=== PATIENT | female | born 1950 | race Hispanic/Latino ===

== ENCOUNTER 2016-07-21 03:15 | Inpatient (IN) | payer MEDICARE, MEDICAID ==
[2016-07-21] VITALS (9 sets, daily range): BP systolic 109–145; BP diastolic 38–62; PULSE 53–72; RESP 14–20; O2SAT 94–99
[~2016-07-21] VITALS: Ht 137.2 cm; Wt 65.1 kg
[~2016-07-21 03:15] MED LIST: ACET-171 PO; ASPI325T32 PO; CARV6.252 PO; CLON0.1T14 PO; HYDR-3940 PO; INSLIS SUBQ; INSU100V7 SUBQ; LISI40TA PO; LON25 PO; PANT40TA2 PO; SYN75 PO
[2016-07-21 05:17] LABS: BASOPHILS % (AUTO) 0.2 % (0-3); EOSINOPHILS % (AUTO) 0.2 % (0-5); MONOCYTES % (AUTO) 8.6 % (4-12); Mean Corpuscular Volume 96.6 fL (81-100); NEUTROPHILS % (AUTO) 82.8 % (40-74); Platelet Count 173 bil/L (150-400)
--- NOTE | 2016-07-21 05:29 | ED.REPORT ---
HPI-Altered Mental Status Date of Service Jul 21, 2016 ED Provider: Rickey Puckett MD This is a 65 year old female presenting after an episode of decreased LOC that occurred just prior to arrival. Nursing Notes Stated Complaint: SWEATING/NOT RESPONDING Chief Complaint: General Complaint Nursing Notes Reviewed: Yes Allergies: Coded Allergies: piroxicam (Verified Allergy, Severe, swelling, 03/28/16) glipizide (Verified Allergy, Intermediate, 03/28/16) amlodipine (Verified Allergy, Unknown, 03/28/16) labetalol (Verified Allergy, Unknown, 03/28/16) Scheduled Aspirin (Aspirin) 325 Mg Tablet 325 MG PO DAILY Carvedilol (Carvedilol) 6.25 Mg Tablet 12.5 MG PO BID Clonidine (Catapres) 0.1 Mg Tablet 0.2 MG PO Q8H Hydralazine (Hydralazine) 50 Mg Tablet 75 MG PO Q8 Insulin Glargine (Lantus U100 Insulin Vial) 100 Unit/Ml Vial 5 UNIT SUBQ HS Insulin Human Lispro (HumaLOG U100 Insulin Vial) 100 Unit/Ml Unit 0 UNIT SUBQ WMHS Check blood sugars before meals and at bedtime. Use correction factor only before meals. Blood Sugar Lispro Correction: <151, 0 units; 151-175, 1 unit; 176-200, 2 units; 201-225, 3 units; 226-250, 4 units; 251-275, 5 units; 276-300 , 6 units; 301-325, 7 units; 326-350, 8 units; 351-375, 9 units; 376-400, 10 units; >400, 12 units. Levothyroxine (Synthroid) 75 Mcg Tablet 75 MCG PO DAILY Lisinopril (Lisinopril) 40 Mg Tablet 40 MG PO DAILY Minoxidil (Minoxidil) 2.5 Mg Tablet 5 MG PO BID Pantoprazole DR (Protonix) 40 Mg Tablet.dr 40 MG PO QAM Scheduled PRN Acetaminophen (Acetaminophen) 500 Mg Tablet 500 MG PO Q6H PRN PRN For Pain General Time Seen by MD: 04:40 Chief Complaint Unresponsive Hx Obtained From: Patient Arrived By: Walk-in Sudden in Onset?: Yes Onset Occurred: Just prior to arrival Symptom Duration: Since onset Severity: Current: No pain currently Pertinent Negative: Pt denies other symptoms Recent Healthcare: No recent doctor visit, No recent hospitalization Similar Sx Previous: No Past Medical History Past Medical History 1. Stage 5 chronic kidney disease, hemodialysis dependent. 2. 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 3. Severe hypertension. 4. History of diastolic congestive heart failure. 5. Dyslipidemia. 6. Hypothyroidism. 7. Obesity. 8. Renal dialysis with right arm shunt. Past Surgical History 1. Tunnel catheter placed on AV fistula right upper extremity. 2. Appendectomy. 3. Cataract surgery. 4. bypass surgery 08/27/14 Smoking History Never Smoker Social History Alcohol Use: Denies alcohol use Drug Use: Denies drug use Other Social History: Good social support Ambulatory Status Independent Review of Systems Constitutional: Denies: Chills, Fever Respiratory: Denies: Non-productive cough, Shortness of breath GI: Denies: Abdominal pain, Nausea, Vomiting Neurologic: Reports: Change LOC, Denies: Headache Complete sys rev & neg: except as marked. Physical Exam Initial Vital Signs Vital Signs (First) Date Time Temp Pulse Resp B/P Pulse Ox O2 Delivery O2 Flow Rate FiO2 07/21/16 03:19 38.4 72 18 111/46 Room Air 07/21/16 04:52 94 Initial VS: Reviewed Interpretation & Diagnostics Lab Results Interpretation Result Diagram: 07/21/16 0427 07/21/16 0427 Test 07/21/16 04:27 07/21/16 06:45 07/21/16 06:47 White Blood Count 12.5th/mm3 (3.8-10.1) Red Blood Count 3.28mil/mm3 (3.90-5.20) Hemoglobin 10.5g/dL (12.0-15.6) Hematocrit 31.7% (35.0-46.0) Mean Corpuscular Volume 96.6fL (81-100) Mean Corpuscular Hemoglobin 32.0pg (27.0-35.0) Mean Corpuscular Hemoglobin Concent 33.1% (32.0-37.0) Red Cell Distribution Width 12.6% (12.3-15.4) Platelet Count 173bil/L (150-400) Neutrophils (%) (Auto) 82.8% (40-74) Lymphocytes (%) (Auto) 7.9% (14-46) Monocytes (%) (Auto) 8.6% (4-12) Eosinophils (%) (Auto) 0.2% (0-5) Basophils (%) (Auto) 0.2% (0-3) Sodium Level 133mEq/L (134-144) Potassium Level 3.4mEq/L (3.5-5.2) Chloride Level 95mEq/L (97-108) Carbon Dioxide Level 23mmol/L (18-29) Blood Urea Nitrogen 32mg/dL (8-27) Creatinine 4.15mg/dL (0.57-1.00) Estimat Glomerular Filtration Rate 15mL/min (>59) Glucose Level 227mg/dL (60-99) Calcium Level 9.2mg/dL (8.5-10.1) Total Bilirubin 0.5mg/dL (0.0-1.2) Aspartate Amino Transf (AST/SGOT) 14U/L (0-50) Alanine Aminotransferase (ALT/SGPT) 7U/L (0-32) Alkaline Phosphatase 149U/L (25-165) Troponin T 0.065ug/L (0.0-0.011) Pro-B-Type Natriuretic Peptide 25306vw/mL (0-301) Total Protein 7.5g/dL (6.4-8.4) Albumin 3.4g/dL (3.4-5.0) Lactic Acid Level 0.7mmol/L (0.4-2.0) Urine Color Yellow (YELLOW) Urine Appearance Turbid (CLEAR,HAZY) Urine pH 6.0 (5.0-8.0) Urine Specific [place] 1.020 (1.003-1.035) Urine Protein 300mg/dL (NEG,TRACE) Urine Glucose (UA) 100mg/dL (NEGATIVE) Urine Ketones Tracemg/dL (NEGATIVE) Urine Occult Blood Moderate (NEGATIVE) Urine Nitrite Negative (NEGATIVE) Urine Bilirubin Negative (NEGATIVE) Urine Urobilinogen Normalmg/dL (NORMAL) Urine Leukocyte Esterase Moderate (NEGATIVE) Urine RBC 3-10/hpf (0-2) Urine WBC 11-50/hpf (0-5) Urine Epithelial Cells Few/hpf (NONE-MOD) Urine Crystals None seen (NONE SEEN) Urine Bacteria Moderate/hpf (NONE-FEW) Urine Hyaline Casts None/lpf (NONE) Urine Granular Casts None seen (NONE SEEN) Urine Waxy Casts None seen (NONE SEEN) Urine Red Blood Cell Casts None seen (NONE SEEN) Urine White Blood Cell Casts None seen (NONE SEEN) Urine Mucus None seen (None Seen) Urine Trichomonas None seen (NONE SEEN) Urine Yeast None (NONE SEEN) Urinalysis Comment Urine Culture Reflexed Indicated ECG Interpretation ECG Interpretation: NSR at a rate of 64 Probable LVH with secondary repolarization abnormality Time: 05:39 Interpreted by: ED physician X-Ray Chest Interpretation Interpretation / Wet Read by: Wet read ED physician NL X-Ray Chest Findings: No infiltrate, No acute disease Re-Eval/Medical Decision Counseled Regarding: Diagnosis, Lab results, Need for follow-up Patient Discharge & Departure Referrals: Mira Ovalle MD (PCP) Scribe Attestation Portions of this note were transcribed by Ty Ruffin. I, Dr. Puckett personally performed the history, physical exam and medical decision-making; I reviewed and confirmed the accuracy of the information in the transcribed note. Signed by: Ty Ruffin. 07/20/2016, 0530. Rickey Puckett MD Jul 21, 2016 05:29 TY RUFFIN Jul 21, 2016 05:34 Dmitri Marquez MD Jul 21, 2016 12:37
--- NOTE | 2016-07-21 06:02 | ED.REPORT ---
HPI-Altered Mental Status Date of Service Jul 21, 2016 ED Provider: Dmitri Marquez MD 65 year old female with a hx of End stage renal disease on hemodialysis (M,W,F, still urinates), Diastolic heart failure, Diabetes mellitus type 2, Chronic Hypothyroid, Hypertension, coronary artery disease status post coronary artery bypass graft who presents to the ED accompanied by her family after she was found difficult to arouse and diaphoretic this morning. The patient was feeling well yesterday and had a complete dialysis. She had no symptoms until her family noted her difficult to rouse this morning. Pt currently denies any symptoms including vomiting, diarrhea, CP and SOB. Her family reports a chronic cough. In March the patient was seen for pyelonephritis with similar presentation with admission. She was diagnosed with acute Sepsis secondary to E. Coli UTI and probable pyelonephritis, and acute altered mental status change possible acute delirium or acute metabolic encephalopathy due to underlying UTI. Nursing Notes Stated Complaint: SWEATING/NOT RESPONDING Chief Complaint: General Complaint Nursing Notes Reviewed: Yes Allergies: Coded Allergies: piroxicam (Verified Allergy, Severe, swelling, 03/28/16) glipizide (Verified Allergy, Intermediate, 03/28/16) amlodipine (Verified Allergy, Unknown, 03/28/16) labetalol (Verified Allergy, Unknown, 03/28/16) Scheduled Aspirin (Aspirin) 325 Mg Tablet 325 MG PO DAILY Carvedilol (Carvedilol) 6.25 Mg Tablet 12.5 MG PO BID Clonidine (Catapres) 0.1 Mg Tablet 0.2 MG PO Q8H Hydralazine (Hydralazine) 50 Mg Tablet 75 MG PO Q8 Insulin Glargine (Lantus U100 Insulin Vial) 100 Unit/Ml Vial 5 UNIT SUBQ HS Insulin Human Lispro (HumaLOG U100 Insulin Vial) 100 Unit/Ml Unit 0 UNIT SUBQ WMHS Check blood sugars before meals and at bedtime. Use correction factor only before meals. Blood Sugar Lispro Correction: <151, 0 units; 151-175, 1 unit; 176-200, 2 units; 201-225, 3 units; 226-250, 4 units; 251-275, 5 units; 276-300 , 6 units; 301-325, 7 units; 326-350, 8 units; 351-375, 9 units; 376-400, 10 units; >400, 12 units. Levothyroxine (Synthroid) 75 Mcg Tablet 75 MCG PO DAILY Lisinopril (Lisinopril) 40 Mg Tablet 40 MG PO DAILY Minoxidil (Minoxidil) 2.5 Mg Tablet 5 MG PO BID Pantoprazole DR (Protonix) 40 Mg Tablet.dr 40 MG PO QAM Scheduled PRN Acetaminophen (Acetaminophen) 500 Mg Tablet 500 MG PO Q6H PRN PRN For Pain General Time Seen by MD: 04:40 Chief Complaint Decreased responsiveness Hx Obtained From: Patient, Other family... Arrived By: Wheelchair Sudden in Onset?: No Onset Occurred: 1 - 4 hours ago Symptom Duration: Since onset Severity: Current: No pain currently Associated with: Denies: Diarrhea, Vomiting Pertinent Negative: Relieved by nothing Past Medical History Past Medical History 1. Stage 5 chronic kidney disease, hemodialysis dependent (M,W,F) 2. 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 3. Severe hypertension. 4. History of diastolic congestive heart failure. 5. Dyslipidemia. 6. Hypothyroidism. 7. Obesity. 8. Renal dialysis with right arm shunt. Past Surgical History 1. Tunnel catheter placed on AV fistula right upper extremity. 2. Appendectomy. 3. Cataract surgery. 4. bypass surgery 08/27/14 Smoking History Never Smoker Social History Alcohol Use: Denies alcohol use Drug Use: Denies drug use Other Social History: Good social support Ambulatory Status Independent Review of Systems Basic Review of Systems ENT: Hearing NL, No pain, No nasal congestion, No pharyngeal pain Constitutional: Denies: Fever Respiratory: Reports: Non-productive cough, Denies: Shortness of breath Cardiovascular: Denies: Chest pain GI: Denies: Abdominal pain, Diarrhea, Vomiting Skin: Reports Diaphoresis Neurologic: Reports: Change LOC Complete sys rev & neg: except as marked. Physical Exam Initial Vital Signs Vital Signs (First) Date Time Temp Pulse Resp B/P Pulse Ox O2 Delivery O2 Flow Rate FiO2 07/21/16 03:19 38.4 72 18 111/46 Room Air 07/21/16 04:52 94 Initial VS: Reviewed ENT: Conjunctiva normal, No scleral icterus General/Constitutional: Awake, Alert Sleepy Head / Eyes: Atraumatic, Normocephalic, PERRL Neck: Supple, Full range of motion Respiratory / Chest: Atraumatic, No respiratory distress, No rhonchi, No wheezing, No chest tenderness Fine bibasilar rales Cardiovascular: Heart rate NL, Regular rhythm, Peripheral circulation NL Heart Sounds / Murmur: Positive: Systolic murmur present.. (II/) Trace edema Neurologic: Oriented X3, Speech NL, No motor deficits Sleepy, but arousable to voice and touch Abdomen: Soft, Non-tender, BS normoactive, No distention Skin: Warm Color / Condition: Positive: Diaphoresis present Interpretation & Diagnostics Lab Results Interpretation Result Diagram: 07/21/16 0427 07/21/16 042 Test 07/21/16 04:27 07/21/16 06:45 07/21/16 06:47 White Blood Count 12.5th/mm3 (3.8-10.1) Red Blood Count 3.28mil/mm3 (3.90-5.20) Hemoglobin 10.5g/dL (12.0-15.6) Hematocrit 31.7% (35.0-46.0) Mean Corpuscular Volume 96.6fL (81-100) Mean Corpuscular Hemoglobin 32.0pg (27.0-35.0) Mean Corpuscular Hemoglobin Concent 33.1% (32.0-37.0) Red Cell Distribution Width 12.6% (12.3-15.4) Platelet Count 173bil/L (150-400) Neutrophils (%) (Auto) 82.8% (40-74) Lymphocytes (%) (Auto) 7.9% (14-46) Monocytes (%) (Auto) 8.6% (4-12) Eosinophils (%) (Auto) 0.2% (0-5) Basophils (%) (Auto) 0.2% (0-3) Sodium Level 133mEq/L (134-144) Potassium Level 3.4mEq/L (3.5-5.2) Chloride Level 95mEq/L (97-108) Carbon Dioxide Level 23mmol/L (18-29) Blood Urea Nitrogen 32mg/dL (8-27) Creatinine 4.15mg/dL (0.57-1.00) Estimat Glomerular Filtration Rate 15mL/min (>59) Glucose Level 227mg/dL (60-99) Calcium Level 9.2mg/dL (8.5-10.1) Total Bilirubin 0.5mg/dL (0.0-1.2) Aspartate Amino Transf (AST/SGOT) 14U/L (0-50) Alanine Aminotransferase (ALT/SGPT) 7U/L (0-32) Alkaline Phosphatase 149U/L (25-165) Troponin T 0.065ug/L (0.0-0.011) Pro-B-Type Natriuretic Peptide 38073ya/mL (0-301) Total Protein 7.5g/dL (6.4-8.4) Albumin 3.4g/dL (3.4-5.0) Lactic Acid Level 0.7mmol/L (0.4-2.0) Urine Color Yellow (YELLOW) Urine Appearance Turbid (CLEAR,HAZY) Urine pH 6.0 (5.0-8.0) Urine Specific [place] 1.020 (1.003-1.035) Urine Protein 300mg/dL (NEG,TRACE) Urine Glucose (UA) 100mg/dL (NEGATIVE) Urine Ketones Tracemg/dL (NEGATIVE) Urine Occult Blood Moderate (NEGATIVE) Urine Nitrite Negative (NEGATIVE) Urine Bilirubin Negative (NEGATIVE) Urine Urobilinogen Normalmg/dL (NORMAL) Urine Leukocyte Esterase Moderate (NEGATIVE) Urine RBC 3-10/hpf (0-2) Urine WBC 11-50/hpf (0-5) Urine Epithelial Cells Few/hpf (NONE-MOD) Urine Crystals None seen (NONE SEEN) Urine Bacteria Moderate/hpf (NONE-FEW) Urine Hyaline Casts None/lpf (NONE) Urine Granular Casts None seen (NONE SEEN) Urine Waxy Casts None seen (NONE SEEN) Urine Red Blood Cell Casts None seen (NONE SEEN) Urine White Blood Cell Casts None seen (NONE SEEN) Urine Mucus None seen (None Seen) Urine Trichomonas None seen (NONE SEEN) Urine Yeast None (NONE SEEN) Urinalysis Comment Urine Culture Reflexed Indicated General Lab Results Interp 1: Labs reviewed ECG Interpretation ECG Interpretation: LVH, presents on prior ECG 03/27/16 Time: 05:00 Interpreted by: ED physician Normal ECG Interpretation: Normal rate (64), Normal sinus rhythm X-Ray Chest Interpretation Chest Xray Interpretation: IMPRESSION: Persistent low lung volumes with interstitial prominence and bibasilar radiodensities likely atelectasis. Correlate clinically. Dictated by: Tariq Mendoza RRA Interpreted: Fadia Aguilar MD on 07/21/2016 at 9:56 View: Portable, 1 view Interpretation / Wet Read by: Interpret - Radiologist Re-Eval/Medical Decision Re-Evaluation/Progress : Time of Eval: 10:22 Re-Evaluation/Progress Note: Updated pt and family of labs, ECG and imaging results. Recommended admission. They understand and agree with plan. All questions addressed. Consultation #1: Referral / Consult Name: Aristides Stephens MD Consulted With: Nephrology Call Returned at: 06:48 [employer] Ste[employer]/Stewardess: Will see patient Consultation #2: Referral / Consult Name: Cj Lott MD Consulted With: Hospitalist Call Returned at: 10:29 [employer] Steward/Stewardess: Will see patient, Agrees with eval, Agrees with plan, Accepts admit Counseled Regarding: Diagnosis, Lab results, Need for admission Patient Discharge & Departure Impression: Primary Impression: UTI (urinary tract infection) Urinary tract infection type: site unspecified Hematuria presence: without hematuria Qualified Code: N39.0 - Urinary tract infection, site not specified Additional Impressions: Pyelonephritis Sepsis Sepsis type: sepsis due to unspecified organism Qualified Code: A41.9 - Sepsis, unspecified organism ESRD (end stage renal disease) on dialysis Disposition: ADMITTED TO HOSPITAL Discharge Condition All VS Reviewed: Yes Referrals: Mira Ovalle MD (PCP) Scribe Attestation Portions of this note were transcribed by Rowena Agarwal. I, (Dr. Dmitri Marquez) personally performed the history, physical exam and medical decision-making; I reviewed and confirmed the accuracy of the information in the transcribed note. Signed by: Rafael Mclean 07/21/2016, 1029 copies to: Mira Ovalle MD, Kirk H MD Jul 21, 2016 06:02 Rowena Agarwal Jul 21, 2016 06:25
[2016-07-21 06:08] LABS: TROPONIN T 0.065 ug/L (0.0-0.011)
[2016-07-21] MEDS ORDERED: 0.9% Sodium Chloride 1,000 ML IV ONE (06:22)
[2016-07-21] MEDS ORDERED: Piperacillin-Tazo 3.375 Gm Inj 3.375 GM in Dextrose 5% Minibag Plus 50 ML IV ONE (06:25)
[2016-07-21 07:55] LABS: APPEARANCE,URINE TURBID (CLEAR,HAZY); COLOR,URINE YELLOW (YELLOW)
[2016-07-21 07:58] LABS: OCCULT BLOOD,URINE MODERATE (NEGATIVE); UROBILINOGEN,URINE NORMAL (NORMAL)
--- NOTE | 2016-07-21 09:57 | DRSVH ---
PROCEDURE: X-RAY CHEST ONE VIEW, PORTABLE ([id number]) INDICATIONS: fever TECHNIQUE: One view of the chest was acquired. COMPARISON: [facility], CR, XR CHEST 2VW, 04/29/2016, 14:42. FINDINGS: Surgical changes and devices: Post median sternotomy. Lungs and pleura: No pleural effusions or pneumothorax. Lung volumes are low and interstitium is pr ominent. Medial bibasilar airspace opacities. Mediastinum: Mediastinal contours appear normal. Heart size is normal. Bones and chest wall: No suspicious bony lesions. Overlying soft tissues appear unremarkable. IMPRESSION: Persistent low lung volumes with interstitial prominence and bibasilar radiodensities lik wilfredo atelectasis. Correlate clinically. Dictated by: Tariq Mendoza [facility] Interpreted: Fadia Aguilar MD on 07/21/2016 at 9:56 Transcribed by: TYRONE on 07/21/2016 at 9:56 Approved by: Fadia Aguilar MD, PhD on 07/21/2016 at 17:05
[2016-07-21] MEDS ORDERED: Ipratropium 0.02% 0.5 mg/2.5 mL Inhalation Solution NEB ONE (10:20)
[2016-07-21] MEDS ORDERED: Albuterol 2.5 mg/3 mL Inhalation Solution NEB ONE (10:20)
[2016-07-21] MEDS ORDERED: Ondansetron 2 mg/mL 2 mL Inj IVPUSH PRN ×2 (10:45→11:15)
[2016-07-21] MEDS ORDERED: Alum-Mag Hydrox-Simeth 30 mL Suspension PO PRN ×2 (10:45→11:15)
[2016-07-21] MEDS ORDERED: Polyethylene Glycol (PEG) 17 Gm Powder PO PRN (11:15)
--- NOTE | 2016-07-21 11:15 | NUR ---
Admission Patient arrived to unit via gurney. Patient alert and oriented x3 on admission. Family reporting patient had dialysis yesterday and was fine. This morning she was very difficult to wake up and was confused initially after waking. Patient now seems aware and is answering questions appropriately. ER nurse reported patient continued to be somnolent while in ER. Patient positive for UTI, antibiotics started.
[2016-07-21] MEDS ORDERED: Glucose 40% Oral Gel 15 Gm Tube PO PRN (12:00)
[2016-07-21] MEDS: Insulin LISPRO 300 Unit/3 mL Inj SUBQ SCH ×3 (12:00→21:52)
[2016-07-21] MEDS: 0.9% Sodium Chloride 1,000 ML IV SCH ×2 (14:03→22:07)
[2016-07-21] MEDS: cefTRIAXone Inj 1,000 MG in IV Premix 1 EACH IV SCH (14:03)
--- NOTE | 2016-07-21 14:23 | PCM.CHPMED ---
Subjective Date of Service: Jul 21, 2016 Primary Physician: Admitting Physician: Cj Lott MD Primary Care Physician: Mira Ovalle MD Attending Physician: Cj Lott MD Chief Complaint: Chief Complaint: Decreased level of consciousness History of Present Illness: This is a 65-year-old lady with history of type 2 diabetes, hypertension, end-stage renal disease on hemodialysis who presented to the hospital due to altered mental status. Per her son, the patient had some confusion and decreased level of consciousness. She was brought to the hospital for further investigation. According to the family, she did not have fever, chills, chest pain, shortness of breath, nausea, vomiting and diarrhea. She does not have dysuria. No hematuria. She had temp in ED, 38.4. Septic w/u was performed. Thus far, she was found to have pyuria. She was started on IV abx treating for complicated UTI. Renal was consulted to continue HD while she is hospitalized. She is a patient of Dr. Landeros. She is dialyzed at [facility] in [place] every Wednesday, Wednesday and Wednesday. Her last HD was yesterday. She was admitted with a similar symptom in Mar 2016. CT abdomen and pelvis with contrast performed at that time showed gallstones, concerning for acute cholecystitis, bilateral small pleural effusion, concentric thickening of nondistended fluid-filled bladder, possible nondistention versus cystitis. HIDA scan was normal. Her UA showed WBC more than 50, positive for bacteria. She was treated for E.coli UTI and sent home. PAST MEDICAL HISTORY: 1. End-stage renal disease on hemodialysis every Wednesday, Wednesday and Wednesday. 2. Type 2 diabetes with renal manifestation. 3. Hypertension. 4. Dyslipidemia. 5. Renal osteodystrophy. 6. Hypothyroidism. 7. Obesity. 8. Coronary artery disease status post CABG in 2014. 9. Cholelithiasis. SURGICAL HISTORY: 1. Status post AV fistula creation on the right upper extremity. 2. Status post CABG in 2014. 3. Status post appendectomy. 4. Status post cataract surgery. FAMILY HISTORY: Denied history of kidney disease in the family. SOCIAL HISTORY: Denied current use of alcohol, tobacco or illicit drugs. MEDICATIONS: Reviewed. REVIEW OF SYSTEMS: Constitutional: (+) fever noted in ED. HEENT: No headaches, no blurry vision. Cardiovascular: No chest pain or shortness of breath. Pulmonary: No cough. No hemoptysis. GI: No nausea or vomiting. No abdominal pain. Endocrine: No polyuria or polydipsia. Skin: No rashes. No excoriation. Hematology: No bruises. No active bleeding. Neuro: confused. PMH Bedside Blood Glucose: 185 Allergies: Coded Allergies: piroxicam (Verified Allergy, Severe, swelling, 03/28/16) glipizide (Verified Allergy, Intermediate, 03/28/16) amlodipine (Verified Allergy, Unknown, 03/28/16) labetalol (Verified Allergy, Unknown, 03/28/16) Social History Hx Alcohol Use: No (quit drinking 15 years ago)Hx Substance Use: NoHx Tobacco Use: No Smoking Status: Never Smoker Exam Vital Signs Vital Sign - Last Date Time Temp Pulse Resp B/P Pulse Ox O2 Delivery O2 Flow Rate FiO2 07/21/16 12:08 53 07/21/16 11:13 37.1 20 130/49 97 Room Air General: No Acute Distress Head: Normal Eyes: PERRLA, EOMI Nose: Dry membranes Mouth: Mouth Normal, Mucous Membranes Dry Neck: Supple, No Thyromegaly Chest & Lungs: Chest Wall Normal, Clear to auscultation & percussion, Auscultation, No adventitious breath sounds Cardiovascular: Regular Rate/Rhythm, Normal S1, Normal S2, No Murmurs/Rubs/ Gallops Abdomen: Non-tender, Non-distended, No masses, No hepatosplenomegaly Extremities: No cyanosis/clubbing/edma bilat Lab and Diagnostics Result Diagram: 07/21/1642607/21/16426 Assessment & Plan Assessment 1. End-stage renal disease on hemodialysis every Wednesday, Wednesday and Wednesday. 2. Sepsis likely due to complicated urinary tract infection. 3. Altered mental status, possibly related to sepsis. 4. Type 2 diabetes with renal manifestation. 5. Hypertension. 6. Coronary artery disease status post coronary artery bypass graft. PLAN: No urgent HD indicated at this moment. We will arrange for HD in am. Continue IV abx, pending finalized cultures. Thank you for allowing me to participate in the care of your patient. We will monitor along. Problems: Aristides Stephens MD Jul 21, 2016 14:12
--- NOTE | 2016-07-21 14:59 | PCM.HPMED ---
Subjective Date of Service Jul 21, 2016 Primary Provider: Admitting Physician: Cj Lott MD Primary Care Physician: Mira Ovalle MD Attending Physician: Cj Lott MD Admit Status: From the Emergency Department, Admit to [facility] Team Chief Complaint: altered mental status History of Present Illness: 65-year-old female with a history of end-stage renal disease requiring hemodialysis, type II diabetes, hypertension, hyperlipidemia presented to the ER secondary to altered mental status per her family. Family states that overnight the patient became increasingly confused. They also noted that she has been experiencing fevers, chills and drenching sweats. The family states that she was brought into the hospital in March with similar symptoms. Family is unsure if the patient produces urine at baseline. Family reports that her methods and procedures analyst is Dr. Landeros, and that she does dialysis 3 times a week. Family notes that she went to dialysis yesterday, and last night her symptoms began. Patient denies any abdominal pain , nausea or lack of appetite. In the ER, patient was afebrile with a temperature of 38.6, heart rate was 65, respiratory rate 20, blood pressure 145/46, 94 on room air. She received a dose of Zosyn while in the ER. Labs demonstrated elevated white count at 12.5, neutrophils 82.8. UA performed demonstrated positive leukocyte esterase, moderate bacteria with culture pending. No hematuria. Of note patient was hospitalized in March 2016 for Escherichia coli positive pyelonephritis. Review of Systems: A comprehensive review of systems was conducted with the patient and found to be negative except as above in the History of Present Illness. Allergies Coded Allergies: piroxicam (Verified Allergy, Severe, swelling, 03/28/16) glipizide (Verified Allergy, Intermediate, 03/28/16) amlodipine (Verified Allergy, Unknown, 03/28/16) labetalol (Verified Allergy, Unknown, 03/28/16) Home Medications Per ER notes Aspirin (Aspirin) 325 Mg Tablet 325 MG PO DAILY Carvedilol (Carvedilol) 6.25 Mg Tablet 12.5 MG PO BID Clonidine (Catapres) 0.1 Mg Tablet 0.2 MG PO Q8H Hydralazine (Hydralazine) 50 Mg Tablet 75 MG PO Q8 Insulin Glargine (Lantus U100 Insulin Vial) 100 Unit/Ml Vial 5 UNIT SUBQ HS Insulin Human Lispro (HumaLOG U100 Insulin Vial) 100 Unit/Ml Unit 0 UNIT SUBQ WMHS Check blood sugars before meals and at bedtime. Use correction factor only before meals. Blood Sugar Lispro Correction: <151, 0 units; 151-175, 1 unit; 176-200, 2 units; 201-225, 3 units; 226-250, 4 units; 251-275, 5 units; 276-300 , 6 units; 301-325, 7 units; 326-350, 8 units; 351-375, 9 units; 376-400, 10 units; >400, 12 units. Levothyroxine (Synthroid) 75 Mcg Tablet 75 MCG PO DAILY Lisinopril (Lisinopril) 40 Mg Tablet 40 MG PO DAILY Minoxidil (Minoxidil) 2.5 Mg Tablet 5 MG PO BID Pantoprazole DR (Protonix) 40 Mg Tablet.dr 40 MG PO QAM PMH 1. Stage 5 chronic kidney disease, hemodialysis dependent. 2. 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 3. Severe hypertension. 4. History of diastolic congestive heart failure. 5. Dyslipidemia. 6. Hypothyroidism. 7. Obesity. 8. Renal dialysis with right arm fistula. Surgical History 1. AV fistula right upper extremity. 2. Appendectomy. 3. Cataract surgery. 4. CABG bypass surgery 08/27/14 Family History Family denies any history of blood clots, stroke, heart attacks or cancer. Social History Hx Alcohol Use: No (quit drinking 15 years ago) Hx Substance Use: No Hx Tobacco Use: No Smoking Status: Never Smoker Living Arrangement: with Family Exam Vital Signs Vital Sign - Last Date Time Temp Pulse Resp B/P Pulse Ox O2 Delivery O2 Flow Rate FiO2 07/21/16 11:13 37.1 53 20 130/49 97 Room Air Exam General: No acute distress, well-developed, well-nourished, appropriately interactive HEENT: Normocephalic, atraumatic. Pupils equal, round, and reactive to light and accommodation. Anicteric sclerae, moist conjunctivae. Oropharynx with moist mucosa.Poor dentition. Neck: Supple with full range of motion. No lymphadenopathy Cardiovascular: Regular rate and rhythm. Systolic murmur auscultated. Pulmonary: Clear to auscultation bilaterally with no crackles, wheezes, or rhonchi. Normal respiratory effort with no use of accessory muscles. Abdomen: Bowel tones present. Soft, nontender, nondistended. Extremities: No clubbing, cyanosis, edema, or lymphadenopathy appreciated. Skin: Normal temperature, turgor, and texture; no rash, ulcers, or subcutaneous nodules appreciated. Psychiatric: Normal mood and affect. Alert and oriented to person, place. Lab and Diagnostics Result Diagram: 07/21/1642607/21/16426 X-Rays, CTs and MRIs PROCEDURE: X-RAY CHEST ONE VIEW, PORTABLE ([id number]) FINDINGS: Surgical changes and devices: Post median sternotomy. Lungs and pleura: No pleural effusions or pneumothorax. Lung volumes are low and interstitium is prominent. Medial bibasilar airspace opacities. Mediastinum: Mediastinal contours appear normal. Heart size is normal. Bones and chest wall: No suspicious bony lesions. Overlying soft tissues appear unremarkable. IMPRESSION: Persistent low lung volumes with interstitial prominence and bibasilar radiodensities likely atelectasis. Correlate clinically. Dictated by: Tariq Mendoza RRA Interpreted: Fadia Aguilar MD on 07/21/2016 at 9:56 Transcribed by: TYRONE on 07/21/2016 at 9:56 Assessment & Plan The patient is a 65yoF with past medical history of ESRD on hemodialysis, DM type 2, CHF, HTN, HLD who presented to the [facility] ED with altered mental status per her family. Hospital Day 1 Sepsis likely secondary to pyelonephritis, present on admission, ongoing - SIRS with T 38.6, and WBC 12.5 -Treat underlying cause--complicate UTI Acute pyelonephritis, present on admission, ongoing -Zosyn and NS given in ER -Urine and blood cultures pending -Initiate Rocephin treatment today, adjust medications when cultures and sensitivities available -Start NS 100mls/hr Altered mental status (septic encephalopathy) likely secondary to pyelonephritis , present on admission, ongoing -Treat underlying cause and monitor for improvement -If pt does not improve with improvement of underlying cause, will investigate for other potential causes. End stage renal disease (stage 5) on hemodialysis, present on admission, chronic - Patient received dialysis yesterday -Dialysis MWF -Renal diet ordered - Nephrology consulted Diabetes mellitus type 2, present on admission, presumed stable - Patient placed on correction scale lispro -A1C checked 03/29/16, was 6.5 Chronic and stable conditions: Chronic diastolic heart failure,presumed stable -ECHO done in 2014 Hypothyroidism, chronic, presumed stable -Continue home medications Hyperlipidemia,chronic, presumed stable -Continue home medications HTN,chronic, presumed stable -Continue home medications Code status: Full code Patient is admitted to inpatient status given current diagnosis and likely medical complication likely length of stay greater than 2 midnights. VTE Prophylaxis: SCDs Resuscitation Status: CPR: Attempt Resuscitation Time spent 45 minutes Attending Statement Patient seen and examined with residents. Agree with all attached documentation. Lisa Angel DO Jul 21, 2016 11:57 Cj Lott MD Jul 23, 2016 14:35
[2016-07-21] MEDS ORDERED: CALC667T5 PO (15:56)
[2016-07-22] VITALS (9 sets, daily range): BP systolic 144–214; BP diastolic 56–121; PULSE 61–85; RESP 17–19; O2SAT 96–98
--- NOTE | 2016-07-22 05:42 | NUR ---
Holding IVF/HTN Pt has been pleasant and cooperative with care. Tried getting up to use BSC but not able to walk a couple of steps. Pt denies chest pain, sob, n/v and abd discomfort. Micro called for gram (-) rods 4/4 bottles, MD was notified and ordered a repeat blood cult. Pt's BP has been high the whole shift, last was 178/68. Stopped IV fluids and notified MD. No new orders at the moment. Will continue to monitor.
[2016-07-22 06:22] LABS: BASOPHILS % (AUTO) 0.2 % (0-3); EOSINOPHILS % (AUTO) 0.4 % (0-5); MONOCYTES % (AUTO) 7.2 % (4-12); Mean Corpuscular Hemoglobin 32.5 pg (27.0-35.0); Mean Corpuscular Volume 96.8 fL (81-100); NEUTROPHILS % (AUTO) 83.7 % (40-74); Platelet Count 170 bil/L (150-400)
[2016-07-22] MEDS: Insulin LISPRO 300 Unit/3 mL Inj SUBQ SCH ×4 (08:00→23:00)
[2016-07-22] MEDS: 0.9% Sodium Chloride 1,000 ML IV SCH (08:00)
[2016-07-22] MEDS: cefTRIAXone Inj 1,000 MG in IV Premix 1 EACH IV SCH (08:46)
--- NOTE | 2016-07-22 09:50 | NUR ---
Dialysis Patient to [facility] for dialysis. Addendum: 07/22/16 at 1156 by PALLAVI ZAVALA RN Cheli LENZ from [facility] reporting patient systolic BP >200. Hospitalist contacted. Pharmacy contacted, home medications ordered. Pharmacy contacted. Cheli called again reporting systolic BP >240. Pharmacy contacted. Antihypertensives taken to [facility]. Addendum: 07/22/16 at 1405 by PALLAVI ZAVALA RN Dialysis nursing report from Cheli, reports patient BP quite high. Patient given BP medications but was chewing and not swallowing pills. Patient then had emesis-unknown how much medications patient retained. [employer] contacted. IV BP medication order obtained.. Addendum: 07/22/16 at 1644 by PALLAVI ZAVALA RN [id number] patient given IV drip Enalapril. BP 208/107. BP checked @ 1616, increased to 214/121. Hospitalist notified. Hydralazine IV push ordered. Addendum: 07/22/16 at 1924 by PALLAVI ZAVALA RN Hydralazine 10 mg IV given, minimally effective. BP212/71. Hospitalist paged-no response. Patient continues to have nausea/vomiting-unable to give HS meds early. Paged hospitalist-request for stronger anti emetic. No response.
--- NOTE | 2016-07-22 11:25 | NUR ---
Transfer to [facility] Patient transport to room 244-2. [place] Rican speaking. Denies pain. Hypertensive. RN notified. Home meds ordered per MD. Report received from Brenda Lee RN. Will give antihypertensives.
[2016-07-22] MEDS: cloNIDine 0.1 mg Tablet PO SCH (11:38)
--- NOTE | 2016-07-22 12:19 | PCM.PNMED ---
Subjective Date of Service Jul 22, 2016 Subjective Patient was seen at HD unit. She is more awake and alert today. BP noted to be elevated. Blood cultures (+) GNR x2, Urine culture GNR > 100,000 Exam Vital Signs Vital Sign - Last Date Time Temp Pulse Resp B/P Pulse Ox O2 Delivery O2 Flow Rate FiO2 07/22/16 11:42 85 07/22/16 05:14 37.5 17 178/68 98 Room Air Intake and Output 07/21/16 07/21/16 07/22/16 Cumulative From/Thru 14:59 22:59 06:59 07/21/16 03:19 - 07/22/16 06:54 Intake Total 1000 ml 120 ml 1700 ml 2820 ml Output Total 0 ml 0 ml 0 ml Balance 1000 ml 120 ml 1700 ml 2820 ml Intake Oral 120 ml 0 ml 120 ml IV Total 1000 ml 1700 ml 2700 ml Output Urine Total 0 ml 0 ml Urine/Stool Mix 0 ml 0 ml # Bowel Movements 0 0 Exam General: No Acute Distress, AAOx3, NAD, Kyrgyz-speaking. Head: Normal Eyes: PERRLA, EOMI Nose: Dry membranes Mouth: Mouth Normal, Mucous Membranes Dry Neck: Supple, No Thyromegaly Chest & Lungs: Chest Wall Normal, Clear to auscultation & percussion, Auscultation, No adventitious breath sounds Cardiovascular: Regular Rate/Rhythm, Normal S1, Normal S2, No Murmurs/Rubs/ Gallops Abdomen: Non-tender, Non-distended, No masses, No hepatosplenomegaly Extremities: No cyanosis/clubbing/edma bilat Lab and Diagnostics Result Diagram: 07/22/1652407/22/16524 X-Rays, CTs and MRIs PROCEDURE: X-RAY CHEST ONE VIEW, PORTABLE ([id number]) FINDINGS: Surgical changes and devices: Post median sternotomy. Lungs and pleura: No pleural effusions or pneumothorax. Lung volumes are low and interstitium is prominent. Medial bibasilar airspace opacities. Mediastinum: Mediastinal contours appear normal. Heart size is normal. Bones and chest wall: No suspicious bony lesions. Overlying soft tissues appear unremarkable. IMPRESSION: Persistent low lung volumes with interstitial prominence and bibasilar radiodensities likely atelectasis. Correlate clinically. Dictated by: Tariq Mendoza RRA Interpreted: Fadia Aguilar MD on 07/21/2016 at 9:56 Transcribed by: TYRONE on 07/21/2016 at 9:56 Assessment & Plan 1. ESRD on HD MWF. 2. Metabolic encephalopathy, improving. 3. Sepsis. 4. Complicated UTI with GNR bacteremia, pending finalized cultures. 5. Uncontrolled HTN. Plan: d/c IVF. resume home BP meds. HD today. continue current IV abx. bladder scan, in and out cath if urine volume > 150 ml. VTE Prophylaxis: SCDs Resuscitation Status: CPR: Attempt Resuscitation Aristides Stephens MD Jul 22, 2016 12:19
[2016-07-22] MEDS: Lisinopril 40 Tablet PO SCH (13:21)
--- NOTE | 2016-07-22 13:30 | NUR ---
Dialysis note: 3 1/2 hrs tx. 2000 ml net UF. Right upper arm fistula. Pls see DTR for VS details. Qb 400. Heparin prime given. O2 @ 2L via NC on. Pt hypertensive during tx, scheduled BP meds given; Dr Anderson notified. PRN Zofran 4mg IV given for nausea. Post tx, fistula needle sites clotted w/in 10 min.
[2016-07-22] MEDS ORDERED: Labetalol 5 mg/mL 4 mL Inj IVPUSH STA (13:48)
--- NOTE | 2016-07-22 13:57 | NUR ---
Hypertension/Nausea Patient non verbal. Nodding head occasionally. Given Clonindine and Monoxidol orally as ordered. Little effect. Given Lisinopril, Carvediol and Hydralazine. Small emesis following crushed meds given in applesauce. Little effect from antihypertensives, questionable if they were absorbed. Zofran given. Dr. Agarwal notified of BP. Ending pressure 250s/110s. Deferred to Dr. Anderson. Dr. Anderson called, updated. Ordered IV antihypertensive. Report given to Brenda Lee RN. Patient transported by bed to previous inpatient room.
[2016-07-22] MEDS ORDERED: Enalaprilat Inj 1.25 MG in Dextrose 5% 50 ML IV ONE (14:10)
--- NOTE | 2016-07-22 15:53 | PCM.PNMED ---
Subjective Date of Service Jul 22, 2016 Subjective Pt reports that she is feeling well. Pt denies any nausea, vomiting, diarrhea, dysuria or hematuria. Pt denies any fevers or chills. She denies any shortness of breath or cough. Pt denies any abdominal or flank pain. Family is present and feel that she appears improved. They note that at baseline she is not oriented to time or place, but is oriented to person and family. Exam Vital Signs Vital Sign - Last Date Time Temp Pulse Resp B/P Pulse Ox O2 Delivery O2 Flow Rate FiO2 07/22/16 15:10 36.8 75 18 208/107 Room Air 07/22/16 05:14 98 Intake and Output 07/21/16 07/21/16 07/22/16 Cumulative From/Thru 15:00 23:00 07:00 07/21/16 03:19 - 07/22/16 06:54 Intake Total 1000 ml 120 ml 1700 ml 2820 ml Output Total 0 ml 0 ml 0 ml Balance 1000 ml 120 ml 1700 ml 2820 ml Intake Oral 120 ml 0 ml 120 ml IV Total 1000 ml 1700 ml 2700 ml Output Urine Total 0 ml 0 ml Urine/Stool Mix 0 ml 0 ml # Bowel Movements 0 0 Exam General: No acute distress, well-developed, well-nourished, appropriately interactive HEENT: Normocephalic, atraumatic. Pupils equal, round, and reactive to light and accommodation. Anicteric sclerae, moist conjunctivae. Oropharynx with moist mucosa.Poor dentition. Neck: Supple with full range of motion. No lymphadenopathy Cardiovascular: Regular rate and rhythm. Systolic murmur auscultated. Pulmonary: Clear to auscultation bilaterally with no crackles, wheezes, or rhonchi. Normal respiratory effort with no use of accessory muscles. Abdomen: Bowel tones present. Soft, nontender, nondistended. No CVA tenderness Extremities: No clubbing, cyanosis, edema, or lymphadenopathy appreciated. Skin: Normal temperature, turgor, and texture; no rash, ulcers, or subcutaneous nodules appreciated. Psychiatric: Normal mood and affect. Alert and oriented to person ( this is baseline per family). IVs and Medications Medications Reviewed: Medications were reviewed in detail Lab and Diagnostics Result Diagram: 07/22/16 0525 07/22/16 0525 Microbiology Microbiology DONNELL CULTURE BLOOD Preliminary 07/22/16-0646 Organism 1 POSITIVE BLOOD CULTURE GRAM STAIN RESULT GRAM NEGATIVE RODS BC BOTTLE Isolated from Anaerobic Bottle of Set Drawn DATE CALLED: 07/21/16 TIME CALLED: 2200 CALLED BY: HUMPHREY FLOOR/DOCTOR: MARCO Clement BC READ BACK Y TYPE OF DRAW PERIPHERAL DRAW TIME OF POSITIVITY 2100 GRAM STAIN RESULT GRAM NEGATIVE RODS BC BOTTLE2 Isolated from Aerobic Bottle of Set Drawn DATE CALLED: 07/21/16 TIME CALLED: 2300 CALLED BY: HUMPHREY FLOOR/DOCTOR: MARCO Clement BC READ BACK Y TYPE OF DRAW PERIPHERAL DRAW TIME OF POSITIVITY 2210 GRAM NEGATIVE SCOTTIE ID AND SENSITIVITIES TO FOLLOW ISOLATED FROM FOUR OF FOUR BOTTLES COLLECTED 07/21 Microbiology DONNELL CULTURE BLOOD Preliminary 07/22/16-47 Organism 1 POSITIVE BLOOD CULTURE GRAM STAIN RESULT GRAM NEGATIVE RODS BC BOTTLE Isolated from Aerobic Bottle of Set Drawn DATE CALLED: 07/21/16 TIME CALLED: 2200 CALLED BY: HUMPHREY TAYLOR/DOCTOR: MARCO Clement BC READ BACK Y TYPE OF DRAW NURSE COLLLECT TYPE NOT SPECIFIED TIME OF POSITIVITY 2140 GRAM STAIN RESULT GRAM NEGATIVE RODS BC BOTTLE2 Isolated from Anaerobic Bottle of Set Drawn DATE CALLED: 07/22/16 TIME CALLED: 0413 CALLED BY: MICK TAYLOR/DOCTOR: MARCO Quintero RN BC READ BACK Y TYPE OF DRAW NURSE COLLECT TYPE NOT INDICATED TIME OF POSITIVITY 0350 GRAM NEGATIVE SCOTTIE ID TO FOLLOW ISOLATED FROM FOUR OF FOUR BOTTLES COLLECTED 07/21 X-Rays, CTs and MRIs PROCEDURE: X-RAY CHEST ONE VIEW, PORTABLE ([id number]) FINDINGS: Surgical changes and devices: Post median sternotomy. Lungs and pleura: No pleural effusions or pneumothorax. Lung volumes are low and interstitium is prominent. Medial bibasilar airspace opacities. Mediastinum: Mediastinal contours appear normal. Heart size is normal. Bones and chest wall: No suspicious bony lesions. Overlying soft tissues appear unremarkable. IMPRESSION: Persistent low lung volumes with interstitial prominence and bibasilar radiodensities likely atelectasis. Correlate clinically. Dictated by: Tariq CERDA Interpreted: Fadia Aguilar MD on 07/21/2016 at 9:56 Transcribed by: TYRONE on 07/21/2016 at 9:56 Assessment & Plan The patient is a 65yoF with past medical history of ESRD on hemodialysis, DM type 2, CHF, HTN, HLD who presented to the [facility] ED with altered mental status per her family. Hospital Day 1 Sepsis likely secondary to pyelonephritis, present on admission, ongoing - SIRS with T 38.6, and WBC 12.5 -Treat underlying cause--pyelonephritis Acute pyelonephritis, present on admission, ongoing -Zosyn and NS given in ER -Urine cultures pending -Blood cultures( aerobic and anerobic) 4/4 bottle growing gram negative rods, awaiting identification and susceptibilities. -Continue Rocephin treatment , will adjust medications when sensitivities available -Infectious disease has been consulted Altered mental status likely secondary to pyelonephritis, present on admission, ongoing -Pt is improved, more alert and conversant. -Treat underlying cause and monitor for improvement End stage renal disease on hemodialysis, present on admission, chronic - Patient received dialysis today -Dialysis MWF -Renal diet ordered - Nephrology consulted Diabetes mellitus type 2, present on admission, presumed stable - Patient placed on correction scale lispro -A1C checked 03/29/16, was 6.5 HTN,chronic, ongoing, uncontrolled -Continue home medications -Appreciate Nephrology input on management -And one-time dose IV hydralazine Chronic and stable conditions: Chronic diastolic heart failure,presumed stable -ECHO done in 2014 Hypothyroidism, chronic, presumed stable -Continue home medications Hyperlipidemia,chronic, presumed stable -Continue home medications Code status: Full code Disposition: 1-2 days, depending on response to antibiotics and stability DVT: SCDs VTE Prophylaxis: SCDs Resuscitation Status: CPR: Attempt Resuscitation Attending Statement I reviewed this patients chart, discussed the plan of care with the resident and examined the patient. I agree with the above physical exam and assessment and plan. Lisa Angel DO Jul 22, 2016 15:53 Brett Agarwal DO Jul 22, 2016 18:02
[2016-07-22] MEDS ORDERED: hydrALAZINE 20 mg/mL Inj IV ONE (16:40)
[2016-07-22] MEDS: MetoCLOpramide 5 mg/mL 2 mL Inj IVPUSH PRN (20:48)
[2016-07-23] VITALS (11 sets, daily range): BP systolic 111–205; BP diastolic 48–82; PULSE 60–83; RESP 18; O2SAT 96–98
[2016-07-23] MEDS: cloNIDine 0.1 mg Tablet PO SCH ×4 (01:12→21:37)
[2016-07-23] MEDS ORDERED: hydrALAZINE 20 mg/mL Inj IV ONE (03:00)
[2016-07-23 06:25] LABS: BASOPHILS % (AUTO) 0.1 % (0-3); EOSINOPHILS % (AUTO) 0 % (0-5); MONOCYTES % (AUTO) 3.3 % (4-12); Mean Corpuscular Hemoglobin 32.3 pg (27.0-35.0); Mean Corpuscular Volume 95.7 fL (81-100); NEUTROPHILS % (AUTO) 91.2 % (40-74); Platelet Count 221 bil/L (150-400)
--- NOTE | 2016-07-23 07:38 | NUR ---
Swallow difficultly Pt was nauseated most of the shift. She had few emeses. Mediated With Reglan. When N/V resolved. PO BP meds given. Pt swallowed most of the pills and she was not able to swallow any more. She was able to follow commands to swallow. She will keep the water in her mouth and will not swallow it. No S/Sx of aspiration noted. Resident DO at the bedside to assess the pt. Head CT obtained (R/O CVA). No acute findings noted. Per family at the bedside these were not new symptoms. BP improved slightly after meds were given. No overt complications noted.
[2016-07-23] MEDS: Insulin LISPRO 300 Unit/3 mL Inj SUBQ SCH ×4 (08:00→21:47)
[2016-07-23] MEDS: Pantoprazole 40 mg ER24 Tablet PO SCH (08:14)
[2016-07-23] MEDS: cefTRIAXone Inj 1,000 MG in IV Premix 1 EACH IV SCH (08:14)
[2016-07-23] MEDS: Lisinopril 40 Tablet PO SCH (08:14)
--- NOTE | 2016-07-23 09:44 | DRSVH ---
PROCEDURE: CT BRAIN WITHOUT CONTRAST ([id number]) INDICATIONS: inc confusion, difficulty swallowing TECHNIQUE: Noncontrast 4.5 mm thick angled axial sections acquired from the foramen magnum to the vertex, with c oronal reformats. COMPARISON: [facility], CT, CT BRAIN WO CON, 03/27/2016, 23:36. [facility], CT, CT BRAIN WO CON, 03/27/2016, 13:00. [facility], CT, BRAIN W/O CONTRAST, 06/18/2011, 1 6:43. FINDINGS: Image quality: Excellent. CSF spaces: Basal cisterns are patent. No extra-axial fluid collections. The ventricles are symmet nell in size and shape. Brain: No intracranial bleeds or masses. There is cerebral volume loss for age, with resultant vent ricular and sulcal prominence. There are periventricular and deep white matter chronic small vessel ischemic changes. There is intracranial internal carotid artery atherosclerosis. Skull and face: Calvarium and visualized facial bones appear intact, without suspicious lesions. Sinuses: Visualized sinuses and mastoids are clear. IMPRESSION: No acute intracranial abnormality. Concordant with preliminary interpretation. Dictated by: Dyan Gonzales M.D. on 07/23/2016 at 9:42 Approved by: Dyan Gonzales M.D. on 07/23/2016 at 9:42
[2016-07-23] MEDS ORDERED: Enalaprilat 1.25 mg/mL 2 mL Inj IVPUSH PRN (11:25)
--- NOTE | 2016-07-23 11:30 | PCM.PNMED ---
Subjective Date of Service Jul 23, 2016 Subjective becomes more confused today. unable to swallow pills. BP remains elevated. Exam Vital Signs Vital Sign - Last Date Time Temp Pulse Resp B/P Pulse Ox O2 Delivery O2 Flow Rate FiO2 07/23/16 09:57 36.8 74 18 177/69 97 Room Air Intake and Output 07/22/16 07/22/16 07/23/16 Cumulative From/Thru 15:00 23:00 07:00 07/21/16 03:19 - 07/23/16 06:01 Intake Total 458 ml 3278 ml Output Total 2000 ml 2000 ml Balance -2000 ml 458 ml 1278 ml Intake Oral 400 ml 520 ml IV Total 58 ml 2758 ml Output Urine Total 0 ml Urine/Stool Mix 0 ml Ultrafiltrate 2000 ml 2000 ml # Voids 1 1 # Bowel Movements 1 1 Exam General: No Acute Distress, AAOx1 to person only, NAD, Ethiopian-speaking. Head: Normal Eyes: PERRLA, EOMI Mouth: Mouth Normal, Mucous Membranes Dry Neck: Supple, No Thyromegaly Chest & Lungs: Chest Wall Normal, Clear to auscultation & percussion, Auscultation, No adventitious breath sounds Cardiovascular: Regular Rate/Rhythm, Normal S1, Normal S2, No Murmurs/Rubs/ Gallops Abdomen: Non-tender, Non-distended, No masses, No hepatosplenomegaly Extremities: No cyanosis/clubbing/edma bilat Lab and Diagnostics Result Diagram: 07/23/16 0540 07/23/16 0540 Microbiology Microbiology DONNELL CULTURE BLOOD Preliminary 07/22/16-0646 Organism 1 POSITIVE BLOOD CULTURE GRAM STAIN RESULT GRAM NEGATIVE RODS BC BOTTLE Isolated from Anaerobic Bottle of Set Drawn DATE CALLED: 07/21/16 TIME CALLED: 2199 CALLED BY: HUMPHREY FLOOR/DOCTOR: SHAHEEN/ALVARADO Clement BC READ BACK Y TYPE OF DRAW PERIPHERAL DRAW TIME OF POSITIVITY 2100 GRAM STAIN RESULT GRAM NEGATIVE RODS BC BOTTLE2 Isolated from Aerobic Bottle of Set Drawn DATE CALLED: 07/21/16 TIME CALLED: 2300 CALLED BY: HUMPHREY FLOOR/DOCTOR: SHAHEEN/ALVAARDO Clement BC READ BACK Y TYPE OF DRAW PERIPHERAL DRAW TIME OF POSITIVITY 2210 GRAM NEGATIVE SCOTTIE ID AND SENSITIVITIES TO FOLLOW ISOLATED FROM FOUR OF FOUR BOTTLES COLLECTED 07/21 Microbiology DONNELL CULTURE BLOOD Preliminary 07/22/16-0647 Organism 1 POSITIVE BLOOD CULTURE GRAM STAIN RESULT GRAM NEGATIVE RODS BC BOTTLE Isolated from Aerobic Bottle of Set Drawn DATE CALLED: 07/21/16 TIME CALLED: 2200 CALLED BY: HUMPHREY FLOOR/DOCTOR: MARCO Quintero. BC READ BACK Y TYPE OF DRAW NURSE COLLLECT TYPE NOT SPECIFIED TIME OF POSITIVITY 2140 GRAM STAIN RESULT GRAM NEGATIVE RODS BC BOTTLE2 Isolated from Anaerobic Bottle of Set Drawn DATE CALLED: 07/22/16 TIME CALLED: 041 CALLED BY: MICK FLOOR/DOCTOR: MARCO Quintero, RN BC READ BACK Y TYPE OF DRAW NURSE COLLECT TYPE NOT INDICATED TIME OF POSITIVITY 0350 GRAM NEGATIVE SCOTTIE ID TO FOLLOW ISOLATED FROM FOUR OF FOUR BOTTLES COLLECTED 07/21 X-Rays, CTs and MRIs PROCEDURE: X-RAY CHEST ONE VIEW, PORTABLE ([id number]) FINDINGS: Surgical changes and devices: Post median sternotomy. Lungs and pleura: No pleural effusions or pneumothorax. Lung volumes are low and interstitium is prominent. Medial bibasilar airspace opacities. Mediastinum: Mediastinal contours appear normal. Heart size is normal. Bones and chest wall: No suspicious bony lesions. Overlying soft tissues appear unremarkable. IMPRESSION: Persistent low lung volumes with interstitial prominence and bibasilar radiodensities likely atelectasis. Correlate clinically. Dictated by: Tariq Mendoza RRA Interpreted: Fadia Aguilar MD on 07/21/2016 at 9:56 Transcribed by: TYRONE on 07/21/2016 at 9:56 Assessment & Plan 1. ESRD on HD MWF. 2. Metabolic encephalopathy, improving. 3. Sepsis. 4. Complicated UTI with GNR bacteremia, pending finalized cultures. 5. Uncontrolled HTN. ( allergic to labetalol and amlodipine). Plan: Pt is not able to swallow pills. will add clonidine patch. IV enalaprilat 1.25 mg q 6 hr PRN. VTE Prophylaxis: SCDs Resuscitation Status: CPR: Attempt Resuscitation Aristides Stephens MD Jul 23, 2016 11:30
--- NOTE | 2016-07-23 15:14 | CONS ---
[address] [address] CONSULTATION REPORT PATIENT: MARTÍNEZ CHAHAL : 1950 MR#: [id number] ADMIT: 07/21/2016 JOB ID: [id number] DATE OF SERVICE: 07/23/2016 INFECTIOUS DISEASE CONSULTATION: I thank Dr. Brett Agarwal for this consult and I have discussed this case personally with him. REASON FOR CONSULTATION: High-grade E. coli bacteremia, presumably of urinary source, in a dialysis patient. HISTORY OF PRESENT ILLNESS: The patient is an unfortunate 65-year-old woman with longstanding end-stage renal disease who also suffers of course from hypertension and is dialyzed through a right upper extremity fistula. She was in her usual state of compensated health until a week. She was in her usual state of compensated health until about July 20, three days ago, when she became quite confused. The family noted that she been having some fevers, chills, sweats, and generalized weakness and malaise. They brought her to the hospital and she was admitted on the with concerns regarding possible sepsis. Subsequent to her admission her blood and urine cultures have grown E. coli. She has been started on appropriate antibiotics which currently consist of ceftriaxone and has been improving somewhat. This afternoon when we came to see the patient she was difficult to arouse and then seemed grossly disoriented and immediately returned to sleep from which she could not be aroused. The nurse's notes they recently gave her clonidine for hypertension, which course could produce this reaction. PAST MEDICAL HISTORY: 1. End-stage renal disease. 2. Hypertension. 3. Diabetes. 4. History of diastolic congestive heart failure. 5. Hyperlipidemia. 6. Hypothyroidism. 7. Obesity. 8. Status post appendectomy. 9. Question of possible cholecystitis within the past year, but no surgery was done and the patient improved. 10. Coronary artery disease status post bypass August 2014. SOCIAL HISTORY: The patient quit drinking 15 years ago and has never smoked. She lives with her family. FAMILY HISTORY: Could not be verified, as we were interested in asking her about tuberculosis; but, before the multiple punch press operator could ask her, the patient lapsed into a deep sleep. REVIEW OF SYSTEMS: Not possible because the patient is not awake. PHYSICAL EXAMINATION: Reveals an afebrile woman who was febrile to 38.6 during her first hospital day, on the . She has subsequently been afebrile for about 48 hours, currently 36.8. Pulse 74, respiratory rate is approximately 20, blood pressure 111/48, but she is requiring frequent antihypertensives. The patient's head is without trauma. Eyes without conjunctivitis. Oral cavity has poor dentition. The neck is completely supple, without adenopathy. Lungs shallow inspirations but no gross focal findings are noted. Cardiac tones with a harsh 3/6 systolic ejection murmur. The patient's abdomen is soft and relatively nontender, without obvious ascites or organomegaly. She does not have a Cagle catheter, though it is notable she does produce urine in small amounts. No suprapubic fullness is noted to suggest retention at this point. Her extremities were examined. She has wasting of her lower extremities and in the pattern that would be and not inconsistent with someone who does not walk. There is no skin breakdown present over her feet or ankles and there is no gross ischemia of her lower extremities. No evidence of synovitis. Neurologic exam cannot be done as the patient is currently just out. LABORATORIES: Include white count of 12,000 when she came in, 12,000 yesterday, and today 19,000. The diff includes 90% segs. Her creatinine 3.59, of course she is a dialysis patient. LFTs are normal. Albumin 3.6. Urinalysis had 11-50 white cells and a few red cells. Blood and urine cultures have grown E. coli. Interestingly the blood E. coli is highly resistant to Bactrim and the urine E. coli is quite susceptible, raising the possibility is that these are two separate E. coli strains within the blood and within the urine. This is of concern because it is possible that the E. coli in the blood has arisen from some other source such as possibly an intra-abdominal process rather than strictly from the urine as these are definitely not the same organism. The patient's chest x-ray shows low lung volumes with atelectasis and a brain CT done because of her obtundation basically is nonfocal and without gross abnormalities. Sinuses are clear. This is a slightly more confusing case that it appears. The easy way to explain this case is that she is a 67-year-old debilitated woman on chronic dialysis who comes in with a complicated urinary tract infection with sepsis. What argues against this very strongly is that the urine and blood isolates are distinctly different. It is highly unlikely that the lab would make an error of this magnitude as one of the isolates is exquisitely sensitive to Bactrim, while the other is totally resistant, proving that the blood and urine E. coli isolates are not one and the same. It could be, of course, that the patient has multiple E. coli within her urinary tract system and that the one found in the blood just coincidentally is different than the predominant isolate from the urine. A more ominous explanation might be that she does not in fact have "urosepsis" and rather has sepsis due to an intra-abdominal source such as gallbladder, perforated viscus, or ischemic bowel. RECOMMENDATIONS: 1. An ultrasound of the abdomen would be reasonable, with attention to the gallbladder and the kidneys. 2. Will switch the patient's ceftriaxone dose from 1 g a day to 2. 3. I see no reason for other antibiotic changes at this time but will watch the patient closely with you. 4. QuantiFERON Gold will be checked in this dialysis patient who I suspect was not born in the [place], though we were not able to ask her that question. If, indeed, she is a foreign-born person from [place], she would be at increased risk for tuberculosis and a QuantiFERON might represent the best chance to make a diagnosis of latent TB.
--- NOTE | 2016-07-23 15:34 | NUR ---
Social Work: Initial Assessment attempted Data: Pt is a 65 y/o female admitted for sepsis, pyelonephritis, ESRD. Pt's PCP is Dr. Ovalle, pt's insurance is Medicare with [facility] supp. HOLLOW CORE DOOR FRAME ASSEMBLER attempted to meet with pt at bedside with drosser. Pt could not be woken. HOLLOW CORE DOOR FRAME ASSEMBLER will attempt assessment at a later time. PT attempted to see pt today as well, was unable to awaken pt. HOLLOW CORE DOOR FRAME ASSEMBLER spoke with Bruno Flores CM after school program teacher with [employer], who is following pt and updated her that pt is likely to remain in hospital for at least a couple more days. HOLLOW CORE DOOR FRAME ASSEMBLER will continue to follow. Assessment: Pt who is independent at baseline. Plan: Pt plan looks like either home with HH or SNF. HOLLOW CORE DOOR FRAME ASSEMBLER will follow up after PT sees pt. MICKEY Terrell
--- NOTE | 2016-07-23 15:43 | NUR ---
Orders received. Chart reviewed. Evaluation attempted. Patient unable to follow directions or keep eyes open for evaluation today. Will attempt again tomorrow am. Rec: NPO except essential medication crushed in pureed.
--- NOTE | 2016-07-23 18:38 | PCM.PNMED ---
Subjective Date of Service Jul 23, 2016 Subjective Overnight, patient reportedly became more confused, and also was having difficulty swallowing pills. Nursing also noted that pt experienced nausea and vomiting overnight, which was improved with reglan. Patient's family reports that pt was less interactive and talkative overnight, but seems to be doing slightly better this morning. Exam Vital Signs Vital Sign - Last Date Time Temp Pulse Resp B/P Pulse Ox O2 Delivery O2 Flow Rate FiO2 07/23/16 09:57 36.8 74 18 177/69 97 Room Air Intake and Output 07/22/16 07/22/16 07/23/16 Cumulative From/Thru 15:00 23:00 07:00 07/21/16 03:19 - 07/23/16 06:01 Intake Total 458 ml 3278 ml Output Total 2000 ml 2000 ml Balance -2000 ml 458 ml 1278 ml Intake Oral 400 ml 520 ml IV Total 58 ml 2758 ml Output Urine Total 0 ml Urine/Stool Mix 0 ml Ultrafiltrate 2000 ml 2000 ml # Voids 1 1 # Bowel Movements 1 1 Exam General: No acute distress, well-developed, well-nourished, patient is fatigued HEENT: Normocephalic, atraumatic. Pupils equal, round, and reactive to light and accommodation. Anicteric sclerae, moist conjunctivae. Oropharynx with moist mucosa.Poor dentition. Neck: Supple with full range of motion. No lymphadenopathy Cardiovascular: Regular rate and rhythm. Systolic murmur auscultated. Pulmonary: Clear to auscultation bilaterally with no crackles, wheezes, or rhonchi. Normal respiratory effort with no use of accessory muscles. Abdomen: Bowel tones present. Soft, nontender, nondistended. No CVA tenderness Extremities: No clubbing, cyanosis, edema, or lymphadenopathy appreciated. Skin: Normal temperature, turgor, and texture; no rash, ulcers, or subcutaneous nodules appreciated. Psychiatric: Slow to respond to questions. Alert and oriented to person ( this is baseline per family). IVs and Medications Medications Reviewed: Medications were reviewed in detail Lab and Diagnostics Result Diagram: 07/23/1640 07/23/16539 Microbiology Microbiology DONNELL CULTURE BLOOD Preliminary 07/22/16-0646 Organism 1 POSITIVE BLOOD CULTURE GRAM STAIN RESULT GRAM NEGATIVE RODS BC BOTTLE Isolated from Anaerobic Bottle of Set Drawn DATE CALLED: 07/21/16 TIME CALLED: 2200 CALLED BY: HUMPHREY FLOOR/DOCTOR: MARCO Clement BC READ BACK Y TYPE OF DRAW PERIPHERAL DRAW TIME OF POSITIVITY 2100 GRAM STAIN RESULT GRAM NEGATIVE RODS BC BOTTLE2 Isolated from Aerobic Bottle of Set Drawn DATE CALLED: 07/21/16 TIME CALLED: 2300 CALLED BY: HUMPHREY FLOOR/DOCTOR: MARCO Clement BC READ BACK Y TYPE OF DRAW PERIPHERAL DRAW TIME OF POSITIVITY 2210 GRAM NEGATIVE SCOTTIE ID AND SENSITIVITIES TO FOLLOW ISOLATED FROM FOUR OF FOUR BOTTLES COLLECTED 07/21 Microbiology DONNELL CULTURE BLOOD Preliminary 07/22/16-0647 Organism 1 POSITIVE BLOOD CULTURE GRAM STAIN RESULT GRAM NEGATIVE RODS BC BOTTLE Isolated from Aerobic Bottle of Set Drawn DATE CALLED: 07/21/16 TIME CALLED: 2200 CALLED BY: HUMPHREY TAYLOR/DOCTOR: MARCO Clement BC READ BACK Y TYPE OF DRAW NURSE COLLLECT TYPE NOT SPECIFIED TIME OF POSITIVITY 2140 GRAM STAIN RESULT GRAM NEGATIVE RODS BC BOTTLE2 Isolated from Anaerobic Bottle of Set Drawn DATE CALLED: 07/22/16 TIME CALLED: 0413 CALLED BY: MICK FLOOR/DOCTOR: MARCO Quintero RN BC READ BACK Y TYPE OF DRAW NURSE COLLECT TYPE NOT INDICATED TIME OF POSITIVITY 0350 GRAM NEGATIVE SCOTTIE ID TO FOLLOW ISOLATED FROM FOUR OF FOUR BOTTLES COLLECTED 07/21 X-Rays, CTs and MRIs PROCEDURE: X-RAY CHEST ONE VIEW, PORTABLE ([id number]) FINDINGS: Surgical changes and devices: Post median sternotomy. Lungs and pleura: No pleural effusions or pneumothorax. Lung volumes are low and interstitium is prominent. Medial bibasilar airspace opacities. Mediastinum: Mediastinal contours appear normal. Heart size is normal. Bones and chest wall: No suspicious bony lesions. Overlying soft tissues appear unremarkable. IMPRESSION: Persistent low lung volumes with interstitial prominence and bibasilar radiodensities likely atelectasis. Correlate clinically. Dictated by: Tariq CERDA Interpreted: Fadia Aguilar MD on 07/21/2016 at 9:56 Transcribed by: TYRONE on 07/21/2016 at 9:56 Assessment & Plan The patient is a 65yoF with past medical history of ESRD on hemodialysis, DM type 2, CHF, HTN, HLD who presented to the [facility] with altered mental status per her family. Hospital Day #3 Sepsis likely secondary to pyelonephritis, present on admission, ongoing - SIRS with T 38.6, and WBC 12.5 -Treat underlying cause--pyelonephritis Acute pyelonephritis, present on admission, ongoing -Zosyn and NS given in ER -Urine cultures growing Escherichia coli -Blood cultures( aerobic and anaerobic) 10/27 bottle growing Escherichia coli as well -Infectious disease has been consulted, we appreciate Dr Gutierrez's input -ID recommended increase Ceftriaxone to 2gm daily Altered mental status likely secondary to pyelonephritis, present on admission, ongoing -Pt is fatigued and less interactive this morning. -CT of brain ordered overnight due to concern for status change---No acute abnormality Dysphagia, not present on admission, ongoing -Speech evaluation performed, recommending NPO except medication in pureed food. End stage renal disease on hemodialysis, present on admission, chronic - Patient received dialysis today -Dialysis MWF -Renal diet ordered - Nephrology consulted Diabetes mellitus type 2, present on admission, presumed stable - Patient placed on correction scale lispro -A1C checked 03/29/16, was 6.5 HTN,chronic, ongoing, uncontrolled -Continue home medications -Appreciate Nephrology input on management -Clonidine patch and IV enalaprilat 1.25 mg q 6 hr PRN. Chronic and stable conditions: Chronic diastolic heart failure,presumed stable -ECHO done in 2014 Hypothyroidism, chronic, presumed stable -Continue home medications Hyperlipidemia,chronic, presumed stable -Continue home medications Code status: Full code Disposition: 1-2 days, depending on response to antibiotics and stability DVT: SCDs VTE Prophylaxis: SCDs Resuscitation Status: CPR: Attempt Resuscitation Attending Statement I reviewed this patients chart, discussed the plan of care with the resident and examined the patient. I agree with the above physical exam and assessment and plan. Lisa Angel DO Jul 23, 2016 13:11 Brett Agarwal DO Jul 24, 2016 14:24
--- NOTE | 2016-07-23 21:51 | DRSVH ---
PROCEDURE: US ABDOMEN ([id number]) INDICATIONS: E coli sepsis-source unknown-check RUQ, kidneys,blad TECHNIQUE: Real-time scanning was performed of the abdominal and retroperitoneal organs, with image documentatio n. COMPARISON: [facility], CT, CT ABD PELVIS W CON, 03/28/2016, 6:25. [facility], [facility], US [facility]BDOMEN, 03/28/2016, 11:39. [facility], NM, NM HIDA SCAN W CCK STD, 03/29/2016, 18:43. FINDINGS: Liver: Liver is normal in size. There is a 2.6 x 2.0 x 3.7 cm hypoechoic area adjacent to the gallb ladder demonstrating small echogenic foci, suspicious for an intraheptic abscess. This finding is new . Gallbladder: Gallbladder is grossly abnormal. There is marked gallbladder wall thickening (up to 9.1 mm) and irregularity. There are gallstones and gallbladder sludge. The ultrasound findings are consis tent with acute cholecystitis. The hypoechoic area in liver may have direct connection to the gallbl adder, suspicious for gallbladder perforation. A small pericholecystic fluid is present. Biliary ducts: Intrahepatic bile ducts are non-dilated. Extrahepatic bile duct caliber measures 4.7 mm. Normal is 6-7 mm or less in diameter, or 10 mm or less post-cholecystectomy. Pancreas: Visualized portions of the pancreas are sonographically normal. Spleen: Spleen is normal in size and homogeneous in echotexture. Kidneys: The inferior pole of the right kidney is not visualized. Left kidney measures 7 cm in length , which is decreased in size. There is bilateral renal cortical thinning. No hydronephrosis or nephro lithiasis. A 1.3 cm cyst is noted in the superior pole of the right kidney. Aorta: Visualized aorta is normal in caliber at less than 3 cm. Iliacs: Proximal common iliac arteries are normal in caliber at less than 2.5 cm. IVC: Intrahepatic inferior vena cava is patent. Miscellaneous: No free abdominal fluid. Bladder is contracted, therefore, not well-seen. IMPRESSION: 1. Markedly abnormal gallbladder with gallstones/sludge and irregular gallbladder wall thickening, co nsistent with acute cholecystitis. 2. There is a hypocortical area in the liver adjacent to the gallbladder, which appears to be connect ed gallbladder, suspicious for gallbladder perforation and an intrahepatic abscess. 3. Atrophic kidneys bilaterally. The result was called to Dr. Long by restaurant hostess Darcy. Dictated by: Dorinda Gerber M.D. on 07/23/2016 at 21:50 Transcribed by: SIMA on 07/23/2016 at 21:50 Approved by: Dorinda Gerber M.D. on 07/23/2016 at 22:13
[2016-07-23] MEDS ORDERED: metroNIDAZOLE Inj 1,000 MG in IV Premix 1 EACH IV ONE (22:25)
[2016-07-24] VITALS (10 sets, daily range): BP systolic 127–172; BP diastolic 55–76; PULSE 64–79; RESP 16–18; O2SAT 96–100
[2016-07-24] MEDS: cloNIDine 0.1 mg Tablet PO SCH ×3 (03:46→20:42)
--- NOTE | 2016-07-24 05:37 | NUR ---
BP Medications Around 2130, BP 160/80, HR 60. Administered scheduled dose of Hydralazine and Clonidine. Withheld dose of scheduled Carvedilol. At 0343, BP 165/65, HR 64. Administered dose of Clonidine. At 0533, BP 127/55, HR 69. Attempted to give PO scheduled Hydralazine. Pt was sleeping, difficult to arouse. Withheld as BP WNL and Pt has potential dysphagia. Continuing to monitor.
[2016-07-24 06:17] LABS: BASOPHILS % (AUTO) 0 % (0-3); EOSINOPHILS % (AUTO) 0 % (0-5); MONOCYTES % (AUTO) 4.6 % (4-12); Mean Corpuscular Hemoglobin 32.5 pg (27.0-35.0); Mean Corpuscular Volume 98.5 fL (81-100); NEUTROPHILS % (AUTO) 87.2 % (40-74); Platelet Count 178 bil/L (150-400)
[2016-07-24] MEDS: Insulin LISPRO 300 Unit/3 mL Inj SUBQ SCH ×5 (08:00→22:00)
[2016-07-24] MEDS ORDERED: cefTRIAXone Inj 2,000 MG in IV Premix 1 EACH IV SCH (08:30)
--- NOTE | 2016-07-24 09:12 | NUR ---
Social Work: Initial Assessment Data: Pt is a 65 y/o female admitted for sepsis, pyelonephritis, ESRD. Pt's PCP is Dr Ledbetter, pt's insurance is Medicare with [facility] supp. EMR reviewed. PT attempted to meet pt yesterday, will meet her today for evaluation. AQUARIUM TANK ATTENDANT met with pt at bedside with fundraising specialist, role explained. Pt states that she lives in a single story home with her , daughter, and son. She states that she has a walker and a cane and requires assistance with ADL's from her daughter. Pt reports both HH and SNF history, but does not remember the names of facilities. Pt states that she does not have LTC or VA benefits. Pt is not a caregiver for another. Pt states her spouse can give her a ride home at d/c. AQUARIUM TANK ATTENDANT will continue to follow post PT evaluation. Assessment: Pt will caregiving at baseline. Plan: AQUARIUM TANK ATTENDANT will follow post PT evaluation. Pt will likely need either HH or SNF at d/c. AQUARIUM TANK ATTENDANT will continue to follow. MICKEY Terrell Addendum: 07/24/16 at 0916 by SYMONE HARMON Amended: Links added.
--- NOTE | 2016-07-24 09:26 | PCM.PNMED ---
Subjective Date of Service Jul 24, 2016 Subjective I have reviewed the ultrasound and discuss the case with Dr. Angel the [employer] team. The patient. It appears that she has somewhat of an asymptomatic acute cholecystitis based on her white count and her gallbladder ultrasound. She denies any nausea, vomiting, right upper quadrant pain or diarrhea. She is also scheduled dialysis today and those orders have been written. Exam Vital Signs Vital Sign - Last Date Time Temp Pulse Resp B/P Pulse Ox O2 Delivery O2 Flow Rate FiO2 07/24/16 05:33 36.9 69 18 127/55 98 Room Air Intake and Output 07/23/16 07/23/16 07/24/16 Cumulative From/Thru 15:00 23:00 07:00 07/21/16 03:19 - 07/24/16 00:30 Intake Total 300 ml 0 ml 3578 ml Output Total 0 ml 0 ml 2000 ml Balance 300 ml 0 ml 1578 ml Intake Oral 300 ml 0 ml 820 ml IV Total 2758 ml Output Urine Total 0 ml 0 ml 0 ml Urine/Stool Mix 0 ml Ultrafiltrate 2000 ml # Voids 1 # Bowel Movements 1 1 3 Exam Patient is resting comfortably during my examination. Neck is supple without adenopathy thyromegaly or jugular venous distention. Lungs were clear to auscultation. Heart regular rhythm with soft systolic murmur. Abdomen was soft and diminished bowel sounds noted. She had some mild right upper quadrant tenderness however sign was positive. She did not have any evidence of any rebound guarding or masses. Skin turgor was good and there is no evidence of any rashes. Lab and Diagnostics Result Diagram: 07/24/16 0545 07/24/1645 Microbiology Microbiology DONNELL CULTURE BLOOD Preliminary 07/22/16-0646 Organism 1 POSITIVE BLOOD CULTURE GRAM STAIN RESULT GRAM NEGATIVE RODS BC BOTTLE Isolated from Anaerobic Bottle of Set Drawn DATE CALLED: 07/21/16 TIME CALLED: 0 CALLED BY: HUMPHREY FLOOR/DOCTOR: SHAHEEN/ALVARADO SESAY READ BACK Y TYPE OF DRAW PERIPHERAL DRAW TIME OF POSITIVITY 2100 GRAM STAIN RESULT GRAM NEGATIVE RODS BC BOTTLE2 Isolated from Aerobic Bottle of Set Drawn DATE CALLED: 07/21/16 TIME CALLED: 2300 CALLED BY: HUMPHREY TAYLOR/DOCTOR: SHAHEEN/ALVARADO SESAY READ BACK Y TYPE OF DRAW PERIPHERAL DRAW TIME OF POSITIVITY 2210 GRAM NEGATIVE SCOTTIE ID AND SENSITIVITIES TO FOLLOW ISOLATED FROM FOUR OF FOUR BOTTLES COLLECTED 07/21 Microbiology DONNELL CULTURE BLOOD Preliminary 07/22/16-0647 Organism 1 POSITIVE BLOOD CULTURE GRAM STAIN RESULT GRAM NEGATIVE RODS BC BOTTLE Isolated from Aerobic Bottle of Set Drawn DATE CALLED: 07/21/16 TIME CALLED: 2200 CALLED BY: HUMPHREY FLOOR/DOCTOR: MARCO Clement BC READ BACK Y TYPE OF DRAW NURSE COLLLECT TYPE NOT SPECIFIED TIME OF POSITIVITY 2140 GRAM STAIN RESULT GRAM NEGATIVE RODS BC BOTTLE2 Isolated from Anaerobic Bottle of Set Drawn DATE CALLED: 07/22/16 TIME CALLED: 041 CALLED BY: MICK FLOOR/DOCTOR: SHAHEEN/ALVARADO Quintero, RN BC READ BACK Y TYPE OF DRAW NURSE COLLECT TYPE NOT INDICATED TIME OF POSITIVITY 0350 GRAM NEGATIVE SCOTTIE ID TO FOLLOW ISOLATED FROM FOUR OF FOUR BOTTLES COLLECTED 07/21 X-Rays, CTs and MRIs PROCEDURE: X-RAY CHEST ONE VIEW, PORTABLE ([id number]) FINDINGS: Surgical changes and devices: Post median sternotomy. Lungs and pleura: No pleural effusions or pneumothorax. Lung volumes are low and interstitium is prominent. Medial bibasilar airspace opacities. Mediastinum: Mediastinal contours appear normal. Heart size is normal. Bones and chest wall: No suspicious bony lesions. Overlying soft tissues appear unremarkable. IMPRESSION: Persistent low lung volumes with interstitial prominence and bibasilar radiodensities likely atelectasis. Correlate clinically. Dictated by: Tariq Mendoza RRA Interpreted: Fadia Aguilar MD on 07/21/2016 at 9:56 Transcribed by: TYRONE on 07/21/2016 at 9:56 Assessment & Plan Impression #1 end-stage renal disease dialysis dependent #2. Nephropathy #3 hypertension with hypertensive heart disease and hypertensive nephrosclerosis number for acute cholecystitis recommendation 1 alkaline equations for dialysis for today on her routine orders heparin pending surgical evaluation. The patient is a very poor surgical risk. VTE Prophylaxis: SCDs VTE Mechanical Devices: Intermittant Pneumatic CD Resuscitation Status: CPR: Attempt Resuscitation Brian Gresham DO Jul 24, 2016 09:26
--- NOTE | 2016-07-24 09:50 | PCM.PNMED ---
Subjective Date of Service Jul 24, 2016 Subjective Family denies any overnight events. They state that she seems improved overall from yesterday. Pt's states that she rested comfortably through the night. Pt denies any fevers, chills, shortness of breath, nausea, vomiting, or abdominal pain. Pt reports that she is tired, but otherwise ok. Exam Vital Signs Vital Sign - Last Date Time Temp Pulse Resp B/P Pulse Ox O2 Delivery O2 Flow Rate FiO2 07/24/16 05:33 36.9 69 18 127/55 98 Room Air Intake and Output 07/23/16 07/23/16 07/24/16 Cumulative From/Thru 15:00 23:00 07:00 07/21/16 03:19 - 07/24/16 00:30 Intake Total 300 ml 0 ml 3578 ml Output Total 0 ml 0 ml 2000 ml Balance 300 ml 0 ml 1578 ml Intake Oral 300 ml 0 ml 820 ml IV Total 2758 ml Output Urine Total 0 ml 0 ml 0 ml Urine/Stool Mix 0 ml Ultrafiltrate 2000 ml # Voids 1 # Bowel Movements 1 1 3 Exam General: No acute distress- pt is supine in bed, sleeping when I enter the room. HEENT: Normocephalic, atraumatic. Pupils equal, round, and reactive to light and accommodation. Anicteric sclerae, moist conjunctivae. Oropharynx with moist mucosa.Poor dentition. Neck: Supple with full range of motion. No lymphadenopathy Cardiovascular: Regular rate and rhythm. Systolic murmur auscultated. Pulmonary: Clear to auscultation bilaterally with no crackles, wheezes, or rhonchi. Normal respiratory effort with no use of accessory muscles. Abdomen: Soft, nontender, nondistended.mildly decreased bowel tones present. No CVA tenderness Extremities: No clubbing, cyanosis, edema, or lymphadenopathy appreciated. Skin: Normal temperature, turgor, and texture; no rash, ulcers, or subcutaneous nodules appreciated. Psychiatric: Slow to respond to questions. Alert and oriented to person ( this is baseline per family). IVs and Medications Medications Reviewed: Medications were reviewed in detail Lab and Diagnostics Result Diagram: 07/24/16 0545 07/24/16544 Microbiology Microbiology DONNELL CULTURE BLOOD Preliminary 07/22/16-0646 Organism 1 POSITIVE BLOOD CULTURE GRAM STAIN RESULT GRAM NEGATIVE RODS BC BOTTLE Isolated from Anaerobic Bottle of Set Drawn DATE CALLED: 07/21/16 TIME CALLED: 2200 CALLED BY: HUMPHREY FLOOR/DOCTOR: MARCO Clement BC READ BACK Y TYPE OF DRAW PERIPHERAL DRAW TIME OF POSITIVITY 2100 GRAM STAIN RESULT GRAM NEGATIVE RODS BC BOTTLE2 Isolated from Aerobic Bottle of Set Drawn DATE CALLED: 07/21/16 TIME CALLED: 2300 CALLED BY: HUMPHREY FLOOR/DOCTOR: MARCO Clement BC READ BACK Y TYPE OF DRAW PERIPHERAL DRAW TIME OF POSITIVITY 2210 GRAM NEGATIVE SCOTTIE ID AND SENSITIVITIES TO FOLLOW ISOLATED FROM FOUR OF FOUR BOTTLES COLLECTED 07/21 Microbiology DONNELL CULTURE BLOOD Preliminary 07/22/16-0647 Organism 1 POSITIVE BLOOD CULTURE GRAM STAIN RESULT GRAM NEGATIVE RODS BC BOTTLE Isolated from Aerobic Bottle of Set Drawn DATE CALLED: 07/21/16 TIME CALLED: 2200 CALLED BY: HUMPHREY TAYLOR/DOCTOR: MARCO Clement BC READ BACK Y TYPE OF DRAW NURSE COLLLECT TYPE NOT SPECIFIED TIME OF POSITIVITY 2140 GRAM STAIN RESULT GRAM NEGATIVE RODS BC BOTTLE2 Isolated from Anaerobic Bottle of Set Drawn DATE CALLED: 07/22/16 TIME CALLED: 0413 CALLED BY: MICK FLOOR/DOCTOR: MARCO Quintero RN BC READ BACK Y TYPE OF DRAW NURSE COLLECT TYPE NOT INDICATED TIME OF POSITIVITY 0350 GRAM NEGATIVE SCOTTIE ID TO FOLLOW ISOLATED FROM FOUR OF FOUR BOTTLES COLLECTED 07/21 X-Rays, CTs and MRIs PROCEDURE: X-RAY CHEST ONE VIEW, PORTABLE ([id number]) FINDINGS: Surgical changes and devices: Post median sternotomy. Lungs and pleura: No pleural effusions or pneumothorax. Lung volumes are low and interstitium is prominent. Medial bibasilar airspace opacities. Mediastinum: Mediastinal contours appear normal. Heart size is normal. Bones and chest wall: No suspicious bony lesions. Overlying soft tissues appear unremarkable. IMPRESSION: Persistent low lung volumes with interstitial prominence and bibasilar radiodensities likely atelectasis. Correlate clinically. Dictated by: Tariq CERDA Interpreted: Fadia Aguilar MD on 07/21/2016 at 9:56 Transcribed by: TYRONE on 07/21/2016 at 9:56 PROCEDURE: CT BRAIN WITHOUT CONTRAST FINDINGS: Image quality: Excellent. CSF spaces: Basal cisterns are patent. No extra-axial fluid collections. The ventricles are symmetric in size and shape. Brain: No intracranial bleeds or masses. There is cerebral volume loss for age , with resultant ventricular and sulcal prominence. There are periventricular and deep white matter chronic small vessel ischemic changes. There is intracranial internal carotid artery atherosclerosis. Skull and face: Calvarium and visualized facial bones appear intact, without suspicious lesions. Sinuses: Visualized sinuses and mastoids are clear. IMPRESSION: No acute intracranial abnormality. Concordant with preliminary interpretation. Dictated by: Dyan Gonzales M.D. on 07/23/2016 at 9:42 Approved by: Dyan Gonzales M.D. on 07/23/2016 at 9:42 PROCEDURE: US ABDOMEN COMPARISON: [facility], CT, CT ABD PELVIS W CON, 03/28/2016, 6:25. [facility], US, US ABDOMEN, 03/28/2016, 11:39. [facility], NM, NM HIDA SCAN W CCK STD, 03/29/2016, 18:43. FINDINGS: Liver: Liver is normal in size. There is a 2.6 x 2.0 x 3.7 cm hypoechoic area adjacent to the gallbladder demonstrating small echogenic foci, suspicious for an intraheptic abscess. This finding is new. Gallbladder: Gallbladder is grossly abnormal. There is marked gallbladder wall thickening (up to 9.1 mm) and irregularity. There are gallstones and gallbladder sludge. The ultrasound findings are consistent with acute cholecystitis. The hypoechoic area in liver may have direct connection to the gallbladder, suspicious for gallbladder perforation. A small pericholecystic fluid is present. Biliary ducts: Intrahepatic bile ducts are non-dilated. Extrahepatic bile duct caliber measures 4.7 mm. Normal is 6-7 mm or less in diameter, or 10 mm or less post-cholecystectomy. Pancreas: Visualized portions of the pancreas are sonographically normal. Spleen: Spleen is normal in size and homogeneous in echotexture. Kidneys: The inferior pole of the right kidney is not visualized. Left kidney measures 7 cm in length, which is decreased in size. There is bilateral renal cortical thinning. No hydronephrosis or nephrolithiasis. A 1.3 cm cyst is noted in the superior pole of the right kidney. Aorta: Visualized aorta is normal in caliber at less than 3 cm. Iliacs: Proximal common iliac arteries are normal in caliber at less than 2.5 cm. IVC: Intrahepatic inferior vena cava is patent. Miscellaneous: No free abdominal fluid. Bladder is contracted, therefore, not well-seen. IMPRESSION: 1. Markedly abnormal gallbladder with gallstones/sludge and irregular gallbladder wall thickening, consistent with acute cholecystitis. 2. There is a hypocortical area in the liver adjacent to the gallbladder, which appears to be connected gallbladder, suspicious for gallbladder perforation and an intrahepatic abscess. 3. Atrophic kidneys bilaterally. Dictated by: Dorinda Gerber M.D. on 07/23/2016 at 21:50 Transcribed by: SIMA on 07/23/2016 at 21:50 Approved by: Dorinda Gerber M.D. on 07/23/2016 at 22:13 Assessment & Plan The patient is a 65yoF with past medical history of ESRD on hemodialysis, DM type 2, CHF, HTN, HLD who presented to the [facility] ED with altered mental status per her family. Hospital Day #4 Sepsis likely secondary to pyelonephritis, present on admission, ongoing - SIRS with T 38.6, and WBC 12.5 -Treat underlying cause--pyelonephritis Acute pyelonephritis, present on admission, ongoing -Zosyn and NS given in ER -Urine and Blood cultures( aerobic and anaerobic) 4/ bottle growing E.coli -Infectious disease has been consulted, we appreciate Dr Gutierrez's input -ID recommends Ceftriaxone to 2gm daily Acute cholecystitis with possible perforation or abscess on US, ongoing -US on 07/23 demonstrating "gallstones/sludge and irregular gallbladder wall thickening & hypocortical area in the liver suspicious for gallbladder perforation/intrahepatic abscess. -Family is interested in surgery -Surgery has been consulted, we appreciate their input Altered mental status likely secondary to pyelonephritis, present on admission, ongoing -CT of brain---No acute abnormality -Palliative care consult placed, given pt's mentation, ESRD with dialysis and now cholecystitis to discuss goals of care. Dysphagia, not present on admission, ongoing -Speech evaluation performed -Pt is NPO End stage renal disease on hemodialysis, present on admission, chronic -Dialysis MWF -Renal diet ordered - Nephrology consulted we appreciate their input Diabetes mellitus type 2, present on admission, presumed stable - Patient placed on correction scale lispro -A1C checked 03/29/16, was 6.5 HTN,chronic, ongoing, uncontrolled -Continue home medications -Appreciate Nephrology input on management -Clonidine patch and IV enalaprilat 1.25 mg q 6 hr PRN. Chronic and stable conditions: Chronic diastolic heart failure,presumed stable -ECHO done in 2014 Hypothyroidism, chronic, presumed stable -Continue home medications Hyperlipidemia,chronic, presumed stable -Continue home medications Code status: Full code Disposition: unclear at this time, depending on response to antibiotics and stability, possible need for surgery DVT: SCDs VTE Prophylaxis: SCDs VTE Mechanical Devices: Intermittant Pneumatic CD Resuscitation Status: CPR: Attempt Resuscitation Attending Statement I reviewed this patients chart, discussed the plan of care with the resident and examined the patient. I agree with the above physical exam and assessment and plan. Lisa Angel DO Jul 24, 2016 09:50 Brett Agarwal DO Jul 24, 2016 14:26
[2016-07-24] MEDS: Pantoprazole 40 mg ER24 Tablet PO SCH (10:27)
[2016-07-24] MEDS: metroNIDAZOLE Inj 500 MG in IV Premix 1 EACH IV SCH ×2 (11:10→20:42)
[2016-07-24] MEDS: Lisinopril 40 Tablet PO SCH (11:13)
[2016-07-24] MEDS: cefTRIAXone Inj 2,000 MG in IV Premix 1 EACH IV SCH (12:25)
--- NOTE | 2016-07-24 12:32 | CONS ---
[address] [address] CONSULTATION REPORT PATIENT: MARTÍNEZ CHAHAL : 1950 MR#: [id number] ADMIT: 07/21/2016 JOB ID: [id number] DATE OF SERVICE: 07/24/2016 SURGICAL CONSULTATION: REASON FOR CONSULTATION: The patient is seen in consultation at the request of Dr. Angel for further evaluation and management of possible acute cholecystitis. HISTORY OF PRESENT ILLNESS: The patient is a 65-year-old female with end-stage renal disease, on dialysis, who was admitted to the hospital on July 21 after her family members found her confused. She was brought in by EMS. She was found to have a leukocytosis of 12.7, and was started on treatment for a possible urinary infection. Her blood grew out E. coli. Dr. Gutierrez of infectious disease was consulted yesterday and noted that her blood and urine cultures, although both growing E. coli, seem to be growing different strains. He considered there may be a possible intra-abdominal source for her bacteremia and ordered an abdominal ultrasound. The patient denied any recent history of abdominal pain. The ultrasound was performed yesterday afternoon and showed a grossly abnormal gallbladder with markedly gallbladder wall thickening up to 9.1 mm and irregularity. Gallstones and sludge were also noted. There was also a hypoechoic area in the liver adjacent to the gallbladder which was read as suspicious for gallbladder perforation versus an abscess in the liver. The patient continues to deny any significant abdominal pain or abdominal complaints. Of note, she was admitted with a similar problem in March of this year. At that time, on March 28, an ultrasound of the gallbladder was obtained which showed gallbladder wall measuring up to 11 mm in size. Stones and sludge were present at that time, and a sonographic Child sign was also reported. General Surgery was consulted and because the patient denied any significant abdominal pain or tenderness, decision was made to obtain a HIDA scan. The HIDA was obtained on the 29 of March and was negative for acute cholecystitis. Therefore, it was felt that her gallbladder was not the source of her bacteremia at that time and no further evaluation or therapy of the gallbladder was undertaken. Today, the patient is lucid. 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 She tells me that she is having no abdominal pain. PAST MEDICAL HISTORY: 1. End-stage renal disease. 2. Diabetes. 3. Hypertension. 4. Congestive heart failure. 5. Hyperlipidemia. 6. Hypothyroidism. 7. Coronary artery disease. PAST SURGICAL HISTORY: 1. Right upper extremity AV fistula. 2. Appendectomy. 3. Cataract surgery. 4. Coronary artery bypass graft in 2015. MEDICATIONS: Current medications reviewed in the computer. ALLERGIES: Allergies were reviewed in the computer. FAMILY HISTORY: Family history is reviewed and noncontributory. SOCIAL HISTORY: She lives with her family. She has never smoked. She does not drink alcohol. PHYSICAL EXAMINATION: Vital signs: Over the last 24 hours she has remained afebrile and hemodynamically normal. This morning temperature is 36.8 degrees, heart rate 76 beats per minute, blood pressure is 172/76. She is saturating 96% on room air with a respiratory rate of 16 breaths per minute. In general, she appears very comfortable, in no acute distress. Cardiovascular: She has a regular rate and rhythm. No appreciated murmurs, rubs, gallops. Pulmonary: Lungs clear to auscultation bilaterally. Vascular: She has no carotid bruit. Neck: She has no thyromegaly. Lymph: She has no cervical lymphadenopathy. GI: Her abdomen is soft, nondistended. She does not have any significant tenderness to palpation. If I palpate very deeply in the right upper quadrant, she does endorse pain. Initially, she endorsed pain with deep palpation in other areas of her abdomen but then later said it was only in the right upper quadrant. Extremities: Warm, without significant edema. Skin is warm without rash. Neuro is grossly intact. LABORATORIES: White blood cell count this morning is 13.2, down from 18.8 yesterday. Hematocrit stable at 33.7. Her platelet count was 178. Her creatinine is 5.03, her potassium is 4.6. IMAGING: Ultrasound from yesterday is personally reviewed and as per the HPI. I am unable to find the ultrasound or the CT scan from her prior visits. ASSESSMENT AND PLAN: This is a 65-year-old female with multiple medical comorbidities including end-stage renal disease, on hemodialysis, who was admitted with bacteremia with cultures growing Escherichia coli both from the blood, as well as the urine. Ultrasound yesterday demonstrates a thickened gallbladder wall. However, she did have similar findings in March, and a negative HIDA scan at that time. Ultrasound also demonstrates some hypoechoic areas in the liver concerning for the possibility of intrapelvic abscess. At this point, the patient remains with a relatively benign abdomen. However, it is certainly possible that she has acute cholecystitis. Given that there are enough confusing elements to her history, I think further investigation is warranted before embarking on surgery. If this is a case of acute on chronic cholecystitis, I would anticipate a very difficult procedure, which would likely have to be converted to open. This certainly carries more than usual morbidity and mortality, given her medical comorbidities. Also, the possibility of an intrahepatic abscess adds some complexity to the picture. At this point, I think the most appropriate course of action would be to get a CT scan of the abdomen to better evaluate the liver for possibility of an abscess. If there is an abscess, I would advocate for percutaneous drainage of both the gallbladder and the liver, and ongoing treatment with antibiotics. If there is no abscess and that turns out to be an artifact, then I would recommend obtaining a HIDA scan yet again before embarking on surgery. It is quite possible that these findings are unrelated to her bacteremia, given that they were identified three months ago.
--- NOTE | 2016-07-24 12:53 | NUR ---
Evaluation completed. Please go to "Notes" then click on "Assessments and Notes" (bottom left corner of screen). Then select appropriate discipline tab on top of screen.
--- NOTE | 2016-07-24 15:33 | NUR ---
Dialysis patient went out to dialysis approx 1250.
--- NOTE | 2016-07-24 15:36 | DRSVH ---
PROCEDURE: CT ABDOMEN WITH CONTRAST ([id number]) INDICATIONS: us results show gallstones TECHNIQUE: After the administration of oral and intravenous contrast, 5 mm thick sections acquired from the diap hragms to the iliac crests. 5 mm thick coronal and sagittal reformats were acquired. For radiation dose reduction, the following was used: automated exposure control, adjustment of mA and/or kV accor ding to patient size. COMPARISON: [facility], US, US ABDOMEN, 07/23/2016, 20:18. [facility], CT, CT ABD PELVIS W CON, 03/28/2016, 6:25. FINDINGS: Image quality: Excellent. Lung bases: Lung bases are clear. Heart size is normal. Solid organs: Gallbladder is distended. There are small gallstones. There are internal septa of gall bladder and wall thickening with trace pericholecystic fluid, consistent with acute cholecystitis. Th ere is a hypodense area within the liver with peripheral enhancement near gallbladder fossa measuring 2.4 x 3.1 cm, new since 03/28/2016. This collection appears to be connected to gallbladder and correl ates with similar findings on ultrasound, consistent with an intrahepatic abscess. Spleen is normal in size and enhancement. A calcified granuloma is are in spleen. Biliary ducts are n ot dilated. Pancreas enhances normally. There is bilateral adrenal thickening. Kidneys are atrophic . No hydronephrosis. Peritoneum and bowel: Contrast enhanced bowel loops appear normal in caliber. No free fluid or air. Nodes and vessels: No retroperitoneal or mesenteric adenopathy by size criteria. Aorta and inferior vena cava are normal in size. There is moderate atherosclerosis. Bones: No suspicious bony lesions. Mild compression fracture of L1. Miscellaneous: No ventral hernias. IMPRESSION: 1. Acute cholecystitis. 2. A 2.4 x 3.1 cm fluid collection with rim enhancement within the liver adjacent to the gallbladder fossa consistent with intrahepatic abscess. The intrahepatic abscess appears to be connected to gallb ladder consistent with gallbladder perforation into the liver. 3. Atrophic kidneys bilaterally. Dictated by: Dorinda Gerber M.D. on 07/24/2016 at 15:34 Approved by: Dorinda Gerber M.D. on 07/24/2016 at 15:34
--- NOTE | 2016-07-24 17:35 | NUR ---
Dialysis note: 3 1/2 hrs tx. 2000 ml net UF. Right upper arm fistula. Pls see DTR for VS details. Qb 400. No heparin given. O2 @ 2L via NC on. Stable tx, slept at intervals. Fistula needle sites clotted w/in 10 min.
--- NOTE | 2016-07-24 17:58 | NUR ---
pt returned to [facility] post DIALYSIS AT ~1745 report returned to primary RN see editor index note, intervention, and/or graphic flow for treatment details tele cardiac monitor informed of return to unit
--- NOTE | 2016-07-24 19:54 | PROG NOTE ---
[address] [address] PROGRESS NOTE PATIENT: MARTÍNEZ CHAHAL : 1950 MR#: [id number] ADMIT: 07/21/2016 JOB ID: [id number] DATE: 07/24/2016 REASON FOR FOLLOWUP: Dialysis patient with bacteremic E. coli infection. INTERVAL HISTORY: Yesterday when we saw the patient, we were concerned that her E. coli in the blood might not be coming from her urinary tract, as her urine E. coli and the blood E. coli isolate were totally different organisms. This was based on the antibiograms which were quite different. Because of this, additional imaging was ordered including a repeat ultrasound of her gallbladder which is known to have been inflamed at least since March. The ultrasound suggested acute cholecystitis, and for that reason, General Surgery was consulted. Dr. Barry of Surgery recommended we proceed to get a CT scan of the abdomen and that was done earlier this afternoon. The CT scan of the abdomen suggested there has now been extension from the inflamed gallbladder fossa into the liver with the formation of intrahepatic abscess. PHYSICAL EXAMINATION: Reveals a fairly comfortable woman who is currently being dialyzed. Her temperature is 36.8, pulse 70, respiratory rate 18, blood pressure 172/76. She is saturating reasonably well on room air. The patient currently denies having fevers or chills, though she does note she has some sweats. She has no acute pulmonary symptoms. She denies abdominal pain. Examination of the patient's oral cavity reveals it to be normal. Lungs relatively clear. Cardiac exam with a harsh 3/6 systolic ejection murmur. Right upper quadrant is basically nontender today. No skin rashes noted. LABORATORY DATA: Include white count which is more or less stable at 13,000 when averaged over the last four days. Still left shift is present. Her creatinine is 5.03. Her LFTs are normal. Albumin 3.6. Urinalysis with 11-50 white cells. QuantiFERON Gold is pending. Blood cultures and urine grew E. coli, but as noted, these are different E. coli. In any event, all the isolated E. coli are very sensitive to ceftriaxone which she is currently receiving. IMAGING: Imaging of the abdomen was already mentioned and shows a liver abscess. IMPRESSION: It now appears we have a different explanation for this patient's Escherichia coli bacteremia then when we started. Though she has Escherichia coli in blood and urine, they are different organisms and we now suspect at least that the Escherichia coli in the blood is arising from her infected gallbladder with associated intrahepatic abscess. Whether this intrahepatic abscess and acute on chronically inflamed gallbladder is best managed by percutaneous drainage or open surgical intervention will be left of course to the discretion of the surgeons and interventional radiologist. RECOMMENDATIONS: 1. Will continue with ceftriaxone and Flagyl for the time being. 2. Possible changes in antibiotics will be contingent on how the liver abscess and cholecystitis would be addressed by Surgery and/or Interventional Radiology.
--- NOTE | 2016-07-24 19:56 | PROG NOTE ---
[address] [address] PROGRESS NOTE PATIENT: MARTÍNEZ CHAHAL : 1950 MR#: [id number] ADMIT: 07/21/2016 JOB ID: [id number] DATE: 07/24/2016 I have reviewed the patient's CT scan. This does indeed suggest cholecystitis with intrahepatic abscess extending from the gallbladder. At this point, I think the best course of action would be cholecystostomy tube. To that end, I had a discussion with Dr. Gonzales from Interventional Radiology. However, he thinks given septations within the gallbladder that a cholecystostomy tube is not going to work. He recommends antibiotics for a few days and then reassess for possible cholecystostomy tube. Personally, I would rather try cholecystostomy tube and have that fail, then embark on surgery that is fraught with potential complications and mortality. I am not super thrilled about just sitting on her with antibiotics, though she does clinically appear to be doing quite well. At this point, I recommend continued antibiotic coverage and observation. I think ongoing discussion with Interventional Radiology about cholecystostomy tube is worthwhile.
[2016-07-24] MEDS ORDERED: 0.9% Sodium Chloride 100 ML ONE (20:28)
[2016-07-25] VITALS (7 sets, daily range): BP systolic 127–172; BP diastolic 51–72; PULSE 58–77; RESP 16–19; O2SAT 95–97
[2016-07-25] MEDS: cloNIDine 0.1 mg Tablet PO SCH ×3 (04:52→20:20)
--- NOTE | 2016-07-25 09:07 | NUR ---
Evaluation completed. Please go to "Notes" then click on "Assessments and Notes" (bottom left corner of screen). Then select appropriate discipline tab on top of screen.
--- NOTE | 2016-07-25 09:31 | PCM.PNSURG ---
Subjective Visit Information: Reason for Visit Sepsis, Pyelonephritis, Esrd Surgery/Surgery Date Post-Op Day # Date of Admission: Jul 21, 2016 at 10:32 Hospital Day # Subjective: No pain, eating eggs, No fevers, no nausea, no vomiting Objective Vital Sign- Last 8 Hours Date Time Temp Pulse Resp B/P Pulse Ox O2 Delivery O2 Flow Rate FiO2 07/25/16 09:26 70 07/25/16 08:34 37.2 67 18 147/55 96 Room Air 07/25/16 05:25 70 07/25/16 04:54 37.2 77 16 172/72 97 Room Air Intake and Output- Last 8 Hour 07/25/16 Cumulative From/Thru 07:00 07/21/16 03:19 - 07/25/16 04:54 Intake Total 513 ml 4341 ml Output Total 0 ml 4000 ml Balance 513 ml 341 ml Intake Oral 513 ml 1583 ml IV Total 2758 ml Output Urine Total 0 ml 0 ml Urine/Stool Mix 0 ml Ultrafiltrate 4000 ml # Voids 1 # Bowel Movements 5 General: Alert, Cooperative, No Acute Distress Abdomen: Soft, Non-tender Result Diagram: 07/24/16 0545 07/24/16 0545 Assessment & Plan Impression Cholecystitis with associated intrahepatic abscess Problems: Plan Dr. Barry and Dr. Gonzales discussed this case yesterday. Together the plan is observation with antibiotics and repeat CT scan Wednesday, with re-consultation of IR for possible cholecystostomy. I would lean toward draining both the gallbladder and the abscess. She is doing well at this time, no complaints, I agree with nonoperative management. VTE Prophylaxis: SCDs Resuscitation Status: CPR: Attempt Resuscitation Geeta Glass MD Jul 25, 2016 09:31
[2016-07-25] MEDS: metroNIDAZOLE Inj 500 MG in IV Premix 1 EACH IV SCH ×2 (09:46→20:17)
[2016-07-25] MEDS: Pantoprazole 40 mg ER24 Tablet PO SCH (09:46)
[2016-07-25] MEDS: Lisinopril 40 Tablet PO SCH (09:47)
--- NOTE | 2016-07-25 10:26 | PROG NOTE ---
[address] [address] PROGRESS NOTE PATIENT: MARTÍNEZ CHAHAL : 1950 MR#: [id number] ADMIT: 07/21/2016 JOB ID: [id number] DATE: 07/25/2016 INFECTIOUS DISEASE FOLLOW UP NOTE: REASON FOR FOLLOW UP: Cholecystitis with hepatic abscess and related E coli bacteremia. INTERVAL HISTORY: Overnight, the patient reports she has felt fairly well. She denies fevers, chills or sweats. She has had some nausea but no vomiting. She denies abdominal pain or significant shortness of breath. PHYSICAL EXAMINATION: Reveals a consistently afebrile woman. Recall that she was febrile on the when she came in, but she has been afebrile ever since. Pulse 70, respiratory rate 18, blood pressure 147/55, saturating well on room air. Eyes without conjunctivitis though there is some conjunctival pallor. Oral cavity negative. Lungs fairly clear, but without deep inspirations really. Cardiac tones without change. Abdomen soft and nontender and specifically no right upper quadrant tenderness. LABORATORIES: Include a persistent leukocytosis, currently 13,000 with 87% segs. Creatinine is 5.03 in this dialysis patient. LFTs are normal. QuantiFERON Gold pending. Micro: The patient had positive urine for E. coli and positive blood but these were different isolates based on the antibiogram suggesting a source other than urine for her bacteremia. IMAGING: Includes the CT scan that was done yesterday which shows acute cholecystitis and a 2 x 3 cm fluid collection in the liver adjacent to the gallbladder consistent with an intrapelvic abscess. IMPRESSION: This patient has a cholecystitis which appears to be chronic as was recognized during her earlier admission which has now extended and caused an intrahepatic abscess. I suspect that the E coli in her blood is due to the intrahepatic abscess and gallbladder issues rather that her urine as the E coli in the urine and the bladder are different isolates. RECOMMENDATIONS: 1. Will continue with ceftriaxone and Flagyl. 2. I have reviewed the surgical notes and they are certainly weighing what to do in terms of interventional radiology versus open surgery in this case.
[2016-07-25] MEDS: Insulin LISPRO 300 Unit/3 mL Inj SUBQ SCH ×4 (10:30→22:00)
--- NOTE | 2016-07-25 11:07 | PCM.PNMED ---
Subjective Date of Service Jul 25, 2016 Subjective The patient denies any abdominal pain, nausea or vomiting. I have reviewed the progress notes from the surgery department and also Dr. Ross's note from infectious disease. I a minimally invasive approach is probably the best approach in light of the patient's multiple comorbidities and debilitated condition. Exam Vital Signs Vital Sign - Last Date Time Temp Pulse Resp B/P Pulse Ox O2 Delivery O2 Flow Rate FiO2 07/25/16 09:26 70 07/25/16 08:34 37.2 18 147/55 96 Room Air Intake and Output 07/24/16 07/24/16 07/25/16 Cumulative From/Thru 15:00 23:00 07:00 07/21/16 03:19 - 07/25/16 04:54 Intake Total 250 ml 0 ml 513 ml 4341 ml Output Total 2000 ml 0 ml 0 ml 4000 ml Balance -1750 ml 0 ml 513 ml 341 ml Intake Oral 250 ml 0 ml 513 ml 1583 ml IV Total 2758 ml Output Urine Total 0 ml 0 ml 0 ml 0 ml Urine/Stool Mix 0 ml Ultrafiltrate 2000 ml 4000 ml # Voids 1 # Bowel Movements 1 1 5 Exam Neck is supple without adenopathy thyromegaly or jugular venous distention. Lungs are clear to auscultation. Heart is regular; the soft systolic murmur. Abdomen is soft without any tenderness or rebound guarding masses or hepatosplenomegaly. Extremities do not show significant clubbing cyanosis or edema. Skin turgor was good and is no evidence of any rashes. Lab and Diagnostics Result Diagram: 07/24/16 0545 07/24/16 0545 Microbiology Microbiology DONNELL CULTURE BLOOD Preliminary 07/22/16-0646 Organism 1 POSITIVE BLOOD CULTURE GRAM STAIN RESULT GRAM NEGATIVE RODS BC BOTTLE Isolated from Anaerobic Bottle of Set Drawn DATE CALLED: 07/21/16 TIME CALLED: 0 CALLED BY: HUMPHREY FLOOR/DOCTOR: SHAHEEN/ALVARADO SESAY READ BACK Y TYPE OF DRAW PERIPHERAL DRAW TIME OF POSITIVITY 2100 GRAM STAIN RESULT GRAM NEGATIVE RODS BC BOTTLE2 Isolated from Aerobic Bottle of Set Drawn DATE CALLED: 07/21/16 TIME CALLED: 2300 CALLED BY: HUMPHREY FLOOR/DOCTOR: SHAHEEN/ALVARADO SESAY READ BACK Y TYPE OF DRAW PERIPHERAL DRAW TIME OF POSITIVITY 2210 GRAM NEGATIVE SCOTTIE ID AND SENSITIVITIES TO FOLLOW ISOLATED FROM FOUR OF FOUR BOTTLES COLLECTED 07/21 Microbiology DONNELL CULTURE BLOOD Preliminary 07/22/16-0647 Organism 1 POSITIVE BLOOD CULTURE GRAM STAIN RESULT GRAM NEGATIVE RODS BC BOTTLE Isolated from Aerobic Bottle of Set Drawn DATE CALLED: 07/21/16 TIME CALLED: 2200 CALLED BY: HUMPHREY FLOOR/DOCTOR: MARCO Clement BC READ BACK Y TYPE OF DRAW NURSE COLLLECT TYPE NOT SPECIFIED TIME OF POSITIVITY 2140 GRAM STAIN RESULT GRAM NEGATIVE RODS BC BOTTLE2 Isolated from Anaerobic Bottle of Set Drawn DATE CALLED: 07/22/16 TIME CALLED: 041 CALLED BY: MICK FLOOR/DOCTOR: MARCO Quintero, RN BC READ BACK Y TYPE OF DRAW NURSE COLLECT TYPE NOT INDICATED TIME OF POSITIVITY 0350 GRAM NEGATIVE SCOTTIE ID TO FOLLOW ISOLATED FROM FOUR OF FOUR BOTTLES COLLECTED 07/21 X-Rays, CTs and MRIs PROCEDURE: X-RAY CHEST ONE VIEW, PORTABLE ([id number]) FINDINGS: Surgical changes and devices: Post median sternotomy. Lungs and pleura: No pleural effusions or pneumothorax. Lung volumes are low and interstitium is prominent. Medial bibasilar airspace opacities. Mediastinum: Mediastinal contours appear normal. Heart size is normal. Bones and chest wall: No suspicious bony lesions. Overlying soft tissues appear unremarkable. IMPRESSION: Persistent low lung volumes with interstitial prominence and bibasilar radiodensities likely atelectasis. Correlate clinically. Dictated by: Tariq Mendoza [facility] Interpreted: Fadia Aguilar MD on 07/21/2016 at 9:56 Transcribed by: TYRONE on 07/21/2016 at 9:56 PROCEDURE: CT BRAIN WITHOUT CONTRAST FINDINGS: Image quality: Excellent. CSF spaces: Basal cisterns are patent. No extra-axial fluid collections. The ventricles are symmetric in size and shape. Brain: No intracranial bleeds or masses. There is cerebral volume loss for age , with resultant ventricular and sulcal prominence. There are periventricular and deep white matter chronic small vessel ischemic changes. There is intracranial internal carotid artery atherosclerosis. Skull and face: Calvarium and visualized facial bones appear intact, without suspicious lesions. Sinuses: Visualized sinuses and mastoids are clear. IMPRESSION: No acute intracranial abnormality. Concordant with preliminary interpretation. Dictated by: Dyan Gonzales M.D. on 07/23/2016 at 9:42 Approved by: Dyan Gonzales M.D. on 07/23/2016 at 9:42 PROCEDURE: US ABDOMEN COMPARISON: [facility], CT, CT ABD PELVIS W CON, 03/28/2016, 6:25. [facility], US, US ABDOMEN, 03/28/2016, 11:39. [facility], NM, NM HIDA SCAN W CCK STD, 03/29/2016, 18:43. FINDINGS: Liver: Liver is normal in size. There is a 2.6 x 2.0 x 3.7 cm hypoechoic area adjacent to the gallbladder demonstrating small echogenic foci, suspicious for an intraheptic abscess. This finding is new. Gallbladder: Gallbladder is grossly abnormal. There is marked gallbladder wall thickening (up to 9.1 mm) and irregularity. There are gallstones and gallbladder sludge. The ultrasound findings are consistent with acute cholecystitis. The hypoechoic area in liver may have direct connection to the gallbladder, suspicious for gallbladder perforation. A small pericholecystic fluid is present. Biliary ducts: Intrahepatic bile ducts are non-dilated. Extrahepatic bile duct caliber measures 4.7 mm. Normal is 6-7 mm or less in diameter, or 10 mm or less post-cholecystectomy. Pancreas: Visualized portions of the pancreas are sonographically normal. Spleen: Spleen is normal in size and homogeneous in echotexture. Kidneys: The inferior pole of the right kidney is not visualized. Left kidney measures 7 cm in length, which is decreased in size. There is bilateral renal cortical thinning. No hydronephrosis or nephrolithiasis. A 1.3 cm cyst is noted in the superior pole of the right kidney. Aorta: Visualized aorta is normal in caliber at less than 3 cm. Iliacs: Proximal common iliac arteries are normal in caliber at less than 2.5 cm. IVC: Intrahepatic inferior vena cava is patent. Miscellaneous: No free abdominal fluid. Bladder is contracted, therefore, not well-seen. IMPRESSION: 1. Markedly abnormal gallbladder with gallstones/sludge and irregular gallbladder wall thickening, consistent with acute cholecystitis. 2. There is a hypocortical area in the liver adjacent to the gallbladder, which appears to be connected gallbladder, suspicious for gallbladder perforation and an intrahepatic abscess. 3. Atrophic kidneys bilaterally. Dictated by: Dorinda Gerber M.D. on 07/23/2016 at 21:50 Transcribed by: SIMA on 07/23/2016 at 21:50 Approved by: Dorinda Greber M.D. on 07/23/2016 at 22:13 Assessment & Plan Impression #1 end-stage renal disease I will assist dependent #2 cholecystitis with hepatic abscesses #3 hypertension with hypertensive heart disease and hypertensive nephrosclerosis Recommendations #1 blood pressure remains elevated and I do not feel this is due to pain since the patient does not complain of any pain. I would like to add spironolactone 25 mg twice a day to her current blood pressure regime. From a renal point of view cleared for any type of minimally invasive procedure as deemed necessary by surgery. VTE Prophylaxis: SCDs VTE Mechanical Devices: Intermittant Pneumatic CD Resuscitation Status: CPR: Attempt Resuscitation Brian Gresham DO Jul 25, 2016 11:07
[2016-07-25 11:11] LABS: Mean Corpuscular Hemoglobin 32.5 pg (27.0-35.0); Mean Corpuscular Volume 98.5 fL (81-100); NEUTROPHILS % (AUTO) 75.6 % (40-74); Platelet Count 171 bil/L (150-400)
[2016-07-25 11:12] LABS: BASOPHILS % (AUTO) 0.1 % (0-3); EOSINOPHILS % (AUTO) 0.1 % (0-5); MONOCYTES % (AUTO) 10.6 % (4-12)
[2016-07-25] MEDS: cefTRIAXone Inj 2,000 MG in IV Premix 1 EACH IV SCH (11:53)
[2016-07-25] MEDS ORDERED: 0.9% Sodium Chloride 250 ML ONE (13:42)
--- NOTE | 2016-07-25 14:37 | NUR ---
NUTRITION ASSESSMENT: ASSESS:65 YO female admitted with cholecystitis with associated intrahepatic abscess. Per surgery, plan is observation with antibiotics and repeat CT scan Wednesday, with re-consultation of IR for possible cholecystostomy. Surgery considering draining both the gallbladder and the abscess early next week. PMHx:End-stage renal disease requiring hemodialysis, HTN, dyslipidemia, CAD, cholecystitis, type diabetes, renal osteodystrophy, hypothyroid. DIET:Renal consistent carb. PO intake currently 30% - 50% trays. LABS: Reviewed. Chloride 96, Cr 3.04, Glu 175, A1c 6.5 (04/01/16), Ca 8.3, Alb 3.1. MEDICATIONS: Reviewed. Insulin, synthroid. NUTRITION FOCUSED PHYSICAL ASSESSMENT: GI symptoms / stool: BM x 2 (07/24)Trino: 15. Skin Integrity: No issues reported. ANTHROPOMETRICS: Current Wt: 57.8 kgBMI: 30.0 kg/m2.Admit weight: 58.1 kg. IBW: 31.8 kg (181.7% IBW) ESTIMATED NEEDS (OBESITY): Calories: 1272 - 1445 kcal (22 - 25 kcal / kg IBW) Protein: 57 - 64 g protein (1.8 - 2.0 g / kg IBW) NUTRITION DIAGNOSIS: 1)Chewing / swallowing difficulties related to minimal dentition, laryngeal excursion, as evidenced by requirement for modified diet texture, per ST order. 2)Inadequate oral intake related to inability to consume sufficient energy, as evidenced by PO intake 30% - 50% trays. INTERVENTION: 1) Will add Nepro to lunch tray. MONITOR/EVALUATE: Diet advance / tolerance, PO intake, labs, GI/nutrition status. Follow up per moderate nutrition risk guidelines.
--- NOTE | 2016-07-25 16:27 | PCM.PNMED ---
Subjective Date of Service Jul 25, 2016 Subjective Pt reports that she is doing well. She denies any nausea, vomiting or abdominal pain. Pt reports that she if very tired, but otherwise feels well. Pt denies any fevers, chills, myalgias. Pt's is present and notes that she is more interactive than yesterday, and he feels she is getting better everyday. Exam Vital Signs Vital Sign - Last Date Time Temp Pulse Resp B/P Pulse Ox O2 Delivery O2 Flow Rate FiO2 07/25/16 12:53 37.3 61 19 127/51 97 Room Air Intake and Output 07/24/16 07/24/16 07/25/16 Cumulative From/Thru 15:00 23:00 07:00 07/21/16 03:19 - 07/25/16 04:54 Intake Total 250 ml 0 ml 513 ml 4341 ml Output Total 2000 ml 0 ml 0 ml 4000 ml Balance -1750 ml 0 ml 513 ml 341 ml Intake Oral 250 ml 0 ml 513 ml 1583 ml IV Total 2758 ml Output Urine Total 0 ml 0 ml 0 ml 0 ml Urine/Stool Mix 0 ml Ultrafiltrate 2000 ml 4000 ml # Voids 1 # Bowel Movements 1 1 5 Exam General: No acute distress- pt is supine in bed, sleeping when I enter the room. HEENT: Normocephalic, atraumatic. Pupils equal, round, and reactive to light and accommodation. Anicteric sclerae, moist conjunctivae. Oropharynx with moist mucosa.Poor dentition. Neck: Supple with full range of motion. No lymphadenopathy Cardiovascular: Regular rate and rhythm. Systolic murmur auscultated. Pulmonary: Clear to auscultation bilaterally with no crackles, wheezes, or rhonchi. Normal respiratory effort with no use of accessory muscles. Abdomen: Soft, nontender, nondistended.mildly decreased bowel tones present. No CVA tenderness Extremities: No clubbing, cyanosis, edema, or lymphadenopathy appreciated. Skin: Normal temperature, turgor, and texture; no rash, ulcers, or subcutaneous nodules appreciated. Psychiatric: Alert and oriented to person ( baseline per family).Able to answer questions. IVs and Medications Medications Reviewed: Medications were reviewed in detail Lab and Diagnostics Result Diagram: 07/25/16 0953 07/25/16 0953 Microbiology Microbiology DONNELL CULTURE BLOOD Preliminary 07/22/16-46 Organism 1 POSITIVE BLOOD CULTURE GRAM STAIN RESULT GRAM NEGATIVE RODS BC BOTTLE Isolated from Anaerobic Bottle of Set Drawn DATE CALLED: 07/21/16 TIME CALLED: 2200 CALLED BY: HUMPHREY FLOOR/DOCTOR: MARCO Clement BC READ BACK Y TYPE OF DRAW PERIPHERAL DRAW TIME OF POSITIVITY 2100 GRAM STAIN RESULT GRAM NEGATIVE RODS BC BOTTLE2 Isolated from Aerobic Bottle of Set Drawn DATE CALLED: 07/21/16 TIME CALLED: 2300 CALLED BY: HUMPHREY FLOOR/DOCTOR: MARCO Clement BC READ BACK Y TYPE OF DRAW PERIPHERAL DRAW TIME OF POSITIVITY 2210 GRAM NEGATIVE SCOTTIE ID AND SENSITIVITIES TO FOLLOW ISOLATED FROM FOUR OF FOUR BOTTLES COLLECTED 07/21 Microbiology DONNELL CULTURE BLOOD Preliminary 07/22/1647 Organism 1 POSITIVE BLOOD CULTURE GRAM STAIN RESULT GRAM NEGATIVE RODS BC BOTTLE Isolated from Aerobic Bottle of Set Drawn DATE CALLED: 07/21/16 TIME CALLED: 2200 CALLED BY: HUMPHREY TAYLOR/DOCTOR: MARCO Clement BC READ BACK Y TYPE OF DRAW NURSE COLLLECT TYPE NOT SPECIFIED TIME OF POSITIVITY 2140 GRAM STAIN RESULT GRAM NEGATIVE RODS BC BOTTLE2 Isolated from Anaerobic Bottle of Set Drawn DATE CALLED: 07/22/16 TIME CALLED: 0413 CALLED BY: MICK TAYLOR/DOCTOR: MARCO Quintero RN BC READ BACK Y TYPE OF DRAW NURSE COLLECT TYPE NOT INDICATED TIME OF POSITIVITY 0350 GRAM NEGATIVE SCOTTIE ID TO FOLLOW ISOLATED FROM FOUR OF FOUR BOTTLES COLLECTED 07/21 X-Rays, CTs and MRIs PROCEDURE: X-RAY CHEST ONE VIEW, PORTABLE ([id number]) FINDINGS: Surgical changes and devices: Post median sternotomy. Lungs and pleura: No pleural effusions or pneumothorax. Lung volumes are low and interstitium is prominent. Medial bibasilar airspace opacities. Mediastinum: Mediastinal contours appear normal. Heart size is normal. Bones and chest wall: No suspicious bony lesions. Overlying soft tissues appear unremarkable. IMPRESSION: Persistent low lung volumes with interstitial prominence and bibasilar radiodensities likely atelectasis. Correlate clinically. Dictated by: Tariq CERDA Interpreted: Fadia Aguilar MD on 07/21/2016 at 9:56 Transcribed by: TYRONE on 07/21/2016 at 9:56 PROCEDURE: CT BRAIN WITHOUT CONTRAST FINDINGS: Image quality: Excellent. CSF spaces: Basal cisterns are patent. No extra-axial fluid collections. The ventricles are symmetric in size and shape. Brain: No intracranial bleeds or masses. There is cerebral volume loss for age , with resultant ventricular and sulcal prominence. There are periventricular and deep white matter chronic small vessel ischemic changes. There is intracranial internal carotid artery atherosclerosis. Skull and face: Calvarium and visualized facial bones appear intact, without suspicious lesions. Sinuses: Visualized sinuses and mastoids are clear. IMPRESSION: No acute intracranial abnormality. Concordant with preliminary interpretation. Dictated by: Dyan Gonzales M.D. on 07/23/2016 at 9:42 Approved by: Dyan Gonzales M.D. on 07/23/2016 at 9:42 PROCEDURE: US ABDOMEN COMPARISON: [facility], CT, CT ABD PELVIS W CON, 03/28/2016, 6:25. [facility], US, US ABDOMEN, 03/28/2016, 11:39. [facility], NM, NM HIDA SCAN W CCK STD, 03/29/2016, 18:43. FINDINGS: Liver: Liver is normal in size. There is a 2.6 x 2.0 x 3.7 cm hypoechoic area adjacent to the gallbladder demonstrating small echogenic foci, suspicious for an intraheptic abscess. This finding is new. Gallbladder: Gallbladder is grossly abnormal. There is marked gallbladder wall thickening (up to 9.1 mm) and irregularity. There are gallstones and gallbladder sludge. The ultrasound findings are consistent with acute cholecystitis. The hypoechoic area in liver may have direct connection to the gallbladder, suspicious for gallbladder perforation. A small pericholecystic fluid is present. Biliary ducts: Intrahepatic bile ducts are non-dilated. Extrahepatic bile duct caliber measures 4.7 mm. Normal is 6-7 mm or less in diameter, or 10 mm or less post-cholecystectomy. Pancreas: Visualized portions of the pancreas are sonographically normal. Spleen: Spleen is normal in size and homogeneous in echotexture. Kidneys: The inferior pole of the right kidney is not visualized. Left kidney measures 7 cm in length, which is decreased in size. There is bilateral renal cortical thinning. No hydronephrosis or nephrolithiasis. A 1.3 cm cyst is noted in the superior pole of the right kidney. Aorta: Visualized aorta is normal in caliber at less than 3 cm. Iliacs: Proximal common iliac arteries are normal in caliber at less than 2.5 cm. IVC: Intrahepatic inferior vena cava is patent. Miscellaneous: No free abdominal fluid. Bladder is contracted, therefore, not well-seen. IMPRESSION: 1. Markedly abnormal gallbladder with gallstones/sludge and irregular gallbladder wall thickening, consistent with acute cholecystitis. 2. There is a hypocortical area in the liver adjacent to the gallbladder, which appears to be connected gallbladder, suspicious for gallbladder perforation and an intrahepatic abscess. 3. Atrophic kidneys bilaterally. Dictated by: Dorinda Gerber M.D. on 07/23/2016 at 21:50 Transcribed by: SIMA on 07/23/2016 at 21:50 Approved by: Dorinda Gerber M.D. on 07/23/2016 at 22:13 Assessment & Plan The patient is a 65yoF with past medical history of ESRD on hemodialysis, DM type 2, CHF, HTN, HLD who presented to the [facility] ED with altered mental status per her family. Hospital Day #4 Sepsis likely secondary to pyelonephritis and possible peritoneal abscess, present on admission, ongoing - SIRS with T 38.6, and WBC 12.5 -Treat underlying cause--pyelonephritis Acute pyelonephritis, present on admission, ongoing -Zosyn and NS given in ER -Urine and Blood cultures( aerobic and anaerobic) 4/4 bottle growing E.coli -Infectious disease has been consulted, we appreciate Dr Gutierrez's input -ID recommends Ceftriaxone to 2gm daily, day#2 ( of note pt received Ceftriaxone 1gm daily for 3 days) -Leukocytosis improved today Acute cholecystitis with possible perforation or abscess on US, ongoing -US on 07/23 demonstrating "gallstones/sludge and irregular gallbladder wall thickening & hypocortical area in the liver suspicious for gallbladder perforation/intrahepatic abscess. -Family is interested in surgery -Surgery has been consulted, we appreciate their input---Currently surgery is considering options cholecystostomy tube versus cholecystectomy -Pt receiving Flagyl, day #2 Altered mental status likely secondary to pyelonephritis, present on admission, ongoing -CT of brain---No acute abnormality -Palliative care consult placed, given pt's mentation, ESRD with dialysis and now cholecystitis to discuss goals of care. Dysphagia, not present on admission, ongoing -Speech evaluation performed, dysphagia improved with improved mentation -Diet per speech recommendations End stage renal disease on hemodialysis, present on admission, chronic -Dialysis MWF -Renal diet ordered - Nephrology consulted we appreciate their input Diabetes mellitus type 2, present on admission, presumed stable - Patient placed on correction scale lispro -A1C checked 03/29/16, was 6.5 HTN,chronic, ongoing, uncontrolled -Continue home medications -Appreciate Nephrology input on management -Clonidine patch and IV enalaprilat 1.25 mg q 6 hr PRN. Chronic and stable conditions: Chronic diastolic heart failure,presumed stable -ECHO done in 2014 Hypothyroidism, chronic, presumed stable -Continue home medications Hyperlipidemia,chronic, presumed stable -Continue home medications Code status: Full code Disposition: unclear at this time, depending on response to antibiotics and stability, possible need for surgery DVT: SCDs VTE Prophylaxis: SCDs VTE Mechanical Devices: Intermittant Pneumatic CD Resuscitation Status: CPR: Attempt Resuscitation Attending Statement I reviewed this patients chart, discussed the plan of care with the resident and examined the patient. I agree with the above physical exam and assessment and plan. Lisa Angel DO Jul 25, 2016 16:27 Brett Agarwal DO Jul 26, 2016 16:36
--- NOTE | 2016-07-25 18:10 | NUR ---
Infection P-Patient has complex infection appear two source Ecoli I- Antibiotics given , medical technologist chemistry given to explain. E- WBC now 7.c down from 13.4.
[2016-07-26] VITALS (10 sets, daily range): BP systolic 107–139; BP diastolic 38–61; PULSE 56–88; RESP 16–20; O2SAT 95–99
--- NOTE | 2016-07-26 | NUR ---
iv access patient's iv access infiltrated in left upper arm. area above iv was puffy. firm to touch. removed piv. left messages with iv therapy ED RN able to start piv in left hand. placed "mitten" glove over hand for additional security of line. explained to family ,verbalized understanding.
[2016-07-26] MEDS: cloNIDine 0.1 mg Tablet PO SCH ×3 (04:01→23:18)
[2016-07-26 06:55] LABS: BASOPHILS % (AUTO) 0.2 % (0-3); EOSINOPHILS % (AUTO) 1.3 % (0-5); MONOCYTES % (AUTO) 10.2 % (4-12); Mean Corpuscular Hemoglobin 31.9 pg (27.0-35.0); Mean Corpuscular Volume 97.9 fL (81-100); NEUTROPHILS % (AUTO) 67.6 % (40-74); Platelet Count 149 bil/L (150-400)
[2016-07-26] MEDS: metroNIDAZOLE Inj 500 MG in IV Premix 1 EACH IV SCH ×2 (07:54→21:11)
[2016-07-26] MEDS: Insulin LISPRO 300 Unit/3 mL Inj SUBQ SCH ×4 (07:54→21:10)
[2016-07-26] MEDS: Pantoprazole 40 mg ER24 Tablet PO SCH (07:55)
[2016-07-26] MEDS: Lisinopril 40 Tablet PO SCH (07:55)
--- NOTE | 2016-07-26 10:46 | PCM.PNMED ---
Subjective Date of Service Jul 26, 2016 Subjective Patient is continuing to show some slow improvement. Dr. Glass's note and agree with cautious and conservative approach. The patient denies any nausea, vomiting, abdominal pain, fever, chills, or anorexia. Exam Vital Signs Vital Sign - Last Date Time Temp Pulse Resp B/P Pulse Ox O2 Delivery O2 Flow Rate FiO2 07/26/16 08:00 62 07/26/16 07:48 37.2 16 139/54 99 Room Air Intake and Output 07/25/16 07/25/16 07/26/16 Cumulative From/Thru 15:00 23:00 07:00 07/21/16 03:19 - 07/26/16 05:48 Intake Total 550 ml 200 ml 5091 ml Output Total 0 ml 0 ml 4000 ml Balance 550 ml 200 ml 1091 ml Intake Oral 550 ml 200 ml 2333 ml IV Total 2758 ml Output Urine Total 0 ml 0 ml 0 ml Urine/Stool Mix 0 ml Ultrafiltrate 4000 ml # Voids 1 # Bowel Movements 3 8 Exam Neck is supple without adenopathy thyromegaly or jugular venous distention. Throat clear to auscultation. Heart is removed with a soft systolic murmur. Abdomen is soft with somewhat diminished bowel sounds. There were some mild right upper quadrant tenderness. Otherwise no rebound guarding or hepatosplenomegaly noted. Skin turgor was good and there was no evidence of any rashes. Lab and Diagnostics Result Diagram: 07/26/1662107/26/16621 Microbiology Microbiology DONNLEL CULTURE BLOOD Preliminary 07/22/16-0646 Organism 1 POSITIVE BLOOD CULTURE GRAM STAIN RESULT GRAM NEGATIVE RODS BC BOTTLE Isolated from Anaerobic Bottle of Set Drawn DATE CALLED: 07/21/16 TIME CALLED: 0 CALLED BY: HUMPHREY FLOOR/DOCTOR: SHAHEEN/ALVARADO Clement BC READ BACK Y TYPE OF DRAW PERIPHERAL DRAW TIME OF POSITIVITY 2100 GRAM STAIN RESULT GRAM NEGATIVE RODS BC BOTTLE2 Isolated from Aerobic Bottle of Set Drawn DATE CALLED: 07/21/16 TIME CALLED: 2300 CALLED BY: HUMPHREY FLOOR/DOCTOR: SHAHEEN/ALVARADO Clement BC READ BACK Y TYPE OF DRAW PERIPHERAL DRAW TIME OF POSITIVITY 2210 GRAM NEGATIVE SCOTTIE ID AND SENSITIVITIES TO FOLLOW ISOLATED FROM FOUR OF FOUR BOTTLES COLLECTED 07/21 Microbiology DONNELL CULTURE BLOOD Preliminary 07/22/16-0647 Organism 1 POSITIVE BLOOD CULTURE GRAM STAIN RESULT GRAM NEGATIVE RODS BC BOTTLE Isolated from Aerobic Bottle of Set Drawn DATE CALLED: 07/21/16 TIME CALLED: 2200 CALLED BY: HUMPHREY FLOOR/DOCTOR: MARCO Clement BC READ BACK Y TYPE OF DRAW NURSE COLLLECT TYPE NOT SPECIFIED TIME OF POSITIVITY 2140 GRAM STAIN RESULT GRAM NEGATIVE RODS BC BOTTLE2 Isolated from Anaerobic Bottle of Set Drawn DATE CALLED: 07/22/16 TIME CALLED: 0413 CALLED BY: MICK FLOOR/DOCTOR: MARCO Quintero, RN BC READ BACK Y TYPE OF DRAW NURSE COLLECT TYPE NOT INDICATED TIME OF POSITIVITY 0350 GRAM NEGATIVE SCOTTIE ID TO FOLLOW ISOLATED FROM FOUR OF FOUR BOTTLES COLLECTED 07/21 X-Rays, CTs and MRIs PROCEDURE: X-RAY CHEST ONE VIEW, PORTABLE ([id number]) FINDINGS: Surgical changes and devices: Post median sternotomy. Lungs and pleura: No pleural effusions or pneumothorax. Lung volumes are low and interstitium is prominent. Medial bibasilar airspace opacities. Mediastinum: Mediastinal contours appear normal. Heart size is normal. Bones and chest wall: No suspicious bony lesions. Overlying soft tissues appear unremarkable. IMPRESSION: Persistent low lung volumes with interstitial prominence and bibasilar radiodensities likely atelectasis. Correlate clinically. Dictated by: Tariq Mendoza RR Interpreted: Fadia Aguilar MD on 07/21/2016 at 9:56 Transcribed by: TYRONE on 07/21/2016 at 9:56 PROCEDURE: CT BRAIN WITHOUT CONTRAST FINDINGS: Image quality: Excellent. CSF spaces: Basal cisterns are patent. No extra-axial fluid collections. The ventricles are symmetric in size and shape. Brain: No intracranial bleeds or masses. There is cerebral volume loss for age , with resultant ventricular and sulcal prominence. There are periventricular and deep white matter chronic small vessel ischemic changes. There is intracranial internal carotid artery atherosclerosis. Skull and face: Calvarium and visualized facial bones appear intact, without suspicious lesions. Sinuses: Visualized sinuses and mastoids are clear. IMPRESSION: No acute intracranial abnormality. Concordant with preliminary interpretation. Dictated by: Dyan Gonzales M.D. on 07/23/2016 at 9:42 Approved by: Dyan Gonzales M.D. on 07/23/2016 at 9:42 PROCEDURE: US ABDOMEN COMPARISON: [facility], CT, CT ABD PELVIS W CON, 03/28/2016, 6:25. [facility], US, US ABDOMEN, 03/28/2016, 11:39. [facility], NM, NM HIDA SCAN W CCK STD, 03/29/2016, 18:43. FINDINGS: Liver: Liver is normal in size. There is a 2.6 x 2.0 x 3.7 cm hypoechoic area adjacent to the gallbladder demonstrating small echogenic foci, suspicious for an intraheptic abscess. This finding is new. Gallbladder: Gallbladder is grossly abnormal. There is marked gallbladder wall thickening (up to 9.1 mm) and irregularity. There are gallstones and gallbladder sludge. The ultrasound findings are consistent with acute cholecystitis. The hypoechoic area in liver may have direct connection to the gallbladder, suspicious for gallbladder perforation. A small pericholecystic fluid is present. Biliary ducts: Intrahepatic bile ducts are non-dilated. Extrahepatic bile duct caliber measures 4.7 mm. Normal is 6-7 mm or less in diameter, or 10 mm or less post-cholecystectomy. Pancreas: Visualized portions of the pancreas are sonographically normal. Spleen: Spleen is normal in size and homogeneous in echotexture. Kidneys: The inferior pole of the right kidney is not visualized. Left kidney measures 7 cm in length, which is decreased in size. There is bilateral renal cortical thinning. No hydronephrosis or nephrolithiasis. A 1.3 cm cyst is noted in the superior pole of the right kidney. Aorta: Visualized aorta is normal in caliber at less than 3 cm. Iliacs: Proximal common iliac arteries are normal in caliber at less than 2.5 cm. IVC: Intrahepatic inferior vena cava is patent. Miscellaneous: No free abdominal fluid. Bladder is contracted, therefore, not well-seen. IMPRESSION: 1. Markedly abnormal gallbladder with gallstones/sludge and irregular gallbladder wall thickening, consistent with acute cholecystitis. 2. There is a hypocortical area in the liver adjacent to the gallbladder, which appears to be connected gallbladder, suspicious for gallbladder perforation and an intrahepatic abscess. 3. Atrophic kidneys bilaterally. Dictated by: Dorinda Gerber M.D. on 07/23/2016 at 21:50 Transcribed by: SIMA on 07/23/2016 at 21:50 Approved by: Dorinda Gerber M.D. on 07/23/2016 at 22:13 Assessment & Plan The patient is a 65yoF with past medical history of ESRD on hemodialysis, DM type 2, CHF, HTN, HLD who presented to the [facility] ED with altered mental status per her family. Hospital Day #4 Impression #1 end-stage renal disease dialysis dependent #2 hypertension with hypertensive heart disease and hypertensive nephrosclerosis #3 acute cholecystitis with abscesses Recommendations #1 we will plan on her dialysis tomorrow and run her without heparin. We will also try to attempt to coordinate this with radiology. VTE Prophylaxis: SCDs VTE Mechanical Devices: Intermittant Pneumatic CD Resuscitation Status: CPR: Attempt Resuscitation Brian Gresham DO Jul 26, 2016 10:46
[2016-07-26] MEDS: cefTRIAXone Inj 2,000 MG in IV Premix 1 EACH IV SCH (11:05)
--- NOTE | 2016-07-26 13:23 | NUR ---
Social Work-readiness for discharge: Data:EMR Reviewed. Pt is on day 5 of hospitalization for sepsis per H&P. Per Md, pt maybe ready to discharge in the next day or two. PT worked with pt and they are recommending SNF. Pt only able to stand at the edge of the bed. SW met with pt and Milad at bedside, with luggage maker to discuss discharge planning, SW role explained. SW explained the recommending of SNF, SNF choice list given. states pt has been to [facility] in the past and they would like a referral to this facility. SW faxed [facility] and facesheet and also provided access in [employer]. Paperwork placed in the chart. SW will continue to follow. Assessment:Pt who would benefit from SNF. Plan:[facility] has been faxed. Paperwork placed in the chart. SW will continue to follow. MICKEY Lazar
--- NOTE | 2016-07-26 13:26 | NUR ---
SNF choice list provided. MICKEY Lazar
--- NOTE | 2016-07-26 13:43 | PROG NOTE ---
[address] [address] PROGRESS NOTE PATIENT: MARTÍNEZ CHAHAL : 1950 MR#: [id number] ADMIT: 07/21/2016 JOB ID: [id number] DATE: 07/26/2016 SUBJECTIVE: This is a 65-year-old woman with cholecystitis and associated intrahepatic abscess. She has been stable for the past several days. Vital signs overnight are within normal limits. She is tolerating a regular diet. She has no complaints. OBJECTIVE: Vital signs are normal. General: Awake, alert, no acute distress. Abdomen: Soft, remarkably nontender to palpation in all four quadrants. LABORATORY: White blood cell count was normal, 6.3. Hematocrit 31.9, platelets 149. Basic metabolic panel reveals sodium 132, potassium 4.4, chloride 94, carbon dioxide 23, creatinine 4.23, albumin 3.1, calcium 8.3, and is otherwise within normal limits. ASSESSMENT: A 65-year-old woman with multiple medical comorbidities who presented with cholecystitis and associated intrahepatic abscess. She has been doing clinically well on nonprocedural management. As has been recorded in the chart, this case was discussed in detail between Dr. Barry of general surgery and Dr. Gonzales of interventional radiation. On Wednesday they created a plan to observe with antibiotics and repeat her CT scan on Wednesday and consider re-consultation of interventional radiology to consider cholecystostomy tube. I agree with this plan.
--- NOTE | 2016-07-26 13:46 | NUR ---
[facility] can accept when medically stable with Dr. Bynum to follow. Darcy Urias,RESIDENT ENGINEER
--- NOTE | 2016-07-26 13:46 | NUR ---
PAOLA signed. MICKEY Lazar
[2016-07-26] MEDS: DIPHEN PO SCH ×3 (14:17→21:15)
[2016-07-26] MEDS: MAALOX PO SCH ×3 (14:17→21:15)
[2016-07-26] MEDS: Nystatin 100,000 Unit/mL 5 mL Suspension PO SCH ×3 (14:17→21:11)
[2016-07-26] MEDS: LIDO PO SCH ×3 (14:17→21:15)
--- NOTE | 2016-07-26 16:10 | PCM.PNMED ---
Subjective Date of Service Jul 26, 2016 Subjective Overnight: No acute events Today: Patient denies any SOB, CP, abdominal pain. No acute distress, resting in bed. Tolerating po intake well. Was working with PT on second rounding, appeared to be doing well with assistance. Explained to family and patient that we will continue abx and re-image tomorrow. All questions and concerns addressed. Exam Vital Signs Vital Sign - Last Date Time Temp Pulse Resp B/P Pulse Ox O2 Delivery O2 Flow Rate FiO2 07/26/16 13:46 37.1 58 16 107/42 99 Room Air Intake and Output 07/25/16 07/25/16 07/26/16 Cumulative From/Thru 15:00 23:00 07:00 07/21/16 03:19 - 07/26/16 05:48 Intake Total 550 ml 200 ml 5091 ml Output Total 0 ml 0 ml 4000 ml Balance 550 ml 200 ml 1091 ml Intake Oral 550 ml 200 ml 2333 ml IV Total 2758 ml Output Urine Total 0 ml 0 ml 0 ml Urine/Stool Mix 0 ml Ultrafiltrate 4000 ml # Voids 1 # Bowel Movements 3 8 Exam General: No acute distress- pt is supine in bed, sleeping when I entered the room. HENT: Normocephalic, atraumatic. Pupils equal, round, and reactive to light. Anicteric sclerae, moist conjunctivae. Oropharynx with moist mucosa. Edentulous. Some white discoloration noted on palate at gumline Neck: Supple with full range of motion. No lymphadenopathy Cardiovascular: Regular rate and rhythm. Systolic murmur auscultated. Pulmonary: Clear to auscultation bilaterally with no crackles, wheezes, or rhonchi. Normal respiratory effort with no use of accessory muscles. Abdomen: Soft, nontender, nondistended.mildly decreased bowel tones present Extremities: No clubbing, cyanosis, edema appreciated. Skin: Normal temperature, turgor, and texture Psychiatric: Alert and oriented to person ( baseline per family).Able to answer questions. IVs and Medications Medications Reviewed: Medications were reviewed in detail Lab and Diagnostics Result Diagram: 07/26/1662107/26/16621 Microbiology Microbiology DONNELL CULTURE BLOOD Preliminary 07/22/16-0646 Organism 1 POSITIVE BLOOD CULTURE GRAM STAIN RESULT GRAM NEGATIVE RODS BC BOTTLE Isolated from Anaerobic Bottle of Set Drawn DATE CALLED: 07/21/16 TIME CALLED: 2200 CALLED BY: HUMPHREY FLOOR/DOCTOR: MARCO Clement BC READ BACK Y TYPE OF DRAW PERIPHERAL DRAW TIME OF POSITIVITY 2100 GRAM STAIN RESULT GRAM NEGATIVE RODS BC BOTTLE2 Isolated from Aerobic Bottle of Set Drawn DATE CALLED: 07/21/16 TIME CALLED: 2300 CALLED BY: HUMPHREY TAYLOR/DOCTOR: MARCO Clement BC READ BACK Y TYPE OF DRAW PERIPHERAL DRAW TIME OF POSITIVITY 2210 GRAM NEGATIVE SCOTTIE ID AND SENSITIVITIES TO FOLLOW ISOLATED FROM FOUR OF FOUR BOTTLES COLLECTED 07/21 Microbiology DONNELL CULTURE BLOOD Preliminary 07/22/16-0647 Organism 1 POSITIVE BLOOD CULTURE GRAM STAIN RESULT GRAM NEGATIVE RODS BC BOTTLE Isolated from Aerobic Bottle of Set Drawn DATE CALLED: 07/21/16 TIME CALLED: 2200 CALLED BY: HUMPHREY TAYLOR/DOCTOR: MARCO Clement BC READ BACK Y TYPE OF DRAW NURSE COLLLECT TYPE NOT SPECIFIED TIME OF POSITIVITY 2140 GRAM STAIN RESULT GRAM NEGATIVE RODS BC BOTTLE2 Isolated from Anaerobic Bottle of Set Drawn DATE CALLED: 07/22/16 TIME CALLED: 0413 CALLED BY: MICK TAYLOR/DOCTOR: MARCO Quintero RN BC READ BACK Y TYPE OF DRAW NURSE COLLECT TYPE NOT INDICATED TIME OF POSITIVITY 0350 GRAM NEGATIVE SCOTTIE ID TO FOLLOW ISOLATED FROM FOUR OF FOUR BOTTLES COLLECTED 07/21 X-Rays, CTs and MRIs PROCEDURE: X-RAY CHEST ONE VIEW, PORTABLE ([id number]) FINDINGS: Surgical changes and devices: Post median sternotomy. Lungs and pleura: No pleural effusions or pneumothorax. Lung volumes are low and interstitium is prominent. Medial bibasilar airspace opacities. Mediastinum: Mediastinal contours appear normal. Heart size is normal. Bones and chest wall: No suspicious bony lesions. Overlying soft tissues appear unremarkable. IMPRESSION: Persistent low lung volumes with interstitial prominence and bibasilar radiodensities likely atelectasis. Correlate clinically. Dictated by: Tariq CERDA Interpreted: Fadia Aguilar MD on 07/21/2016 at 9:56 Transcribed by: TYRONE on 07/21/2016 at 9:56 PROCEDURE: CT BRAIN WITHOUT CONTRAST FINDINGS: Image quality: Excellent. CSF spaces: Basal cisterns are patent. No extra-axial fluid collections. The ventricles are symmetric in size and shape. Brain: No intracranial bleeds or masses. There is cerebral volume loss for age , with resultant ventricular and sulcal prominence. There are periventricular and deep white matter chronic small vessel ischemic changes. There is intracranial internal carotid artery atherosclerosis. Skull and face: Calvarium and visualized facial bones appear intact, without suspicious lesions. Sinuses: Visualized sinuses and mastoids are clear. IMPRESSION: No acute intracranial abnormality. Concordant with preliminary interpretation. Dictated by: Dyan Gonzales M.D. on 07/23/2016 at 9:42 Approved by: Dyan Gonzales M.D. on 07/23/2016 at 9:42 PROCEDURE: US ABDOMEN COMPARISON: [facility], CT, CT ABD PELVIS W CON, 03/28/2016, 6:25. [facility], US, US ABDOMEN, 03/28/2016, 11:39. [facility], [place], [place] HIDA SCAN W CCK STD, 03/29/2016, 18:43. FINDINGS: Liver: Liver is normal in size. There is a 2.6 x 2.0 x 3.7 cm hypoechoic area adjacent to the gallbladder demonstrating small echogenic foci, suspicious for an intraheptic abscess. This finding is new. Gallbladder: Gallbladder is grossly abnormal. There is marked gallbladder wall thickening (up to 9.1 mm) and irregularity. There are gallstones and gallbladder sludge. The ultrasound findings are consistent with acute cholecystitis. The hypoechoic area in liver may have direct connection to the gallbladder, suspicious for gallbladder perforation. A small pericholecystic fluid is present. Biliary ducts: Intrahepatic bile ducts are non-dilated. Extrahepatic bile duct caliber measures 4.7 mm. Normal is 6-7 mm or less in diameter, or 10 mm or less post-cholecystectomy. Pancreas: Visualized portions of the pancreas are sonographically normal. Spleen: Spleen is normal in size and homogeneous in echotexture. Kidneys: The inferior pole of the right kidney is not visualized. Left kidney measures 7 cm in length, which is decreased in size. There is bilateral renal cortical thinning. No hydronephrosis or nephrolithiasis. A 1.3 cm cyst is noted in the superior pole of the right kidney. Aorta: Visualized aorta is normal in caliber at less than 3 cm. Iliacs: Proximal common iliac arteries are normal in caliber at less than 2.5 cm. IVC: Intrahepatic inferior vena cava is patent. Miscellaneous: No free abdominal fluid. Bladder is contracted, therefore, not well-seen. IMPRESSION: 1. Markedly abnormal gallbladder with gallstones/sludge and irregular gallbladder wall thickening, consistent with acute cholecystitis. 2. There is a hypocortical area in the liver adjacent to the gallbladder, which appears to be connected gallbladder, suspicious for gallbladder perforation and an intrahepatic abscess. 3. Atrophic kidneys bilaterally. Dictated by: Dorinda Gerber M.D. on 07/23/2016 at 21:50 Transcribed by: SIMA on 07/23/2016 at 21:50 Approved by: Dorinda Gerber M.D. on 07/23/2016 at 22:13 Assessment & Plan The patient is a 65yoF with past medical history of ESRD on hemodialysis, DM type 2, CHF, HTN, HLD who presented to the [facility] ED with altered mental status per her family. She was under evaluation for suspected acute cholecystitis with abscess formation, that may be the etiology of her septicemia. General surgery has been consulted, awaiting further imaging to decide to pursue interventions. - Hospital day 6 Sepsis likely secondary to pyelonephritis and/or acute cholecystitis with possible abscess, present on admission, ongoing - SIRS with T 38.6, and WBC 12.5 -Treat underlying cause--pyelonephritis, cholecystitis Acute pyelonephritis, present on admission, ongoing -Zosyn and NS given in ER -Urine and Blood cultures( aerobic and anaerobic) 10/27 bottle growing E.coli -Infectious disease has been consulted, we appreciate Dr Gutierrez's input -ID recommends Ceftriaxone to 2gm daily, start date 07/24 (of note, pt received Ceftriaxone 1gm daily for 3 days prior) Acute cholecystitis with possible perforation or abscess on US, present on admission, ongoing -US on 07/23 demonstrating "gallstones/sludge and irregular gallbladder wall thickening & hypocortical area in the liver suspicious for gallbladder perforation/intrahepatic abscess. -Family is interested in surgery -Surgery has been consulted, we appreciate their input---Currently surgery is considering options cholecystostomy tube versus cholecystectomy -Pt receiving Flagyl, start date 07/24 - Repeat abdominal imaging 07/27; coordinate with nephrology for contrast/ dialysis Altered mental status likely secondary to pyelonephritis, present on admission, ongoing -CT of brain---No acute abnormality -Palliative care consult can be considered, given pt's mentation, ESRD with dialysis and now cholecystitis to discuss goals of care. - Family wishes to pursue interventions Dysphagia, not present on admission, ongoing -Speech evaluation performed, dysphagia improved with improved mentation -Diet per speech recommendations End stage renal disease on hemodialysis, present on admission, chronic - Dialysis MWF - Renal diet ordered - Nephrology consulted we appreciate their input Diabetes mellitus type 2, present on admission, presumed stable - Patient placed on correction scale lispro - A1C checked 03/29/16, was 6.5 HTN,chronic, ongoing, uncontrolled -Continue home medications -Appreciate Nephrology input on management -Clonidine patch and IV enalaprilat 1.25 mg q 6 hr PRN. Chronic and stable conditions: Chronic diastolic heart failure,presumed stable -ECHO done in 2014 Hypothyroidism, chronic, presumed stable -Continue home medications Hyperlipidemia,chronic, presumed stable -Continue home medications - PRN: Fever/pain/bowel/antiemetic - DVT: SCDs - GI: PPI - DIET: Renal, per ST - CODE: FULL CODE Dispo: Likely to remain until 07/28 at earliest pending additional imaging to be performed, and input from surgical team. Continued needs include PT, ST to maintain strength in chronically frail patient. Dialysis MWF. Pain Evaluation: Adequate Pain Control GI Prophylaxis: Proton Pump Inhibitor VTE Prophylaxis: SCDs VTE Mechanical Devices: Intermittant Pneumatic CD Resuscitation Status: CPR: Attempt Resuscitation Attending Statement I reviewed this patients chart, discussed the plan of care with the resident and examined the patient. I agree with the above physical exam and assessment and plan. Charu Man DO Jul 26, 2016 16:10 Brett Agarwal DO Jul 26, 2016 16:39
--- NOTE | 2016-07-26 18:33 | NUR ---
DIALYSIS P-Patient to have dialysis Wednesday need to coordinate possible CT scan/contrast with nephrology. I- Nurse needs to call hospitalist prior to dialysis. E- Will relay information to oncoming nurse and monitor.
[2016-07-26] MEDS ORDERED: 0.9% Sodium Chloride 250 ML ONE (21:28)
[2016-07-27] VITALS (7 sets, daily range): BP systolic 105–144; BP diastolic 42–58; PULSE 54–62; RESP 18; O2SAT 94–98
[2016-07-27] MEDS: cloNIDine 0.1 mg Tablet PO SCH ×3 (04:00→17:41)
--- NOTE | 2016-07-27 05:44 | NUR ---
activity patient slept well thru the night. repositions independently in bed. bp stable. no fevers. family at bedside.
[2016-07-27 06:37] LABS: BASOPHILS % (AUTO) 0.2 % (0-3); EOSINOPHILS % (AUTO) 2.2 % (0-5); MONOCYTES % (AUTO) 11.7 % (4-12); Mean Corpuscular Hemoglobin 32.5 pg (27.0-35.0); Mean Corpuscular Volume 96.2 fL (81-100); NEUTROPHILS % (AUTO) 64.5 % (40-74); Platelet Count 138 bil/L (150-400)
[2016-07-27 06:54] LABS: Phosphorus 3.7 mg/dL (2.5-4.9)
[2016-07-27] MEDS: Insulin LISPRO 300 Unit/3 mL Inj SUBQ SCH ×4 (08:00→21:20)
--- NOTE | 2016-07-27 08:20 | PCM.PNSURG ---
Subjective Visit Information: Reason for Visit Sepsis, Pyelonephritis, Esrd Surgery/Surgery Date Post-Op Day # Date of Admission: Jul 21, 2016 at 10:32 Hospital Day # Subjective: no issues overnight, CT scan ordered for today, dialysis also scheduled for later today Objective Objective Arousable in bed Abd: soft, mild tenderness RUQ only [place] speaking Vital Sign- Last 8 Hours Date Time Temp Pulse Resp B/P Pulse Ox O2 Delivery O2 Flow Rate FiO2 07/27/16 03:54 36.8 56 18 144/58 94 Room Air 07/27/16 01:27 37.1 59 18 129/49 97 Room Air Intake and Output- Last 8 Hour 07/27/16 Cumulative From/Thru 07:00 07/21/16 03:19 - 07/27/16 06:33 Intake Total 330 ml 7716 ml Output Total 4100 ml Balance 330 ml 3616 ml Intake Oral 150 ml 3483 ml IV Total 180 ml 4233 ml Output Urine Total 100 ml Urine/Stool Mix 0 ml Ultrafiltrate 4000 ml # Voids 1 # Bowel Movements 1 10 Result Diagram: 07/27/16 0612 07/27/16 0612 Assessment & Plan Impression Cholecystitis and liver abscess Renal failure Problems: Plan Repeat CT scan today Dialysis scheduled for today Continue IV abx Will re-discuss plan with IR tomorrow VTE Prophylaxis: SCDs Resuscitation Status: CPR: Attempt Resuscitation Ruel Mosqueda MD Jul 27, 2016 08:19
[2016-07-27] MEDS: Pantoprazole 40 mg ER24 Tablet PO SCH (08:32)
[2016-07-27] MEDS: MAALOX PO SCH ×4 (08:32→21:27)
[2016-07-27] MEDS: Nystatin 100,000 Unit/mL 5 mL Suspension PO SCH ×4 (08:32→21:27)
[2016-07-27] MEDS: DIPHEN PO SCH ×4 (08:32→21:27)
[2016-07-27] MEDS: LIDO PO SCH ×4 (08:32→21:27)
[2016-07-27] MEDS: metroNIDAZOLE Inj 500 MG in IV Premix 1 EACH IV SCH ×2 (08:32→20:23)
--- NOTE | 2016-07-27 11:11 | PCM.PNMED ---
Subjective Date of Service Jul 27, 2016 Subjective Patient remains comfortable without complaint. She was scheduled subsequent CT scan today and scheduled dialysis treatment today also. Exam Vital Signs Vital Sign - Last Date Time Temp Pulse Resp B/P Pulse Ox O2 Delivery O2 Flow Rate FiO2 07/27/16 10:15 36.9 54 18 105/42 98 Room Air Intake and Output 07/26/16 07/26/16 07/27/16 Cumulative From/Thru 15:00 23:00 07:00 07/21/16 03:19 - 07/27/16 06:33 Intake Total 2295 ml 330 ml 7716 ml Output Total 100 ml 4100 ml Balance 2195 ml 330 ml 3616 ml Intake Oral 1000 ml 150 ml 3483 ml IV Total 1295 ml 180 ml 4233 ml Output Urine Total 100 ml 100 ml Urine/Stool Mix 0 ml Ultrafiltrate 4000 ml # Voids 1 # Bowel Movements 1 1 10 Exam Neck is supple without adenopathy thyromegaly or jugular venous distention. Lungs are clear to auscultation. Cardiovascular demonstrated a systolic murmur. Abdomen is soft with diminished bowel sounds. There is no tenderness rebound guarding or masses noted. Extremities no evidence of edema Lab and Diagnostics Result Diagram: 07/27/16 0612 07/27/16 0612 Microbiology Microbiology DONNELL CULTURE BLOOD Preliminary 07/22/16-0646 Organism 1 POSITIVE BLOOD CULTURE GRAM STAIN RESULT GRAM NEGATIVE RODS BC BOTTLE Isolated from Anaerobic Bottle of Set Drawn DATE CALLED: 07/21/16 TIME CALLED: 2199 CALLED BY: HUMPHREY TAYLOR/DOCTOR: SHAHEEN/ALVARADO SESAY READ BACK Y TYPE OF DRAW PERIPHERAL DRAW TIME OF POSITIVITY 2100 GRAM STAIN RESULT GRAM NEGATIVE RODS BC BOTTLE2 Isolated from Aerobic Bottle of Set Drawn DATE CALLED: 07/21/16 TIME CALLED: 2300 CALLED BY: HUMPHREY FLOOR/DOCTOR: MARCO SESAY READ BACK Y TYPE OF DRAW PERIPHERAL DRAW TIME OF POSITIVITY 2210 GRAM NEGATIVE SCOTTIE ID AND SENSITIVITIES TO FOLLOW ISOLATED FROM FOUR OF FOUR BOTTLES COLLECTED 07/21 Microbiology DONNELL CULTURE BLOOD Preliminary 07/22/16-0647 Organism 1 POSITIVE BLOOD CULTURE GRAM STAIN RESULT GRAM NEGATIVE RODS BC BOTTLE Isolated from Aerobic Bottle of Set Drawn DATE CALLED: 07/21/16 TIME CALLED: 2200 CALLED BY: HUMPHREY FLOOR/DOCTOR: SHAHEEN/ALVARADO SESAY READ BACK Y TYPE OF DRAW NURSE COLLLECT TYPE NOT SPECIFIED TIME OF POSITIVITY 2140 GRAM STAIN RESULT GRAM NEGATIVE RODS BC BOTTLE2 Isolated from Anaerobic Bottle of Set Drawn DATE CALLED: 07/22/16 TIME CALLED: 412 CALLED BY: MICK FLOOR/DOCTOR: SHAHEEN/ALVARADO Quintero RN BC READ BACK Y TYPE OF DRAW NURSE COLLECT TYPE NOT INDICATED TIME OF POSITIVITY 0350 GRAM NEGATIVE SCOTTIE ID TO FOLLOW ISOLATED FROM FOUR OF FOUR BOTTLES COLLECTED 07/21 X-Rays, CTs and MRIs PROCEDURE: X-RAY CHEST ONE VIEW, PORTABLE ([id number]) FINDINGS: Surgical changes and devices: Post median sternotomy. Lungs and pleura: No pleural effusions or pneumothorax. Lung volumes are low and interstitium is prominent. Medial bibasilar airspace opacities. Mediastinum: Mediastinal contours appear normal. Heart size is normal. Bones and chest wall: No suspicious bony lesions. Overlying soft tissues appear unremarkable. IMPRESSION: Persistent low lung volumes with interstitial prominence and bibasilar radiodensities likely atelectasis. Correlate clinically. Dictated by: Tariq Mendoza [facility] Interpreted: Fadia Aguilar MD on 07/21/2016 at 9:56 Transcribed by: TYRONE on 07/21/2016 at 9:56 PROCEDURE: CT BRAIN WITHOUT CONTRAST FINDINGS: Image quality: Excellent. CSF spaces: Basal cisterns are patent. No extra-axial fluid collections. The ventricles are symmetric in size and shape. Brain: No intracranial bleeds or masses. There is cerebral volume loss for age , with resultant ventricular and sulcal prominence. There are periventricular and deep white matter chronic small vessel ischemic changes. There is intracranial internal carotid artery atherosclerosis. Skull and face: Calvarium and visualized facial bones appear intact, without suspicious lesions. Sinuses: Visualized sinuses and mastoids are clear. IMPRESSION: No acute intracranial abnormality. Concordant with preliminary interpretation. Dictated by: Dyan Gonzales M.D. on 07/23/2016 at 9:42 Approved by: Dyan Gonzales M.D. on 07/23/2016 at 9:42 PROCEDURE: US ABDOMEN COMPARISON: [facility], CT, CT ABD PELVIS W CON, 03/28/2016, 6:25. [facility], US, US ABDOMEN, 03/28/2016, 11:39. [facility], [place], [place] HIDA SCAN W CCK STD, 03/29/2016, 18:43. FINDINGS: Liver: Liver is normal in size. There is a 2.6 x 2.0 x 3.7 cm hypoechoic area adjacent to the gallbladder demonstrating small echogenic foci, suspicious for an intraheptic abscess. This finding is new. Gallbladder: Gallbladder is grossly abnormal. There is marked gallbladder wall thickening (up to 9.1 mm) and irregularity. There are gallstones and gallbladder sludge. The ultrasound findings are consistent with acute cholecystitis. The hypoechoic area in liver may have direct connection to the gallbladder, suspicious for gallbladder perforation. A small pericholecystic fluid is present. Biliary ducts: Intrahepatic bile ducts are non-dilated. Extrahepatic bile duct caliber measures 4.7 mm. Normal is 6-7 mm or less in diameter, or 10 mm or less post-cholecystectomy. Pancreas: Visualized portions of the pancreas are sonographically normal. Spleen: Spleen is normal in size and homogeneous in echotexture. Kidneys: The inferior pole of the right kidney is not visualized. Left kidney measures 7 cm in length, which is decreased in size. There is bilateral renal cortical thinning. No hydronephrosis or nephrolithiasis. A 1.3 cm cyst is noted in the superior pole of the right kidney. Aorta: Visualized aorta is normal in caliber at less than 3 cm. Iliacs: Proximal common iliac arteries are normal in caliber at less than 2.5 cm. IVC: Intrahepatic inferior vena cava is patent. Miscellaneous: No free abdominal fluid. Bladder is contracted, therefore, not well-seen. IMPRESSION: 1. Markedly abnormal gallbladder with gallstones/sludge and irregular gallbladder wall thickening, consistent with acute cholecystitis. 2. There is a hypocortical area in the liver adjacent to the gallbladder, which appears to be connected gallbladder, suspicious for gallbladder perforation and an intrahepatic abscess. 3. Atrophic kidneys bilaterally. Dictated by: Dorinda Gerber M.D. on 07/23/2016 at 21:50 Transcribed by: SIMA on 07/23/2016 at 21:50 Approved by: Dorinda Gerber M.D. on 07/23/2016 at 22:13 Assessment & Plan Impression #1 end-stage renal disease else's dependent #2 acute cholecystitis # 3 hypertension with hypertensive heart disease and hypertensive nephrosclerosis Recommendations #1 the patient's be dialyzed today for 3-1/2 hours on a 2 potassium bath and no heparin. Approximately 1-2 L of fluid will be removed. GI Prophylaxis: Proton Pump Inhibitor VTE Prophylaxis: SCDs VTE Mechanical Devices: Intermittant Pneumatic CD Resuscitation Status: CPR: Attempt Resuscitation Brian Gresham DO Jul 27, 2016 11:11
--- NOTE | 2016-07-27 13:22 | PCM.PNMED ---
Subjective Date of Service Jul 27, 2016 Subjective Patient reports she is doing well. She states that she has some ulcers in her mouth which are causing her pain. Pt reports that her mouth hurts whenever she eats or drinks. Pt reports that the medicine she has been getting has helped. Pt denies any nausea, vomiting, diarrhea, abdominal pain, fevers or chills. Pt reports that she feels well other than the pain in her mouth. reports that she is interacting back to baseline. Per nursing, there were no overnight events. Exam Vital Signs Vital Sign - Last Date Time Temp Pulse Resp B/P Pulse Ox O2 Delivery O2 Flow Rate FiO2 07/27/16 03:54 36.8 56 18 144/58 94 Room Air Intake and Output 07/26/16 07/26/16 07/27/16 Cumulative From/Thru 15:00 23:00 07:00 07/21/16 03:19 - 07/27/16 06:33 Intake Total 2295 ml 330 ml 7716 ml Output Total 100 ml 4100 ml Balance 2195 ml 330 ml 3616 ml Intake Oral 1000 ml 150 ml 3483 ml IV Total 1295 ml 180 ml 4233 ml Output Urine Total 100 ml 100 ml Urine/Stool Mix 0 ml Ultrafiltrate 4000 ml # Voids 1 # Bowel Movements 1 1 10 Exam General: No acute distress- pt is sitting in bed eating breakfast when I entered the room. HENT: Normocephalic, atraumatic. Pupils equal, round, and reactive to light. Anicteric sclerae, moist conjunctivae. Oropharynx with moist mucosa. Edentulous. Some white discoloration noted on palate at gumline Neck: Supple with full range of motion. No lymphadenopathy Cardiovascular: Regular rate and rhythm. Systolic murmur auscultated. Pulmonary: Clear to auscultation bilaterally with no crackles, wheezes, or rhonchi. Normal respiratory effort with no use of accessory muscles. Abdomen: Soft, nontender, nondistended.mildly decreased bowel tones present Extremities: No clubbing, cyanosis, edema appreciated. Skin: Normal temperature, turgor, and texture Psychiatric: Alert and oriented to person ( baseline per family).Able to answer questions. IVs and Medications Medications Reviewed: Medications were reviewed in detail Lab and Diagnostics Result Diagram: 07/27/1612 07/26/1622 Microbiology Microbiology DONNELL CULTURE BLOOD Preliminary 07/22/16-46 Organism 1 POSITIVE BLOOD CULTURE GRAM STAIN RESULT GRAM NEGATIVE RODS BC BOTTLE Isolated from Anaerobic Bottle of Set Drawn DATE CALLED: 07/21/16 TIME CALLED: 2200 CALLED BY: HUMPHREY TAYLOR/DOCTOR: MARCO Clement BC READ BACK Y TYPE OF DRAW PERIPHERAL DRAW TIME OF POSITIVITY 2100 GRAM STAIN RESULT GRAM NEGATIVE RODS BC BOTTLE2 Isolated from Aerobic Bottle of Set Drawn DATE CALLED: 07/21/16 TIME CALLED: 2300 CALLED BY: HUMPHREY FLOOR/DOCTOR: MARCO Clement BC READ BACK Y TYPE OF DRAW PERIPHERAL DRAW TIME OF POSITIVITY 2210 GRAM NEGATIVE SCOTTIE ID AND SENSITIVITIES TO FOLLOW ISOLATED FROM FOUR OF FOUR BOTTLES COLLECTED 07/21 Microbiology DONNELL CULTURE BLOOD Preliminary 07/22/1647 Organism 1 POSITIVE BLOOD CULTURE GRAM STAIN RESULT GRAM NEGATIVE RODS BC BOTTLE Isolated from Aerobic Bottle of Set Drawn DATE CALLED: 07/21/16 TIME CALLED: 2200 CALLED BY: HUMPHREY TAYLOR/DOCTOR: MARCO Clement BC READ BACK Y TYPE OF DRAW NURSE COLLLECT TYPE NOT SPECIFIED TIME OF POSITIVITY 2140 GRAM STAIN RESULT GRAM NEGATIVE RODS BC BOTTLE2 Isolated from Anaerobic Bottle of Set Drawn DATE CALLED: 07/22/16 TIME CALLED: 0413 CALLED BY: MICK TAYLOR/DOCTOR: MARCO Quintero RN BC READ BACK Y TYPE OF DRAW NURSE COLLECT TYPE NOT INDICATED TIME OF POSITIVITY 0350 GRAM NEGATIVE SCOTTIE ID TO FOLLOW ISOLATED FROM FOUR OF FOUR BOTTLES COLLECTED 07/21 X-Rays, CTs and MRIs PROCEDURE: X-RAY CHEST ONE VIEW, PORTABLE ([id number]) FINDINGS: Surgical changes and devices: Post median sternotomy. Lungs and pleura: No pleural effusions or pneumothorax. Lung volumes are low and interstitium is prominent. Medial bibasilar airspace opacities. Mediastinum: Mediastinal contours appear normal. Heart size is normal. Bones and chest wall: No suspicious bony lesions. Overlying soft tissues appear unremarkable. IMPRESSION: Persistent low lung volumes with interstitial prominence and bibasilar radiodensities likely atelectasis. Correlate clinically. Dictated by: Tariq CERDA Interpreted: Fadia Aguilar MD on 07/21/2016 at 9:56 Transcribed by: TYRONE on 07/21/2016 at 9:56 PROCEDURE: CT BRAIN WITHOUT CONTRAST FINDINGS: Image quality: Excellent. CSF spaces: Basal cisterns are patent. No extra-axial fluid collections. The ventricles are symmetric in size and shape. Brain: No intracranial bleeds or masses. There is cerebral volume loss for age , with resultant ventricular and sulcal prominence. There are periventricular and deep white matter chronic small vessel ischemic changes. There is intracranial internal carotid artery atherosclerosis. Skull and face: Calvarium and visualized facial bones appear intact, without suspicious lesions. Sinuses: Visualized sinuses and mastoids are clear. IMPRESSION: No acute intracranial abnormality. Concordant with preliminary interpretation. Dictated by: Dyan Gonzales M.D. on 07/23/2016 at 9:42 Approved by: Dyan Gonzales M.D. on 07/23/2016 at 9:42 PROCEDURE: US ABDOMEN COMPARISON: [facility], CT, CT ABD PELVIS W CON, 03/28/2016, 6:25. [facility], US, US ABDOMEN, 03/28/2016, 11:39. [facility], NM, NM HIDA SCAN W CCK STD, 03/29/2016, 18:43. FINDINGS: Liver: Liver is normal in size. There is a 2.6 x 2.0 x 3.7 cm hypoechoic area adjacent to the gallbladder demonstrating small echogenic foci, suspicious for an intraheptic abscess. This finding is new. Gallbladder: Gallbladder is grossly abnormal. There is marked gallbladder wall thickening (up to 9.1 mm) and irregularity. There are gallstones and gallbladder sludge. The ultrasound findings are consistent with acute cholecystitis. The hypoechoic area in liver may have direct connection to the gallbladder, suspicious for gallbladder perforation. A small pericholecystic fluid is present. Biliary ducts: Intrahepatic bile ducts are non-dilated. Extrahepatic bile duct caliber measures 4.7 mm. Normal is 6-7 mm or less in diameter, or 10 mm or less post-cholecystectomy. Pancreas: Visualized portions of the pancreas are sonographically normal. Spleen: Spleen is normal in size and homogeneous in echotexture. Kidneys: The inferior pole of the right kidney is not visualized. Left kidney measures 7 cm in length, which is decreased in size. There is bilateral renal cortical thinning. No hydronephrosis or nephrolithiasis. A 1.3 cm cyst is noted in the superior pole of the right kidney. Aorta: Visualized aorta is normal in caliber at less than 3 cm. Iliacs: Proximal common iliac arteries are normal in caliber at less than 2.5 cm. IVC: Intrahepatic inferior vena cava is patent. Miscellaneous: No free abdominal fluid. Bladder is contracted, therefore, not well-seen. IMPRESSION: 1. Markedly abnormal gallbladder with gallstones/sludge and irregular gallbladder wall thickening, consistent with acute cholecystitis. 2. There is a hypocortical area in the liver adjacent to the gallbladder, which appears to be connected gallbladder, suspicious for gallbladder perforation and an intrahepatic abscess. 3. Atrophic kidneys bilaterally. Dictated by: Dorinda Gerber M.D. on 07/23/2016 at 21:50 Transcribed by: SIMA on 07/23/2016 at 21:50 Approved by: Dorinda Gerber M.D. on 07/23/2016 at 22:13 Assessment & Plan 65yoF with past medical history of ESRD on hemodialysis, DM type 2, CHF, HTN, HLD who presented to the [facility] ED with altered mental status per her family. She was under evaluation for suspected acute cholecystitis with abscess formation, that may be the etiology of her septicemia. General surgery has been consulted, awaiting further imaging to decide to pursue interventions. - Hospital day 7 Sepsis likely secondary to pyelonephritis and/or acute cholecystitis with possible abscess, present on admission, ongoing - SIRS with T 38.6, and WBC 12.5 -Treat underlying cause--pyelonephritis, cholecystitis Acute pyelonephritis, present on admission, ongoing -Zosyn and NS given in ER -Urine and Blood cultures( aerobic and anaerobic) 10/27 bottle growing E.coli -Infectious disease has been consulted, we appreciate Dr Gutierrez's input -ID recommends Ceftriaxone to 2gm daily, start date 07/24 (of note, pt received Ceftriaxone 1gm daily for 3 days prior) Acute cholecystitis with possible perforation or abscess on US, present on admission, ongoing -US on 07/23 demonstrating "gallstones/sludge and irregular gallbladder wall thickening & hypocortical area in the liver suspicious for gallbladder perforation/intrahepatic abscess. -Family is interested in surgery -Surgery has been consulted, we appreciate their input---Currently surgery is considering options cholecystostomy tube versus cholecystectomy -Pt receiving Flagyl, start date 07/24 -CT of abdomen with contrast ordered today(07/27); coordinated with nephrology for contrast/dialysis--results pending Oropharynx pain and discoloration, not present on admission, ongoing -Pt has nystatin swish and swallow, which seems to be helping -Lidocaine/Diphenhydramine/Alum/Mg/Simeth mouthwash also available -Will continue to monitor Altered mental status likely secondary to pyelonephritis, present on admission, resolved -CT of brain---No acute abnormality -Palliative care consult can be considered, given pt's mentation, ESRD with dialysis and now cholecystitis to discuss goals of care. - Family wishes to pursue interventions Dysphagia, not present on admission, ongoing -Speech evaluation performed, dysphagia improved with improved mentation -Diet per speech recommendations End stage renal disease on hemodialysis, present on admission, chronic - Dialysis MWF - Renal diet ordered - Nephrology consulted we appreciate their input Diabetes mellitus type 2, present on admission, presumed stable - Patient placed on correction scale lispro - A1C checked 03/29/16, was 6.5 HTN,chronic, ongoing, uncontrolled -Continue home medications -Appreciate Nephrology input on management -Clonidine patch and IV enalaprilat 1.25 mg q 6 hr PRN. Chronic and stable conditions: Chronic diastolic heart failure,presumed stable -ECHO done in 2014 Hypothyroidism, chronic, presumed stable -Continue home medications Hyperlipidemia,chronic, presumed stable -Continue home medications - PRN: Fever/pain/bowel/antiemetic - DVT: SCDs - GI: PPI - DIET: Renal, per ST - CODE: FULL CODE Dispo: Likely to remain pending additional imaging to be performed, and input from surgical team. Continued needs include PT, ST to maintain strength in chronically frail patient. Dialysis MWF. GI Prophylaxis: Proton Pump Inhibitor VTE Prophylaxis: SCDs VTE Mechanical Devices: Intermittant Pneumatic CD Resuscitation Status: CPR: Attempt Resuscitation Attending Statement The patient was seen and examined together with Dr. Angel on 07/27/2016 and I agree with the history, exam and plan as outlined in the note above. Lisa Angel DO Jul 27, 2016 07:10 Weston Montes MD Jul 27, 2016 20:48
--- NOTE | 2016-07-27 13:27 | DRSVH ---
PROCEDURE: CT ABDOMEN WITH CONTRAST ([id number]) INDICATIONS: 65 year-old female with cholecystitis and liver abscess. TECHNIQUE: Patient is scheduled for hemodialysis following the examination. After the administration of oral and intravenous contrast, 5 mm thick sections acquired from the diaphragms to the iliac crests. 5 mm th ick coronal and sagittal reformats were acquired. For radiation dose reduction, the following was us ed: automated exposure control, adjustment of mA and/or kV according to patient size. COMPARISON: [facility], CT, CT ABD W CON, 07/24/2016, 12:44. [facility], CT , CT ABD PELVIS W CON, 03/28/2016, 6:25. FINDINGS: Image quality: Excellent. Lung bases: New trace bibasilar mobile pleural effusions are present, larger on the left. Heart size is normal. Solid organs: Liver and spleen are normal in size. On axial image 23, 3.4 x 2.5 cm anteroinferior r ight hepatic lobe rim-enhancing lesion is not significantly changed in size, adjacent to the gallblad meagan fossa. Gallbladder again demonstrates multiple calcified and noncalcified gallstones, as well as circumferential gallbladder wall thickening. Biliary system is non dilated. Pancreas enhances rama lly. No adrenal nodules. Bilateral renal cortical atrophy is again noted, without hydronephrosis Peritoneum and bowel: Contrast enhanced bowel loops appear normal in caliber. No free fluid or air. Nodes and vessels: No retroperitoneal or mesenteric adenopathy by size criteria. Aorta and inferior vena cava are normal in size, with widespread aortoiliac and visceral artery atherosclerosis. Bones: No suspicious bony lesions. No vertebral body compression fractures. T12 and L1 vertebral b bettina superior endplate Schmorl's nodes are present from disc degeneration. Miscellaneous: No ventral hernias. IMPRESSION: 1. No significant interval change in overall appearance of cholelithiasis with acute cholecystitis, a s well as 3.4 x 2.5 cm adjacent intrahepatic rim-enhancing abscess. 2. New trace bibasilar mobile pleural effusions, larger on the left. 3. Atrophic bilateral kidneys as before, consistent with chronic renal disease. Dictated by: Santo England M.D. on 07/27/2016 at 13:25 Approved by: Santo England M.D. on 07/27/2016 at 13:25
--- NOTE | 2016-07-27 17:09 | NUR ---
Dialysis note: 3 1/2 hr tx. Net UF 2300. right fistula accessed without difficulty. 15 g needles. Pt slept through most of tx, ate dinner last 1/2 hr. BG 127. Site secured with SS, gauze, tape and pt returned to floor stable. Please see DTR for complete record of VS.
[2016-07-27] MEDS: Lisinopril 40 Tablet PO SCH (17:39)
[2016-07-27] MEDS: cefTRIAXone Inj 2,000 MG in IV Premix 1 EACH IV SCH (17:42)
[2016-07-27] MEDS ORDERED: 0.9% Sodium Chloride 250 ML ONE (21:43)
--- NOTE | 2016-07-27 21:43 | PROG NOTE ---
[address] [address] PROGRESS NOTE PATIENT: MARTÍNEZ CHAHAL : 1950 MR#: [id number] ADMIT: 07/21/2016 JOB ID: [id number] DATE: 07/27/2016 REASON FOR FOLLOWUP: Chronic cholecystitis with development of hepatic abscess. INTERVAL HISTORY: Over the weekend, the patient has been relatively stable. On broad-spectrum antibiotics including ceftriaxone and Flagyl. There have been discussions back and forth between IR and General Surgery about the appropriate and safest approach to her right upper quadrant infection. For her part, the patient feels about the same as she did on Wednesday. She denies ongoing fevers or chills, though she notes she is cold at times. No significant respiratory or GI complaints. She denies right upper quadrant pain. PHYSICAL EXAMINATION: Reveals an afebrile woman being dialyzed through a fistula in her right upper extremity. Temperature 36.9, pulse in the 50s, respiratory rate 18, blood pressure 105/42. She is saturating well on room air. The patient is awake and mentating reasonably well. Oral cavity negative. Lungs clear anteriorly. Cardiac tones: Irregular rate and rhythm. Abdomen more less soft and nontender. No focal right upper quadrant tenderness. LABORATORIES: Include white count 6300 which has subsided greatly over the weekend. Platelets a bit low 138 but stable. Differential white count is now normalized. Creatinine 5.2 but, of course, she is a dialysis patient. Procalcitonin 4.5 which is really uninterpretable due to renal failure though perhaps gives us something to follow when compared to subsequent values. QuantiFERON Gold is pending. Blood and urine cultures grew E. coli but different E. coli's. They were both susceptible, however, to ceftriaxone. Follow-up blood culture is negative. A repeat CT scan done this morning shows no change in the cholecystitis with adjacent intrahepatic rim-enhancing abscess. IMPRESSION: This patient is currently being treated with a combination of 3rd generation cephalosporin, as well as Flagyl. This is reasonable coverage empirically for a liver abscess, especially in someone who was known to have Escherichia coli bacteremia susceptible to ceftriaxone, but ultimately she will, of course, require drainage by Interventional Radiology or General Surgery to affect a good outcome. RECOMMENDATIONS: 1. Will continue with these antibiotics. 2. We await additional input from General Surgery and Interventional Radiology.
[2016-07-28] VITALS (8 sets, daily range): BP systolic 99–133; BP diastolic 44–76; PULSE 55–62; RESP 16–18; O2SAT 95–100
[2016-07-28] MEDS: MetoCLOpramide 5 mg/mL 2 mL Inj IVPUSH PRN (01:57)
--- NOTE | 2016-07-28 03:27 | NUR ---
nausea patient complains of nausea, mild medicated with reglan 5mg slow iv push. patient resting quietly.
[2016-07-28] MEDS: cloNIDine 0.1 mg Tablet PO SCH ×3 (04:08→20:26)
[2016-07-28 07:08] LABS: BASOPHILS % (AUTO) 0.1 % (0-3); EOSINOPHILS % (AUTO) 2.2 % (0-5); MONOCYTES % (AUTO) 9.5 % (4-12); Mean Corpuscular Hemoglobin 31.8 pg (27.0-35.0); Mean Corpuscular Volume 96.4 fL (81-100); NEUTROPHILS % (AUTO) 71.9 % (40-74); Platelet Count 173 bil/L (150-400)
[2016-07-28] MEDS: Insulin LISPRO 300 Unit/3 mL Inj SUBQ SCH ×4 (08:00→22:00)
[2016-07-28] MEDS: Lisinopril 40 Tablet PO SCH (08:30)
[2016-07-28] MEDS: LIDO PO SCH ×4 (08:30→22:00)
[2016-07-28] MEDS: Pantoprazole 40 mg ER24 Tablet PO SCH (08:30)
[2016-07-28] MEDS: Nystatin 100,000 Unit/mL 5 mL Suspension PO SCH ×4 (08:30→22:00)
[2016-07-28] MEDS: DIPHEN PO SCH ×4 (08:30→22:00)
[2016-07-28] MEDS: MAALOX PO SCH ×4 (08:30→22:00)
[2016-07-28] MEDS: metroNIDAZOLE Inj 500 MG in IV Premix 1 EACH IV SCH ×2 (08:54→20:26)
[2016-07-28 09:31] LABS: INR 1.07 ratio
--- NOTE | 2016-07-28 10:11 | PCM.PNMED ---
Subjective Date of Service Jul 28, 2016 Subjective Patient is essentially unchanged. Apparently she is scheduled to have a percutaneous drainage of one or several hepatic abscesses today. Exam Vital Signs Vital Sign - Last Date Time Temp Pulse Resp B/P Pulse Ox O2 Delivery O2 Flow Rate FiO2 07/28/16 09:38 36.7 61 18 115/50 98 Room Air Intake and Output 07/27/16 07/27/16 07/28/16 Cumulative From/Thru 15:00 23:00 07:00 07/21/16 03:19 - 07/28/16 06:49 Intake Total 685 ml 200 ml 8601 ml Output Total 2000 ml 0 ml 6100 ml Balance -1315 ml 200 ml 2501 ml Intake Oral 400 ml 200 ml 4083 ml IV Total 285 ml 4518 ml Output Urine Total 0 ml 0 ml 100 ml Urine/Stool Mix 0 ml Ultrafiltrate 2000 ml 6000 ml # Voids 1 # Bowel Movements 1 1 12 Exam Lungs were clear to auscultation. Heart is regular and rhythmical with a soft systolic murmur. Abdomen is soft benign tenderness rebound guarding masses or hepatosplenomegaly. Extremities without transmission clubbing cyanosis or edema. Lab and Diagnostics Result Diagram: 07/28/16 0620 07/28/16 0620 Microbiology Microbiology DONNELL CULTURE BLOOD Preliminary 07/22/16-0646 Organism 1 POSITIVE BLOOD CULTURE GRAM STAIN RESULT GRAM NEGATIVE RODS BC BOTTLE Isolated from Anaerobic Bottle of Set Drawn DATE CALLED: 07/21/16 TIME CALLED: 2199 CALLED BY: HUMPHREY FLOOR/DOCTOR: MARCO SESAY READ BACK Y TYPE OF DRAW PERIPHERAL DRAW TIME OF POSITIVITY 2100 GRAM STAIN RESULT GRAM NEGATIVE RODS BC BOTTLE2 Isolated from Aerobic Bottle of Set Drawn DATE CALLED: 07/21/16 TIME CALLED: 2300 CALLED BY: HUMPHREY FLOOR/DOCTOR: MARCO SESAY READ BACK Y TYPE OF DRAW PERIPHERAL DRAW TIME OF POSITIVITY 2210 GRAM NEGATIVE SCOTTIE ID AND SENSITIVITIES TO FOLLOW ISOLATED FROM FOUR OF FOUR BOTTLES COLLECTED 07/21 Microbiology DONNELL CULTURE BLOOD Preliminary 07/22/16-0647 Organism 1 POSITIVE BLOOD CULTURE GRAM STAIN RESULT GRAM NEGATIVE RODS BC BOTTLE Isolated from Aerobic Bottle of Set Drawn DATE CALLED: 07/21/16 TIME CALLED: 2200 CALLED BY: HUMPHREY TAYLOR/DOCTOR: SHAHEEN/ALVARADO SESAY READ BACK Y TYPE OF DRAW NURSE COLLLECT TYPE NOT SPECIFIED TIME OF POSITIVITY 2140 GRAM STAIN RESULT GRAM NEGATIVE RODS BC BOTTLE2 Isolated from Anaerobic Bottle of Set Drawn DATE CALLED: 07/22/16 TIME CALLED: 412 CALLED BY: MICK FLOOR/DOCTOR: SHAHEEN/ALVARADO Quinetro RN BC READ BACK Y TYPE OF DRAW NURSE COLLECT TYPE NOT INDICATED TIME OF POSITIVITY 0350 GRAM NEGATIVE SCOTTIE ID TO FOLLOW ISOLATED FROM FOUR OF FOUR BOTTLES COLLECTED 07/21 X-Rays, CTs and MRIs PROCEDURE: X-RAY CHEST ONE VIEW, PORTABLE ([id number]) FINDINGS: Surgical changes and devices: Post median sternotomy. Lungs and pleura: No pleural effusions or pneumothorax. Lung volumes are low and interstitium is prominent. Medial bibasilar airspace opacities. Mediastinum: Mediastinal contours appear normal. Heart size is normal. Bones and chest wall: No suspicious bony lesions. Overlying soft tissues appear unremarkable. IMPRESSION: Persistent low lung volumes with interstitial prominence and bibasilar radiodensities likely atelectasis. Correlate clinically. Dictated by: Tariq Mendoza RR Interpreted: Fadia Aguilar MD on 07/21/2016 at 9:56 Transcribed by: TYRONE on 07/21/2016 at 9:56 PROCEDURE: CT BRAIN WITHOUT CONTRAST FINDINGS: Image quality: Excellent. CSF spaces: Basal cisterns are patent. No extra-axial fluid collections. The ventricles are symmetric in size and shape. Brain: No intracranial bleeds or masses. There is cerebral volume loss for age , with resultant ventricular and sulcal prominence. There are periventricular and deep white matter chronic small vessel ischemic changes. There is intracranial internal carotid artery atherosclerosis. Skull and face: Calvarium and visualized facial bones appear intact, without suspicious lesions. Sinuses: Visualized sinuses and mastoids are clear. IMPRESSION: No acute intracranial abnormality. Concordant with preliminary interpretation. Dictated by: Dyan Gonzales M.D. on 07/23/2016 at 9:42 Approved by: Dyan Gonzales M.D. on 07/23/2016 at 9:42 PROCEDURE: US ABDOMEN COMPARISON: [facility], CT, CT ABD PELVIS W CON, 03/28/2016, 6:25. [facility], US, US ABDOMEN, 03/28/2016, 11:39. [facility], NM, NM HIDA SCAN W CCK STD, 03/29/2016, 18:43. FINDINGS: Liver: Liver is normal in size. There is a 2.6 x 2.0 x 3.7 cm hypoechoic area adjacent to the gallbladder demonstrating small echogenic foci, suspicious for an intraheptic abscess. This finding is new. Gallbladder: Gallbladder is grossly abnormal. There is marked gallbladder wall thickening (up to 9.1 mm) and irregularity. There are gallstones and gallbladder sludge. The ultrasound findings are consistent with acute cholecystitis. The hypoechoic area in liver may have direct connection to the gallbladder, suspicious for gallbladder perforation. A small pericholecystic fluid is present. Biliary ducts: Intrahepatic bile ducts are non-dilated. Extrahepatic bile duct caliber measures 4.7 mm. Normal is 6-7 mm or less in diameter, or 10 mm or less post-cholecystectomy. Pancreas: Visualized portions of the pancreas are sonographically normal. Spleen: Spleen is normal in size and homogeneous in echotexture. Kidneys: The inferior pole of the right kidney is not visualized. Left kidney measures 7 cm in length, which is decreased in size. There is bilateral renal cortical thinning. No hydronephrosis or nephrolithiasis. A 1.3 cm cyst is noted in the superior pole of the right kidney. Aorta: Visualized aorta is normal in caliber at less than 3 cm. Iliacs: Proximal common iliac arteries are normal in caliber at less than 2.5 cm. IVC: Intrahepatic inferior vena cava is patent. Miscellaneous: No free abdominal fluid. Bladder is contracted, therefore, not well-seen. IMPRESSION: 1. Markedly abnormal gallbladder with gallstones/sludge and irregular gallbladder wall thickening, consistent with acute cholecystitis. 2. There is a hypocortical area in the liver adjacent to the gallbladder, which appears to be connected gallbladder, suspicious for gallbladder perforation and an intrahepatic abscess. 3. Atrophic kidneys bilaterally. Dictated by: Dorinda Gerber M.D. on 07/23/2016 at 21:50 Transcribed by: SIMA on 07/23/2016 at 21:50 Approved by: Dorinda Gerber M.D. on 07/23/2016 at 22:13 Assessment & Plan impression #1 end-stage renal disease dialysis dependent #2 hypertension with hypertensive heart disease and hypertensive nephrosclerosis #3 diabetic renal disease Recommendations #1 make arrangements for her dialysis off for the morning. GI Prophylaxis: Proton Pump Inhibitor VTE Prophylaxis: SCDs VTE Mechanical Devices: Intermittant Pneumatic CD Resuscitation Status: CPR: Attempt Resuscitation Brian Gresham DO Jul 28, 2016 10:11
[2016-07-28] MEDS: cefTRIAXone Inj 2,000 MG in IV Premix 1 EACH IV SCH (10:13)
--- NOTE | 2016-07-28 11:04 | NUR ---
PAOLA signed with . MICKEY Lazar
--- NOTE | 2016-07-28 11:12 | PROG NOTE ---
[address] [address] PROGRESS NOTE PATIENT: MARTÍNEZ CHAHAL : 1950 MR#: [id number] ADMIT: 07/21/2016 JOB ID: [id number] DATE: 07/28/2016 NARRATIVE: The patient is seen today for general surgery. I have reviewed the x-rays with Dr. Zepeda. The liver abscess may or may not be in continuity with the gallbladder lumen. Dr. Zepeda plans to proceed with placement of a pigtail drain into the liver abscess. The patient has been doing well with antibiotics and hopefully, this will aid in recovery from her E. coli bacteremia secondary to the abscess. We have also reviewed the HIDA scan the patient had back in March, and there is some question as to whether this was misread and actually is consistent with chronic gallbladder disease in which case the patient would likely benefit from eventual cholecystectomy when she is in better shape.
[2016-07-28] MEDS ORDERED: fentaNYL-PF 50 mCg/mL 2 mL Inj ONE (13:48)
[2016-07-28] MEDS ORDERED: 0.9% Sodium Chloride 500 ML ONE (13:48)
[2016-07-28] MEDS ORDERED: Flumazenil 0.1 mg/mL 5 mL Inj IV ONE (13:48)
--- NOTE | 2016-07-28 14:16 | NUR ---
Procedure Patient left floor for procedure to insert drain at 1330. Addendum: 07/28/16 at 1704 by JOSSELINE YUNG RN Patient back from procedure at 1700.
--- NOTE | 2016-07-28 15:31 | DRSVH ---
PROCEDURE: CT ABCESS DRAIN ORGAN INDICATIONS: ABDOMINAL ABSCESS COMPARISON: None. Technique: The risks and benefits of the procedure were discussed with the patient and her . Consent was obtained and placed in the chart. The patient was placed in a supine position on the CT table. The ov erlying skin was prepped and draped in the usual sterile fashion. 1% lidocaine was used to anesthetiz e the skin over the area of interest. Under CT guidance, an 18 gauge 10 cm Chiba needle was advanced into the liver abscess. Purulent fluid was withdrawn and sent for laboratory analysis. An 035 stiff A mplatz wire was advanced through the outer stylet of the needle into the abscess. The needle was latosha candy, and an 8 [place] locking pigtail catheter was advanced and deployed in the abscess. This was secu red at the skin with adhesive bandage. Approximately 30 cc of purulent fluid was drained from the abs cess. FINDINGS: Initial CT demonstrated an ill-defined low-density fluid collection within the inferior ri ght hepatic lobe. Final CT image demonstrates an appropriately placed locking pigtail drain within th e abscess. IMPRESSION: Status post CT guided drainage of a right hepatic liver abscess with approximately 30 cc drainage of purulent fluid sent for laboratory analysis. Dictated by: Gina Zepeda M.D. on 07/28/2016 at 15:29 Approved by: Gina Zepeda M.D. on 07/28/2016 at 15:29
--- NOTE | 2016-07-28 16:28 | PCM.PNMED ---
Subjective Date of Service Jul 28, 2016 Subjective Patient reports that she is doing well. Pt reports that she is feeling hungry and tired, but otherwise has no complaints. Pt reports the ulcers in her mouth are improving.Pt denies any nausea, vomiting, diarrhea, abdominal pain, fevers or chills. Pt reports that she is tolerating her diet well. Family note that the patient is back to baseline mentation. Per nursing, overnight pt experienced some nausea that was resolved with Reglan. Exam Vital Signs Vital Sign - Last Date Time Temp Pulse Resp B/P Pulse Ox O2 Delivery O2 Flow Rate FiO2 07/28/16 04:02 37.4 58 18 133/55 95 Room Air Intake and Output 07/27/16 07/27/16 07/28/16 Cumulative From/Thru 15:00 23:00 07:00 07/21/16 03:19 - 07/28/16 06:49 Intake Total 685 ml 200 ml 8601 ml Output Total 2000 ml 0 ml 6100 ml Balance -1315 ml 200 ml 2501 ml Intake Oral 400 ml 200 ml 4083 ml IV Total 285 ml 4518 ml Output Urine Total 0 ml 0 ml 100 ml Urine/Stool Mix 0 ml Ultrafiltrate 2000 ml 6000 ml # Voids 1 # Bowel Movements 1 1 12 Exam General: No acute distress- pt is supine in bed, resting comfortably. HENT: Normocephalic, atraumatic. Anicteric sclerae, moist conjunctivae. Oropharynx with moist mucosa. Edentulous. Neck: Supple with full range of motion. No lymphadenopathy Cardiovascular: Regular rate and rhythm. Systolic murmur auscultated. Pulmonary: Clear to auscultation bilaterally with no crackles, wheezes, or rhonchi. Normal respiratory effort with no use of accessory muscles. Abdomen: Soft, nontender, nondistended.normal bowel tones present Extremities: No clubbing, cyanosis, edema appreciated. Skin: Normal temperature, turgor, and texture Psychiatric: Alert and oriented to person ( baseline per family).Able to answer questions.Appropriately interactive IVs and Medications Medications Reviewed: Medications were reviewed in detail Lab and Diagnostics Result Diagram: 07/28/16 0620 07/27/16 0612 Microbiology Microbiology DONNELL CULTURE BLOOD Preliminary 07/22/16-0646 Organism 1 POSITIVE BLOOD CULTURE GRAM STAIN RESULT GRAM NEGATIVE RODS BC BOTTLE Isolated from Anaerobic Bottle of Set Drawn DATE CALLED: 07/21/16 TIME CALLED: 2200 CALLED BY: HUMPHREY FLOOR/DOCTOR: MARCO Clement BC READ BACK Y TYPE OF DRAW PERIPHERAL DRAW TIME OF POSITIVITY 2100 GRAM STAIN RESULT GRAM NEGATIVE RODS BC BOTTLE2 Isolated from Aerobic Bottle of Set Drawn DATE CALLED: 07/21/16 TIME CALLED: 2300 CALLED BY: HUMPHREY TAYLOR/DOCTOR: MARCO Clement BC READ BACK Y TYPE OF DRAW PERIPHERAL DRAW TIME OF POSITIVITY 2210 GRAM NEGATIVE SCOTTIE ID AND SENSITIVITIES TO FOLLOW ISOLATED FROM FOUR OF FOUR BOTTLES COLLECTED 07/21 Microbiology DONNELL CULTURE BLOOD Preliminary 07/22/16-0647 Organism 1 POSITIVE BLOOD CULTURE GRAM STAIN RESULT GRAM NEGATIVE RODS BC BOTTLE Isolated from Aerobic Bottle of Set Drawn DATE CALLED: 07/21/16 TIME CALLED: 2200 CALLED BY: HUMPHREY TAYLOR/DOCTOR: MARCO Clement BC READ BACK Y TYPE OF DRAW NURSE COLLLECT TYPE NOT SPECIFIED TIME OF POSITIVITY 2140 GRAM STAIN RESULT GRAM NEGATIVE RODS BC BOTTLE2 Isolated from Anaerobic Bottle of Set Drawn DATE CALLED: 07/22/16 TIME CALLED: 0413 CALLED BY: MICK FLOOR/DOCTOR: MARCO Quintero RN BC READ BACK Y TYPE OF DRAW NURSE COLLECT TYPE NOT INDICATED TIME OF POSITIVITY 0350 GRAM NEGATIVE SCOTTIE ID TO FOLLOW ISOLATED FROM FOUR OF FOUR BOTTLES COLLECTED 07/21 X-Rays, CTs and MRIs PROCEDURE: X-RAY CHEST ONE VIEW, PORTABLE ([id number]) FINDINGS: Surgical changes and devices: Post median sternotomy. Lungs and pleura: No pleural effusions or pneumothorax. Lung volumes are low and interstitium is prominent. Medial bibasilar airspace opacities. Mediastinum: Mediastinal contours appear normal. Heart size is normal. Bones and chest wall: No suspicious bony lesions. Overlying soft tissues appear unremarkable. I MPRESSION: Persistent low lung volumes with interstitial prominence and bibasilar radiodensities likely atelectasis. Correlate clinically. Dictated by: Tariq Mendoza RRMynor Interpreted: Fadia Aguilar MD on 07/21/2016 at 9:56 Transcribed by: TYRONE on 07/21/2016 at 9:56 PROCEDURE: CT BRAIN WITHOUT CONTRAST FINDINGS: Image quality: Excellent. CSF spaces: Basal cisterns are patent. No extra-axial fluid collections. The ventricles are symmetric in size and shape. Brain: No intracranial bleeds or masses. There is cerebral volume loss for age , with resultant ventricular and sulcal prominence. There are periventricular and deep white matter chronic small vessel ischemic changes. There is intracranial internal carotid artery atherosclerosis. Skull and face: Calvarium and visualized facial bones appear intact, without suspicious lesions. Sinuses: Visualized sinuses and mastoids are clear. IMPRESSION: No acute intracranial abnormality. Concordant with preliminary interpretation. Dictated by: Dyan Gonzales M.D. on 07/23/2016 at 9:42 Approved by: Dyan Gonzales M.D. on 07/23/2016 at 9:42 PROCEDURE: US ABDOMEN COMPARISON: [facility], CT, CT ABD PELVIS W CON, 03/28/2016, 6:25. [facility], US, US ABDOMEN, 03/28/2016, 11:39. [facility], NM, NM HIDA SCAN W CCK STD, 03/29/2016, 18:43. FINDINGS: Liver: Liver is normal in size. There is a 2.6 x 2.0 x 3.7 cm hypoechoic area adjacent to the gallbladder demonstrating small echogenic foci, suspicious for an intraheptic abscess. This finding is new. Gallbladder: Gallbladder is grossly abnormal. There is marked gallbladder wall thickening (up to 9.1 mm) and irregularity. There are gallstones and gallbladder sludge. The ultrasound findings are consistent with acute cholecystitis. The hypoechoic area in liver may have direct connection to the gallbladder, suspicious for gallbladder perforation. A small pericholecystic fluid is present. Biliary ducts: Intrahepatic bile ducts are non-dilated. Extrahepatic bile duct caliber measures 4.7 mm. Normal is 6-7 mm or less in diameter, or 10 mm or less post-cholecystectomy. Pancreas: Visualized portions of the pancreas are sonographically normal. Spleen: Spleen is normal in size and homogeneous in echotexture. Kidneys: The inferior pole of the right kidney is not visualized. Left kidney measures 7 cm in length, which is decreased in size. There is bilateral renal cortical thinning. No hydronephrosis or nephrolithiasis. A 1.3 cm cyst is noted in the superior pole of the right kidney. Aorta: Visualized aorta is normal in caliber at less than 3 cm. Iliacs: Proximal common iliac arteries are normal in caliber at less than 2.5 cm. IVC: Intrahepatic inferior vena cava is patent. Miscellaneous: No free abdominal fluid. Bladder is contracted, therefore, not well-seen. IMPRESSION: 1. Markedly abnormal gallbladder with gallstones/sludge and irregular gallbladder wall thickening, consistent with acute cholecystitis. 2. There is a hypocortical area in the liver adjacent to the gallbladder, which appears to be connected gallbladder, suspicious for gallbladder perforation and an intrahepatic abscess. 3. Atrophic kidneys bilaterally. Dictated by: Dorinda Gerber M.D. on 07/23/2016 at 21:50 Transcribed by: SIMA on 07/23/2016 at 21:50 Approved by: Dorinda Gerber M.D. on 07/23/2016 at 22:13 PROCEDURE: CT ABDOMEN WITH CONTRAST ([id number]) COMPARISON: [facility], CT, CT ABD W CON, 07/24/2016, 12:44. [facility], CT, CT ABD PELVIS W CON, 03/28/2016, 6:25. FINDINGS: Image quality: Excellent. Lung bases: New trace bibasilar mobile pleural effusions are present, larger on the left. Heart size is normal. Solid organs: Liver and spleen are normal in size. On axial image 23, 3.4 x 2.5 cm anteroinferior right hepatic lobe rim-enhancing lesion is not significantly changed in size, adjacent to the gallbladder fossa. Gallbladder again demonstrates multiple calcified and noncalcified gallstones, as well as circumferential gallbladder wall thickening. Biliary system is non dilated. Pancreas enhances normally. No adrenal nodules. Bilateral renal cortical atrophy is again noted, without hydronephrosis Peritoneum and bowel: Contrast enhanced bowel loops appear normal in caliber. No free fluid or air. Nodes and vessels: No retroperitoneal or mesenteric adenopathy by size criteria. Aorta and inferior vena cava are normal in size, with widespread aortoiliac and visceral artery atherosclerosis. Bones: No suspicious bony lesions. No vertebral body compression fractures. T12 and L1 vertebral body superior endplate Schmorl's nodes are present from disc degeneration. Miscellaneous: No ventral hernias. IMPRESSION: 1. No significant interval change in overall appearance of cholelithiasis with acute cholecystitis, as well as 3.4 x 2.5 cm adjacent intrahepatic rim- enhancing abscess. 2. New trace bibasilar mobile pleural effusions, larger on the left. 3. Atrophic bilateral kidneys as before, consistent with chronic renal disease. Dictated by: Santo England M.D. on 07/27/2016 at 13:25 Approved by: Santo England M.D. on 07/27/2016 at 13:25 Assessment & Plan 65yoF with past medical history of ESRD on hemodialysis, DM type 2, CHF, HTN, HLD who presented to the [facility] ED with altered mental status per her family. She was under evaluation for suspected acute cholecystitis with abscess formation, that may be the etiology of her septicemia. General surgery has been consulted, awaiting further imaging to decide to pursue interventions. - Hospital day 8 Sepsis likely secondary to pyelonephritis and/or acute cholecystitis with possible abscess, present on admission, ongoing - SIRS with T 38.6, and WBC 12.5 -Treat underlying cause--pyelonephritis, cholecystitis Acute pyelonephritis, present on admission, ongoing -Zosyn and NS given in ER -Urine and Blood cultures( aerobic and anaerobic) 10/27 bottle growing E.coli -Infectious disease has been consulted, we appreciate Dr Gutirerez's input -ID recommends Ceftriaxone to 2gm daily, start date 07/24 (of note, pt received Ceftriaxone 1gm daily for 3 days prior) Acute cholecystitis with possible perforation or abscess on US, present on admission, ongoing -US on 07/23 demonstrating "gallstones/sludge and irregular gallbladder wall thickening & hypocortical area in the liver suspicious for gallbladder perforation/intrahepatic abscess. -Pt receiving Flagyl, start date 07/24 -Repeat CT(07/27); demonstrating "no significant interval change in overall appearance of cholelithiasis with acute cholecystitis, as well as 3.4 x 2.5 cm adjacent intrahepatic rim-enhancing abscess" -Surgery has been consulted, we appreciate their input---Pt scheduled for pigtail catheter placement by IR later today Oropharynx pain and discoloration, not present on admission, ongoing -Pt has nystatin swish and swallow, which seems to be helping -Lidocaine/Diphenhydramine/Alum/Mg/Simeth mouthwash also available -Will continue to monitor Altered mental status likely secondary to pyelonephritis, present on admission, resolved -CT of brain---No acute abnormality -Palliative care consult can be considered, given pt's mentation, ESRD with dialysis and now cholecystitis to discuss goals of care. - Family wishes to pursue interventions Dysphagia, not present on admission, ongoing -Speech evaluation performed, dysphagia improved with improved mentation -Diet per speech recommendations End stage renal disease on hemodialysis, present on admission, chronic - Dialysis MWF - Renal diet ordered - Nephrology consulted we appreciate their input Diabetes mellitus type 2, present on admission, presumed stable - Patient placed on correction scale lispro - A1C checked 03/29/16, was 6.5 HTN,chronic, ongoing, uncontrolled -Continue home medications -Appreciate Nephrology input on management -Clonidine patch and IV enalaprilat 1.25 mg q 6 hr PRN. Chronic and stable conditions: Chronic diastolic heart failure,presumed stable -ECHO done in 2014 Hypothyroidism, chronic, presumed stable -Continue home medications Hyperlipidemia,chronic, presumed stable -Continue home medications - PRN: Fever/pain/bowel/antiemetic - DVT: SCDs - GI: PPI - DIET: Renal, per ST - CODE: FULL CODE Dispo: Likely to remain pending additional imaging to be performed, and input from surgical team. Continued needs include PT, ST to maintain strength in chronically frail patient. Dialysis MWF. GI Prophylaxis: Proton Pump Inhibitor VTE Prophylaxis: SCDs VTE Mechanical Devices: Intermittant Pneumatic CD Resuscitation Status: CPR: Attempt Resuscitation Attending Statement The patient was seen and examined together with Dr. Angel on 07/28/2016 and I agree with the history, exam and plan as outlined in the note above. Lisa Angel DO Jul 28, 2016 07:32 Weston Montes MD Jul 29, 2016 09:52
--- NOTE | 2016-07-28 17:05 | NUR ---
Returned to 3016 following recovery in [facility] until 1700. Trace exudate noted in hepatic drain. Report given to Kavon Joseph RN for room 3016.
--- NOTE | 2016-07-28 17:50 | PROG NOTE ---
[address] [address] PROGRESS NOTE PATIENT: MARTÍNEZ CHAHAL : 1950 MR#: [id number] ADMIT: 07/21/2016 JOB ID: [id number] DATE: 07/28/2016 REASON FOR FOLLOWUP: Hepatic abscess secondary to chronic cholecystitis. INTERVAL HISTORY: Today, the patient was seen in the [facility] area where she had just undergone percutaneous drainage of her liver abscess by Dr. Zepeda. The patient tolerated the procedure well and I discussed the case with Dr. Zepeda who reports she drained about 30 cc of purulent material which she was reasonably certain came from the liver abscess. Whether there may have been communication with the gallbladder itself was unclear. A drain was left in place and appropriate cultures were sent. The patient states she feels fine after the procedure except she is cold. No chills per se. No fever and no new pulmonary or GI symptoms. She still has no pain in her right upper quadrant. PHYSICAL EXAMINATION: Reveals an afebrile woman. Temp 36.7, pulse 61, respiratory rate 18, blood pressure 115/50. She is saturating well on room air. Mental status is clear. Oral cavity negative. Lungs relatively clear. Abdomen benign with the new drain in the right upper quadrant. LABORATORIES: Include a white count of 7600, creatinine 2.94. LFTs normal. Procalcitonin 4.5. QuantiFERON Gold pending. Gram stain from the abscess drainage shows many polys with no organisms. IMPRESSION: This is a complex patient with a hepatic abscess secondary to chronic cholecystitis. She has been treated with a third generation cephalosporin and Flagyl which seems to be appropriate therapy. Percutaneous drainage was accomplished today. RECOMMENDATIONS: 1. Will continue with these antibiotics. 2. How long the drain should remain in place will be the province of the IR and General Surgery teams. 3. I would continue with aggressive antibiotic therapy, either IV or p.o., until the liver abscess has resolved and/or the drain is pulled and definitive surgical intervention performed.
[2016-07-28] MEDS ORDERED: 0.9% Sodium Chloride 250 ML ONE (23:31)
[2016-07-29] VITALS (7 sets, daily range): BP systolic 96–151; BP diastolic 44–61; PULSE 57–66; RESP 16; O2SAT 95–99
[2016-07-29] MEDS: cloNIDine 0.1 mg Tablet PO SCH ×3 (04:35→18:17)
--- NOTE | 2016-07-29 05:05 | NUR ---
Alertness / low B/Ps Pt has been very sleepy through night, after return in evening pt denied pain and simply slept; wakes easily, assisted with repositioning for skin care. Hepatic T-drain with low amount of purulent, brown liquid output. B/ps soft through night, Md aware and ordered to withhold 4 am Hydralazine dose. Hourly rounding ongoing.
[2016-07-29 07:45] LABS: BASOPHILS % (AUTO) 0.3 % (0-3); EOSINOPHILS % (AUTO) 1.6 % (0-5); Mean Corpuscular Hemoglobin 31.6 pg (27.0-35.0); Mean Corpuscular Volume 97.2 fL (81-100); NEUTROPHILS % (AUTO) 70.7 % (40-74); Platelet Count 191 bil/L (150-400)
[2016-07-29] MEDS: Insulin LISPRO 300 Unit/3 mL Inj SUBQ SCH ×4 (08:00→21:48)
[2016-07-29] MEDS: Nystatin 100,000 Unit/mL 5 mL Suspension PO SCH ×4 (08:34→21:24)
[2016-07-29] MEDS: LIDO PO SCH ×4 (08:34→21:22)
[2016-07-29] MEDS: DIPHEN PO SCH ×4 (08:34→21:22)
[2016-07-29] MEDS: MAALOX PO SCH ×4 (08:34→21:22)
--- NOTE | 2016-07-29 08:40 | NUR ---
Social Work-readiness for discharge: Data:EMR Reviewed. Pt is on day 8 of hospitalization for sepsis per H&P. pt is not medically stable for discharge, anticipate another day or two. PT continues to recommend SNF, pt a 2 person max assist. [facility] has accepted pt at discharge. Paperwork in the chart. SW will continue to follow. Assessment:Pt who would benefit from SNF. Plan:[facility] has accepted with Dr. Bynum to follow. Paperwork in the chart. SW will continue to follow. MICKEY Lazar
[2016-07-29] MEDS: Pantoprazole 40 mg ER24 Tablet PO SCH (08:53)
--- NOTE | 2016-07-29 10:29 | NUR ---
MOC-Dialysis [place] [facility] [place] primary RN and aid. Tele made aware. Pt denied pain. Breakfast eaten prior to leaving. LIZZETH QUICK. Most of AM meds held. Addendum: 07/29/16 at 1520 by KENNY KYLE RN Pt returned to unit at 1500 by RN. Pt denies pain. Now eating lunch. VSS.
--- NOTE | 2016-07-29 10:36 | PROG NOTE ---
[address] [address] PROGRESS NOTE PATIENT: MARTÍNEZ CHAHAL : 1950 MR#: [id number] ADMIT: 07/21/2016 JOB ID: [id number] DATE: 07/29/2016 SUBJECTIVE: The patient is seen in followup for her acute on chronic cholecystitis. Yesterday, she had a percutaneous drain placed into the liver abscess component of her cholecystitis. This morning, through an international marketing executive, she tells me she is feeling much better with no pain with eating. This morning she is afebrile and hemodynamically normal. She did have a febrile episode last night up to 37.8. She appears comfortable in no acute distress. Her abdomen is soft, nontender, nondistended. Her drain remains in place with murky output. Since cholecystostomy tube placement 25 cc has drained. This morning her white blood cell count remains normal at 6.2. Her hematocrit is stable at 31.4. ASSESSMENT AND PLAN: This is a 65-year-old female with multiple medical comorbidities, including end-stage renal disease, on hemodialysis who has had a picture of chronic cholecystitis complicated by acute exacerbation with extension to an intrahepatic abscess postprocedural day one from cholecystostomy tube placement. Overall, the patient seems to be doing well. She seems to have gained some symptomatic relief from placement of that cholecystostomy tube. At this point, I recommend ongoing antibiotic therapy and we will plan on leaving that cholecystostomy tube in for a minimum of six weeks. After hospital discharge, the patient can followup with me in a couple of weeks and I will arrange for subsequent followup to have the tube removed. With respect to management after cholecystostomy tube comes out, there is some literature supporting the idea of nonoperative management in high risk patients. I am going to continue to investigate that and will ultimately make a decision with the patient regards whether or not we proceed with cholecystectomy two months from now.
--- NOTE | 2016-07-29 14:43 | PCM.PNMED ---
Subjective Date of Service Jul 29, 2016 Subjective Family reports that patient was somnolent after returning from her procedure yesterday, but note that she is back to baseline interaction and activity this morning. Pt reports that she is feeling well. She states that her main complaint is the ulcers in her mouth, which she states are improving. Pt also reports the medicine she has been given for her ulcers is truly helping. Pt denies any fevers, chills, nausea, vomiting, abdominal pain, incision site pain or fatigue. Pt and family do not have any concerns at this time. Exam Vital Signs Vital Sign - Last Date Time Temp Pulse Resp B/P Pulse Ox O2 Delivery O2 Flow Rate FiO2 07/29/16 04:22 37.0 57 16 124/49 98 Room Air Intake and Output 07/28/16 07/28/16 07/29/16 Cumulative From/Thru 15:00 23:00 07:00 07/21/16 03:19 - 07/29/16 06:50 Intake Total 0 ml 120 ml 8721 ml Output Total 0 ml 25 ml 6125 ml Balance 0 ml 95 ml 2596 ml Intake Oral 0 ml 4083 ml IV Total 120 ml 4638 ml Output Urine Total 0 ml 100 ml Urine/Stool Mix 0 ml Drainage Total 25 ml 25 ml Ultrafiltrate 6000 ml # Voids 1 # Bowel Movements 1 0 13 Exam General: No acute distress- pt is supine in bed, resting comfortably. HENT: Normocephalic, atraumatic. Anicteric sclerae, moist conjunctivae. Oropharynx with moist mucosa. Edentulous. Neck: Supple with full range of motion. No lymphadenopathy Cardiovascular: Regular rate and rhythm. Systolic murmur auscultated. Pulmonary: Clear to auscultation bilaterally with no crackles, wheezes, or rhonchi. Normal respiratory effort with no use of accessory muscles. Abdomen: Soft, nontender, nondistended.normal bowel tones present Extremities: No clubbing, cyanosis, edema appreciated. Skin: Normal temperature, turgor, and texture Psychiatric: Alert and oriented to person ( baseline per family).Able to answer questions.Appropriately interactive IVs and Medications Medications Reviewed: Medications were reviewed in detail Lab and Diagnostics Result Diagram: 07/28/16 0620 07/28/16 0620 Microbiology Microbiology DONNELL CULTURE BLOOD Preliminary 07/22/16-0646 Organism 1 POSITIVE BLOOD CULTURE GRAM STAIN RESULT GRAM NEGATIVE RODS BC BOTTLE Isolated from Anaerobic Bottle of Set Drawn DATE CALLED: 07/21/16 TIME CALLED: 2200 CALLED BY: HUMPHREY FLOOR/DOCTOR: MARCO Clement BC READ BACK Y TYPE OF DRAW PERIPHERAL DRAW TIME OF POSITIVITY 2100 GRAM STAIN RESULT GRAM NEGATIVE RODS BC BOTTLE2 Isolated from Aerobic Bottle of Set Drawn DATE CALLED: 07/21/16 TIME CALLED: 2300 CALLED BY: HUMPHREY TAYLOR/DOCTOR: MARCO Clement BC READ BACK Y TYPE OF DRAW PERIPHERAL DRAW TIME OF POSITIVITY 2210 GRAM NEGATIVE SCOTTIE ID AND SENSITIVITIES TO FOLLOW ISOLATED FROM FOUR OF FOUR BOTTLES COLLECTED 07/21 Microbiology DONNELL CULTURE BLOOD Preliminary 07/22/16 Organism 1 POSITIVE BLOOD CULTURE GRAM STAIN RESULT GRAM NEGATIVE RODS BC BOTTLE Isolated from Aerobic Bottle of Set Drawn DATE CALLED: 07/21/16 TIME CALLED: 2200 CALLED BY: HUMPHREY TAYLOR/DOCTOR: MARCO Clement BC READ BACK Y TYPE OF DRAW NURSE COLLLECT TYPE NOT SPECIFIED TIME OF POSITIVITY 2140 GRAM STAIN RESULT GRAM NEGATIVE RODS BC BOTTLE2 Isolated from Anaerobic Bottle of Set Drawn DATE CALLED: 07/22/16 TIME CALLED: 0413 CALLED BY: MICK TAYLOR/DOCTOR: MARCO Quintero RN BC READ BACK Y TYPE OF DRAW NURSE COLLECT TYPE NOT INDICATED TIME OF POSITIVITY 0350 GRAM NEGATIVE SCOTTIE ID TO FOLLOW ISOLATED FROM FOUR OF FOUR BOTTLES COLLECTED 07/21 X-Rays, CTs and MRIs PROCEDURE: X-RAY CHEST ONE VIEW, PORTABLE ([id number]) FINDINGS: Surgical changes and devices: Post median sternotomy. Lungs and pleura: No pleural effusions or pneumothorax. Lung volumes are low and interstitium is prominent. Medial bibasilar airspace opacities. Mediastinum: Mediastinal contours appear normal. Heart size is normal. Bones and chest wall: No suspicious bony lesions. Overlying soft tissues appear unremarkable. I MPRESSION: Persistent low lung volumes with interstitial prominence and bibasilar radiodensities likely atelectasis. Correlate clinically. Dictated by: Tariq CERDA Interpreted: Fadia Aguilar MD on 07/21/2016 at 9:56 Transcribed by: TYRONE on 07/21/2016 at 9:56 PROCEDURE: CT BRAIN WITHOUT CONTRAST FINDINGS: Image quality: Excellent. CSF spaces: Basal cisterns are patent. No extra-axial fluid collections. The ventricles are symmetric in size and shape. Brain: No intracranial bleeds or masses. There is cerebral volume loss for age , with resultant ventricular and sulcal prominence. There are periventricular and deep white matter chronic small vessel ischemic changes. There is intracranial internal carotid artery atherosclerosis. Skull and face: Calvarium and visualized facial bones appear intact, without suspicious lesions. Sinuses: Visualized sinuses and mastoids are clear. IMPRESSION: No acute intracranial abnormality. Concordant with preliminary interpretation. Dictated by: Dyan Gonzales M.D. on 07/23/2016 at 9:42 Approved by: Dyan Gonzales M.D. on 07/23/2016 at 9:42 PROCEDURE: US ABDOMEN COMPARISON: [facility], CT, CT ABD PELVIS W CON, 03/28/2016, 6:25. [facility], US, US ABDOMEN, 03/28/2016, 11:39. [facility], NM, NM HIDA SCAN W CCK STD, 03/29/2016, 18:43. FINDINGS: Liver: Liver is normal in size. There is a 2.6 x 2.0 x 3.7 cm hypoechoic area adjacent to the gallbladder demonstrating small echogenic foci, suspicious for an intraheptic abscess. This finding is new. Gallbladder: Gallbladder is grossly abnormal. There is marked gallbladder wall thickening (up to 9.1 mm) and irregularity. There are gallstones and gallbladder sludge. The ultrasound findings are consistent with acute cholecystitis. The hypoechoic area in liver may have direct connection to the gallbladder, suspicious for gallbladder perforation. A small pericholecystic fluid is present. Biliary ducts: Intrahepatic bile ducts are non-dilated. Extrahepatic bile duct caliber measures 4.7 mm. Normal is 6-7 mm or less in diameter, or 10 mm or less post-cholecystectomy. Pancreas: Visualized portions of the pancreas are sonographically normal. Spleen: Spleen is normal in size and homogeneous in echotexture. Kidneys: The inferior pole of the right kidney is not visualized. Left kidney measures 7 cm in length, which is decreased in size. There is bilateral renal cortical thinning. No hydronephrosis or nephrolithiasis. A 1.3 cm cyst is noted in the superior pole of the right kidney. Aorta: Visualized aorta is normal in caliber at less than 3 cm. Iliacs: Proximal common iliac arteries are normal in caliber at less than 2.5 cm. IVC: Intrahepatic inferior vena cava is patent. Miscellaneous: No free abdominal fluid. Bladder is contracted, therefore, not well-seen. IMPRESSION: 1. Markedly abnormal gallbladder with gallstones/sludge and irregular gallbladder wall thickening, consistent with acute cholecystitis. 2. There is a hypocortical area in the liver adjacent to the gallbladder, which appears to be connected gallbladder, suspicious for gallbladder perforation and an intrahepatic abscess. 3. Atrophic kidneys bilaterally. Dictated by: Dorinda Gerber M.D. on 07/23/2016 at 21:50 Transcribed by: SIMA on 07/23/2016 at 21:50 Approved by: Dorinda Gerber M.D. on 07/23/2016 at 22:13 PROCEDURE: CT ABDOMEN WITH CONTRAST ([id number]) COMPARISON: [facility], CT, CT ABD W CON, 07/24/2016, 12:44. [facility], CT, CT ABD PELVIS W CON, 03/28/2016, 6:25. FINDINGS: Image quality: Excellent. Lung bases: New trace bibasilar mobile pleural effusions are present, larger on the left. Heart size is normal. Solid organs: Liver and spleen are normal in size. On axial image 23, 3.4 x 2.5 cm anteroinferior right hepatic lobe rim-enhancing lesion is not significantly changed in size, adjacent to the gallbladder fossa. Gallbladder again demonstrates multiple calcified and noncalcified gallstones, as well as circumferential gallbladder wall thickening. Biliary system is non dilated. Pancreas enhances normally. No adrenal nodules. Bilateral renal cortical atrophy is again noted, without hydronephrosis Peritoneum and bowel: Contrast enhanced bowel loops appear normal in caliber. No free fluid or air. Nodes and vessels: No retroperitoneal or mesenteric adenopathy by size criteria. Aorta and inferior vena cava are normal in size, with widespread aortoiliac and visceral artery atherosclerosis. Bones: No suspicious bony lesions. No vertebral body compression fractures. T12 and L1 vertebral body superior endplate Schmorl's nodes are present from disc degeneration. Miscellaneous: No ventral hernias. IMPRESSION: 1. No significant interval change in overall appearance of cholelithiasis with acute cholecystitis, as well as 3.4 x 2.5 cm adjacent intrahepatic rim- enhancing abscess. 2. New trace bibasilar mobile pleural effusions, larger on the left. 3. Atrophic bilateral kidneys as before, consistent with chronic renal disease. Dictated by: Santo England M.D. on 07/27/2016 at 13:25 Approved by: Santo England M.D. on 07/27/2016 at 13:25 Assessment & Plan 65yoF with past medical history of ESRD on hemodialysis, DM type 2, CHF, HTN, HLD who presented to the [facility] ED with altered mental status per her family. She was under evaluation for suspected acute cholecystitis with abscess formation, that may be the etiology of her septicemia. General surgery has been consulted, awaiting further imaging to decide to pursue interventions. - Hospital day 9 Sepsis likely secondary to pyelonephritis and/or acute cholecystitis with possible abscess, present on admission, ongoing - SIRS with T 38.6, and WBC 12.5 -Treat underlying cause--pyelonephritis, cholecystitis Acute pyelonephritis, present on admission, ongoing -Zosyn and NS given in ER -Urine and Blood cultures( aerobic and anaerobic) 10/27 bottle growing E.coli -Infectious disease has been consulted, we appreciate Dr Gutierrez's input -ID recommends Ceftriaxone to 2gm daily, start date 07/24 (of note, pt received Ceftriaxone 1gm daily for 3 days prior) Acute cholecystitis with possible perforation or abscess on US, present on admission, ongoing -US on 07/23 demonstrating "gallstones/sludge and irregular gallbladder wall thickening & hypocortical area in the liver suspicious for gallbladder perforation/intrahepatic abscess. -Pt receiving Flagyl, start date 07/24 -Repeat CT(07/27); demonstrating "no significant interval change in overall appearance of cholelithiasis with acute cholecystitis, as well as 3.4 x 2.5 cm adjacent intrahepatic rim-enhancing abscess" -Surgery has been consulted, we appreciate their input -Pt underwent placement of pigtail catheter by IR on 07/28. Micro results pending -Per surgery, cholecystostomy tube will be present for minimum of six weeks. F/ U with outpatient surgery in 2 wks. Oropharynx pain and discoloration, not present on admission, ongoing -Pt has nystatin swish and swallow, which seems to be helping -Lidocaine/Diphenhydramine/Alum/Mg/Simeth mouthwash also available -Will continue to monitor Altered mental status likely secondary to pyelonephritis, present on admission, resolved -CT of brain---No acute abnormality -Palliative care consult can be considered, given pt's mentation, ESRD with dialysis and now cholecystitis to discuss goals of care. - Family wishes to pursue interventions Dysphagia, not present on admission, resolved -Speech evaluation performed, dysphagia improved with improved mentation -Diet per speech recommendations End stage renal disease on hemodialysis, present on admission, chronic - Dialysis MWF - Renal diet ordered - Nephrology consulted we appreciate their input Diabetes mellitus type 2, present on admission, presumed stable - Patient placed on correction scale lispro - A1C checked 03/29/16, was 6.5 HTN,chronic, ongoing, uncontrolled -Continue home medications -Appreciate Nephrology input on management -Clonidine patch and IV enalaprilat 1.25 mg q 6 hr PRN. Chronic and stable conditions: Chronic diastolic heart failure,presumed stable -ECHO done in 2014 Hypothyroidism, chronic, presumed stable -Continue home medications Hyperlipidemia,chronic, presumed stable -Continue home medications - PRN: Fever/pain/bowel/antiemetic - DVT: SCDs - GI: PPI - DIET: Renal, per ST - CODE: FULL CODE Dispo: Likely to remain pending additional imaging to be performed, and input from surgical team. Continued needs include PT, ST to maintain strength in chronically frail patient. Dialysis MWF. GI Prophylaxis: Proton Pump Inhibitor VTE Prophylaxis: SCDs VTE Mechanical Devices: Intermittant Pneumatic CD Resuscitation Status: CPR: Attempt Resuscitation Attending Statement The patient was seen and examined together with Dr. Angel on 07/29/2015 and I agree with the history, exam and plan as outlined in the note above. Lisa Angel DO Jul 29, 2016 07:39 Weston Montes MD Jul 30, 2016 10:04
--- NOTE | 2016-07-29 14:49 | NUR ---
Dialysis note 3.5 hr HD tx. 2000ml net UF removed. 2 15 g needles to RU fistula. QB 400. See DTR for complete vitals. Pt rested comfortably thru tx without complaints. Sureseals/clamps X10 mins post tx. Report given and pt returned to floor stable.
[2016-07-29] MEDS: Lisinopril 40 Tablet PO SCH (15:21)
[2016-07-29] MEDS: metroNIDAZOLE Inj 500 MG in IV Premix 1 EACH IV SCH ×2 (15:23→21:22)
--- NOTE | 2016-07-29 15:30 | NUR ---
Meds/IV AM medications given late d/t dialysis. IV in LH leaked, PERSONNEL PLACEMENT SPECIALIST placed another in LAC. Will continue to monitor.
--- NOTE | 2016-07-29 16:05 | NUR ---
NUTRITION FOLLOW-UP: ASSESS: 65 YO female admitted with cholecystitis with associated intrahepatic abscess. Pt had hepatic drain placed yesterday for abscess drainage. Dialysis today. PMHx: End-stage renal disease requiring hemodialysis, HTN, dyslipidemia, CAD, cholecystitis, type diabetes, renal osteodystrophy, hypothyroid. DIET: Dysphagia Mechanical, PO 25-50%. LABS: Reviewed. Na 133, Cl 95, Cr 4.52, Glu 126, Ca 7.5, Albumin 2.8 MEDICATIONS: Reviewed. Spironolactone, Reglan, Phos-lo GI symptoms / stool: BM x 1 (07/29) Skin Integrity: No issues reported; Trino: 17 ANTHROPOMETRICS: Current Wt: 61.7 kg BMI: 32.8 kg/m2. IBW: 40 kg Admit weight: 58.1 kg. ESTIMATED NEEDS (OBESITY): Calories: 1272 - 1445 kcal (22 - 25 kcal / kg) Protein: 72 - 80 g protein (1.8 - 2.0 g / kg IBW) NUTRITION DIAGNOSIS: 1) Chewing / swallowing difficulties related to minimal dentition, laryngeal excursion, as evidenced by requirement for modified diet texture, per ST order.--PERSISTS 2) Inadequate oral intake related to inability to consume sufficient energy, as evidenced by PO intake 30% - 50% trays.---PERSISTS INTERVENTION: 1) Will continue Nepro to lunch tray. MONITOR/EVALUATE: Dialysis, PO intake, labs, GI/nutrition status. Follow up per moderate nutrition risk guidelines.
--- NOTE | 2016-07-29 16:25 | PCM.PNMED ---
Subjective Date of Service Jul 29, 2016 Subjective Patient's condition is unchanged. He has tolerated the drainage of perihepatic abscess without difficulties. Exam Vital Signs Vital Sign - Last Date Time Temp Pulse Resp B/P Pulse Ox O2 Delivery O2 Flow Rate FiO2 07/29/16 15:17 36.8 66 151/61 98 Room Air 07/29/16 09:03 16 Intake and Output 07/28/16 07/28/16 07/29/16 Cumulative From/Thru 15:00 23:00 07:00 07/21/16 03:19 - 07/29/16 06:50 Intake Total 0 ml 120 ml 8721 ml Output Total 0 ml 25 ml 6125 ml Balance 0 ml 95 ml 2596 ml Intake Oral 0 ml 4083 ml IV Total 120 ml 4638 ml Output Urine Total 0 ml 100 ml Urine/Stool Mix 0 ml Drainage Total 25 ml 25 ml Ultrafiltrate 6000 ml # Voids 1 # Bowel Movements 1 0 13 Exam Lungs were clear to auscultation. Heart is regular and rhythmical with a soft systolic murmur. Abdomen is soft without any tenderness rebound guarding masses or hepatosplenomegaly. Extremities without shortness and clubbing cyanosis or edema. Skin turgor was good nurse no evidence of any rashes. Lab and Diagnostics Result Diagram: 07/29/16 0730 07/29/16 0730 Microbiology Microbiology DONNELL CULTURE BLOOD Preliminary 07/22/16-0646 Organism 1 POSITIVE BLOOD CULTURE GRAM STAIN RESULT GRAM NEGATIVE RODS BC BOTTLE Isolated from Anaerobic Bottle of Set Drawn DATE CALLED: 07/21/16 TIME CALLED: 0 CALLED BY: HUMPHREY FLOOR/DOCTOR: MARCO SESAY READ BACK Y TYPE OF DRAW PERIPHERAL DRAW TIME OF POSITIVITY 2100 GRAM STAIN RESULT GRAM NEGATIVE RODS BC BOTTLE2 Isolated from Aerobic Bottle of Set Drawn DATE CALLED: 07/21/16 TIME CALLED: 2300 CALLED BY: HUMPHREY TAYLOR/DOCTOR: MARCO SESAY READ BACK Y TYPE OF DRAW PERIPHERAL DRAW TIME OF POSITIVITY 2210 GRAM NEGATIVE SCOTTIE ID AND SENSITIVITIES TO FOLLOW ISOLATED FROM FOUR OF FOUR BOTTLES COLLECTED 07/21 Microbiology DONNELL CULTURE BLOOD Preliminary 07/22/16-0647 Organism 1 POSITIVE BLOOD CULTURE GRAM STAIN RESULT GRAM NEGATIVE RODS BC BOTTLE Isolated from Aerobic Bottle of Set Drawn DATE CALLED: 07/21/16 TIME CALLED: 2200 CALLED BY: HUMPHREY FLOOR/DOCTOR: MARCO SESAY READ BACK Y TYPE OF DRAW NURSE COLLLECT TYPE NOT SPECIFIED TIME OF POSITIVITY 2140 GRAM STAIN RESULT GRAM NEGATIVE RODS BC BOTTLE2 Isolated from Anaerobic Bottle of Set Drawn DATE CALLED: 07/22/16 TIME CALLED: 041 CALLED BY: MICK FLOOR/DOCTOR: MARCO Quintero RN BC READ BACK Y TYPE OF DRAW NURSE COLLECT TYPE NOT INDICATED TIME OF POSITIVITY 0350 GRAM NEGATIVE SCOTTIE ID TO FOLLOW ISOLATED FROM FOUR OF FOUR BOTTLES COLLECTED 07/21 X-Rays, CTs and MRIs PROCEDURE: X-RAY CHEST ONE VIEW, PORTABLE ([id number]) FINDINGS: Surgical changes and devices: Post median sternotomy. Lungs and pleura: No pleural effusions or pneumothorax. Lung volumes are low and interstitium is prominent. Medial bibasilar airspace opacities. Mediastinum: Mediastinal contours appear normal. Heart size is normal. Bones and chest wall: No suspicious bony lesions. Overlying soft tissues appear unremarkable. I MPRESSION: Persistent low lung volumes with interstitial prominence and bibasilar radiodensities likely atelectasis. Correlate clinically. Dictated by: Tariq Mendoza [facility] Interpreted: Fadia Aguilar MD on 07/21/2016 at 9:56 Transcribed by: TYRONE on 07/21/2016 at 9:56 PROCEDURE: CT BRAIN WITHOUT CONTRAST FINDINGS: Image quality: Excellent. CSF spaces: Basal cisterns are patent. No extra-axial fluid collections. The ventricles are symmetric in size and shape. Brain: No intracranial bleeds or masses. There is cerebral volume loss for age , with resultant ventricular and sulcal prominence. There are periventricular and deep white matter chronic small vessel ischemic changes. There is intracranial internal carotid artery atherosclerosis. Skull and face: Calvarium and visualized facial bones appear intact, without suspicious lesions. Sinuses: Visualized sinuses and mastoids are clear. IMPRESSION: No acute intracranial abnormality. Concordant with preliminary interpretation. Dictated by: Dyan Gonzales M.D. on 07/23/2016 at 9:42 Approved by: Dyan Gonzales M.D. on 07/23/2016 at 9:42 PROCEDURE: US ABDOMEN COMPARISON: [facility], CT, CT ABD PELVIS W CON, 03/28/2016, 6:25. [facility], US, US ABDOMEN, 03/28/2016, 11:39. [facility], NM, NM HIDA SCAN W CCK STD, 03/29/2016, 18:43. FINDINGS: Liver: Liver is normal in size. There is a 2.6 x 2.0 x 3.7 cm hypoechoic area adjacent to the gallbladder demonstrating small echogenic foci, suspicious for an intraheptic abscess. This finding is new. Gallbladder: Gallbladder is grossly abnormal. There is marked gallbladder wall thickening (up to 9.1 mm) and irregularity. There are gallstones and gallbladder sludge. The ultrasound findings are consistent with acute cholecystitis. The hypoechoic area in liver may have direct connection to the gallbladder, suspicious for gallbladder perforation. A small pericholecystic fluid is present. Biliary ducts: Intrahepatic bile ducts are non-dilated. Extrahepatic bile duct caliber measures 4.7 mm. Normal is 6-7 mm or less in diameter, or 10 mm or less post-cholecystectomy. Pancreas: Visualized portions of the pancreas are sonographically normal. Spleen: Spleen is normal in size and homogeneous in echotexture. Kidneys: The inferior pole of the right kidney is not visualized. Left kidney measures 7 cm in length, which is decreased in size. There is bilateral renal cortical thinning. No hydronephrosis or nephrolithiasis. A 1.3 cm cyst is noted in the superior pole of the right kidney. Aorta: Visualized aorta is normal in caliber at less than 3 cm. Iliacs: Proximal common iliac arteries are normal in caliber at less than 2.5 cm. IVC: Intrahepatic inferior vena cava is patent. Miscellaneous: No free abdominal fluid. Bladder is contracted, therefore, not well-seen. IMPRESSION: 1. Markedly abnormal gallbladder with gallstones/sludge and irregular gallbladder wall thickening, consistent with acute cholecystitis. 2. There is a hypocortical area in the liver adjacent to the gallbladder, which appears to be connected gallbladder, suspicious for gallbladder perforation and an intrahepatic abscess. 3. Atrophic kidneys bilaterally. Dictated by: Dorinda Gerber M.D. on 07/23/2016 at 21:50 Transcribed by: SIMA on 07/23/2016 at 21:50 Approved by: Dorinda Gerber M.D. on 07/23/2016 at 22:13 PROCEDURE: CT ABDOMEN WITH CONTRAST ([id number]) COMPARISON: [facility], CT, CT ABD W CON, 07/24/2016, 12:44. [facility], CT, CT ABD PELVIS W CON, 03/28/2016, 6:25. FINDINGS: Image quality: Excellent. Lung bases: New trace bibasilar mobile pleural effusions are present, larger on the left. Heart size is normal. Solid organs: Liver and spleen are normal in size. On axial image 23, 3.4 x 2.5 cm anteroinferior right hepatic lobe rim-enhancing lesion is not significantly changed in size, adjacent to the gallbladder fossa. Gallbladder again demonstrates multiple calcified and noncalcified gallstones, as well as circumferential gallbladder wall thickening. Biliary system is non dilated. Pancreas enhances normally. No adrenal nodules. Bilateral renal cortical atrophy is again noted, without hydronephrosis Peritoneum and bowel: Contrast enhanced bowel loops appear normal in caliber. No free fluid or air. Nodes and vessels: No retroperitoneal or mesenteric adenopathy by size criteria. Aorta and inferior vena cava are normal in size, with widespread aortoiliac and visceral artery atherosclerosis. Bones: No suspicious bony lesions. No vertebral body compression fractures. T12 and L1 vertebral body superior endplate Schmorl's nodes are present from disc degeneration. Miscellaneous: No ventral hernias. IMPRESSION: 1. No significant interval change in overall appearance of cholelithiasis with acute cholecystitis, as well as 3.4 x 2.5 cm adjacent intrahepatic rim- enhancing abscess. 2. New trace bibasilar mobile pleural effusions, larger on the left. 3. Atrophic bilateral kidneys as before, consistent with chronic renal disease. Dictated by: Santo England M.D. on 07/27/2016 at 13:25 Approved by: Santo England M.D. on 07/27/2016 at 13:25 Assessment & Plan Impression #1 end-stage renal disease dialysis dependent Recommendations #1 patient's P dialysis today for 3-1/2 hours on a 2 potassium bath. She been written. GI Prophylaxis: Proton Pump Inhibitor VTE Prophylaxis: SCDs VTE Mechanical Devices: Intermittant Pneumatic CD Resuscitation Status: CPR: Attempt Resuscitation Brian Gresham DO Jul 29, 2016 16:25
[2016-07-29] MEDS: cefTRIAXone Inj 2,000 MG in IV Premix 1 EACH IV SCH (17:05)
--- NOTE | 2016-07-29 18:32 | NUR ---
Transfer of care Pt going to [facility]-1 from [facility] [place] 3016, report given to Georgina Hadley RN. Pt denies pain. Appears comfortable. Had dinner. VSS. Tylenol PO given for temp 99.0 O and states to be feeling chilly. Meds from drawer with DELFIN.
[2016-07-30] VITALS (10 sets, daily range): BP systolic 85–157; BP diastolic 42–61; PULSE 54–66; RESP 15–19; O2SAT 96–98
[2016-07-30] MEDS: cloNIDine 0.1 mg Tablet PO SCH ×3 (04:50→19:56)
--- NOTE | 2016-07-30 07:17 | NUR ---
NOC shift Uneventful NOC. T-Tube draining. Flushed without difficulties. VSS. No overt complications noted.
[2016-07-30] MEDS: Pantoprazole 40 mg ER24 Tablet PO SCH (07:37)
[2016-07-30] MEDS: Insulin LISPRO 300 Unit/3 mL Inj SUBQ SCH ×4 (08:00→19:55)
[2016-07-30] MEDS: Lisinopril 40 Tablet PO SCH (08:40)
[2016-07-30] MEDS: MAALOX PO SCH ×4 (08:42→22:00)
[2016-07-30] MEDS: LIDO PO SCH ×4 (08:42→22:00)
[2016-07-30] MEDS: DIPHEN PO SCH ×4 (08:42→22:00)
[2016-07-30] MEDS: Nystatin 100,000 Unit/mL 5 mL Suspension PO SCH ×4 (08:45→20:01)
[2016-07-30] MEDS: metroNIDAZOLE Inj 500 MG in IV Premix 1 EACH IV SCH ×2 (08:50→20:46)
[2016-07-30] MEDS ORDERED: 0.9% Sodium Chloride 250 ML ONE (09:01)
[2016-07-30 09:52] LABS: MONOCYTES % (AUTO) 15.1 % (4-12); Mean Corpuscular Hemoglobin 32.1 pg (27.0-35.0); Platelet Count 247 bil/L (150-400)
[2016-07-30] MEDS: cefTRIAXone Inj 2,000 MG in IV Premix 1 EACH IV SCH (10:06)
--- NOTE | 2016-07-30 11:25 | PCM.PNSURG ---
Subjective Date of Service: Jul 30, 2016 Date of Service: Jul 30, 2016 Visit Information: Reason for Visit Sepsis, Pyelonephritis, Esrd Date of Admission: Jul 21, 2016 at 10:32 Hospital Day #10 Subjective: Patient seen with Dr. Pradeep Barry. Has no overt complaints. She was seen awake in bed, smiling. Objective Vital Sign- Last 8 Hours Date Time Temp Pulse Resp B/P Pulse Ox O2 Delivery O2 Flow Rate FiO2 07/30/16 08:01 36.9 61 17 111/55 98 Room Air 07/30/16 06:18 60 07/30/16 04:46 37.1 60 16 157/58 98 Room Air Intake and Output- Last 8 Hour 07/30/16 Cumulative From/Thru 07:00 07/21/16 03:19 - 07/30/16 06:16 Intake Total 120 ml 9659 ml Output Total 20 ml 8155 ml Balance 100 ml 1504 ml Intake Oral 4653 ml IV Total 120 ml 5006 ml Output Urine Total 100 ml Urine/Stool Mix 0 ml Drainage Total 20 ml 55 ml Ultrafiltrate 8000 ml # Voids 1 # Bowel Movements 17 General: Alert, Cooperative, No Acute Distress Abdomen: Soft, Non-tender SURGICAL WOUND : Wound Drainage Type: Other (cholecystotomy tube in place draining green bile , 35 mL yesterday, 20 mL recorded so far today) Result Diagram: 07/30/16 0905 07/30/16 0905 Assessment & Plan Impression Primary surgical diagnosis: Acute on chronic cholecystitis complicated by acute exacerbation with extension to an intrahepatic abscess, 2 days status post cholecystotomy tube placement. Problems: Plan The patient appears to be tolerating oral intake. Hemodynamically stable and afebrile. Plan to leave cholecystotomy tube in for minimum [address] Esquivel recommendation. Plan for follow-up with Dr. Pradeep Barry in 2 weeks to arrange for subsequent tube removal 4 weeks after that. VTE Prophylaxis: SCDs Resuscitation Status: CPR: Attempt Resuscitation Odalys Spangler PA-C Jul 30, 2016 11:25
--- NOTE | 2016-07-30 13:47 | PCM.PNMED ---
Subjective Date of Service Jul 30, 2016 Subjective Pt is seen without her family this morning. Pt reports that she continues to feel well. Pt denies any chills, but reports that she has felt cold all night. Pt denies any nausea, vomiting or diarrhea or abdominal pain( of note pt has never reported abdominal pain). Pt denies any questions or concerns at this time. Exam Vital Signs Vital Sign - Last Date Time Temp Pulse Resp B/P Pulse Ox O2 Delivery O2 Flow Rate FiO2 07/30/16 08:01 36.9 61 17 111/55 98 Room Air Intake and Output 07/29/16 07/29/16 07/30/16 Cumulative From/Thru 15:00 23:00 07:00 07/21/16 03:19 - 07/30/16 06:16 Intake Total 97 ml 721 ml 120 ml 9659 ml Output Total 2000 ml 10 ml 20 ml 8155 ml Balance -1903 ml 711 ml 100 ml 1504 ml Intake Oral 50 ml 520 ml 4653 ml IV Total 47 ml 201 ml 120 ml 5006 ml Output Urine Total 100 ml Urine/Stool Mix 0 ml Drainage Total 10 ml 20 ml 55 ml Ultrafiltrate 2000 ml 8000 ml # Voids 1 # Bowel Movements 1 3 17 Exam General: No acute distress- pt is supine in bed, resting comfortably. HEENT: Normocephalic, atraumatic. Anicteric sclerae, moist conjunctivae. Oropharynx with moist mucosa. Edentulous. Neck: Supple with full range of motion. Cardiovascular: Regular rate and rhythm. Systolic murmur auscultated. Pulmonary: Clear to auscultation bilaterally with no crackles, wheezes, or rhonchi. Normal respiratory effort with no use of accessory muscles. Abdomen: Drain present on right side-no erythema present, dressing intact.Soft, nontender, nondistended.normal bowel tones present Extremities: No clubbing, cyanosis, edema appreciated. Skin: Normal temperature, turgor, and texture Psychiatric: Alert and oriented to person ( baseline per family).Able to answer questions.Appropriately interactive IVs and Medications Medications Reviewed: Medications were reviewed in detail Lab and Diagnostics Result Diagram: 07/29/16 0730 07/29/16 0730 Microbiology Microbiology DONNELL CULTURE BLOOD Preliminary 07/22/16-0646 Organism 1 POSITIVE BLOOD CULTURE GRAM STAIN RESULT GRAM NEGATIVE RODS BC BOTTLE Isolated from Anaerobic Bottle of Set Drawn DATE CALLED: 07/21/16 TIME CALLED: 2200 CALLED BY: HUMPHREY FLOOR/DOCTOR: MARCO Clement BC READ BACK Y TYPE OF DRAW PERIPHERAL DRAW TIME OF POSITIVITY 2100 GRAM STAIN RESULT GRAM NEGATIVE RODS BC BOTTLE2 Isolated from Aerobic Bottle of Set Drawn DATE CALLED: 07/21/16 TIME CALLED: 2300 CALLED BY: HUMPHREY FLOOR/DOCTOR: MARCO Clement BC READ BACK Y TYPE OF DRAW PERIPHERAL DRAW TIME OF POSITIVITY 2210 GRAM NEGATIVE SCOTTIE ID AND SENSITIVITIES TO FOLLOW ISOLATED FROM FOUR OF FOUR BOTTLES COLLECTED 07/21 Microbiology DONNELL CULTURE BLOOD Preliminary 07/22/16-0647 Organism 1 POSITIVE BLOOD CULTURE GRAM STAIN RESULT GRAM NEGATIVE RODS BC BOTTLE Isolated from Aerobic Bottle of Set Drawn DATE CALLED: 07/21/16 TIME CALLED: 2200 CALLED BY: HUMPHREY TAYLOR/DOCTOR: MARCO Clement BC READ BACK Y TYPE OF DRAW NURSE COLLLECT TYPE NOT SPECIFIED TIME OF POSITIVITY 2140 GRAM STAIN RESULT GRAM NEGATIVE RODS BC BOTTLE2 Isolated from Anaerobic Bottle of Set Drawn DATE CALLED: 07/22/16 TIME CALLED: 0413 CALLED BY: MICK FLOOR/DOCTOR: MARCO Quintero RN BC READ BACK Y TYPE OF DRAW NURSE COLLECT TYPE NOT INDICATED TIME OF POSITIVITY 0350 GRAM NEGATIVE SCOTTIE ID TO FOLLOW ISOLATED FROM FOUR OF FOUR BOTTLES COLLECTED 07/21 X-Rays, CTs and MRIs PROCEDURE: X-RAY CHEST ONE VIEW, PORTABLE ([id number]) FINDINGS: Surgical changes and devices: Post median sternotomy. Lungs and pleura: No pleural effusions or pneumothorax. Lung volumes are low and interstitium is prominent. Medial bibasilar airspace opacities. Mediastinum: Mediastinal contours appear normal. Heart size is normal. Bones and chest wall: No suspicious bony lesions. Overlying soft tissues appear unremarkable. I MPRESSION: Persistent low lung volumes with interstitial prominence and bibasilar radiodensities likely atelectasis. Correlate clinically. Dictated by: Tariq CERDA Interpreted: Fadia Aguilar MD on 07/21/2016 at 9:56 Transcribed by: TYRONE on 07/21/2016 at 9:56 PROCEDURE: CT BRAIN WITHOUT CONTRAST FINDINGS: Image quality: Excellent. CSF spaces: Basal cisterns are patent. No extra-axial fluid collections. The ventricles are symmetric in size and shape. Brain: No intracranial bleeds or masses. There is cerebral volume loss for age , with resultant ventricular and sulcal prominence. There are periventricular and deep white matter chronic small vessel ischemic changes. There is intracranial internal carotid artery atherosclerosis. Skull and face: Calvarium and visualized facial bones appear intact, without suspicious lesions. Sinuses: Visualized sinuses and mastoids are clear. IMPRESSION: No acute intracranial abnormality. Concordant with preliminary interpretation. Dictated by: Dyan Gonzales M.D. on 07/23/2016 at 9:42 Approved by: Dyan Gonzales M.D. on 07/23/2016 at 9:42 PROCEDURE: US ABDOMEN COMPARISON: [facility], CT, CT ABD PELVIS W CON, 03/28/2016, 6:25. [facility], US, US ABDOMEN, 03/28/2016, 11:39. [facility], NM, NM HIDA SCAN W CCK STD, 03/29/2016, 18:43. FINDINGS: Liver: Liver is normal in size. There is a 2.6 x 2.0 x 3.7 cm hypoechoic area adjacent to the gallbladder demonstrating small echogenic foci, suspicious for an intraheptic abscess. This finding is new. Gallbladder: Gallbladder is grossly abnormal. There is marked gallbladder wall thickening (up to 9.1 mm) and irregularity. There are gallstones and gallbladder sludge. The ultrasound findings are consistent with acute cholecystitis. The hypoechoic area in liver may have direct connection to the gallbladder, suspicious for gallbladder perforation. A small pericholecystic fluid is present. Biliary ducts: Intrahepatic bile ducts are non-dilated. Extrahepatic bile duct caliber measures 4.7 mm. Normal is 6-7 mm or less in diameter, or 10 mm or less post-cholecystectomy. Pancreas: Visualized portions of the pancreas are sonographically normal. Spleen: Spleen is normal in size and homogeneous in echotexture. Kidneys: The inferior pole of the right kidney is not visualized. Left kidney measures 7 cm in length, which is decreased in size. There is bilateral renal cortical thinning. No hydronephrosis or nephrolithiasis. A 1.3 cm cyst is noted in the superior pole of the right kidney. Aorta: Visualized aorta is normal in caliber at less than 3 cm. Iliacs: Proximal common iliac arteries are normal in caliber at less than 2.5 cm. IVC: Intrahepatic inferior vena cava is patent. Miscellaneous: No free abdominal fluid. Bladder is contracted, therefore, not well-seen. IMPRESSION: 1. Markedly abnormal gallbladder with gallstones/sludge and irregular gallbladder wall thickening, consistent with acute cholecystitis. 2. There is a hypocortical area in the liver adjacent to the gallbladder, which appears to be connected gallbladder, suspicious for gallbladder perforation and an intrahepatic abscess. 3. Atrophic kidneys bilaterally. Dictated by: Dorinda Gerber M.D. on 07/23/2016 at 21:50 Transcribed by: SIMA on 07/23/2016 at 21:50 Approved by: Dorinda Gerber M.D. on 07/23/2016 at 22:13 PROCEDURE: CT ABDOMEN WITH CONTRAST ([id number]) COMPARISON: [facility], CT, CT ABD W CON, 07/24/2016, 12:44. [facility], CT, CT ABD PELVIS W CON, 03/28/2016, 6:25. FINDINGS: Image quality: Excellent. Lung bases: New trace bibasilar mobile pleural effusions are present, larger on the left. Heart size is normal. Solid organs: Liver and spleen are normal in size. On axial image 23, 3.4 x 2.5 cm anteroinferior right hepatic lobe rim-enhancing lesion is not significantly changed in size, adjacent to the gallbladder fossa. Gallbladder again demonstrates multiple calcified and noncalcified gallstones, as well as circumferential gallbladder wall thickening. Biliary system is non dilated. Pancreas enhances normally. No adrenal nodules. Bilateral renal cortical atrophy is again noted, without hydronephrosis Peritoneum and bowel: Contrast enhanced bowel loops appear normal in caliber. No free fluid or air. Nodes and vessels: No retroperitoneal or mesenteric adenopathy by size criteria. Aorta and inferior vena cava are normal in size, with widespread aortoiliac and visceral artery atherosclerosis. Bones: No suspicious bony lesions. No vertebral body compression fractures. T12 and L1 vertebral body superior endplate Schmorl's nodes are present from disc degeneration. Miscellaneous: No ventral hernias. IMPRESSION: 1. No significant interval change in overall appearance of cholelithiasis with acute cholecystitis, as well as 3.4 x 2.5 cm adjacent intrahepatic rim- enhancing abscess. 2. New trace bibasilar mobile pleural effusions, larger on the left. 3. Atrophic bilateral kidneys as before, consistent with chronic renal disease. Dictated by: Santo England M.D. on 07/27/2016 at 13:25 Approved by: Santo England M.D. on 07/27/2016 at 13:25 Assessment & Plan 65yoF with past medical history of ESRD on hemodialysis, DM type 2, CHF, HTN, HLD who presented to the [facility] ED with altered mental status per her family. She was under evaluation for suspected acute cholecystitis with abscess formation, that may be the etiology of her septicemia. General surgery has been consulted, awaiting further imaging to decide to pursue interventions. - Hospital day 10 Acute pyelonephritis, present on admission, ongoing -Zosyn and NS given in ER -Urine and Blood cultures( aerobic and anaerobic) 10/27 bottle growing E.coli -Infectious disease has been consulted, we appreciate Dr Gutierrez's input -ID recommends continued Ceftriaxone to 2gm daily, start date 07/24 (of note, pt received Ceftriaxone 1gm daily for 3 days prior) Acute cholecystitis with possible perforation or abscess on US, present on admission, ongoing -US on 07/23 demonstrating "gallstones/sludge and irregular gallbladder wall thickening & hypocortical area in the liver suspicious for gallbladder perforation/intrahepatic abscess. -Pt receiving Flagyl, start date 07/24 -Repeat CT(07/27); demonstrating "no significant interval change in overall appearance of cholelithiasis with acute cholecystitis, as well as 3.4 x 2.5 cm adjacent intrahepatic rim-enhancing abscess" -Surgery has been consulted, we appreciate their input -Pt underwent placement of pigtail catheter by IR on 07/28. Micro results with no growth -Per surgery, cholecystostomy tube will be present for minimum of six weeks. F/ U with outpatient surgery in 2 wks. -Continue IV ABX for now, per ID Oropharynx pain and discoloration, not present on admission, ongoing -Pt has nystatin swish and swallow, which seems to be helping -Lidocaine/Diphenhydramine/Alum/Mg/Simeth mouthwash also available -Will continue to monitor Altered mental status likely secondary to pyelonephritis, present on admission, resolved -CT of brain---No acute abnormality -Palliative care consult can be considered, given pt's mentation, ESRD with dialysis and now cholecystitis to discuss goals of care. - Family wishes to pursue interventions Dysphagia, not present on admission, resolved -Speech evaluation performed, dysphagia improved with improved mentation -Diet per speech recommendations End stage renal disease on hemodialysis, present on admission, chronic - Dialysis MWF - Renal diet ordered - Nephrology consulted we appreciate their input Diabetes mellitus type 2, present on admission, presumed stable - Patient placed on correction scale lispro - A1C checked 03/29/16, was 6.5 HTN,chronic, ongoing, uncontrolled -Continue home medications -Appreciate Nephrology input on management -Clonidine patch and IV enalaprilat 1.25 mg q 6 hr PRN. Chronic and stable conditions: Chronic diastolic heart failure,presumed stable -ECHO done in 2014 Hypothyroidism, chronic, presumed stable -Continue home medications Hyperlipidemia,chronic, presumed stable -Continue home medications - PRN: Fever/pain/bowel/antiemetic - DVT: SCDs - GI: PPI - DIET: Renal, per ST - CODE: FULL CODE Dispo: Likely to remain pending additional imaging to be performed, and input from surgical team. Continued needs include PT, ST to maintain strength in chronically frail patient. Dialysis MWF. Pain Evaluation: Adequate Pain Control GI Prophylaxis: Proton Pump Inhibitor VTE Prophylaxis: SCDs VTE Mechanical Devices: Intermittant Pneumatic CD Resuscitation Status: CPR: Attempt Resuscitation Attending Statement The patient was seen and examined together with Dr. Angel on 07/30/2015 and I agree with the history, exam and plan as outlined in the note above. Lisa Angel DO Jul 30, 2016 09:48 Weston Montes MD Jul 30, 2016 13:47
[2016-07-30] MEDS: MetoCLOpramide 5 mg/mL 2 mL Inj IVPUSH PRN (13:49)
--- NOTE | 2016-07-30 15:20 | PROG NOTE ---
[address] [address] PROGRESS NOTE PATIENT: MARTÍNEZ CHAHAL : 1950 MR#: [id number] ADMIT: 07/21/2016 JOB ID: [id number] DATE: 07/30/2016 INFECTIOUS DISEASE FOLLOWUP NOTE: REASON FOR FOLLOWUP: Chronic cholecystitis, with associated hepatic abscess. INTERVAL HISTORY: Recall that this is a 65-year-old, woman with chronic cholecystitis and a liver abscess. On July 28 the patient had a drain placed into her liver abscess. Purulent material was aspirated and sent for culture. Since that time, the patient has been relatively stable. She denies any fevers, chills, or sweats, though she does feel cold at times. She has no respiratory or specific GI symptoms, and does not seem to be bothered by the drain. Also recall this is a woman who is on thrice weekly hemodialysis on a chronic basis. PHYSICAL EXAMINATION: Reveals an afebrile woman temperature 37 degrees, pulse 54, respiratory rate 15, blood pressure 109/51. She is saturating well on room air. Looks comfortable. Oral cavity negative. Lungs relatively clear anteriorly. Cardiac exam: No new murmurs. Abdomen: Negative. There is a drain present in the epigastric area which extends into the hepatic abscess. Also note the patient has a fistula for dialysis. LABORATORIES: Include white count 6700. Differential white blood count normal. Creatinine 3.1 and, of course, she is a dialysis patient. LFT are normal. QuantiFERON Gold is indeterminate. Micro studies include the two different E. coli, one which grew from blood and one from urine. The cultures from the abscess are so far negative for both aerobes and anaerobes but the Gram stain showed many polys, consistent with an abscess, of course. We reviewed the procedure note from the drainage of the intrahepatic abscess. IMPRESSION: This is a complex patient with chronic cholecystitis and has a hepatic abscess associated with her gallbladder. She has been treated with ceftriaxone and Flagyl here in the hospital. Percutaneous drainage was done of the , and we await the final cultures from that. RECOMMENDATIONS: 1. The patient can continue with ceftriaxone and Flagyl in the hospital but when she leaves the hospital she could be easily managed with ceftazidime during dialysis. The dose would be 1 g after each dialysis session, and this should suffice as treatment for the E. coli. I would be inclined to continue this for several weeks with very close monitoring of her liver abscess per Surgery and/or Radiology. 2. I would continue the patient on Flagyl but this could be given in an oral form of 500 mg p.o. b.i.d., and continue that in conjunction with the ceftazidime for prolonged treatment of her liver abscess. 3. Infectious Disease will continue to follow this patient but I think she could be made ready for discharge very soon from an infectious disease point of view.
[2016-07-31] VITALS (9 sets, daily range): BP systolic 83–144; BP diastolic 40–60; PULSE 53–63; RESP 15–20; O2SAT 94–98
[2016-07-31] MEDS: cloNIDine 0.1 mg Tablet PO SCH ×3 (04:38→20:22)
[2016-07-31 06:53] LABS: BASOPHILS % (AUTO) 0.4 % (0-3); EOSINOPHILS % (AUTO) 2.9 % (0-5); MONOCYTES % (AUTO) 13.6 % (4-12); Mean Corpuscular Hemoglobin 32.1 pg (27.0-35.0); Mean Corpuscular Volume 98.5 fL (81-100); NEUTROPHILS % (AUTO) 60.6 % (40-74); Platelet Count 227 bil/L (150-400)
[2016-07-31] MEDS: Insulin LISPRO 300 Unit/3 mL Inj SUBQ SCH ×4 (08:00→21:46)
[2016-07-31] MEDS: Nystatin 100,000 Unit/mL 5 mL Suspension PO SCH ×4 (09:26→21:38)
[2016-07-31] MEDS: Lisinopril 40 Tablet PO SCH (09:38)
[2016-07-31] MEDS: metroNIDAZOLE Inj 500 MG in IV Premix 1 EACH IV SCH ×2 (09:45→20:32)
[2016-07-31] MEDS: Pantoprazole 40 mg ER24 Tablet PO SCH (09:50)
[2016-07-31] MEDS: cefTRIAXone Inj 2,000 MG in IV Premix 1 EACH IV SCH (11:05)
--- NOTE | 2016-07-31 11:11 | PCM.PNMED ---
Subjective Date of Service Jul 31, 2016 Subjective Overall the patient's condition is unchanged. She offers no new complaints and denies any nausea vomiting or abdominal pain. Exam Vital Signs Vital Sign - Last Date Time Temp Pulse Resp B/P Pulse Ox O2 Delivery O2 Flow Rate FiO2 07/31/16 09:00 36.9 59 16 128/52 97 Room Air Intake and Output 07/30/16 07/30/16 07/31/16 Cumulative From/Thru 15:00 23:00 07:00 07/21/16 03:19 - 07/31/16 05:28 Intake Total 181 ml 600 ml 300 ml 07805 ml Output Total 20 ml 10 ml 8185 ml Balance 181 ml 580 ml 290 ml 2555 ml Intake Oral 600 ml 300 ml 5553 ml IV Total 181 ml 5187 ml Output Urine Total 100 ml Urine/Stool Mix 0 ml Drainage Total 20 ml 10 ml 85 ml Ultrafiltrate 8000 ml # Voids 1 # Bowel Movements 1 12 15 Exam Neck is supple without adenopathy thyromegaly or jugular venous distention. Lungs were clear to auscultation. Heart is regular rhythm with a soft systolic murmur. Abdomen is soft without any tenderness or rebound guarding masses or hepatosplenomegaly. Lab and Diagnostics Result Diagram: 07/31/16 0535 07/31/16 0535 Microbiology Microbiology DONNELL CULTURE BLOOD Preliminary 07/22/16-46 Organism 1 POSITIVE BLOOD CULTURE GRAM STAIN RESULT GRAM NEGATIVE RODS BC BOTTLE Isolated from Anaerobic Bottle of Set Drawn DATE CALLED: 07/21/16 TIME CALLED: 2199 CALLED BY: HUMPHREY FLOOR/DOCTOR: MARCO SESAY READ BACK Y TYPE OF DRAW PERIPHERAL DRAW TIME OF POSITIVITY 2100 GRAM STAIN RESULT GRAM NEGATIVE RODS BC BOTTLE2 Isolated from Aerobic Bottle of Set Drawn DATE CALLED: 07/21/16 TIME CALLED: 2300 CALLED BY: HUMPHREY FLOOR/DOCTOR: MARCO SESAY READ BACK Y TYPE OF DRAW PERIPHERAL DRAW TIME OF POSITIVITY 2210 GRAM NEGATIVE SCOTTIE ID AND SENSITIVITIES TO FOLLOW ISOLATED FROM FOUR OF FOUR BOTTLES COLLECTED 07/21 Microbiology DONNELL CULTURE BLOOD Preliminary 07/22/16-0647 Organism 1 POSITIVE BLOOD CULTURE GRAM STAIN RESULT GRAM NEGATIVE RODS BC BOTTLE Isolated from Aerobic Bottle of Set Drawn DATE CALLED: 07/21/16 TIME CALLED: 2200 CALLED BY: HUMPHREY FLOOR/DOCTOR: MARCO SESAY READ BACK Y TYPE OF DRAW NURSE COLLLECT TYPE NOT SPECIFIED TIME OF POSITIVITY 2140 GRAM STAIN RESULT GRAM NEGATIVE RODS BC BOTTLE2 Isolated from Anaerobic Bottle of Set Drawn DATE CALLED: 07/22/16 TIME CALLED: 041 CALLED BY: GAGET FLOOR/DOCTOR: MARCO Quintero RN BC READ BACK Y TYPE OF DRAW NURSE COLLECT TYPE NOT INDICATED TIME OF POSITIVITY 0350 GRAM NEGATIVE SCOTTIE ID TO FOLLOW ISOLATED FROM FOUR OF FOUR BOTTLES COLLECTED 07/21 X-Rays, CTs and MRIs PROCEDURE: X-RAY CHEST ONE VIEW, PORTABLE ([id number]) FINDINGS: Surgical changes and devices: Post median sternotomy. Lungs and pleura: No pleural effusions or pneumothorax. Lung volumes are low and interstitium is prominent. Medial bibasilar airspace opacities. Mediastinum: Mediastinal contours appear normal. Heart size is normal. Bones and chest wall: No suspicious bony lesions. Overlying soft tissues appear unremarkable. I MPRESSION: Persistent low lung volumes with interstitial prominence and bibasilar radiodensities likely atelectasis. Correlate clinically. Dictated by: Tariq Mendoza [facility] Interpreted: Fadia Aguilar MD on 07/21/2016 at 9:56 Transcribed by: TYRONE on 07/21/2016 at 9:56 PROCEDURE: CT BRAIN WITHOUT CONTRAST FINDINGS: Image quality: Excellent. CSF spaces: Basal cisterns are patent. No extra-axial fluid collections. The ventricles are symmetric in size and shape. Brain: No intracranial bleeds or masses. There is cerebral volume loss for age , with resultant ventricular and sulcal prominence. There are periventricular and deep white matter chronic small vessel ischemic changes. There is intracranial internal carotid artery atherosclerosis. Skull and face: Calvarium and visualized facial bones appear intact, without suspicious lesions. Sinuses: Visualized sinuses and mastoids are clear. IMPRESSION: No acute intracranial abnormality. Concordant with preliminary interpretation. Dictated by: Dyan Gonzales M.D. on 07/23/2016 at 9:42 Approved by: Dyan Gonzales M.D. on 07/23/2016 at 9:42 PROCEDURE: US ABDOMEN COMPARISON: [facility], CT, CT ABD PELVIS W CON, 03/28/2016, 6:25. [facility], US, US ABDOMEN, 03/28/2016, 11:39. [facility], NM, NM HIDA SCAN W CCK STD, 03/29/2016, 18:43. FINDINGS: Liver: Liver is normal in size. There is a 2.6 x 2.0 x 3.7 cm hypoechoic area adjacent to the gallbladder demonstrating small echogenic foci, suspicious for an intraheptic abscess. This finding is new. Gallbladder: Gallbladder is grossly abnormal. There is marked gallbladder wall thickening (up to 9.1 mm) and irregularity. There are gallstones and gallbladder sludge. The ultrasound findings are consistent with acute cholecystitis. The hypoechoic area in liver may have direct connection to the gallbladder, suspicious for gallbladder perforation. A small pericholecystic fluid is present. Biliary ducts: Intrahepatic bile ducts are non-dilated. Extrahepatic bile duct caliber measures 4.7 mm. Normal is 6-7 mm or less in diameter, or 10 mm or less post-cholecystectomy. Pancreas: Visualized portions of the pancreas are sonographically normal. Spleen: Spleen is normal in size and homogeneous in echotexture. Kidneys: The inferior pole of the right kidney is not visualized. Left kidney measures 7 cm in length, which is decreased in size. There is bilateral renal cortical thinning. No hydronephrosis or nephrolithiasis. A 1.3 cm cyst is noted in the superior pole of the right kidney. Aorta: Visualized aorta is normal in caliber at less than 3 cm. Iliacs: Proximal common iliac arteries are normal in caliber at less than 2.5 cm. IVC: Intrahepatic inferior vena cava is patent. Miscellaneous: No free abdominal fluid. Bladder is contracted, therefore, not well-seen. IMPRESSION: 1. Markedly abnormal gallbladder with gallstones/sludge and irregular gallbladder wall thickening, consistent with acute cholecystitis. 2. There is a hypocortical area in the liver adjacent to the gallbladder, which appears to be connected gallbladder, suspicious for gallbladder perforation and an intrahepatic abscess. 3. Atrophic kidneys bilaterally. Dictated by: Dorinda Gerber M.D. on 07/23/2016 at 21:50 Transcribed by: SIMA on 07/23/2016 at 21:50 Approved by: Dorinda Gerber M.D. on 07/23/2016 at 22:13 PROCEDURE: CT ABDOMEN WITH CONTRAST ([id number]) COMPARISON: [facility], CT, CT ABD W CON, 07/24/2016, 12:44. [facility], CT, CT ABD PELVIS W CON, 03/28/2016, 6:25. FINDINGS: Image quality: Excellent. Lung bases: New trace bibasilar mobile pleural effusions are present, larger on the left. Heart size is normal. Solid organs: Liver and spleen are normal in size. On axial image 23, 3.4 x 2.5 cm anteroinferior right hepatic lobe rim-enhancing lesion is not significantly changed in size, adjacent to the gallbladder fossa. Gallbladder again demonstrates multiple calcified and noncalcified gallstones, as well as circumferential gallbladder wall thickening. Biliary system is non dilated. Pancreas enhances normally. No adrenal nodules. Bilateral renal cortical atrophy is again noted, without hydronephrosis Peritoneum and bowel: Contrast enhanced bowel loops appear normal in caliber. No free fluid or air. Nodes and vessels: No retroperitoneal or mesenteric adenopathy by size criteria. Aorta and inferior vena cava are normal in size, with widespread aortoiliac and visceral artery atherosclerosis. Bones: No suspicious bony lesions. No vertebral body compression fractures. T12 and L1 vertebral body superior endplate Schmorl's nodes are present from disc degeneration. Miscellaneous: No ventral hernias. IMPRESSION: 1. No significant interval change in overall appearance of cholelithiasis with acute cholecystitis, as well as 3.4 x 2.5 cm adjacent intrahepatic rim- enhancing abscess. 2. New trace bibasilar mobile pleural effusions, larger on the left. 3. Atrophic bilateral kidneys as before, consistent with chronic renal disease. Dictated by: Santo England M.D. on 07/27/2016 at 13:25 Approved by: Santo England M.D. on 07/27/2016 at 13:25 Assessment & Plan Impression #1 end-stage renal disease dialysis dependent #2 hypertension with hypertensive heart disease hypertensive nephrosclerosis Mentation #1 patient is to be dialyzed today for 3-1/2 hours, 2 potassium bath, 1200 units of heparin and 500 hour and does patient have 2 L of fluid removed. GI Prophylaxis: Proton Pump Inhibitor VTE Prophylaxis: SCDs VTE Mechanical Devices: Intermittant Pneumatic CD Resuscitation Status: CPR: Attempt Resuscitation Brian Gresham DO Jul 31, 2016 11:11
--- NOTE | 2016-07-31 11:13 | PCM.PNSURG ---
Subjective Date of Service: Jul 31, 2016 Visit Information: Reason for Visit Sepsis, Pyelonephritis, Esrd Surgery/Surgery Date Post-Op Day # Date of Admission: Jul 21, 2016 at 10:32 Hospital Day #11 Subjective: Denies fever, chills, rigors, nausea or vomiting. Eating solid foods. Complains of upper abdominal and mostly right upper quadrant pain that is relieved with oral Tylenol. Passing flatus but has not had a bowel movement. Has not been out of bed but intends to begin mobilization with PT today. Postop General: Other (as above) Gastrointestinal: Good Appetite, Tolerating Oral Feedings, No N/V, Passing Flatus Pain Management: PO (Tylenol) Postop Activity: Other (has not been out of bed) Objective Vital Sign- Last 8 Hours Date Time Temp Pulse Resp B/P Pulse Ox O2 Delivery O2 Flow Rate FiO2 07/31/16 09:00 36.9 59 16 128/52 97 Room Air 07/31/16 04:42 63 Intake and Output- Last 8 Hour 07/31/16 Cumulative From/Thru 07:00 07/21/16 03:19 - 07/31/16 05:28 Intake Total 300 ml 40139 ml Output Total 10 ml 8185 ml Balance 290 ml 2555 ml Intake Oral 300 ml 5553 ml IV Total 5187 ml Output Urine Total 100 ml Urine/Stool Mix 0 ml Drainage Total 10 ml 85 ml Ultrafiltrate 8000 ml # Voids 1 # Bowel Movements 5 23 General: Alert, Cooperative, No Acute Distress, Anicteric Heart: Regular Rate/Rhythm Abdomen: Soft, Non-distended, Other (minimally tender to palpation) SURGICAL WOUND : Wound Drainage Type: Other (cholecystostomy/abscess drain with 10 mL of creamy white drainage over the last 8 hours.) Extremities: Thigh&Calf Soft/Nontender Neuro: Normal Speech Catheters: None Result Diagram: 07/31/16 0535 07/31/16 0535 Assessment & Plan Impression Primary diagnoses: Acute on chronic cholecystitis with intrahepatic abscess. Patent percutaneous cholecystostomy/abscess drain with no signs or symptoms of acute sepsis, on IV antibiotics. Other diagnoses: 1. End-stage renal disease on hemodialysis every Wednesday, Wednesday and Wednesday. 2. Type 2 diabetes with renal manifestation. 3. Hypertension. 4. Dyslipidemia. 5. Renal osteodystrophy. 6. Hypothyroidism. 7. Obesity, BMI 33.3. 8. Coronary artery disease status post CABG in 2014. Problems: Plan Continue drain with flushes and IV antibiotics. Pain Management: Oral Tylenol VTE Prophylaxis: SCDs Resuscitation Status: CPR: Attempt Resuscitation Ja Beavers PA-C Jul 31, 2016 11:13
[2016-07-31] MEDS: LIDO PO SCH ×4 (12:55→21:37)
[2016-07-31] MEDS: DIPHEN PO SCH ×4 (12:55→21:37)
[2016-07-31] MEDS: MAALOX PO SCH ×4 (12:55→21:37)
--- NOTE | 2016-07-31 15:28 | NUR ---
BLOOD PRESSURE P-Patient's SBP<100 most reading last 2-3 days. I-Held noon and afternoon BP meds, & day Clonidine patch removed. E-Patient continues low BP throughout dialysis, 82/45. MD made aware, order for Midrine requested for future dialysis. LABS- NEURO- Oriented to self and place, Danish speaker. CVS- SR Ismael 50-60's. See above note. PLUM-RA GI- BM X4 last night. GI-Anuric, ESRD, BRIEF SKIN- Redness bottom PAIN- c/o abdominal Tylenol given IV-S/L PLAN- Continue antibiotics Tx d/c Wednesday.
--- NOTE | 2016-07-31 16:56 | NUR ---
TOOK OVER PATIENT CARE [id number]
--- NOTE | 2016-07-31 17:50 | NUR ---
Dialysis note: 3 1/2 hrs tx. 1000 ml net UF. Right upper arm fistula. Pls see DTR for VS details, low BP throughout, Dr Gresham made aware. Qb 400. Heparin prime given. O2 @ 2L via NC on. Tolerated tx, remained asymptomatic despite low BP. Slept at intervals. Fistula needle sites clotted w/in 10 min. Report given to Brian Lee RN. Transferred back to patient's room in stable condition.
--- NOTE | 2016-07-31 19:49 | PCM.PNMED ---
Subjective Date of Service Jul 31, 2016 Subjective Patient reports that she has some abdominal pain with exertion, that is improved with rest. Pt reports that she continues to have sores in her mouth. She reports that the medication has been helping with her oral pain. Pt denies any fevers, chills, nausea, vomiting, or diarrhea. Pt reports that she has been tolerating her diet well. Pt reports that she feels very tired. Pt's family reports that her mentation is back to baseline. Exam Vital Signs Vital Sign - Last Date Time Temp Pulse Resp B/P Pulse Ox O2 Delivery O2 Flow Rate FiO2 07/31/16 04:42 63 07/31/16 02:36 18 108/46 98 Room Air 07/30/16 18:23 36.5 Intake and Output 07/30/16 07/30/16 07/31/16 Cumulative From/Thru 15:00 23:00 07:00 07/21/16 03:19 - 07/31/16 05:28 Intake Total 181 ml 600 ml 300 ml 45898 ml Output Total 20 ml 10 ml 8185 ml Balance 181 ml 580 ml 290 ml 2555 ml Intake Oral 600 ml 300 ml 5553 ml IV Total 181 ml 5187 ml Output Urine Total 100 ml Urine/Stool Mix 0 ml Drainage Total 20 ml 10 ml 85 ml Ultrafiltrate 8000 ml # Voids 1 # Bowel Movements 1 12 15 Exam General: No acute distress, patient is resting in bed, family at bedside HEENT: Normocephalic, atraumatic. Anicteric sclerae, moist conjunctivae. Oropharynx with moist mucosa. Edentulous. Neck: Supple with full range of motion. Cardiovascular: Regular rate and rhythm. Systolic murmur auscultated. Pulmonary: Clear to auscultation bilaterally with no crackles, wheezes, or rhonchi. Normal respiratory effort with no use of accessory muscles. Abdomen: Mildly tender in right upper quadrant. Drain present on right side-no erythema present, dressing intact.Soft, nondistended.normal bowel tones present Extremities: No clubbing, cyanosis, edema appreciated. Skin: Normal temperature, turgor, and texture Psychiatric: Alert and oriented to person. Answers questions and appears to understand discussion of care. IVs and Medications Medications Reviewed: Medications were reviewed in detail Lab and Diagnostics Result Diagram: 07/31/1635 07/31/1635 Microbiology Microbiology DONNELL CULTURE BLOOD Preliminary 07/22/16-0646 Organism 1 POSITIVE BLOOD CULTURE GRAM STAIN RESULT GRAM NEGATIVE RODS BC BOTTLE Isolated from Anaerobic Bottle of Set Drawn DATE CALLED: 07/21/16 TIME CALLED: 2200 CALLED BY: HUMPHREY TAYLOR/DOCTOR: MACRO Clement BC READ BACK Y TYPE OF DRAW PERIPHERAL DRAW TIME OF POSITIVITY 2100 GRAM STAIN RESULT GRAM NEGATIVE RODS BC BOTTLE2 Isolated from Aerobic Bottle of Set Drawn DATE CALLED: 07/21/16 TIME CALLED: 2300 CALLED BY: HUMPHREY TAYLOR/DOCTOR: MARCO Clement BC READ BACK Y TYPE OF DRAW PERIPHERAL DRAW TIME OF POSITIVITY 2210 GRAM NEGATIVE SCOTTIE ID AND SENSITIVITIES TO FOLLOW ISOLATED FROM FOUR OF FOUR BOTTLES COLLECTED 07/21 Microbiology DONNELL CULTURE BLOOD Preliminary 07/22/16-47 Organism 1 POSITIVE BLOOD CULTURE GRAM STAIN RESULT GRAM NEGATIVE RODS BC BOTTLE Isolated from Aerobic Bottle of Set Drawn DATE CALLED: 07/21/16 TIME CALLED: 2200 CALLED BY: HUMPHREY TAYLOR/DOCTOR: MARCO Clement BC READ BACK Y TYPE OF DRAW NURSE COLLLECT TYPE NOT SPECIFIED TIME OF POSITIVITY 2140 GRAM STAIN RESULT GRAM NEGATIVE RODS BC BOTTLE2 Isolated from Anaerobic Bottle of Set Drawn DATE CALLED: 07/22/16 TIME CALLED: 0413 CALLED BY: MICK TAYLOR/DOCTOR: MARCO Quintero RN BC READ BACK Y TYPE OF DRAW NURSE COLLECT TYPE NOT INDICATED TIME OF POSITIVITY 0350 GRAM NEGATIVE SCOTTIE ID TO FOLLOW ISOLATED FROM FOUR OF FOUR BOTTLES COLLECTED 07/21 X-Rays, CTs and MRIs PROCEDURE: X-RAY CHEST ONE VIEW, PORTABLE ([id number]) FINDINGS: Surgical changes and devices: Post median sternotomy. Lungs and pleura: No pleural effusions or pneumothorax. Lung volumes are low and interstitium is prominent. Medial bibasilar airspace opacities. Mediastinum: Mediastinal contours appear normal. Heart size is normal. Bones and chest wall: No suspicious bony lesions. Overlying soft tissues appear unremarkable. I MPRESSION: Persistent low lung volumes with interstitial prominence and bibasilar radiodensities likely atelectasis. Correlate clinically. Dictated by: Tariq CERDA Interpreted: Fadia Aguilar MD on 07/21/2016 at 9:56 Transcribed by: TYRONE on 07/21/2016 at 9:56 PROCEDURE: CT BRAIN WITHOUT CONTRAST FINDINGS: Image quality: Excellent. CSF spaces: Basal cisterns are patent. No extra-axial fluid collections. The ventricles are symmetric in size and shape. Brain: No intracranial bleeds or masses. There is cerebral volume loss for age , with resultant ventricular and sulcal prominence. There are periventricular and deep white matter chronic small vessel ischemic changes. There is intracranial internal carotid artery atherosclerosis. Skull and face: Calvarium and visualized facial bones appear intact, without suspicious lesions. Sinuses: Visualized sinuses and mastoids are clear. IMPRESSION: No acute intracranial abnormality. Concordant with preliminary interpretation. Dictated by: Dyan Gonzales M.D. on 07/23/2016 at 9:42 Approved by: Dyan Gonzales M.D. on 07/23/2016 at 9:42 PROCEDURE: US ABDOMEN COMPARISON: [facility], CT, CT ABD PELVIS W CON, 03/28/2016, 6:25. [facility], US, US ABDOMEN, 03/28/2016, 11:39. [facility], NM, NM HIDA SCAN W CCK STD, 03/29/2016, 18:43. FINDINGS: Liver: Liver is normal in size. There is a 2.6 x 2.0 x 3.7 cm hypoechoic area adjacent to the gallbladder demonstrating small echogenic foci, suspicious for an intraheptic abscess. This finding is new. Gallbladder: Gallbladder is grossly abnormal. There is marked gallbladder wall thickening (up to 9.1 mm) and irregularity. There are gallstones and gallbladder sludge. The ultrasound findings are consistent with acute cholecystitis. The hypoechoic area in liver may have direct connection to the gallbladder, suspicious for gallbladder perforation. A small pericholecystic fluid is present. Biliary ducts: Intrahepatic bile ducts are non-dilated. Extrahepatic bile duct caliber measures 4.7 mm. Normal is 6-7 mm or less in diameter, or 10 mm or less post-cholecystectomy. Pancreas: Visualized portions of the pancreas are sonographically normal. Spleen: Spleen is normal in size and homogeneous in echotexture. Kidneys: The inferior pole of the right kidney is not visualized. Left kidney measures 7 cm in length, which is decreased in size. There is bilateral renal cortical thinning. No hydronephrosis or nephrolithiasis. A 1.3 cm cyst is noted in the superior pole of the right kidney. Aorta: Visualized aorta is normal in caliber at less than 3 cm. Iliacs: Proximal common iliac arteries are normal in caliber at less than 2.5 cm. IVC: Intrahepatic inferior vena cava is patent. Miscellaneous: No free abdominal fluid. Bladder is contracted, therefore, not well-seen. IMPRESSION: 1. Markedly abnormal gallbladder with gallstones/sludge and irregular gallbladder wall thickening, consistent with acute cholecystitis. 2. There is a hypocortical area in the liver adjacent to the gallbladder, which appears to be connected gallbladder, suspicious for gallbladder perforation and an intrahepatic abscess. 3. Atrophic kidneys bilaterally. Dictated by: Dorinda Gerber M.D. on 07/23/2016 at 21:50 Transcribed by: SIMA on 07/23/2016 at 21:50 Approved by: Dorinda Gerber M.D. on 07/23/2016 at 22:13 PROCEDURE: CT ABDOMEN WITH CONTRAST ([id number]) COMPARISON: [facility], CT, CT ABD W CON, 07/24/2016, 12:44. [facility], CT, CT ABD PELVIS W CON, 03/28/2016, 6:25. FINDINGS: Image quality: Excellent. Lung bases: New trace bibasilar mobile pleural effusions are present, larger on the left. Heart size is normal. Solid organs: Liver and spleen are normal in size. On axial image 23, 3.4 x 2.5 cm anteroinferior right hepatic lobe rim-enhancing lesion is not significantly changed in size, adjacent to the gallbladder fossa. Gallbladder again demonstrates multiple calcified and noncalcified gallstones, as well as circumferential gallbladder wall thickening. Biliary system is non dilated. Pancreas enhances normally. No adrenal nodules. Bilateral renal cortical atrophy is again noted, without hydronephrosis Peritoneum and bowel: Contrast enhanced bowel loops appear normal in caliber. No free fluid or air. Nodes and vessels: No retroperitoneal or mesenteric adenopathy by size criteria. Aorta and inferior vena cava are normal in size, with widespread aortoiliac and visceral artery atherosclerosis. Bones: No suspicious bony lesions. No vertebral body compression fractures. T12 and L1 vertebral body superior endplate Schmorl's nodes are present from disc degeneration. Miscellaneous: No ventral hernias. IMPRESSION: 1. No significant interval change in overall appearance of cholelithiasis with acute cholecystitis, as well as 3.4 x 2.5 cm adjacent intrahepatic rim- enhancing abscess. 2. New trace bibasilar mobile pleural effusions, larger on the left. 3. Atrophic bilateral kidneys as before, consistent with chronic renal disease. Dictated by: Santo England M.D. on 07/27/2016 at 13:25 Approved by: Santo England M.D. on 07/27/2016 at 13:25 Assessment & Plan 65yoF with past medical history of ESRD on hemodialysis, DM type 2, CHF, HTN, HLD who presented to the [facility] ED with altered mental status per her family. She was under evaluation for suspected acute cholecystitis with abscess formation, that may be the etiology of her septicemia. General surgery has been consulted, awaiting further imaging to decide to pursue interventions. - Hospital day 11 Acute on chronic cholecystitis present on admission, ongoing -US on 07/23 demonstrating "gallstones/sludge and irregular gallbladder wall thickening & hypocortical area in the liver suspicious for gallbladder perforation/intrahepatic abscess. -Repeat CT(07/27); demonstrating "no significant interval change in overall appearance of cholelithiasis with acute cholecystitis, as well as 3.4 x 2.5 cm adjacent intrahepatic rim-enhancing abscess" Acute intrahepatic abscess,present on admission, ongoing -Surgery has been consulted, we appreciate their input -Percutaneous cholecystostomy/abscess drain placed on 07/28/16 by IR ( will be present for 6 wks). F/U with outpatient surgery in 2 wks. -ID consulted, we appreciate input.Pt receiving Flagyl, start date 07/24 Acute pyelonephritis, present on admission, ongoing -Zosyn and NS given in ER -Urine and Blood cultures( aerobic and anaerobic) 4/ bottle growing E.coli -Infectious disease has been consulted, we appreciate Dr Gutierrez's input -ID recommends continued Ceftriaxone to 2gm daily, start date 07/24 (of note, pt received Ceftriaxone 1gm daily for 3 days prior) Oropharynx pain and discoloration, not present on admission, ongoing -Pt has nystatin swish and swallow, which seems to be helping -Lidocaine/Diphenhydramine/Alum/Mg/Simeth mouthwash also available -Will continue to monitor End stage renal disease on hemodialysis, present on admission, chronic - Dialysis MWF - Renal diet ordered - Nephrology consulted we appreciate their input Altered mental status likely secondary to pyelonephritis, present on admission, resolved -CT of brain---No acute abnormality -Palliative care consult can be considered, given pt's mentation, ESRD with dialysis and now cholecystitis to discuss goals of care. - Family wishes to pursue interventions Dysphagia, not present on admission, resolved -Speech evaluation performed, dysphagia improved with improved mentation -Diet per speech recommendations Diabetes mellitus type 2, present on admission, presumed stable - Patient placed on correction scale lispro - A1C checked 03/29/16, was 6.5 HTN,chronic, ongoing, uncontrolled -Continue home medications -Appreciate Nephrology input on management -Clonidine patch and IV enalaprilat 1.25 mg q 6 hr PRN. Chronic and stable conditions: Chronic diastolic heart failure,presumed stable -ECHO done in 2014 Hypothyroidism, chronic, presumed stable -Continue home medications Hyperlipidemia,chronic, presumed stable -Continue home medications - PRN: Fever/pain/bowel/antiemetic - DVT: SCDs - GI: PPI - DIET: Renal, per ST - CODE: FULL CODE Dispo: Likely to remain pending additional imaging to be performed, and input from surgical team. Continued needs include PT, ST to maintain strength in chronically frail patient. Dialysis MWF. GI Prophylaxis: Proton Pump Inhibitor VTE Prophylaxis: SCDs VTE Mechanical Devices: Intermittant Pneumatic CD Resuscitation Status: CPR: Attempt Resuscitation Attending Statement The patient was seen and examined together with Dr. Angel on 07/31/2015and I agree with the history, exam and plan as outlined in the note above. Lisa Angel DO Jul 31, 2016 07:52 Weston Montes MD Aug 01, 2016 09:13
[2016-08-01] VITALS (11 sets, daily range): BP systolic 89–130; BP diastolic 44–55; PULSE 55–69; RESP 18–20; O2SAT 97–99
[2016-08-01] MEDS: cloNIDine 0.1 mg Tablet PO SCH ×3 (03:33→19:23)
[2016-08-01] MEDS: Insulin LISPRO 300 Unit/3 mL Inj SUBQ SCH ×4 (08:00→22:00)
[2016-08-01 08:11] LABS: BASOPHILS % (AUTO) 0.5 % (0-3); EOSINOPHILS % (AUTO) 2.4 % (0-5); MONOCYTES % (AUTO) 12.3 % (4-12); Mean Corpuscular Hemoglobin 32.1 pg (27.0-35.0); Mean Corpuscular Volume 98.1 fL (81-100); NEUTROPHILS % (AUTO) 65.1 % (40-74); Platelet Count 257 bil/L (150-400)
[2016-08-01] MEDS: MAALOX PO SCH ×4 (08:30→20:44)
[2016-08-01] MEDS: DIPHEN PO SCH ×4 (08:30→20:44)
[2016-08-01] MEDS: LIDO PO SCH ×4 (08:30→20:44)
[2016-08-01] MEDS: Lisinopril 40 Tablet PO SCH (09:30)
[2016-08-01] MEDS: Pantoprazole 40 mg ER24 Tablet PO SCH (09:30)
[2016-08-01] MEDS: Nystatin 100,000 Unit/mL 5 mL Suspension PO SCH ×4 (09:31→20:44)
[2016-08-01] MEDS: metroNIDAZOLE Inj 500 MG in IV Premix 1 EACH IV SCH ×2 (09:32→20:44)
[2016-08-01] MEDS: cefTRIAXone Inj 2,000 MG in IV Premix 1 EACH IV SCH (10:18)
--- NOTE | 2016-08-01 10:29 | PROG NOTE ---
[address] [address] PROGRESS NOTE PATIENT: MARTÍNEZ CHAHAL : 1950 MR#: [id number] ADMIT: 07/21/2016 JOB ID: [id number] DATE: 08/01/2016 SUBJECTIVE: She is afebrile, stable vital signs. Her liver abscess drain has put out 10 cc over the previous 24 hours, but 20 cc since this morning. She continues to pass stool. Her abdomen is soft, nontender. White count remains normal. Hematocrit is stable at 30.6. LFTs are normal. DATE: IMPRESSION AND PLAN: Doing well status post drainage of liver abscess, likely related to chronic gallbladder disease. I would leave her drain in for another 24 hours, continue her antibiotics per Dr. Gutierrez and Dr. Gresham. I will see her again tomorrow. Consideration will be given to eventually getting her gallbladder out once she is over this acute illness.
--- NOTE | 2016-08-01 14:46 | NUR ---
Data & Assessment: EMR reviewed. Patient is a 65 y/o female that is on day 11 of her hospital stay. Patient admitted for sepsis, pyelonephritisand ESRD. Per EMR DR. Mai plans to leave patients drain in for another 24 hours and continue patients antibiotics. Currently the plan is for the patient to discharge to [facility] with Dr. Noel to follow when she is medically stable. SW attempted to call patients [employer] [phone], but he was not available. SW will continue to follow the patient to assist with discharge planning. Plan: Patient will discharge home when medically stable. It is anticipated that the patient will discharge to [facility] with Dr. Noel to follow. SW will continue to follow. Cielo Villa LMSW, JIMMIE
--- NOTE | 2016-08-01 16:29 | PCM.PNMED ---
Subjective Date of Service Aug 01, 2016 Subjective Patient reports she is well this morning. Pt denies any abdominal pain, nausea or vomiting. Pt reports that she feels very cold. Pt also reports that the ulcers in her mouth are causing her pain. Family have no concerns this morning. Exam Vital Signs Vital Sign - Last Date Time Temp Pulse Resp B/P Pulse Ox O2 Delivery O2 Flow Rate FiO2 08/01/16 13:17 36.6 57 18 130/55 99 Room Air Intake and Output 07/31/16 07/31/16 08/01/16 Cumulative From/Thru 15:00 23:00 07:00 07/21/16 03:19 - 08/01/16 05:05 Intake Total 220 ml 100 ml 250 ml 99032 ml Output Total 1000 ml 0 ml 20 ml 9205 ml Balance -780 ml 100 ml 230 ml 2105 ml Intake Oral 100 ml 250 ml 5903 ml IV Total 220 ml 5407 ml Output Urine Total 0 ml 0 ml 100 ml Urine/Stool Mix 0 ml Drainage Total 20 ml 105 ml Ultrafiltrate 1000 ml 9000 ml # Voids 1 # Bowel Movements 1 24 Exam General: No acute distress, patient is resting in bed with blankets pulled up to her nose. HEENT: Normocephalic, atraumatic. Anicteric sclerae, moist conjunctivae. Oropharynx with moist mucosa. Edentulous. Neck: Supple with full range of motion. Cardiovascular: Regular rate and rhythm. Systolic murmur auscultated. Pulmonary: Clear to auscultation bilaterally with no crackles, wheezes, or rhonchi. Normal respiratory effort with no use of accessory muscles. Abdomen: Mildly tender in right upper quadrant. Drain present on right side-no erythema present, dressing intact.Soft, nondistended.normal bowel tones present Extremities: No clubbing, cyanosis, edema appreciated. Skin: Normal temperature, turgor, and texture Psychiatric: Alert and oriented to person. Answers questions recalls myself and medical team IVs and Medications Medications Reviewed: Medications were reviewed in detail Lab and Diagnostics Result Diagram: 08/01/16 0708/01/16 0729 Microbiology Microbiology DONNELL CULTURE BLOOD Preliminary 07/22/16-0646 Organism 1 POSITIVE BLOOD CULTURE GRAM STAIN RESULT GRAM NEGATIVE RODS BC BOTTLE Isolated from Anaerobic Bottle of Set Drawn DATE CALLED: 07/21/16 TIME CALLED: 2200 CALLED BY: HUMPHREY FLOOR/DOCTOR: MARCO Clement BC READ BACK Y TYPE OF DRAW PERIPHERAL DRAW TIME OF POSITIVITY 2100 GRAM STAIN RESULT GRAM NEGATIVE RODS BC BOTTLE2 Isolated from Aerobic Bottle of Set Drawn DATE CALLED: 07/21/16 TIME CALLED: 2300 CALLED BY: HUMPHREY FLOOR/DOCTOR: MARCO Clement BC READ BACK Y TYPE OF DRAW PERIPHERAL DRAW TIME OF POSITIVITY 2210 GRAM NEGATIVE SCOTTIE ID AND SENSITIVITIES TO FOLLOW ISOLATED FROM FOUR OF FOUR BOTTLES COLLECTED 07/21 Microbiology DONNELL CULTURE BLOOD Preliminary 07/22/16-0647 Organism 1 POSITIVE BLOOD CULTURE GRAM STAIN RESULT GRAM NEGATIVE RODS BC BOTTLE Isolated from Aerobic Bottle of Set Drawn DATE CALLED: 07/21/16 TIME CALLED: 2200 CALLED BY: HUMPHREY TAYLOR/DOCTOR: MARCO Clement BC READ BACK Y TYPE OF DRAW NURSE COLLLECT TYPE NOT SPECIFIED TIME OF POSITIVITY 2140 GRAM STAIN RESULT GRAM NEGATIVE RODS BC BOTTLE2 Isolated from Anaerobic Bottle of Set Drawn DATE CALLED: 07/22/16 TIME CALLED: 0413 CALLED BY: MICK FLOOR/DOCTOR: MARCO Quintero RN BC READ BACK Y TYPE OF DRAW NURSE COLLECT TYPE NOT INDICATED TIME OF POSITIVITY 0350 GRAM NEGATIVE SCOTTIE ID TO FOLLOW ISOLATED FROM FOUR OF FOUR BOTTLES COLLECTED 07/21 X-Rays, CTs and MRIs PROCEDURE: X-RAY CHEST ONE VIEW, PORTABLE ([id number]) FINDINGS: Surgical changes and devices: Post median sternotomy. Lungs and pleura: No pleural effusions or pneumothorax. Lung volumes are low and interstitium is prominent. Medial bibasilar airspace opacities. Mediastinum: Mediastinal contours appear normal. Heart size is normal. Bones and chest wall: No suspicious bony lesions. Overlying soft tissues appear unremarkable. I MPRESSION: Persistent low lung volumes with interstitial prominence and bibasilar radiodensities likely atelectasis. Correlate clinically. Dictated by: Tariq Mendoza RRMynor Interpreted: Fadia Aguilar MD on 07/21/2016 at 9:56 Transcribed by: TYRONE on 07/21/2016 at 9:56 PROCEDURE: CT BRAIN WITHOUT CONTRAST FINDINGS: Image quality: Excellent. CSF spaces: Basal cisterns are patent. No extra-axial fluid collections. The ventricles are symmetric in size and shape. Brain: No intracranial bleeds or masses. There is cerebral volume loss for age , with resultant ventricular and sulcal prominence. There are periventricular and deep white matter chronic small vessel ischemic changes. There is intracranial internal carotid artery atherosclerosis. Skull and face: Calvarium and visualized facial bones appear intact, without suspicious lesions. Sinuses: Visualized sinuses and mastoids are clear. IMPRESSION: No acute intracranial abnormality. Concordant with preliminary interpretation. Dictated by: Dyan Gonzales M.D. on 07/23/2016 at 9:42 Approved by: Dyan Gonzales M.D. on 07/23/2016 at 9:42 PROCEDURE: US ABDOMEN COMPARISON: [facility], CT, CT ABD PELVIS W CON, 03/28/2016, 6:25. [facility], US, US ABDOMEN, 03/28/2016, 11:39. [facility], NM, NM HIDA SCAN W CCK STD, 03/29/2016, 18:43. FINDINGS: Liver: Liver is normal in size. There is a 2.6 x 2.0 x 3.7 cm hypoechoic area adjacent to the gallbladder demonstrating small echogenic foci, suspicious for an intraheptic abscess. This finding is new. Gallbladder: Gallbladder is grossly abnormal. There is marked gallbladder wall thickening (up to 9.1 mm) and irregularity. There are gallstones and gallbladder sludge. The ultrasound findings are consistent with acute cholecystitis. The hypoechoic area in liver may have direct connection to the gallbladder, suspicious for gallbladder perforation. A small pericholecystic fluid is present. Biliary ducts: Intrahepatic bile ducts are non-dilated. Extrahepatic bile duct caliber measures 4.7 mm. Normal is 6-7 mm or less in diameter, or 10 mm or less post-cholecystectomy. Pancreas: Visualized portions of the pancreas are sonographically normal. Spleen: Spleen is normal in size and homogeneous in echotexture. Kidneys: The inferior pole of the right kidney is not visualized. Left kidney measures 7 cm in length, which is decreased in size. There is bilateral renal cortical thinning. No hydronephrosis or nephrolithiasis. A 1.3 cm cyst is noted in the superior pole of the right kidney. Aorta: Visualized aorta is normal in caliber at less than 3 cm. Iliacs: Proximal common iliac arteries are normal in caliber at less than 2.5 cm. IVC: Intrahepatic inferior vena cava is patent. Miscellaneous: No free abdominal fluid. Bladder is contracted, therefore, not well-seen. IMPRESSION: 1. Markedly abnormal gallbladder with gallstones/sludge and irregular gallbladder wall thickening, consistent with acute cholecystitis. 2. There is a hypocortical area in the liver adjacent to the gallbladder, which appears to be connected gallbladder, suspicious for gallbladder perforation and an intrahepatic abscess. 3. Atrophic kidneys bilaterally. Dictated by: Dorinda Gerber M.D. on 07/23/2016 at 21:50 Transcribed by: SIMA on 07/23/2016 at 21:50 Approved by: Dorinda Gerber M.D. on 07/23/2016 at 22:13 PROCEDURE: CT ABDOMEN WITH CONTRAST ([id number]) COMPARISON: [facility], CT, CT ABD W CON, 07/24/2016, 12:44. [facility], CT, CT ABD PELVIS W CON, 03/28/2016, 6:25. FINDINGS: Image quality: Excellent. Lung bases: New trace bibasilar mobile pleural effusions are present, larger on the left. Heart size is normal. Solid organs: Liver and spleen are normal in size. On axial image 23, 3.4 x 2.5 cm anteroinferior right hepatic lobe rim-enhancing lesion is not significantly changed in size, adjacent to the gallbladder fossa. Gallbladder again demonstrates multiple calcified and noncalcified gallstones, as well as circumferential gallbladder wall thickening. Biliary system is non dilated. Pancreas enhances normally. No adrenal nodules. Bilateral renal cortical atrophy is again noted, without hydronephrosis Peritoneum and bowel: Contrast enhanced bowel loops appear normal in caliber. No free fluid or air. Nodes and vessels: No retroperitoneal or mesenteric adenopathy by size criteria. Aorta and inferior vena cava are normal in size, with widespread aortoiliac and visceral artery atherosclerosis. Bones: No suspicious bony lesions. No vertebral body compression fractures. T12 and L1 vertebral body superior endplate Schmorl's nodes are present from disc degeneration. Miscellaneous: No ventral hernias. IMPRESSION: 1. No significant interval change in overall appearance of cholelithiasis with acute cholecystitis, as well as 3.4 x 2.5 cm adjacent intrahepatic rim- enhancing abscess. 2. New trace bibasilar mobile pleural effusions, larger on the left. 3. Atrophic bilateral kidneys as before, consistent with chronic renal disease. Dictated by: Santo England M.D. on 07/27/2016 at 13:25 Approved by: Santo England M.D. on 07/27/2016 at 13:25 Assessment & Plan 65yoF with past medical history of ESRD on hemodialysis, DM type 2, CHF, HTN, HLD who presented to the [facility] ED with altered mental status per her family. She was under evaluation for suspected acute cholecystitis with abscess formation, that may be the etiology of her septicemia. General surgery has been consulted, awaiting further imaging to decide to pursue interventions. - Hospital day 12 Acute on chronic cholecystitis present on admission, ongoing -US on 07/23 demonstrating "gallstones/sludge and irregular gallbladder wall thickening & hypocortical area in the liver suspicious for gallbladder perforation/intrahepatic abscess. -Repeat CT(07/27); demonstrating "no significant interval change in overall appearance of cholelithiasis with acute cholecystitis, as well as 3.4 x 2.5 cm adjacent intrahepatic rim-enhancing abscess" -Per Surgery note, pt may be a candidate to have gallbladder removed after illness resolves Acute intrahepatic abscess,present on admission, ongoing -Surgery has been consulted, we appreciate their input -Percutaneous cholecystostomy/abscess drain placed on 07/28/16 by IR ( will be present for 6 wks). F/U with outpatient surgery in 2 wks. -ID consulted, we appreciate input.Pt receiving Flagyl, start date 07/24 -Per ID, upon discharge pt will continue with antibiotic treatment( 1gm Ceftazidime with dialysis, Flagyl PO 500mg BID) for several weeks. Acute pyelonephritis, present on admission, ongoing -Zosyn and NS given in ER -Urine and Blood cultures( aerobic and anaerobic) / bottle growing E.coli -Infectious disease has been consulted, we appreciate Dr Gutierrez's input -ID recommends continued Ceftriaxone to 2gm daily( while inpatient), start date 07/24 (of note, pt received Ceftriaxone 1gm daily for 3 days prior) Oropharynx pain and discoloration, not present on admission, ongoing -Pt has nystatin swish and swallow, which seems to be helping -Lidocaine/Diphenhydramine/Alum/Mg/Simeth mouthwash also available -Will continue to monitor End stage renal disease on hemodialysis, present on admission, chronic - Dialysis MWF - Renal diet ordered - Nephrology consulted we appreciate their input Altered mental status likely secondary to pyelonephritis, present on admission, resolved -CT of brain---No acute abnormality -Palliative care consult can be considered, given pt's mentation, ESRD with dialysis and now cholecystitis to discuss goals of care. - Family wishes to pursue interventions Dysphagia, not present on admission, resolved -Speech evaluation performed, dysphagia improved with improved mentation -Diet per speech recommendations Diabetes mellitus type 2, present on admission, presumed stable - Patient placed on correction scale lispro - A1C checked 03/29/16, was 6.5 HTN,chronic, ongoing, uncontrolled -Continue home medications -Appreciate Nephrology input on management -Clonidine patch and IV enalaprilat 1.25 mg q 6 hr PRN. Chronic and stable conditions: Chronic diastolic heart failure,presumed stable -ECHO done in 2014 Hypothyroidism, chronic, presumed stable -Continue home medications Hyperlipidemia,chronic, presumed stable -Continue home medications - PRN: Fever/pain/bowel/antiemetic - DVT: SCDs - GI: PPI - DIET: Renal, per ST - CODE: FULL CODE Dispo: Pt will discharge to [facility] when discharge occurs. Likely to remain pending additional imaging to be performed, and input from surgical team. Continued needs include PT, ST to maintain strength in chronically frail patient. Dialysis MWF. GI Prophylaxis: Proton Pump Inhibitor VTE Prophylaxis: SCDs VTE Mechanical Devices: Intermittant Pneumatic CD Resuscitation Status: CPR: Attempt Resuscitation Attending Statement The patient was seen and examined together with Dr. Angel on 08/01/2016 and I agree with the history, exam and plan as outlined in the note above. Lisa Angel DO Aug 01, 2016 16:29 Weston Montes MD Aug 02, 2016 11:12
--- NOTE | 2016-08-01 18:29 | NUR ---
Blood Pressure Pt blood pressure at 160 93/45 HR 57. Rechecked at 1730, 104/47 HR 58. 1730 Coreg 25mg held. Addendum: 08/01/16 at 1835 by LOVE SHORT RN BP at 1630 93/45 HR 57
--- NOTE | 2016-08-01 20:23 | NUR ---
Low Blood Pressure held all HS blood pressure medications
[2016-08-01] MEDS ORDERED: 0.9% Sodium Chloride 250 ML ONE (20:27)
[2016-08-02] VITALS (9 sets, daily range): BP systolic 87–154; BP diastolic 43–58; PULSE 55–66; RESP 12–18; O2SAT 96–99
[2016-08-02] MEDS: cloNIDine 0.1 mg Tablet PO SCH ×3 (05:56→20:02)
[2016-08-02] MEDS: Insulin LISPRO 300 Unit/3 mL Inj SUBQ SCH ×4 (07:39→21:57)
[2016-08-02] MEDS: MAALOX PO SCH ×4 (08:29→21:53)
[2016-08-02] MEDS: Lisinopril 40 Tablet PO SCH (08:29)
[2016-08-02] MEDS: DIPHEN PO SCH ×4 (08:29→21:53)
[2016-08-02] MEDS: LIDO PO SCH ×4 (08:29→21:53)
[2016-08-02] MEDS: Pantoprazole 40 mg ER24 Tablet PO SCH (08:29)
[2016-08-02] MEDS: Nystatin 100,000 Unit/mL 5 mL Suspension PO SCH ×4 (08:30→21:53)
[2016-08-02 08:39] LABS: BASOPHILS % (AUTO) 0.4 % (0-3); EOSINOPHILS % (AUTO) 2.8 % (0-5); MONOCYTES % (AUTO) 11.6 % (4-12); Mean Corpuscular Hemoglobin 32.1 pg (27.0-35.0); Mean Corpuscular Volume 98.1 fL (81-100); NEUTROPHILS % (AUTO) 66.3 % (40-74); Platelet Count 263 bil/L (150-400)
[2016-08-02] MEDS: metroNIDAZOLE Inj 500 MG in IV Premix 1 EACH IV SCH ×2 (08:55→20:10)
[2016-08-02] MEDS: cefTRIAXone Inj 2,000 MG in IV Premix 1 EACH IV SCH (11:01)
--- NOTE | 2016-08-02 11:22 | PCM.PNMED ---
Subjective Date of Service Aug 02, 2016 Subjective Patient continues to do well. She offers no new complaints today and is tolerating her minimal diet. Exam Vital Signs Vital Sign - Last Date Time Temp Pulse Resp B/P Pulse Ox O2 Delivery O2 Flow Rate FiO2 08/02/16 08:01 37.0 62 16 134/58 96 Room Air Intake and Output 08/01/16 08/01/16 08/02/16 Cumulative From/Thru 15:00 23:00 07:00 07/21/16 03:19 - 08/02/16 06:34 Intake Total 1356 ml 39174 ml Output Total 0 ml 9205 ml Balance 1356 ml 3461 ml Intake Oral 1356 ml 7259 ml IV Total 5407 ml Output Urine Total 0 ml 100 ml Urine/Stool Mix 0 ml Drainage Total 105 ml Ultrafiltrate 9000 ml # Voids 3 1 5 # Bowel Movements 07 27 26 Exam Neck is supple without adenopathy thyromegaly or jugular venous distention. Lungs were clear to auscultation. Heart is regular and rhythmical with a soft systolic murmur. Abdomen is soft with diminished bowel sounds. There is no tenderness or rebound noted. She was chosen clubbing cyanosis or edema. Lab and Diagnostics Result Diagram: 08/02/1672008/02/16720 Microbiology Microbiology DONNELL CULTURE BLOOD Preliminary 07/22/16-46 Organism 1 POSITIVE BLOOD CULTURE GRAM STAIN RESULT GRAM NEGATIVE RODS BC BOTTLE Isolated from Anaerobic Bottle of Set Drawn DATE CALLED: 07/21/16 TIME CALLED: 2199 CALLED BY: HUMPHREY FLOOR/DOCTOR: SHAHEEN/ALVARADO SESAY READ BACK Y TYPE OF DRAW PERIPHERAL DRAW TIME OF POSITIVITY 2100 GRAM STAIN RESULT GRAM NEGATIVE RODS BC BOTTLE2 Isolated from Aerobic Bottle of Set Drawn DATE CALLED: 07/21/16 TIME CALLED: 2300 CALLED BY: HUMPHREY FLOOR/DOCTOR: MARCO SESAY READ BACK Y TYPE OF DRAW PERIPHERAL DRAW TIME OF POSITIVITY 2210 GRAM NEGATIVE SCOTTIE ID AND SENSITIVITIES TO FOLLOW ISOLATED FROM FOUR OF FOUR BOTTLES COLLECTED 07/21 Microbiology DONNELL CULTURE BLOOD Preliminary 07/22/16-47 Organism 1 POSITIVE BLOOD CULTURE GRAM STAIN RESULT GRAM NEGATIVE RODS BC BOTTLE Isolated from Aerobic Bottle of Set Drawn DATE CALLED: 07/21/16 TIME CALLED: 2200 CALLED BY: HUMPHREY FLOOR/DOCTOR: SHAHEEN/ALVARADO M. BC READ BACK Y TYPE OF DRAW NURSE COLLLECT TYPE NOT SPECIFIED TIME OF POSITIVITY 2140 GRAM STAIN RESULT GRAM NEGATIVE RODS BC BOTTLE2 Isolated from Anaerobic Bottle of Set Drawn DATE CALLED: 07/22/16 TIME CALLED: 412 CALLED BY: GAGET FLOOR/DOCTOR: SHAHEEN/ALVARADO Quintero RN BC READ BACK Y TYPE OF DRAW NURSE COLLECT TYPE NOT INDICATED TIME OF POSITIVITY 0350 GRAM NEGATIVE SCOTTIE ID TO FOLLOW ISOLATED FROM FOUR OF FOUR BOTTLES COLLECTED 07/21 X-Rays, CTs and MRIs PROCEDURE: X-RAY CHEST ONE VIEW, PORTABLE ([id number]) FINDINGS: Surgical changes and devices: Post median sternotomy. Lungs and pleura: No pleural effusions or pneumothorax. Lung volumes are low and interstitium is prominent. Medial bibasilar airspace opacities. Mediastinum: Mediastinal contours appear normal. Heart size is normal. Bones and chest wall: No suspicious bony lesions. Overlying soft tissues appear unremarkable. I MPRESSION: Persistent low lung volumes with interstitial prominence and bibasilar radiodensities likely atelectasis. Correlate clinically. Dictated by: Tariq Mendoza [facility] Interpreted: Fadia Aguilar MD on 07/21/2016 at 9:56 Transcribed by: TYRONE on 07/21/2016 at 9:56 PROCEDURE: CT BRAIN WITHOUT CONTRAST FINDINGS: Image quality: Excellent. CSF spaces: Basal cisterns are patent. No extra-axial fluid collections. The ventricles are symmetric in size and shape. Brain: No intracranial bleeds or masses. There is cerebral volume loss for age , with resultant ventricular and sulcal prominence. There are periventricular and deep white matter chronic small vessel ischemic changes. There is intracranial internal carotid artery atherosclerosis. Skull and face: Calvarium and visualized facial bones appear intact, without suspicious lesions. Sinuses: Visualized sinuses and mastoids are clear. IMPRESSION: No acute intracranial abnormality. Concordant with preliminary interpretation. Dictated by: Dyan Gonzales M.D. on 07/23/2016 at 9:42 Approved by: Dyan Gonzales M.D. on 07/23/2016 at 9:42 PROCEDURE: US ABDOMEN COMPARISON: [facility], CT, CT ABD PELVIS W CON, 03/28/2016, 6:25. [facility], US, US ABDOMEN, 03/28/2016, 11:39. [facility], NM, NM HIDA SCAN W CCK STD, 03/29/2016, 18:43. FINDINGS: Liver: Liver is normal in size. There is a 2.6 x 2.0 x 3.7 cm hypoechoic area adjacent to the gallbladder demonstrating small echogenic foci, suspicious for an intraheptic abscess. This finding is new. Gallbladder: Gallbladder is grossly abnormal. There is marked gallbladder wall thickening (up to 9.1 mm) and irregularity. There are gallstones and gallbladder sludge. The ultrasound findings are consistent with acute cholecystitis. The hypoechoic area in liver may have direct connection to the gallbladder, suspicious for gallbladder perforation. A small pericholecystic fluid is present. Biliary ducts: Intrahepatic bile ducts are non-dilated. Extrahepatic bile duct caliber measures 4.7 mm. Normal is 6-7 mm or less in diameter, or 10 mm or less post-cholecystectomy. Pancreas: Visualized portions of the pancreas are sonographically normal. Spleen: Spleen is normal in size and homogeneous in echotexture. Kidneys: The inferior pole of the right kidney is not visualized. Left kidney measures 7 cm in length, which is decreased in size. There is bilateral renal cortical thinning. No hydronephrosis or nephrolithiasis. A 1.3 cm cyst is noted in the superior pole of the right kidney. Aorta: Visualized aorta is normal in caliber at less than 3 cm. Iliacs: Proximal common iliac arteries are normal in caliber at less than 2.5 cm. IVC: Intrahepatic inferior vena cava is patent. Miscellaneous: No free abdominal fluid. Bladder is contracted, therefore, not well-seen. IMPRESSION: 1. Markedly abnormal gallbladder with gallstones/sludge and irregular gallbladder wall thickening, consistent with acute cholecystitis. 2. There is a hypocortical area in the liver adjacent to the gallbladder, which appears to be connected gallbladder, suspicious for gallbladder perforation and an intrahepatic abscess. 3. Atrophic kidneys bilaterally. Dictated by: Dorinda Gerber M.D. on 07/23/2016 at 21:50 Transcribed by: SIMA on 07/23/2016 at 21:50 Approved by: Dorinda Gerber M.D. on 07/23/2016 at 22:13 PROCEDURE: CT ABDOMEN WITH CONTRAST ([id number]) COMPARISON: [facility], CT, CT ABD W CON, 07/24/2016, 12:44. [facility], CT, CT ABD PELVIS W CON, 03/28/2016, 6:25. FINDINGS: Image quality: Excellent. Lung bases: New trace bibasilar mobile pleural effusions are present, larger on the left. Heart size is normal. Solid organs: Liver and spleen are normal in size. On axial image 23, 3.4 x 2.5 cm anteroinferior right hepatic lobe rim-enhancing lesion is not significantly changed in size, adjacent to the gallbladder fossa. Gallbladder again demonstrates multiple calcified and noncalcified gallstones, as well as circumferential gallbladder wall thickening. Biliary system is non dilated. Pancreas enhances normally. No adrenal nodules. Bilateral renal cortical atrophy is again noted, without hydronephrosis Peritoneum and bowel: Contrast enhanced bowel loops appear normal in caliber. No free fluid or air. Nodes and vessels: No retroperitoneal or mesenteric adenopathy by size criteria. Aorta and inferior vena cava are normal in size, with widespread aortoiliac and visceral artery atherosclerosis. Bones: No suspicious bony lesions. No vertebral body compression fractures. T12 and L1 vertebral body superior endplate Schmorl's nodes are present from disc degeneration. Miscellaneous: No ventral hernias. IMPRESSION: 1. No significant interval change in overall appearance of cholelithiasis with acute cholecystitis, as well as 3.4 x 2.5 cm adjacent intrahepatic rim- enhancing abscess. 2. New trace bibasilar mobile pleural effusions, larger on the left. 3. Atrophic bilateral kidneys as before, consistent with chronic renal disease. Dictated by: Santo England M.D. on 07/27/2016 at 13:25 Approved by: Santo England M.D. on 07/27/2016 at 13:25 Assessment & Plan Impression #1 end-stage renal disease dialysis dependent #2 hypertension with hypertensive heart disease and hypertensive nephrosclerosis Recommendation number 1L go ahead and make arrangements for dialysis in the morning. GI Prophylaxis: Proton Pump Inhibitor VTE Prophylaxis: SCDs VTE Mechanical Devices: Intermittant Pneumatic CD Resuscitation Status: CPR: Attempt Resuscitation Brian Gresham DO Aug 02, 2016 11:22
--- NOTE | 2016-08-02 15:26 | PCM.PNMED ---
Subjective Date of Service Aug 02, 2016 Subjective Overnight: No acute events Today: Denied abdominal pain, SOB, CP. Tolerating po intake well. Family present at bedside. Has been working with PT. Exam Vital Signs Vital Sign - Last Date Time Temp Pulse Resp B/P Pulse Ox O2 Delivery O2 Flow Rate FiO2 08/02/16 12:30 37.0 63 12 107/53 97 Room Air Intake and Output 08/01/16 08/01/16 08/02/16 Cumulative From/Thru 15:00 23:00 07:00 07/21/16 03:19 - 08/02/16 06:34 Intake Total 1356 ml 65934 ml Output Total 0 ml 9205 ml Balance 1356 ml 3461 ml Intake Oral 1356 ml 7259 ml IV Total 5407 ml Output Urine Total 0 ml 100 ml Urine/Stool Mix 0 ml Drainage Total 105 ml Ultrafiltrate 9000 ml # Voids 3 1 5 # Bowel Movements 07 27 26 Exam General: No acute distress, patient is resting in bed with blankets pulled up to her chest HEENT: Normocephalic, atraumatic. Anicteric sclerae, moist conjunctivae. Oropharynx with moist mucosa. Edentulous. Neck: Supple with full range of motion. Cardiovascular: Regular rate and rhythm. Systolic murmur auscultated. Pulmonary: Clear to auscultation bilaterally with no crackles, wheezes, or rhonchi. Normal respiratory effort with no use of accessory muscles. Abdomen: Drain present on right side-no erythema present, dressing intact. Drain contents minimal free of blood. Soft, nondistended. Extremities: No clubbing, cyanosis, edema appreciated. Skin: Normal temperature, turgor, and texture Lab and Diagnostics Result Diagram: 08/02/1672008/02/16 07 Microbiology Microbiology DONNELL CULTURE BLOOD Preliminary 07/22/16-0646 Organism 1 POSITIVE BLOOD CULTURE GRAM STAIN RESULT GRAM NEGATIVE RODS BC BOTTLE Isolated from Anaerobic Bottle of Set Drawn DATE CALLED: 07/21/16 TIME CALLED: 2199 CALLED BY: HUMPHREY TAYLOR/DOCTOR: SHAHEEN/ALVARADO SESAY READ BACK Y TYPE OF DRAW PERIPHERAL DRAW TIME OF POSITIVITY 2100 GRAM STAIN RESULT GRAM NEGATIVE RODS BC BOTTLE2 Isolated from Aerobic Bottle of Set Drawn DATE CALLED: 07/21/16 TIME CALLED: 2300 CALLED BY: KAUFFA FLOOR/DOCTOR: MARCO Clement BC READ BACK Y TYPE OF DRAW PERIPHERAL DRAW TIME OF POSITIVITY 2210 GRAM NEGATIVE SCOTTIE ID AND SENSITIVITIES TO FOLLOW ISOLATED FROM FOUR OF FOUR BOTTLES COLLECTED 07/21 Microbiology DONNELL CULTURE BLOOD Preliminary 07/22/16-0647 Organism 1 POSITIVE BLOOD CULTURE GRAM STAIN RESULT GRAM NEGATIVE RODS BC BOTTLE Isolated from Aerobic Bottle of Set Drawn DATE CALLED: 07/21/16 TIME CALLED: 2200 CALLED BY: HUMPHREY FLOOR/DOCTOR: MARCO SESAY READ BACK Y TYPE OF DRAW NURSE COLLLECT TYPE NOT SPECIFIED TIME OF POSITIVITY 2140 GRAM STAIN RESULT GRAM NEGATIVE RODS BC BOTTLE2 Isolated from Anaerobic Bottle of Set Drawn DATE CALLED: 07/22/16 TIME CALLED: 041 CALLED BY: MICK FLOOR/DOCTOR: MARCO Quintero RN BC READ BACK Y TYPE OF DRAW NURSE COLLECT TYPE NOT INDICATED TIME OF POSITIVITY 0350 GRAM NEGATIVE SCOTTIE ID TO FOLLOW ISOLATED FROM FOUR OF FOUR BOTTLES COLLECTED 07/21 X-Rays, CTs and MRIs PROCEDURE: X-RAY CHEST ONE VIEW, PORTABLE ([id number]) FINDINGS: Surgical changes and devices: Post median sternotomy. Lungs and pleura: No pleural effusions or pneumothorax. Lung volumes are low and interstitium is prominent. Medial bibasilar airspace opacities. Mediastinum: Mediastinal contours appear normal. Heart size is normal. Bones and chest wall: No suspicious bony lesions. Overlying soft tissues appear unremarkable. I MPRESSION: Persistent low lung volumes with interstitial prominence and bibasilar radiodensities likely atelectasis. Correlate clinically. Dictated by: Tariq Mendoza RRA Interpreted: Fadia Aguilar MD on 07/21/2016 at 9:56 Transcribed by: TYRONE on 07/21/2016 at 9:56 PROCEDURE: CT BRAIN WITHOUT CONTRAST FINDINGS: Image quality: Excellent. CSF spaces: Basal cisterns are patent. No extra-axial fluid collections. The ventricles are symmetric in size and shape. Brain: No intracranial bleeds or masses. There is cerebral volume loss for age , with resultant ventricular and sulcal prominence. There are periventricular and deep white matter chronic small vessel ischemic changes. There is intracranial internal carotid artery atherosclerosis. Skull and face: Calvarium and visualized facial bones appear intact, without suspicious lesions. Sinuses: Visualized sinuses and mastoids are clear. IMPRESSION: No acute intracranial abnormality. Concordant with preliminary interpretation. Dictated by: Dyan Gonzales M.D. on 07/23/2016 at 9:42 Approved by: Dyan Gonzales M.D. on 07/23/2016 at 9:42 PROCEDURE: US ABDOMEN COMPARISON: [facility], CT, CT ABD PELVIS W CON, 03/28/2016, 6:25. [facility], US, US ABDOMEN, 03/28/2016, 11:39. [facility], NM, NM HIDA SCAN W CCK STD, 03/29/2016, 18:43. FINDINGS: Liver: Liver is normal in size. There is a 2.6 x 2.0 x 3.7 cm hypoechoic area adjacent to the gallbladder demonstrating small echogenic foci, suspicious for an intraheptic abscess. This finding is new. Gallbladder: Gallbladder is grossly abnormal. There is marked gallbladder wall thickening (up to 9.1 mm) and irregularity. There are gallstones and gallbladder sludge. The ultrasound findings are consistent with acute cholecystitis. The hypoechoic area in liver may have direct connection to the gallbladder, suspicious for gallbladder perforation. A small pericholecystic fluid is present. Biliary ducts: Intrahepatic bile ducts are non-dilated. Extrahepatic bile duct caliber measures 4.7 mm. Normal is 6-7 mm or less in diameter, or 10 mm or less post-cholecystectomy. Pancreas: Visualized portions of the pancreas are sonographically normal. Spleen: Spleen is normal in size and homogeneous in echotexture. Kidneys: The inferior pole of the right kidney is not visualized. Left kidney measures 7 cm in length, which is decreased in size. There is bilateral renal cortical thinning. No hydronephrosis or nephrolithiasis. A 1.3 cm cyst is noted in the superior pole of the right kidney. Aorta: Visualized aorta is normal in caliber at less than 3 cm. Iliacs: Proximal common iliac arteries are normal in caliber at less than 2.5 cm. IVC: Intrahepatic inferior vena cava is patent. Miscellaneous: No free abdominal fluid. Bladder is contracted, therefore, not well-seen. IMPRESSION: 1. Markedly abnormal gallbladder with gallstones/sludge and irregular gallbladder wall thickening, consistent with acute cholecystitis. 2. There is a hypocortical area in the liver adjacent to the gallbladder, which appears to be connected gallbladder, suspicious for gallbladder perforation and an intrahepatic abscess. 3. Atrophic kidneys bilaterally. Dictated by: Dorinda Gerber M.D. on 07/23/2016 at 21:50 Transcribed by: SIMA on 07/23/2016 at 21:50 Approved by: Dorinda Gerber M.D. on 07/23/2016 at 22:13 PROCEDURE: CT ABDOMEN WITH CONTRAST ([id number]) COMPARISON: [facility], CT, CT ABD W CON, 07/24/2016, 12:44. [facility], CT, CT ABD PELVIS W CON, 03/28/2016, 6:25. FINDINGS: Image quality: Excellent. Lung bases: New trace bibasilar mobile pleural effusions are present, larger on the left. Heart size is normal. Solid organs: Liver and spleen are normal in size. On axial image 23, 3.4 x 2.5 cm anteroinferior right hepatic lobe rim-enhancing lesion is not significantly changed in size, adjacent to the gallbladder fossa. Gallbladder again demonstrates multiple calcified and noncalcified gallstones, as well as circumferential gallbladder wall thickening. Biliary system is non dilated. Pancreas enhances normally. No adrenal nodules. Bilateral renal cortical atrophy is again noted, without hydronephrosis Peritoneum and bowel: Contrast enhanced bowel loops appear normal in caliber. No free fluid or air. Nodes and vessels: No retroperitoneal or mesenteric adenopathy by size criteria. Aorta and inferior vena cava are normal in size, with widespread aortoiliac and visceral artery atherosclerosis. Bones: No suspicious bony lesions. No vertebral body compression fractures. T12 and L1 vertebral body superior endplate Schmorl's nodes are present from disc degeneration. Miscellaneous: No ventral hernias. IMPRESSION: 1. No significant interval change in overall appearance of cholelithiasis with acute cholecystitis, as well as 3.4 x 2.5 cm adjacent intrahepatic rim- enhancing abscess. 2. New trace bibasilar mobile pleural effusions, larger on the left. 3. Atrophic bilateral kidneys as before, consistent with chronic renal disease. Dictated by: Santo England M.D. on 07/27/2016 at 13:25 Approved by: Santo England M.D. on 07/27/2016 at 13:25 Assessment & Plan 65yoF with past medical history of ESRD on hemodialysis, DM type 2, CHF, HTN, HLD who presented to the [facility] ED with altered mental status per her family. She was under evaluation for suspected acute cholecystitis with abscess formation, that may be the etiology of her septicemia. General surgery has been consulted, drain has been placed by IR. - Hospital day 13 Acute on chronic cholecystitis present on admission, improving -US on 07/23 demonstrating "gallstones/sludge and irregular gallbladder wall thickening & hypocortical area in the liver suspicious for gallbladder perforation/intrahepatic abscess. -Repeat CT(07/27); demonstrating "no significant interval change in overall appearance of cholelithiasis with acute cholecystitis, as well as 3.4 x 2.5 cm adjacent intrahepatic rim-enhancing abscess" -Per Surgery note, pt may be a candidate to have gallbladder removed after illness resolves Acute intrahepatic abscess,present on admission, ongoing with improvements -Surgery has been consulted, we appreciate their input -Percutaneous cholecystostomy/abscess drain placed on 07/28/16 by IR ( may be present for 6 wks). F/U with outpatient surgery in 2 wks. -ID consulted, we appreciate input.Pt receiving Flagyl, start date 07/24 -Per ID, upon discharge pt will continue with antibiotic treatment (1gm Ceftazidime with dialysis, Flagyl PO 500mg BID) for several weeks. - Surgery to re-evaluate 08/02 Acute pyelonephritis, present on admission, ongoing -Zosyn and NS given in ER -Urine and Blood cultures( aerobic and anaerobic) 10/27 bottle growing E.coli -Infectious disease has been consulted, we appreciate Dr Gutierrez's input -ID recommends continued Ceftriaxone to 2gm daily( while inpatient), start date 07/24 (of note, pt received Ceftriaxone 1gm daily for 3 days prior) - Will convert abx at DC to ceftazidime + flagyl Oropharynx pain and discoloration, not present on admission, ongoing -Pt has nystatin swish and swallow, which seems to be helping -Lidocaine/Diphenhydramine/Alum/Mg/Simeth mouthwash also available -Will continue to monitor End stage renal disease on hemodialysis, present on admission, chronic - Dialysis MWF - Renal diet ordered - Nephrology consulted we appreciate their input Altered mental status likely secondary to pyelonephritis, present on admission, resolved -CT of brain---No acute abnormality -Palliative care consult can be considered, given pt's mentation, ESRD with dialysis and now cholecystitis to discuss goals of care. - Family wishes to pursue interventions and aggressive therapy Dysphagia, not present on admission, resolved -Speech evaluation performed, dysphagia improved with improved mentation -Diet per speech recommendations - Acute event 08/02: CXR + bedside swallow eval - Pt has been followed by Diabetes mellitus type 2, present on admission, presumed stable - Patient placed on correction scale lispro - A1C checked 03/29/16, was 6.5 HTN,chronic, ongoing, uncontrolled -Continue home medications -Appreciate Nephrology input on management -Clonidine patch and IV enalaprilat 1.25 mg q 6 hr PRN. Chronic and stable conditions: Chronic diastolic heart failure,presumed stable -ECHO done in 2014 Hypothyroidism, chronic, presumed stable -Continue home medications Hyperlipidemia,chronic, presumed stable -Continue home medications - PRN: Fever/pain/bowel/antiemetic - DVT: SCDs - GI: PPI - DIET: Renal, per ST - CODE: FULL CODE Dispo: Pt will discharge to [facility] at DC, anticipated 08/03, after dialysis, pending medical stability. Awaiting surgical recommendations for drain. Will DC with IV abx to be received after each dialysis session. GI Prophylaxis: Proton Pump Inhibitor VTE Prophylaxis: SCDs VTE Mechanical Devices: Intermittant Pneumatic CD Resuscitation Status: CPR: Attempt Resuscitation Attending Statement The patient was seen and examined together with Dr. Man on 08/02/2016 and I agree with the history, exam and plan as outlined in the note above. Charu Man DO Aug 02, 2016 15:26 Weston Montes MD Aug 03, 2016 09:10
--- NOTE | 2016-08-02 15:52 | DRSVH ---
PROCEDURE: X-RAY CHEST ONE VIEW, PORTABLE ([id number]) INDICATIONS: acute dysphagia TECHNIQUE: One view of the chest was acquired. COMPARISON: None. FINDINGS: Surgical changes and devices: Sternotomy wires are present. dyeing machine back tender leads over the chest are present. Lungs and pleura: No pleural effusions or pneumothorax. Allowing for rotation of the chest, the lung s are considered to be clear. Mediastinum: Mediastinal contours appear normal. Heart size is normal. Bones and chest wall: No suspicious bony lesions. Overlying soft tissues appear unremarkable. IMPRESSION: No acute disease is seen in the upright portable chest. Dictated by: Rico Bah M.D. on 08/02/2016 at 15:51 Approved by: Rico Bah M.D. on 08/02/2016 at 15:51
--- NOTE | 2016-08-02 16:00 | NUR ---
Evaluation completed. Rec; [place]/Dysphagia Mechanical. No straws. Medication as tolerated. BRAILLE PROOFREADER to follow Please go to "Notes" then click on "Assessments and Notes" (bottom left corner of screen). Then select appropriate discipline tab on top of screen.
--- NOTE | 2016-08-02 16:30 | NUR ---
LOW BP Patient trending low BP in afternoons. Dr. Man notified, 1730 Coreg held, BP retaken again in one hour per Dr. garcia.
--- NOTE | 2016-08-02 16:59 | PROG NOTE ---
[address] [address] PROGRESS NOTE PATIENT: MARTNÍEZ CHAHAL : 1950 MR#: [id number] ADMIT: 07/21/2016 JOB ID: [id number] DATE: 08/02/2016 The patient remains afebrile. Liver abscess drain is putting out a minimal amount, 20 cc over the past 24 hours. It is serobilious in appearance. White count continues to be normal as it has been for several days. Electrolytes are normal. IMPRESSION AND PLAN: Doing well. She should have a CT sonogram through her drain looking for communication with the gallbladder prior to removal of the drain. Dr. Barry will follow up but tomorrow.
[2016-08-03 00:34] VITALS: BP 91/39; PULSE 57; RESP 14; O2SAT 96
[2016-08-03 00:38] VITALS: BP 93/43; PULSE 56
[2016-08-03] MEDS: cloNIDine 0.1 mg Tablet PO SCH (03:55)
--- NOTE | 2016-08-03 04:16 | NUR ---
Hypotension/Anuria Pt blood pressure at 2029 104/46 HR 66. Held hydralazine. BP at 0030 91/39. Rechecked after 2 minutes, 93/43 HR 56. asymptomatic. night hospitalist made aware. BP at 0 is 112/57 HR 58. held hydralazine again. pt on Tele, SB 50s per printing technician. pt didn't void urine during this shift. pt will have dialysis today. Bed is down and locked. call light within reach. will continue to monitor.
[2016-08-03 04:30] VITALS: BP 112/57; PULSE 58; RESP 16; O2SAT 94
[2016-08-03 06:57] LABS: BASOPHILS % (AUTO) 0.3 % (0-3); EOSINOPHILS % (AUTO) 3.5 % (0-5); MONOCYTES % (AUTO) 10.7 % (4-12); Mean Corpuscular Hemoglobin 32.3 pg (27.0-35.0); Mean Corpuscular Volume 97.1 fL (81-100); NEUTROPHILS % (AUTO) 64.8 % (40-74); Platelet Count 245 bil/L (150-400)
[2016-08-03 07:21] LABS: Magnesium 2.3 mg/dL (1.6-2.6); Phosphorus 4.3 mg/dL (2.5-4.9)
[2016-08-03 08:00] VITALS: PULSE 58
[2016-08-03] MEDS: Insulin LISPRO 300 Unit/3 mL Inj SUBQ SCH ×3 (08:00→17:09)
[2016-08-03] MEDS: metroNIDAZOLE Inj 500 MG in IV Premix 1 EACH IV SCH (08:30)
[2016-08-03] MEDS: Lisinopril 40 Tablet PO SCH (08:30)
[2016-08-03 09:05] VITALS: BP 122/55; PULSE 59; RESP 14; O2SAT 97
[2016-08-03] MEDS: cefTRIAXone Inj 2,000 MG in IV Premix 1 EACH IV SCH (09:14)
[2016-08-03] MEDS: Pantoprazole 40 mg ER24 Tablet PO SCH (09:16)
[2016-08-03] MEDS: Nystatin 100,000 Unit/mL 5 mL Suspension PO SCH ×3 (09:17→17:09)
[2016-08-03] MEDS: LIDO PO SCH ×3 (09:58→17:14)
[2016-08-03] MEDS: DIPHEN PO SCH ×3 (09:58→17:14)
[2016-08-03] MEDS: MAALOX PO SCH ×3 (09:58→17:14)
--- NOTE | 2016-08-03 10:00 | NUR ---
Dialysis All scheduled AM blood pressure medications and Flagyl antibiotic after dialysis per dialysis nurse. stable vitals.
--- NOTE | 2016-08-03 12:04 | PCM.PNMED ---
Subjective Date of Service Aug 03, 2016 Subjective She has no new complaints today. She appears awake and alert. no fever/chills/n/v. hypotensive note last night. Exam Vital Signs Vital Sign - Last Date Time Temp Pulse Resp B/P Pulse Ox O2 Delivery O2 Flow Rate FiO2 08/03/16 09:05 36.9 59 14 122/55 97 Room Air Intake and Output 08/02/16 08/02/16 08/03/16 Cumulative From/Thru 15:00 23:00 07:00 07/21/16 03:19 - 08/03/16 06:19 Intake Total 460 ml 328 ml 35709 ml Output Total 20 ml 0 ml 9225 ml Balance 440 ml 328 ml 4229 ml Intake Oral 218 ml 7477 ml IV Total 460 ml 110 ml 5977 ml Output Urine Total 0 ml 100 ml Urine/Stool Mix 0 ml Drainage Total 20 ml 125 ml Ultrafiltrate 9000 ml # Voids 5 # Bowel Movements 1 Exam General: No acute distress, sitting on the chair, resting comfortably. HEENT: Normocephalic, atraumatic. Anicteric sclerae, moist conjunctivae. Oropharynx with moist mucosa. Edentulous. Neck: Supple with full range of motion. Cardiovascular: Regular rate and rhythm. Systolic murmur auscultated. Pulmonary: Clear to auscultation bilaterally with no crackles, wheezes, or rhonchi. Normal respiratory effort with no use of accessory muscles. Abdomen: cholecystostomy tube in place. soft, NT, ND, no HSM. Extremities: No clubbing, cyanosis, edema appreciated, right AVF with good thrill. Skin: Normal temperature, turgor, and texture Lab and Diagnostics Result Diagram: 08/03/1662408/03/16624 Microbiology Microbiology DONNELL CULTURE BLOOD Preliminary 07/22/16-0646 Organism 1 POSITIVE BLOOD CULTURE GRAM STAIN RESULT GRAM NEGATIVE RODS BC BOTTLE Isolated from Anaerobic Bottle of Set Drawn DATE CALLED: 07/21/16 TIME CALLED: 0 CALLED BY: HUMPHREY TAYLOR/DOCTOR: SHAHEEN/ALVARADO SESAY READ BACK Y TYPE OF DRAW PERIPHERAL DRAW TIME OF POSITIVITY 2100 GRAM STAIN RESULT GRAM NEGATIVE RODS BC BOTTLE2 Isolated from Aerobic Bottle of Set Drawn DATE CALLED: 07/21/16 TIME CALLED: 2300 CALLED BY: HUMPHREY TAYLOR/DOCTOR: MARCO SESAY READ BACK Y TYPE OF DRAW PERIPHERAL DRAW TIME OF POSITIVITY 2210 GRAM NEGATIVE SCOTTIE ID AND SENSITIVITIES TO FOLLOW ISOLATED FROM FOUR OF FOUR BOTTLES COLLECTED 07/21 Microbiology DONNELL CULTURE BLOOD Preliminary 07/22/16-0647 Organism 1 POSITIVE BLOOD CULTURE GRAM STAIN RESULT GRAM NEGATIVE RODS BC BOTTLE Isolated from Aerobic Bottle of Set Drawn DATE CALLED: 07/21/16 TIME CALLED: 2200 CALLED BY: HUMPHREY FLOOR/DOCTOR: MARCO SESAY READ BACK Y TYPE OF DRAW NURSE COLLLECT TYPE NOT SPECIFIED TIME OF POSITIVITY 2140 GRAM STAIN RESULT GRAM NEGATIVE RODS BC BOTTLE2 Isolated from Anaerobic Bottle of Set Drawn DATE CALLED: 07/22/16 TIME CALLED: 0413 CALLED BY: MICK FLOOR/DOCTOR: MARCO Quintero RN BC READ BACK Y TYPE OF DRAW NURSE COLLECT TYPE NOT INDICATED TIME OF POSITIVITY 0350 GRAM NEGATIVE SCOTTIE ID TO FOLLOW ISOLATED FROM FOUR OF FOUR BOTTLES COLLECTED 07/21 X-Rays, CTs and MRIs PROCEDURE: X-RAY CHEST ONE VIEW, PORTABLE ([id number]) FINDINGS: Surgical changes and devices: Post median sternotomy. Lungs and pleura: No pleural effusions or pneumothorax. Lung volumes are low and interstitium is prominent. Medial bibasilar airspace opacities. Mediastinum: Mediastinal contours appear normal. Heart size is normal. Bones and chest wall: No suspicious bony lesions. Overlying soft tissues appear unremarkable. I MPRESSION: Persistent low lung volumes with interstitial prominence and bibasilar radiodensities likely atelectasis. Correlate clinically. Dictated by: Tariq Mendoza RRA Interpreted: Fadia Aguilar MD on 07/21/2016 at 9:56 Transcribed by: TYRONE on 07/21/2016 at 9:56 PROCEDURE: CT BRAIN WITHOUT CONTRAST FINDINGS: Image quality: Excellent. CSF spaces: Basal cisterns are patent. No extra-axial fluid collections. The ventricles are symmetric in size and shape. Brain: No intracranial bleeds or masses. There is cerebral volume loss for age , with resultant ventricular and sulcal prominence. There are periventricular and deep white matter chronic small vessel ischemic changes. There is intracranial internal carotid artery atherosclerosis. Skull and face: Calvarium and visualized facial bones appear intact, without suspicious lesions. Sinuses: Visualized sinuses and mastoids are clear. IMPRESSION: No acute intracranial abnormality. Concordant with preliminary interpretation. Dictated by: Dyan Gonzales M.D. on 07/23/2016 at 9:42 Approved by: Dyan Gonzales M.D. on 07/23/2016 at 9:42 PROCEDURE: US ABDOMEN COMPARISON: [facility], CT, CT ABD PELVIS W CON, 03/28/2016, 6:25. [facility], US, US ABDOMEN, 03/28/2016, 11:39. [facility], NM, NM HIDA SCAN W CCK STD, 03/29/2016, 18:43. FINDINGS: Liver: Liver is normal in size. There is a 2.6 x 2.0 x 3.7 cm hypoechoic area adjacent to the gallbladder demonstrating small echogenic foci, suspicious for an intraheptic abscess. This finding is new. Gallbladder: Gallbladder is grossly abnormal. There is marked gallbladder wall thickening (up to 9.1 mm) and irregularity. There are gallstones and gallbladder sludge. The ultrasound findings are consistent with acute cholecystitis. The hypoechoic area in liver may have direct connection to the gallbladder, suspicious for gallbladder perforation. A small pericholecystic fluid is present. Biliary ducts: Intrahepatic bile ducts are non-dilated. Extrahepatic bile duct caliber measures 4.7 mm. Normal is 6-7 mm or less in diameter, or 10 mm or less post-cholecystectomy. Pancreas: Visualized portions of the pancreas are sonographically normal. Spleen: Spleen is normal in size and homogeneous in echotexture. Kidneys: The inferior pole of the right kidney is not visualized. Left kidney measures 7 cm in length, which is decreased in size. There is bilateral renal cortical thinning. No hydronephrosis or nephrolithiasis. A 1.3 cm cyst is noted in the superior pole of the right kidney. Aorta: Visualized aorta is normal in caliber at less than 3 cm. Iliacs: Proximal common iliac arteries are normal in caliber at less than 2.5 cm. IVC: Intrahepatic inferior vena cava is patent. Miscellaneous: No free abdominal fluid. Bladder is contracted, therefore, not well-seen. IMPRESSION: 1. Markedly abnormal gallbladder with gallstones/sludge and irregular gallbladder wall thickening, consistent with acute cholecystitis. 2. There is a hypocortical area in the liver adjacent to the gallbladder, which appears to be connected gallbladder, suspicious for gallbladder perforation and an intrahepatic abscess. 3. Atrophic kidneys bilaterally. Dictated by: Dorinda Gerber M.D. on 07/23/2016 at 21:50 Transcribed by: SIMA on 07/23/2016 at 21:50 Approved by: Dorinda Gerber M.D. on 07/23/2016 at 22:13 PROCEDURE: CT ABDOMEN WITH CONTRAST ([id number]) COMPARISON: [facility], CT, CT ABD W CON, 07/24/2016, 12:44. [facility], CT, CT ABD PELVIS W CON, 03/28/2016, 6:25. FINDINGS: Image quality: Excellent. Lung bases: New trace bibasilar mobile pleural effusions are present, larger on the left. Heart size is normal. Solid organs: Liver and spleen are normal in size. On axial image 23, 3.4 x 2.5 cm anteroinferior right hepatic lobe rim-enhancing lesion is not significantly changed in size, adjacent to the gallbladder fossa. Gallbladder again demonstrates multiple calcified and noncalcified gallstones, as well as circumferential gallbladder wall thickening. Biliary system is non dilated. Pancreas enhances normally. No adrenal nodules. Bilateral renal cortical atrophy is again noted, without hydronephrosis Peritoneum and bowel: Contrast enhanced bowel loops appear normal in caliber. No free fluid or air. Nodes and vessels: No retroperitoneal or mesenteric adenopathy by size criteria. Aorta and inferior vena cava are normal in size, with widespread aortoiliac and visceral artery atherosclerosis. Bones: No suspicious bony lesions. No vertebral body compression fractures. T12 and L1 vertebral body superior endplate Schmorl's nodes are present from disc degeneration. Miscellaneous: No ventral hernias. IMPRESSION: 1. No significant interval change in overall appearance of cholelithiasis with acute cholecystitis, as well as 3.4 x 2.5 cm adjacent intrahepatic rim- enhancing abscess. 2. New trace bibasilar mobile pleural effusions, larger on the left. 3. Atrophic bilateral kidneys as before, consistent with chronic renal disease. Dictated by: Santo England M.D. on 07/27/2016 at 13:25 Approved by: Santo England M.D. on 07/27/2016 at 13:25 Assessment & Plan 1. ESRD on HD MWF. 2. Acute on chronic cholecystitis with intrahepatic abscess s/p cholecystostomy and abscess drainage on 07/28/16 by IR. 3. Complicated UTI. 4. HTN with hypertensive nephrosclerosis. 5. Type 2 DM with renal manifestation. 6. Renal osteodystrophy. 7. Coronary artery disease status post CABG in 2014. Plan: HD today, will readjust her BP meds, please see order. Will monitor along with you. GI Prophylaxis: Proton Pump Inhibitor VTE Prophylaxis: SCDs VTE Mechanical Devices: Intermittant Pneumatic CD Resuscitation Status: CPR: Attempt Resuscitation Aristides Stephens MD Aug 03, 2016 12:04
--- NOTE | 2016-08-03 13:13 | NUR ---
Dialysis patient at dialysis 1314.
[2016-08-03 13:25] VITALS: BP 175/75; PULSE 64
--- NOTE | 2016-08-03 14:14 | DRSVH ---
PROCEDURE: X-RAY FISTULAGRAM/SINOGRAM INDICATIONS: sinagram with CT to look for communication with GB COMPARISON: S initial cavity [facility], CT, CT ABD WO CON, 08/03/2016, 12:11. FINDINGS: The stock checkerer image demonstrate oral contrast within distal colon from prior neurological stud ies. There is a surgical drain projecting to the right upper quadrant. Approximately 10-15 mL Isovue 300 was injected through the existing surgical drain. There is contrast within the endometrial cavit y. IMPRESSION: Injection of contrast through an existing surgical drain. Contrast freely flows within t he peritoneal cavity. Please see the CT report for detail. Dictated by: Dorinda Gerber M.D. on 08/03/2016 at 14:12 Approved by: Dorinda Gerber M.D. on 08/03/2016 at 14:12
[2016-08-03] MEDS ORDERED: METR500T19 PO (14:22)
[2016-08-03] MEDS ORDERED: CEFT1VIA IJ (14:22)
[2016-08-03] MEDS ORDERED: CLON1PAT2 TOPICAL (14:22)
--- NOTE | 2016-08-03 14:25 | NUR ---
Social Work: Discharge Readiness Data & Assessment: Mass Spectroscopist spoke with patient's NOK, Milad Magallon [phone], and notified him that the patient was medically ready for discharge. He voiced understanding. NOK confirmed that the patient's discharge plan was [facility]. Social [place] [phone] and patient will receive dialysis at [facility] on MWF and patient will receive IV medication after dialysis. JERSEY spoke with Tricia at Dr. Landeros's office [phone] and she confirmed that she will coordinate with [facility] for patient to receive her IV Abx after dialysis. UR specialist will schedule patient's transportation to [facility]. SW will continue to follow. Plan: Patient will discharge to [facility] today after dialysis. UR specialist will coordinate transportation. Patient will receive dialysis on an outpatient basis with [facility]. SW will continue to follow. Cielo Villa, CARLOS, JIMMIE
--- NOTE | 2016-08-03 14:48 | PCM.DIMED ---
Shannan Yun DO 08/03/16 1434: Discharge Instructions Date of Service Aug 03, 2016 Dates of Hospitalization Jul 21, 2016 at 10:32 Discharge Diagnosis Discharge Diagnosis Acute on chronic cholecystitis, improving Acute intrahepatic abscess, improving Acute pyelonephritis Oropharynx pain and discoloration End stage renal disease on hemodialysis Altered mental status likely secondary to pyelonephritis, resolved Dysphagia, not present on admission, resolved Diabetes mellitus type 2, HTN, chronic Chronic diastolic heart failure Hypothyroidism, chronic Hyperlipidemia,chronic Medication Instructions STOP oral clonidine, this has been replaced with clonidine patches START clonidine patch 0.2mg, apply one patch topically once weekly. Remove the old patch when applying a new patch START metronidazole: Take 1 tablet of Metronidazole by mouth twice daily for 3 weeks. Continue: Acetaminophen 500mg tablet by mouth every 6hours as needed for pain Aspirin 325mg by mouth daily Calcium acetate 667mg tablet by mouth three times daily with meals Carvedilol 12.5 by mouth twice daily Insulin glargine 5units subcutaneously daily at bedtime Levothyroxine 75mcg by mouth daily Lisinopril 40mg by mouth daily Pantoprazole 40mg by mouth daily You will be receiving a seconda antibiotic, ceftazidime following your dialysis treatments 3 times each week for many weeks, the duration is to be determined once the abscess is resolved. Diet Renal Diet (and nectar thick) Activity Other (halfway care, hemodialysis three times weekly) Call your provider Fever or Chills, Shortness of breath, Bleeding, Chest pain, Vomitting, Excessive diarrhea, Weakness (unilateral), Other (Development of abdominal pain) Patient Instructions Follow-up plan You will need to follow up with Dr Pradeep Barry, the general surgeon, next week. This is a very important appointment to keep. You have a follow up appointment with your primary care physician, Dr Ovalle at [facility] on 08/06/2016 at 10:30am, please keep that appointment Resume your outpatient 3 times weekly dialysis; you will be receiving antibiotics at the dialysis center following each dialysis session. Follow-up Provider: Pradeep Barry MD Follow-up with PCP in: 1 week Provider: Mira Ovalle MD Follow-up in: Other (, 08/06/2016 at 10:30 am) Weston Montes MD 08/04/16 1006: Shannan Yun DO Aug 03, 2016 14:34 Weston Montes MD Aug 04, 2016 10:06
--- NOTE | 2016-08-03 16:23 | DRSVH ---
PROCEDURE: CT ABDOMEN WITHOUT CONTRAST ([id number]) INDICATIONS: RECENT ABSCESS DRAIN, CHECK COMMUNICATION TO GB TECHNIQUE: After the administration of oral contrast, 5 mm thick sections acquired from the diaphragms to the il iac crests. 5 mm coronal and sagittal reformats were then performed. For radiation dose reduction, the following was used: automated exposure control, adjustment of mA and/or kV according to patient size. COMPARISON: [facility], CT, CT ABD W CON, 07/27/2016, 12:56. FINDINGS: Image quality: Excellent. Lung bases: Lung bases are clear. Trace bilateral pleural fluid collections are noted. Heart size is normal. Mitral annulus calcifications are noted. Postsurgical changes compatible prior CABG procedur e noted. Solid organs: Liver and spleen are normal in size. Post procedure changes compatible with percutaneo us needle placement and hepatic abscess noted in the interval since prior CT scan obtained 07/27/2016. A no residual abscess is identified in the liver. There is a small amount of fluid in the gallbladder fossa which may represent residual abscess. Partially calcified gallstone noted. Gallbladder wall th ickening has diminished however not completely resolved consistent with cholecystitis. Small amount o f iodinated contrast material is noted adjacent to the right lobe liver and the right colon related t o recent contrast injection through the percutaneous drain for fluoroscopic sonogram. Pancreas is nor mal in contours. No adrenal nodules. Bilateral renal atrophy is stable compared to prior examination . Peritoneum and bowel: Bowel loops demonstrate normal wall thickness and caliber. Moderate amount of stool is noted throughout the visualized colon. No free fluid or air. Nodes and vessels: No retroperitoneal or mesenteric adenopathy by size criteria. Aorta and inferior vena cava are normal in size. Scattered atherosclerotic calcifications are noted in the abdominal an d pelvic vasculature. Bones: No suspicious bony lesions. No vertebral body compression fractures. Miscellaneous: No ventral hernias. IMPRESSION: 1. Status post placement of percutaneous drain into hepatic abscess. No residual hepatic abscesses id entified. There is however, small amount of fluid within the gallbladder fossa and residual abscess c annot be completely excluded. 2. Cholelithiasis with mild gallbladder wall thickening concerning for cholecystitis. 3. Trace bilateral pleural fluid collections. 4. Atherosclerosis including visualized coronary vasculature. 5. Moderate fecal loading throughout the visualized colon. 6. Bilateral renal atrophy. 7. Findings discussed with Dr. Pradeep Barry on 08/03/2016. Dictated by: Fadia Aguilar MD, PhD on 08/03/2016 at 16:21 Approved by: Fadia Aguilar MD, PhD on 08/03/2016 at 16:21
--- NOTE | 2016-08-03 16:41 | NUR ---
Faxed orders to [facility] and they are transporting at 630PM which is when dialysis will be complete. Updated LICENSED PLUMBER
--- NOTE | 2016-08-03 16:43 | PROG NOTE ---
[address] [address] PROGRESS NOTE PATIENT: MARTÍNEZ CHAHAL : 1950 MR#: [id number] ADMIT: 07/21/2016 JOB ID: [id number] DATE: 08/03/2016 REASON FOR FOLLOWUP: Chronic cholecystitis with hepatic abscess. Today, the patient reports she is free of fevers, chills, or sweats. Minimal abdominal pain, and she is having a hearty lunch, when I saw her. PHYSICAL EXAMINATION: Reveals a comfortable, afebrile woman, no acute distress. Pulse in the 50s, respiratory rate 14, blood pressure 122/55, saturating well on room air. Examination of the oral cavity unremarkable. The fistula site in the right upper extremity is benign appearing. Lungs fairly clear. Abdomen with minimal right upper quadrant tenderness. The drain is still present. LABORATORIES: Include a white count 6400, with totally normal diff. Creatinine 4.783. Dialysis procalcitonin 0.45, which I would consider normal for this patient at this time. QuantiFERON Gold has come back indeterminate. The abscess culture from the liver abscess aspiration had many polys but nothing has grown yet. Blood cultures have been negative. Recall that the prior cultures with blood in urine had E coli. An abdominal CT was just done but has not yet been read and we await that report. This patient has had chronic cholecystitis with eventual evolution of a liver abscess. The drain has been placed and there is a slow drainage continuing from this liver abscess/chronic cholecystitis. The plan is to look at this with a CT and then discuss what I and/or surgical interventions will follow. The ID part of this is fairly straightforward in that we will continue her on antibiotics until the situation is clarified. RECOMMENDATIONS: 1. Will continue with ceftriaxone and Flagyl. 2. Continue to check CBC and complete metabolic panel about twice a week while she is in the hospital. Thank you very much.
[2016-08-03] MEDS ORDERED: metroNIDAZOLE Inj 500 MG in IV Premix 1 EACH IV SCH (17:00)
--- NOTE | 2016-08-03 17:09 | PCM.DC.MED ---
Discharge Summary Date of Service Aug 03, 2016 Dates of Hospitalization Date of Hospital Admission Jul 21, 2016 at 10:32 Date of Discharge: Aug 03, 2016 Providers: Admitting Physician: Cj Lott MD Primary Care Physician: Mira Ovalle MD Attending Physician: Cj Lott MD Diagnosis at Time of Discharge Diagnosis at Time of Discharge Acute on chronic cholecystitis, improving Acute intrahepatic abscess, improving Acute pyelonephritis Oropharynx pain and discoloration End stage renal disease on hemodialysis Altered mental status likely secondary to pyelonephritis, resolved Dysphagia, not present on admission, resolved Diabetes mellitus type 2 HTN, chronic Chronic diastolic heart failure Hypothyroidism, chronic Hyperlipidemia,chronic Consultations Infectious Disease consultation for assistance with antibiotic therapy Nephrology consultation for expertise with dialysis Procedures XRay, CTs & MRIs X-RAY CHEST ONE VIEW, PORTABLE FINDINGS: Surgical changes and devices: Post median sternotomy. Lungs and pleura: No pleural effusions or pneumothorax. Lung volumes are low and interstitium is prominent. Medial bibasilar airspace opacities. Mediastinum: Mediastinal contours appear normal. Heart size is normal. Bones and chest wall: No suspicious bony lesions. Overlying soft tissues appear unremarkable. I MPRESSION: Persistent low lung volumes with interstitial prominence and bibasilar radiodensities likely atelectasis. Correlate clinically. Dictated by: Tariq Mendoza RRA Interpreted: Fadia Aguilar MD on 07/21/2016 at 9:56 Transcribed by: TYRONE on 07/21/2016 at 9:56 CT BRAIN WITHOUT CONTRAST FINDINGS: Image quality: Excellent. CSF spaces: Basal cisterns are patent. No extra-axial fluid collections. The ventricles are symmetric in size and shape. Brain: No intracranial bleeds or masses. There is cerebral volume loss for age , with resultant ventricular and sulcal prominence. There are periventricular and deep white matter chronic small vessel ischemic changes. There is intracranial internal carotid artery atherosclerosis. Skull and face: Calvarium and visualized facial bones appear intact, without suspicious lesions. Sinuses: Visualized sinuses and mastoids are clear. IMPRESSION: No acute intracranial abnormality. Concordant with preliminary interpretation. Dictated by: Dyan Gonzales M.D. on 07/23/2016 at 9:42 Approved by: Dyan Gonzales M.D. on 07/23/2016 at 9:42 US ABDOMEN FINDINGS: Liver: Liver is normal in size. There is a 2.6 x 2.0 x 3.7 cm hypoechoic area adjacent to the gallbladder demonstrating small echogenic foci, suspicious for an intraheptic abscess. This finding is new. Gallbladder: Gallbladder is grossly abnormal. There is marked gallbladder wall thickening (up to 9.1 mm) and irregularity. There are gallstones and gallbladder sludge. The ultrasound findings are consistent with acute cholecystitis. The hypoechoic area in liver may have direct connection to the gallbladder, suspicious for gallbladder perforation. A small pericholecystic fluid is present. Biliary ducts: Intrahepatic bile ducts are non-dilated. Extrahepatic bile duct caliber measures 4.7 mm. Normal is 6-7 mm or less in diameter, or 10 mm or less post-cholecystectomy. Pancreas: Visualized portions of the pancreas are sonographically normal. Spleen: Spleen is normal in size and homogeneous in echotexture. Kidneys: The inferior pole of the right kidney is not visualized. Left kidney measures 7 cm in length, which is decreased in size. There is bilateral renal cortical thinning. No hydronephrosis or nephrolithiasis. A 1.3 cm cyst is noted in the superior pole of the right kidney. Aorta: Visualized aorta is normal in caliber at less than 3 cm. Iliacs: Proximal common iliac arteries are normal in caliber at less than 2.5 cm. IVC: Intrahepatic inferior vena cava is patent. Miscellaneous: No free abdominal fluid. Bladder is contracted, therefore, not well-seen. IMPRESSION: 1. Markedly abnormal gallbladder with gallstones/sludge and irregular gallbladder wall thickening, consistent with acute cholecystitis. 2. There is a hypocortical area in the liver adjacent to the gallbladder, which appears to be connected gallbladder, suspicious for gallbladder perforation and an intrahepatic abscess. 3. Atrophic kidneys bilaterally. Dictated by: Dorinda Gerber M.D. on 07/23/2016 at 21:50 Transcribed by: SIMA on 07/23/2016 at 21:50 Approved by: Dorinda Gerber M.D. on 07/23/2016 at 22:13 CT ABDOMEN WITH CONTRAST FINDINGS: Image quality: Excellent. Lung bases: New trace bibasilar mobile pleural effusions are present, larger on the left. Heart size is normal. Solid organs: Liver and spleen are normal in size. On axial image 23, 3.4 x 2.5 cm anteroinferior right hepatic lobe rim-enhancing lesion is not significantly changed in size, adjacent to the gallbladder fossa. Gallbladder again demonstrates multiple calcified and noncalcified gallstones, as well as circumferential gallbladder wall thickening. Biliary system is non dilated. Pancreas enhances normally. No adrenal nodules. Bilateral renal cortical atrophy is again noted, without hydronephrosis Peritoneum and bowel: Contrast enhanced bowel loops appear normal in caliber. No free fluid or air. Nodes and vessels: No retroperitoneal or mesenteric adenopathy by size criteria. Aorta and inferior vena cava are normal in size, with widespread aortoiliac and visceral artery atherosclerosis. Bones: No suspicious bony lesions. No vertebral body compression fractures. T12 and L1 vertebral body superior endplate Schmorl's nodes are present from disc degeneration. Miscellaneous: No ventral hernias. IMPRESSION: 1. No significant interval change in overall appearance of cholelithiasis with acute cholecystitis, as well as 3.4 x 2.5 cm adjacent intrahepatic rim- enhancing abscess. 2. New trace bibasilar mobile pleural effusions, larger on the left. 3. Atrophic bilateral kidneys as before, consistent with chronic renal disease. Dictated by: Santo England M.D. on 07/27/2016 at 13:25 Approved by: Santo England M.D. on 07/27/2016 at 13:25 Invasive Procedures PROCEDURE: CT ABCESS DRAIN ORGAN, date of service: 07/28/16 INDICATIONS: ABDOMINAL ABSCESS Technique: The risks and benefits of the procedure were discussed with the patient and her . Consent was obtained and placed in the chart. The patient was placed in a supine position on the CT table. The overlying skin was prepped and draped in the usual sterile fashion. 1% lidocaine was used to anesthetize the skin over the area of interest. Under CT guidance, an 18 gauge 10 cm Chiba needle was advanced into the liver abscess. Purulent fluid was withdrawn and sent for laboratory analysis. An 035 stiff Amplatz wire was advanced through the outer stylet of the needle into the abscess. The needle was removed, and an 8 Icelandic locking pigtail catheter was advanced and deployed in the abscess. This was secured at the skin with adhesive bandage. Approximately 30 cc of purulent fluid was drained from the abscess. FINDINGS: Initial CT demonstrated an ill-defined low-density fluid collection within the inferior right hepatic lobe. Final CT image demonstrates an appropriately placed locking pigtail drain within the abscess. IMPRESSION: Status post CT guided drainage of a right hepatic liver abscess with approximately 30 cc drainage of purulent fluid sent for laboratory analysis. Brief History HPI per H&P by Dr Angel: 65-year-old female with a history of end-stage renal disease requiring hemodialysis, type II diabetes, hypertension, hyperlipidemia presented to the ER secondary to altered mental status per her family. Family states that overnight the patient became increasingly confused. They also noted that she has been experiencing fevers, chills and drenching sweats. The family states that she was brought into the hospital in March with similar symptoms. Family is unsure if the patient produces urine at baseline. Family reports that her juice standardizer is Dr. Landeros, and that she does dialysis 3 times a week. Family notes that she went to dialysis yesterday, and last night her symptoms began. Patient denies any abdominal pain , nausea or lack of appetite. In the ER, patient was afebrile with a temperature of 38.6, heart rate was 65, respiratory rate 20, blood pressure 145/46, 94 on room air. She received a dose of Zosyn while in the ER. Labs demonstrated elevated white count at 12.5, neutrophils 82.8. UA performed demonstrated positive leukocyte esterase, moderate bacteria with culture pending. No hematuria. Of note patient was hospitalized in March 2016 for Escherichia coli positive pyelonephritis. On the date of discharge: Normal Vital signs General: Chronically ill appearing without acute distress. Awake, alert and oriented, Smiling and pleasant. HEENT: Normocephalic, atraumatic. Anicteric sclerae, moist conjunctivae. Oropharynx with moist mucosa. Edentulous. Neck: Supple with full range of motion. Cardiovascular: Regular rate and rhythm. Systolic murmur auscultated. Pulmonary: Clear to auscultation bilaterally with no crackles, wheezes, or rhonchi. Normal respiratory effort with no use of accessory muscles. Abdomen: Soft, nondistended. Drain present on right side-no erythema present, dressing intact. Drain contents a minimal amount of serous drainage. . Extremities: No clubbing, cyanosis, edema appreciated. Skin: Normal temperature, turgor, and texture Hospital Course The following were addressed during this hospitalization: Acute intrahepatic abscess,present on admission, improved -Surgery consulted, F/u with outpatient surgery in one week -Percutaneous abscess drain placed on 1/3/17 by Interventional Radiology -Blood cultures grew E coli on 07/21/16 in 4 of 4 bottles -ID consulted and metronidazole started on 07/24, will continue a 3 week course -Per ID, discharge with Ceftazidime 1g following dialysis 3 times weekly, duration of therapy to be determined based on resolution of the abscess and guided by general surgery Acute on chronic cholecystitis present on admission, improved -US on 07/23 demonstrated "gallstones/sludge and irregular gallbladder wall thickening & hypocortical area in the liver suspicious for gallbladder perforation/intrahepatic abscess." -Repeat CT(07/27); demonstrating "no significant interval change in overall appearance of cholelithiasis with acute cholecystitis, as well as 3.4 x 2.5 cm adjacent intrahepatic rim-enhancing abscess" -Per Surgery note, pt may be a candidate to have gallbladder removed after the acute illness and hepatic abscess have resolved Acute pyelonephritis, present on admission, improved -Zosyn and NS given in ER -Urine and Blood cultures( aerobic and anaerobic) 10/27 bottle growing E.coli -ID recommended continued Ceftriaxone to 2gm daily during the hospitalization which treated the UTI, note that this ABX was started on 07/24/16/ End stage renal disease on hemodialysis, present on admission, chronic - Renal diet ordered - Nephrology consulted and her dialysis schedule was maintained ( Wednesday, Wednesday, and Wednesday) Oropharynx pain and discoloration, resolved - Received nystatin swish and swallow - Lidocaine/Diphenhydramine/Alum/Mg/Simeth mouthwash also used Altered mental status likely secondary to pyelonephritis, present on admission, resolved - CT of brain---No acute abnormality - Returned to baseline mentation Dysphagia, not present on admission, resolved - Speech evaluation performed, dysphagia improved with improved mentation - Diet per speech recommendations - Acute event 08/02: CXR + bedside swallow evaluation Diabetes mellitus type 2, present on admission, presumed stable - Patient placed on correction scale lispro - A1C checked 03/29/16, was 6.5 HTN,chronic, ongoing, uncontrolled -Continued home medications -Clonidine patch used instead of PO clonidine, discharged with Clonidine patch Chronic and stable conditions: Chronic diastolic heart failure,presumed stable -ECHO done in 2014 Hypothyroidism, chronic, presumed stable -Continued home levothyroxine 75mcg daily dose Exam Vital Signs (Last) Date Time Temp Pulse Resp B/P Pulse Ox O2 Delivery O2 Flow Rate FiO2 08/03/16 09:05 36.9 59 14 122/55 97 Room Air Test 07/21/16 04:27 07/21/16 06:47 07/23/16 08:25 07/24/16 06:12 Troponin T 0.065ug/L (0.0-0.011) Pro-B-Type Natriuretic Peptide 25623ta/mL (0-301) Urine Color Yellow (YELLOW) Urine Appearance Turbid (CLEAR,HAZY) Urine pH 6.0 (5.0-8.0) Urine Specific [place] 1.020 (1.003-1.035) Urine Protein 300mg/dL (NEG,TRACE) Urine Glucose (UA) 100mg/dL (NEGATIVE) Urine Ketones Tracemg/dL (NEGATIVE) Urine Occult Blood Moderate (NEGATIVE) Urine Nitrite Negative (NEGATIVE) Urine Bilirubin Negative (NEGATIVE) Urine Urobilinogen Normalmg/dL (NORMAL) Urine Leukocyte Esterase Moderate (NEGATIVE) Urine RBC 3-10/hpf (0-2) Urine WBC 11-50/hpf (0-5) Urine Epithelial Cells Few/hpf (NONE-MOD) Urine Crystals None seen (NONE SEEN) Urine Bacteria Moderate/hpf (NONE-FEW) Urine Hyaline Casts None/lpf (NONE) Urine Granular Casts None seen (NONE SEEN) Urine Waxy Casts None seen (NONE SEEN) Urine Red Blood Cell Casts None seen (NONE SEEN) Urine White Blood Cell Casts None seen (NONE SEEN) Urine Mucus None seen (None Seen) Urine Trichomonas None seen (NONE SEEN) Urine Yeast None (NONE SEEN) Urinalysis Comment Urine Culture Reflexed Indicated Lactic Acid Level 1.0mmol/L (0.4-2.0) TB Test (QFT) Gold In Tube Indeterminate (Negative) TB Test (QFT) Incubation Comment (.) TB Test (QFT) Mitogen 0.03IU/mL (.) TB Test (QFT) Antigen 0.04IU/mL (.) TB Test (QFT) Antigen Minus Nil 0.02IU/mL (.) TB Test (QFT) TB - Nil 0.02IU/mL (.) TB Test (QFT) Positive Criteria Comment (.) TB Test (QFT) Interpretation Comment (.) Test 07/28/16 08:48 07/30/16 09:05 08/02/16 07:21 08/03/16 06:25 Prothrombin Time 11.5sec (8.1-12.5) Prothromb Time International Ratio 1.07ratio Activated Partial Thromboplast Time 31.3sec (22.8-33.0) Hemoglobin A1c 5.9% (4.8-5.6) Total Bilirubin 0.2mg/dL (0.0-1.2) Aspartate Amino Transf (AST/SGOT) 11U/L (0-50) Alanine Aminotransferase (ALT/SGPT) 5U/L (0-32) Alkaline Phosphatase 74U/L (25-165) Total Protein 5.9g/dL (6.4-8.4) Albumin 3.0g/dL (3.4-5.0) White Blood Count 6.4th/mm3 (3.8-10.1) Red Blood Count 3.10mil/mm3 (3.90-5.20) Hemoglobin 10.0g/dL (12.0-15.6) Hematocrit 30.1% (35.0-46.0) Mean Corpuscular Volume 97.1fL (81-100) Mean Corpuscular Hemoglobin 32.3pg (27.0-35.0) Mean Corpuscular Hemoglobin Concent 33.2% (32.0-37.0) Red Cell Distribution Width 12.5% (12.3-15.4) Platelet Count 245bil/L (150-400) Neutrophils (%) (Auto) 64.8% (40-74) Lymphocytes (%) (Auto) 20.5% (14-46) Monocytes (%) (Auto) 10.7% (4-12) Eosinophils (%) (Auto) 3.5% (0-5) Basophils (%) (Auto) 0.3% (0-3) Sodium Level 127mEq/L (134-144) Potassium Level 5.4mEq/L (3.5-5.2) Chloride Level 88mEq/L (97-108) Carbon Dioxide Level 27mmol/L (18-29) Blood Urea Nitrogen 29mg/dL (8-27) Creatinine 4.78mg/dL (0.57-1.00) Estimat Glomerular Filtration Rate 13mL/min (>59) Glucose Level 137mg/dL (60-99) Calcium Level 8.0mg/dL (8.5-10.1) Phosphorus Level 4.3mg/dL (2.5-4.9) Magnesium Level 2.3mg/dL (1.6-2.6) Procalcitonin 0.45ng/mL (See Comment) Microbiology Results Microbiology DONNELL CULTURE BLOOD Preliminary 07/22/16-46 Organism 1 POSITIVE BLOOD CULTURE GRAM STAIN RESULT GRAM NEGATIVE RODS BC BOTTLE Isolated from Anaerobic Bottle of Set Drawn DATE CALLED: 07/21/16 TIME CALLED: 2200 CALLED BY: HUMPHREY FLOOR/DOCTOR: MARCO Clement BC READ BACK Y TYPE OF DRAW PERIPHERAL DRAW TIME OF POSITIVITY 2100 GRAM STAIN RESULT GRAM NEGATIVE RODS BC BOTTLE2 Isolated from Aerobic Bottle of Set Drawn DATE CALLED: 07/21/16 TIME CALLED: 2300 CALLED BY: HUMPHREY TAYLOR/DOCTOR: MARCO Clement BC READ BACK Y TYPE OF DRAW PERIPHERAL DRAW TIME OF POSITIVITY 2210 GRAM NEGATIVE SCOTTIE ID AND SENSITIVITIES TO FOLLOW ISOLATED FROM FOUR OF FOUR BOTTLES COLLECTED 07/21 Microbiology DONNELL CULTURE BLOOD Preliminary 07/22/16-47 Organism 1 POSITIVE BLOOD CULTURE GRAM STAIN RESULT GRAM NEGATIVE RODS BC BOTTLE Isolated from Aerobic Bottle of Set Drawn DATE CALLED: 07/21/16 TIME CALLED: 2200 CALLED BY: HUMPHREY TAYLOR/DOCTOR: MARCO Clement BC READ BACK Y TYPE OF DRAW NURSE COLLLECT TYPE NOT SPECIFIED TIME OF POSITIVITY 2140 GRAM STAIN RESULT GRAM NEGATIVE RODS BC BOTTLE2 Isolated from Anaerobic Bottle of Set Drawn DATE CALLED: 07/22/16 TIME CALLED: 0413 CALLED BY: MICK FLOOR/DOCTOR: MARCO Quintero RN BC READ BACK Y TYPE OF DRAW NURSE COLLECT TYPE NOT INDICATED TIME OF POSITIVITY 0350 GRAM NEGATIVE SCOTTIE ID TO FOLLOW ISOLATED FROM FOUR OF FOUR BOTTLES COLLECTED 07/21 Discharge Medications Discharge Medications Aspirin (Aspirin) 325 Mg Tablet 325 MG PO DAILY (Reported) Calcium Acetate (Calcium Acetate) 667 Mg Tablet 667 MG PO TIDWM (Reported) Carvedilol (Carvedilol) 6.25 Mg Tablet 12.5 MG PO BID (Reported) Ceftazidime Pentahydrate (Ceftazidime) 1 Gm Vial 1 GM IJ three times weekly Prescribed by: KENIA YUN DO Clonidine 0.2 mg/day Patch (Catapres TTS-2) 1 Each Patch 1 PATCH TOPICAL Q7D Prescribed by: KENIA YUN DO Hydralazine (Hydralazine) 50 Mg Tablet 75 MG PO Q8 Prescribed by: NICOLAS FERNANDEZ MD Insulin Glargine (Lantus U100 Insulin Vial) 100 Unit/Ml Vial 5 UNIT SUBQ HS Prescribed by: NICOLAS FERNANDEZ MD Insulin Human Lispro (HumaLOG U100 Insulin Vial) 100 Unit/Ml Unit 0 UNIT SUBQ WMHS Check blood sugars before meals and at bedtime. Use correction factor only before meals. Blood Sugar Lispro Correction: <151, 0 units; 151-175, 1 unit; 176-200, 2 units; 201-225, 3 units; 226-250, 4 units; 251-275, 5 units; 276-300 , 6 units; 301-325, 7 units; 326-350, 8 units; 351-375, 9 units; 376-400, 10 units; >400, 12 units. Prescribed by: NICOLAS FERNANDEZ MD Levothyroxine (Synthroid) 75 Mcg Tablet 75 MCG PO DAILY (Reported) Lisinopril (Lisinopril) 40 Mg Tablet 40 MG PO DAILY (Reported) Metronidazole (Metronidazole) 500 Mg Tablet 500 MG PO BID Prescribed by: KENIA YUN DO Minoxidil (Minoxidil) 2.5 Mg Tablet 5 MG PO BID (Reported) Pantoprazole DR (Protonix) 40 Mg Tablet.dr 40 MG PO QAM (Reported) As needed Acetaminophen (Acetaminophen) 500 Mg Tablet 500 MG PO Q6H PRN PRN For Pain ( Reported) Additional med instructions STOP oral clonidine, this has been replaced with clonidine patches START clonidine patch 0.2mg, apply one patch topically once weekly. Remove the old patch when applying a new patch START metronidazole: Take 1 tablet of Metronidazole by mouth twice daily for 3 weeks. Continue: Acetaminophen 500mg tablet by mouth every 6hours as needed for pain Aspirin 325mg by mouth daily Calcium acetate 667mg tablet by mouth three times daily with meals Carvedilol 12.5 by mouth twice daily Insulin glargine 5units subcutaneously daily at bedtime Levothyroxine 75mcg by mouth daily Lisinopril 40mg by mouth daily Pantoprazole 40mg by mouth daily You will be receiving a seconda antibiotic, ceftazidime following your dialysis treatments 3 times each week for many weeks, the duration is to be determined once the abscess is resolved. Followup Plan Disposition: [facility] Follow-up plan You will need to follow up with Dr Pradeep Barry, the general surgeon, next week. This is a very important appointment to keep. Resume your outpatient 3 times weekly dialysis; you will be receiving antibiotics at the dialysis center following each dialysis session. Discharge Diet: Renal Diet (nectar thick) Discharge Activity: Other (penitentiary care, hemodialysis three times weekly) Follow-up Provider: Pradeep Barry MD Follow-up with PCP in: 1 week Provider: Mira Ovalle MD Follow-up in: Other (I have called [facility] to notify their office of her discharge. Follow up appointment scheduled for 08/06/[address] Ovalle) Time spent 35 minutes Attending Statement The patient was seen and examined together with Dr. Yun on 08/03/2016 and I agree with the history, exam and plan as outlined in the note above. Kenia Yun DO Aug 03, 2016 15:54 Weston Montes MD Aug 04, 2016 10:06
--- NOTE | 2016-08-03 17:28 | PROG NOTE ---
[address] [address] PROGRESS NOTE PATIENT: MARTÍNEZ CHAHAL : 1950 MR#: [id number] ADMIT: 07/21/2016 JOB ID: [id number] DATE: 08/03/2016 The patient is seen in followup for her admission for cholecystitis with associated liver abscess. Overall, the patient continues to do well. This morning, she had a sinogram as well as a follow-up CT scan of the abdomen. These show that the drain is not in communication with the gallbladder. The gallbladder appears mildly improved with less gallbladder wall thickening. There was some extravasation of the contrast material into the peritoneal cavity. Over the last 24 hours, she has remained afebrile and hemodynamically normal. This morning, she was alert and oriented and comfortable. She indicated that she is having no pain. Her belly is soft, nontender, nondistended. Her drain continues to have relatively low output. Yesterday had 20 cc recorded. Has had 5 cc overnight. Her white blood cell count remains unremarkable at 6.4. Her hematocrit is 30.1. ASSESSMENT AND PLAN: This is a 65-year-old female with end-stage renal disease on hemodialysis who was admitted with acute on chronic cholecystitis with associated liver abscess which has been drained by Interventional Radiology. Clinically, the patient continues to do well. At this point, given that the drain is not in continuity with her gallbladder, I think it is reasonable to get it out soon. I understand that the medicine team is planning to send her home today. She should maintain a record of the drain output. I will plan on pulling the drain when it is consistently less than 10 cc. She should also remain on antibiotics. Her gallbladder has not been drained. She is at risk for developing an acute flareup of cholecystitis. I understand she will continue on antibiotics for the next 2-3 weeks. We need to be vigilant about the possibility of recurrent cholecystitis and if there is any indication that is occurring, she should get a cholecystostomy tube into the gallbladder. I will plan on seeing her in my clinic in the next week or so to try and get that drain out. At that time we will also discuss interval cholecystectomy. ALANNA
--- NOTE | 2016-08-03 17:47 | NUR ---
Dialysis note: 3 1/2 hr tx. Net UF 1999. Right fistula accessed without difficulty, 15 g needles, lidocaine used. QB400. Site clamped x 10 min, secured with gauze, tape, SS. Pt stable throughout tx and will be discharged home. Please see DTR for complete record of VS.
--- NOTE | 2016-08-03 18:40 | NUR ---
Discharge to [facility] Called compact assembler for translation to review all the discharge instructions and discharge medications. written care noted provided and reviewed with patient family, and compact assembler present. Report given to Azucena at [facility]. denies pain or discomfort. family at the bed side. Charge nurse is calling to ensure transport patient from [facility] to [facility].
--- NOTE | 2016-08-03 19:09 | NUR ---
Discharge Transportation set up by [facility] per charge nurse. family aware and patient aware.
== END 2016-08-03 19:30 | DRG 871 ==
LOC: SED 03:15 → MPC 10:32 → MOC 07-29 18:11
PROVIDERS: ADMIT Hospitalist; ATTEND Hospitalist
PROC: 5A1D00Z (ICD-10-PCS; 2016-07-22)
PROC: 5A1D00Z (ICD-10-PCS; 2016-07-24)
PROC: 5A1D00Z (ICD-10-PCS; 2016-07-27)
PROC: 0F9130Z Drainage of Right Lobe Liver with Drainage Device, Percutaneous Approach (ICD-10-PCS; principal; 2016-07-28)
PROC: 5A1D00Z (ICD-10-PCS; 2016-07-29)
PROC: 5A1D00Z (ICD-10-PCS; 2016-07-31)
PROC: 5A1D00Z (ICD-10-PCS; 2016-08-03)
DX: A41.51 Sepsis due to Escherichia coli [E. coli] (principal); G93.41 Metabolic encephalopathy; N18.6 End stage renal disease; K75.0 Abscess of liver; N10 Acute pyelonephritis; I13.2 Hypertensive heart and chronic kidney disease with heart failure and with stage 5 chronic kidney disease, or end stage renal disease; I50.32 Chronic diastolic (congestive) heart failure; K80.12 Calculus of gallbladder with acute and chronic cholecystitis without obstruction; Z99.2 Dependence on renal dialysis; E11.319 Type 2 diabetes mellitus with unspecified diabetic retinopathy without macular edema; E11.21 Type 2 diabetes mellitus with diabetic nephropathy; E78.5 Hyperlipidemia, unspecified; Z79.4 Long term (current) use of insulin; Z79.82 Long term (current) use of aspirin; E03.9 Hypothyroidism, unspecified; R13.10 Dysphagia, unspecified; E66.9 Obesity, unspecified; Z68.33 Body mass index [BMI] 33.0-33.9, adult; Z95.1 Presence of aortocoronary bypass graft; J39.2 Other diseases of pharynx; K13.79 Other lesions of oral mucosa

== ENCOUNTER 2016-08-24 11:06 | Inpatient (IN) | payer MEDICARE, MEDICAID ==
[2016-08-24] VITALS (10 sets, daily range): BP systolic 145–212; BP diastolic 48–79; PULSE 70–77; RESP 14–20; O2SAT 93–97
[~2016-08-24] VITALS: Ht 154.9 cm; Wt 50.1 kg
[~2016-08-24 11:06] MED LIST changes: +CALC667T5 PO; +CEFT1VIA IJ; -CLON0.1T14 PO; +CLON1PAT2 TOPICAL; +METR500T19 PO
--- NOTE | 2016-08-24 11:51 | ED.REPORT ---
HPI-Altered Mental Status Date of Service Aug 24, 2016 ED Provider: Alaina Cano MD Ms. Naun Cook is a 65 y/o woman with history of ESRD on dialysis, HTN, and insulin dependent DM type 2 who presents today for high blood pressure and increased drowsiness. She was brought over from dialysis by EMS. She was given a medication at dialysis for her blood pressure but it is unknown what medication. Dialysis started around 6:30 AM. She was awake to have coffee and breakfast this morning before dialysis. The change in her alertness happened during or at the end of dialysis. Her reports that she was fine this morning, and that she came to the hospital around 07/19/2016 with similar presentation. Per her , she has new right sided drooping. She takes her medications after dialysis and gets them regularly at the correction ([facility] ) and has not missed any doses. With aide of general assembler installer, pt states that she is bad and has pain. She would not respond to further questions. Pt opens her eyes to verbal stimuli. Nursing Notes Stated Complaint: CHANGE OF MENTATION Chief Complaint: General Complaint Nursing Notes Reviewed: Yes Allergies: Coded Allergies: piroxicam (Verified Allergy, Severe, swelling, 03/28/16) glipizide (Verified Allergy, Intermediate, 03/28/16) amlodipine (Verified Allergy, Unknown, 03/28/16) labetalol (Verified Allergy, Unknown, 03/28/16) Scheduled Aspirin (Aspirin) 325 Mg Tablet 325 MG PO DAILY Calcium Acetate (Calcium Acetate) 667 Mg Tablet 667 MG PO TIDWM Carvedilol (Carvedilol) 6.25 Mg Tablet 12.5 MG PO BID Ceftazidime Pentahydrate (Ceftazidime) 1 Gm Vial 1 GM IJ three times weekly Clonidine 0.2 mg/day Patch (Catapres TTS-2) 1 Each Patch 1 PATCH TOPICAL Q7D Hydralazine (Hydralazine) 50 Mg Tablet 75 MG PO Q8 Insulin Glargine (Lantus U100 Insulin Vial) 100 Unit/Ml Vial 5 UNIT SUBQ HS Insulin Human Lispro (HumaLOG U100 Insulin Vial) 100 Unit/Ml Unit 0 UNIT SUBQ WMHS Check blood sugars before meals and at bedtime. Use correction factor only before meals. Blood Sugar Lispro Correction: <151, 0 units; 151-175, 1 unit; 176-200, 2 units; 201-225, 3 units; 226-250, 4 units; 251-275, 5 units; 276-300 , 6 units; 301-325, 7 units; 326-350, 8 units; 351-375, 9 units; 376-400, 10 units; >400, 12 units. Levothyroxine (Synthroid) 75 Mcg Tablet 75 MCG PO DAILY Lisinopril (Lisinopril) 40 Mg Tablet 40 MG PO DAILY Metronidazole (Metronidazole) 500 Mg Tablet 500 MG PO BID Minoxidil (Minoxidil) 2.5 Mg Tablet 5 MG PO BID Pantoprazole DR (Protonix) 40 Mg Tablet.dr 40 MG PO QAM Scheduled PRN Acetaminophen (Acetaminophen) 500 Mg Tablet 500 MG PO Q6H PRN PRN For Pain General Time Seen by MD: 11:45 Chief Complaint Decreased alertness Hx Obtained From: Spouse Sudden in Onset?: Yes Past Medical History Past Medical History 1. Stage 5 chronic kidney disease, hemodialysis dependent (M,W,F) 2. 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 3. Severe hypertension. 4. History of diastolic congestive heart failure. 5. Dyslipidemia. 6. Hypothyroidism. 7. Obesity. 8. Renal dialysis with right arm shunt. 9. Intrahepatic abscess 10. Cholecystitis 11. Anemia Past Surgical History 1. Tunnel catheter placed on AV fistula right upper extremity. 2. Appendectomy. 3. Cataract surgery. 4. bypass surgery 08/27/14 Smoking History Never Smoker Social History Alcohol Use: Denies alcohol use Drug Use: Denies drug use Other Social History: Good social support Review of Systems Unable to Obtain ROS Mental status (pt is lethargic and opens her eyes and responds that she has pain but does not answer further questions) Physical Exam Initial Vital Signs Vital Signs (First) Date Time Temp Pulse Resp B/P Pulse Ox O2 Delivery O2 Flow Rate FiO2 08/24/16 11:25 37.2 73 17 212/76 95 Room Air Initial VS: Reviewed Alertness: Positive: Lethargic Pt opens eyes to verbal stimuli but easily falls back asleep and unable to complete thorough neurological evaluation. Respiratory / Chest: Breath sounds NL, Breath sounds = bilat, No respiratory distress, No rales, No rhonchi, No wheezing Cardiovascular: Heart rate NL, Regular rhythm, Heart sounds NL Heart Sounds / Murmur: Positive: Diastolic murmur present. (III/) Mental Status: Positive: Lethargic, Responds to painful stim, Responds to verbal stim Cranial Nerve Deficit: Positive: 7 - upper/asymetric frown (right sided droop) Pt is able to lift her right arm and move her left arm but does not lift it. She moves her legs but does not lift them. Abdomen: Soft, Non-tender, BS normoactive, No palpable mass Right upper arm: AV fistula Right Leg / Calf: Positive: Swelling present... (Mild) Left Leg / Calf: Positive: Swelling present... (Mild) Interpretation & Diagnostics Interpretation & Diagnostics: CT brain without contrast: IMPRESSION: 1. No acute intracranial findings. 2. Moderate findings likely associated with chronic microvascular ischemic changes. Dictated by: Gina Zepeda M.D. on 08/24/2016 at 13:54 Approved by: Gina Zepeda M.D. on 08/24/2016 at 13:57 Lab Results Interpretation Result Diagram: 08/24/16 1237 08/24/16 1237 Test 08/24/16 12:37 08/24/16 14:27 White Blood Count 11.5th/mm3 (3.8-10.1) Red Blood Count 3.51mil/mm3 (3.90-5.20) Hemoglobin 11.4g/dL (12.0-15.6) Hematocrit 33.5% (35.0-46.0) Mean Corpuscular Volume 95.4fL (81-100) Mean Corpuscular Hemoglobin 32.5pg (27.0-35.0) Mean Corpuscular Hemoglobin Concent 34.0% (32.0-37.0) Red Cell Distribution Width 13.5% (12.3-15.4) Platelet Count 199bil/L (150-400) Neutrophils (%) (Auto) 74.8% (40-74) Lymphocytes (%) (Auto) 12.7% (14-46) Monocytes (%) (Auto) 10.4% (4-12) Eosinophils (%) (Auto) 1.0% (0-5) Basophils (%) (Auto) 0.5% (0-3) Sodium Level 133mEq/L (134-144) Potassium Level 3.8mEq/L (3.5-5.2) Chloride Level 90mEq/L (97-108) Carbon Dioxide Level 26mmol/L (18-29) Blood Urea Nitrogen 16mg/dL (8-27) Creatinine 2.48mg/dL (0.57-1.00) Estimat Glomerular Filtration Rate 28mL/min (>59) Glucose Level 166mg/dL (60-99) Calcium Level 9.3mg/dL (8.5-10.1) Total Bilirubin 0.5mg/dL (0.0-1.2) Aspartate Amino Transf (AST/SGOT) 14U/L (0-50) Alanine Aminotransferase (ALT/SGPT) 9U/L (0-32) Alkaline Phosphatase 136U/L (25-165) Total Protein 8.0g/dL (6.4-8.4) Albumin 3.7g/dL (3.4-5.0) Hold [place] Top Tube Received (Received) Urine Color Straw (YELLOW) Urine Appearance Cloudy (CLEAR,HAZY) Urine pH 8.0 (5.0-8.0) Urine Specific [place] 1.020 (1.003-1.035) Urine Protein 100mg/dL (NEG,TRACE) Urine Glucose (UA) 100mg/dL (NEGATIVE) Urine Ketones Negativemg/dL (NEGATIVE) Urine Occult Blood Moderate (NEGATIVE) Urine Nitrite Negative (NEGATIVE) Urine Bilirubin Negative (NEGATIVE) Urine Urobilinogen Normalmg/dL (NORMAL) Urine Leukocyte Esterase Moderate (NEGATIVE) Urine RBC 3-10/hpf (0-2) Urine WBC 11-50/hpf (0-5) Urine Epithelial Cells Occasional/hpf (NONE-MOD) Urine Crystals Amorphous phosphates Urine Bacteria Few/hpf (NONE-FEW) Urine Hyaline Casts None/lpf (NONE) Urine Granular Casts None seen (NONE SEEN) Urine Waxy Casts None seen (NONE SEEN) Urine Red Blood Cell Casts None seen (NONE SEEN) Urine White Blood Cell Casts None seen (NONE SEEN) Urine Mucus None seen (None Seen) Urine Trichomonas None seen (NONE SEEN) Urine Yeast None (NONE SEEN) Urinalysis Comment Transitional epi Urine Culture Reflexed Indicated Re-Eval/Medical Decision Med Decision/Clinical Course 1. Hypertensive urgency -Pt's blood pressure was 212/76 upon arrival to ED and after hydralazine 20 mg IM at 12:18 PM it decreased to 149/48 -Elevated blood pressure discovered during dialysis -Pt does not receive her medications prior to dialysis 2. Altered mental status -Lethargic after dialysis completed today -Pt hospitalized for pyleonephritis and altered mental status from 07/21/2016-08/03/2016. -No acute intracranial abnormalities on CT brain without contrast -Pt is receiving ceftazidime 1000 mg IV 3 times per week at dialysis. Urine culture positive on 07/21/2016 for E. coli sensitive to cephalosporins. -WBC elevated today at 11.5 and UA from catheter shows moderate leukocyte esterase and 11-50 WBC. Reflex urine culture ordered and results pending. -Pt's mental status did not significantly improved after lowered blood pressure. Summary of Info: Records from dialysis in pt's ED chart Re-Evaluation/Progress : Time of Eval: 13:00 Re-Evaluation/Progress Note: BP 149/48. Requested minister. Evaluated again at 1:38 PM with general assembler installer present. Pt states that she is well and that she does have pain. Pt does not respond when asked where her pain is located. Right sided facial droop improved. Discussed with pt's end of life care and resuscitation status. Patient's states that patient's resuscitation status is DO NOT RESUSCITATE/DO NOT INTUBATE. Differential Dx Notes: DDx includes but not limited to: hypertensive urgency, CVA, encephalitis, hypoglycemia, sepsis, UTI, pyleonephritis, seizure disorder, meningitis Patient Discharge & Departure Impression: Primary Impression: Hypertensive urgency Additional Impressions: Altered mental status ESRD (end stage renal disease) on dialysis Insulin dependent diabetes mellitus Leukocytosis Disposition: ADMITTED TO HOSPITAL (discussed with hospitalist in ED) Discharge Condition All VS Reviewed: Yes Condition: Stable Referrals: Mira Ovalle MD (PCP) Sha Landeros MD Attending Statement Patient seen and examined. Agree with documentation as above agree with the plan for admission and further observation unclear etiology of acutely altered mental status copies to: Sha Landeros MD; Mira Ovalle MD, Marissa L DO Aug 24, 2016 11:51 Alaina Cano MD Aug 24, 2016 16:21
[2016-08-24] MEDS ORDERED: hydrALAZINE 20 mg/mL Inj IM ONE (12:05)
[2016-08-24 13:04] LABS: BASOPHILS % (AUTO) 0.5 % (0-3); MONOCYTES % (AUTO) 10.4 % (4-12); Mean Corpuscular Hemoglobin 32.5 pg (27.0-35.0); Mean Corpuscular Volume 95.4 fL (81-100); NEUTROPHILS % (AUTO) 74.8 % (40-74); Platelet Count 199 bil/L (150-400)
--- NOTE | 2016-08-24 13:59 | DRSVH ---
PROCEDURE: CT BRAIN WITHOUT CONTRAST ([id number]) INDICATIONS: acutely altered mental status in dialysis TECHNIQUE: Noncontrast 4.5 mm thick angled axial sections acquired from the foramen magnum to the vertex, with c oronal reformats. COMPARISON: [facility], CT, CT BRAIN WO CON, 07/23/2016, 3:44. FINDINGS: Image quality: Excellent. CSF spaces: Basal cisterns are patent. No extra-axial fluid collections. The ventricles are symmet nell in size and shape. Brain: No intracranial bleeds or masses. There is cerebral volume loss for age, with resultant vent ricular and sulcal prominence. There are moderate periventricular and deep white matter chronic smal l vessel ischemic changes. There is intracranial internal carotid artery atherosclerosis. Skull and face: Calvarium and visualized facial bones appear intact, without suspicious lesions. Sinuses: Visualized sinuses and mastoids are clear. IMPRESSION: 1. No acute intracranial findings. 2. Moderate findings likely associated with chronic microvascular ischemic changes. Dictated by: Gina Zepeda M.D. on 08/24/2016 at 13:54 Approved by: Gina Zepeda M.D. on 08/24/2016 at 13:57
[2016-08-24 14:39] LABS: APPEARANCE,URINE CLOUDY (CLEAR,HAZY); COLOR,URINE STRAW (YELLOW); OCCULT BLOOD,URINE MODERATE (NEGATIVE); UROBILINOGEN,URINE NORMAL (NORMAL)
[2016-08-24] MEDS ORDERED: Polyethylene Glycol (PEG) 17 Gm Powder PO PRN (16:50)
[2016-08-24] MEDS ORDERED: Alum-Mag Hydrox-Simeth 30 mL Suspension PO PRN (16:50)
[2016-08-24] MEDS: Insulin LISPRO 300 Unit/3 mL Inj SUBQ SCH ×2 (17:30→20:32)
[2016-08-24] MEDS ORDERED: CLON0.3T PO (17:59)
[2016-08-24] MEDS ORDERED: CALC667T5 PO (17:59)
[2016-08-24] MEDS: hydrALAZINE 20 mg/mL Inj IV PRN (19:52)
[2016-08-24] MEDS: Insulin GLARgine 100 Unit/mL Syringe SUBQ SCH (20:32)
[2016-08-24] MEDS: Ondansetron 2 mg/mL 2 mL Inj IVPUSH PRN (21:01)
--- NOTE | 2016-08-24 21:40 | PCM.HPMED ---
Subjective Date of Service Aug 24, 2016 Primary Provider: Admitting Physician: Byron Alvarez MD Primary Care Physician: Mira Ovalle MD Attending Physician: Byron Alvarez MD Chief Complaint: altered mental status History of Present Illness: Patient is a 65 year old female with a pmh as stated below that is presenting with altered mental status and generalized unresponsiveness. Patient had been in her usual state of health and was communicating with her normally for the past few days/. This morning the patient was in dialysis when the patient was noticed to be unresponsive. Patient was breathing but was not responsive to verbal and minimally responsive to tactile stimuli. Patient had her bp drawn which showed the pts bp was well above 200 systolic. Patient while on the bp monitoring device was seen to have a steady heart rate and no evidence of oxygen desaturation. EMS was called and patient was brought into the ER. While in the ED the patient was again minimally responsive and did not recognize her . Patient had IV hydralazine given and patient had an appropriate response in the reduction of her bp. Patient was persistently altered and was unable to provide much history. Patient when examined was able to awaken enough to recognize her and participate in the physical exam. Patient is unable to provide much information, and believes she is in the hospital due to elevated blood sugar. Patient is otherwise hemodynamically stable and will be admitted. Review of Systems: Review of Systems Unable to Obtain ROS As per when she saw him yesterday she had no complaints Allergies Coded Allergies: piroxicam (Verified Allergy, Severe, swelling, 03/28/16) glipizide (Verified Allergy, Intermediate, 03/28/16) amlodipine (Verified Allergy, Unknown, 03/28/16) labetalol (Verified Allergy, Unknown, 03/28/16) Home Medications Aspirin (Aspirin) 325 Mg Tablet 325 MG PO DAILY Calcium Acetate (Calcium Acetate) 667 Mg Tablet 667 MG PO TIDWM Carvedilol (Carvedilol) 6.25 Mg Tablet 12.5 MG PO BID Ceftazidime Pentahydrate (Ceftazidime) 1 Gm Vial 1 GM IJ three times weekly Clonidine 0.2 mg/day Patch (Catapres TTS-2) 1 Each Patch 1 PATCH TOPICAL Q7D Hydralazine (Hydralazine) 50 Mg Tablet 75 MG PO Q8 Insulin Glargine (Lantus U100 Insulin Vial) 100 Unit/Ml Vial 5 UNIT SUBQ HS Insulin Human Lispro (HumaLOG U100 Insulin Vial) Sliding scale with meals Levothyroxine (Synthroid) 75 Mcg Tablet 75 MCG PO DAILY Lisinopril (Lisinopril) 40 Mg Tablet 40 MG PO DAILY Metronidazole (Metronidazole) 500 Mg Tablet 500 MG PO BID Minoxidil (Minoxidil) 2.5 Mg Tablet 5 MG PO BID Pantoprazole DR (Protonix) 40 Mg Tablet.dr 40 MG PO QAM PMH 1. Stage 5 chronic kidney disease, hemodialysis dependent (M,W,F) 2. 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 3. Severe hypertension. 4. History of diastolic congestive heart failure. 5. Dyslipidemia. 6. Hypothyroidism. 7. Obesity. 8. Renal dialysis with right arm shunt. 9. Intrahepatic abscess 10. Cholecystitis 11. Anemia Surgical History 1. Tunnel catheter placed on AV fistula right upper extremity. 2. Appendectomy. 3. Cataract surgery. 4. bypass surgery 08/27/14 Family History non-contributory Social History Hx Alcohol Use: No (quit drinking 15 years ago) Hx Substance Use: No Hx Tobacco Use: No Smoking Status: Never Smoker Exam Vital Signs Vital Sign - Last Date Time Temp Pulse Resp B/P Pulse Ox O2 Delivery O2 Flow Rate FiO2 08/24/16 16:38 73 08/24/16 16:30 37.0 20 162/77 96 Room Air Exam Initial VS: Reviewed Alertness: Positive: Lethargic, able to awaken to answer few questions HEENT: NCAT, PERRL, no pupil asymmetery, patient grimacing on exam, does not produce any facial asymmetry that can be appreciated Cardiovascular: Heart rate NL, Regular rhythm, Heart sounds NL Heart Sounds / Murmur: Positive: Diastolic murmur present. (III/) Pulm: CTA bl, no wheezes or ronchi appreciated Abd: Soft, generalized tenderness to palpation however inconsistent, no organomegally Ext: Lower extremity edema (+2) to the ankles, difficult to assess motor and strength given lethargy, no gross neglect present Neuro: No focal neurological deficits noted, no facial assymetry, unable to perform full neurological exam given lethargy Lab and Diagnostics Result Diagram: 08/24/16 1237 08/24/16 1237 X-Rays, CTs and MRIs CT brain without contrast: IMPRESSION: 1. No acute intracranial findings. 2. Moderate findings likely associated with chronic microvascular ischemic changes. Assessment & Plan Altered mental status - Pt has been having hypertension and altrered mental status since dialysis this afternoon - Pt additionally has been having questionable right sided face droop, I have not noticed right sided facial droop on exam on initial exam however on repeat exam patient is showing slight flattening of the nasolabial fold with slight tongue deviation - CT head is otherwise negative for acute processes - Will allow for permissive hypertension during the night time, to prevent drastic decrease in bp and for neuroprotective purposes if patient in fact infarcted, will provide statin and aspirin - will draw blood cultures given that the last incident was secondary to infection - Pt will require repeat imaging in the am - Pt had bedside swallowing evaluation, will keep npo for the time being - will have speech and swallow see in the am End stage renal disease (stage 5) on hemodialysis, present on admission, chronic - Patient received dialysis today - Dialysis MWF - Renal diet ordered - Nephrology consulted Diabetes mellitus type 2, present on admission, presumed stable - Patient placed on correction scale lispro -A1C checked 07/30/16, was 5.9 -will continue home meds with sliding scale HTN,chronic - Pt was seen to have a bp of 211/110 at dialysis and was equally as high when in the ER - pt responded to hydralazine well, however will allow for permissive hypertension at the moment - have instructed the nurse to keep BP over 160 systolic - will resume home medication once patient is evaluated by speech and swallow Chronic and stable conditions: Chronic diastolic heart failure,presumed stable -ECHO done in 2014 -no evidence of acute decompensation Hypothyroidism, chronic, presumed stable -Continue home medications Hyperlipidemia,chronic, presumed stable -Continue home medications Code status: Full code Byron Alvarez MD Aug 24, 2016 17:10
[2016-08-25] VITALS (9 sets, daily range): BP systolic 162–229; BP diastolic 83–102; PULSE 75–92; RESP 16; O2SAT 94–99
[2016-08-25 03:03] LABS: BASOPHILS % (AUTO) 0.3 % (0-3); EOSINOPHILS % (AUTO) 0.4 % (0-5); Mean Corpuscular Hemoglobin 32.4 pg (27.0-35.0); Mean Corpuscular Volume 97.3 fL (81-100); NEUTROPHILS % (AUTO) 79.7 % (40-74); Platelet Count 199 bil/L (150-400)
[2016-08-25] MEDS: Pantoprazole 40 mg ER24 Tablet PO SCH (06:30)
[2016-08-25] MEDS: Lisinopril 40 Tablet PO SCH (07:47)
[2016-08-25] MEDS: Insulin LISPRO 300 Unit/3 mL Inj SUBQ SCH ×4 (08:00→22:00)
[2016-08-25] MEDS: hydrALAZINE 20 mg/mL Inj IV PRN ×2 (09:23→21:50)
[2016-08-25] MEDS: Ondansetron 2 mg/mL 2 mL Inj IVPUSH PRN ×2 (13:43→22:13)
--- NOTE | 2016-08-25 13:47 | CONS ---
[address] [address] CONSULTATION REPORT PATIENT: MARTÍNEZ BAUMANN : 1950 MR#: [id number] ADMIT: 08/24/2016 JOB ID: [id number] DATE OF SERVICE: 08/25/2016 RENAL CONSULTATION: HISTORY: The patient is a very pleasant 65-year-old female who was admitted to [facility] for mental status change and unresponsiveness. She has a history of end-stage renal disease and renal consultation is being sought for further evaluation of her chronic kidney disease. Apparently yesterday she was in her normal state of health and doing well. On the morning of admission, the patient was in dialysis and became unresponsive. She was non arousable but was responsive to painful stimuli. Her blood pressure was markedly elevated and had normal oxygen saturation. EMS was called and transported her to the emergency department. The patient was given intravenous hydralazine without any significant improvement. A CT of the brain was performed emergently and showed chronic microvascular changes consistent with multi-infarct dementia. Since her admission, she has been persistently hypertensive. Of note, she is allergic to a number of antihypertensive; namely, AMLODIPINE and LABETALOL. I am unsure as to what these reactions are as the patient and her family members do not speak Turkish. Even with translation, we were not able to come up with no new type of information on her. This morning she is awake and alert and able to answer simple questions. PAST MEDICAL HISTORY: 1. She has a history of end-stage renal disease, dialysis dependent and normally dialyzes Wednesday, Wednesday, and Wednesday. 2. Her end-stage renal disease is secondary to type 2 diabetes which has been further complicated by retinopathy and diabetic nephropathy. 3. Severe hypertension with diastolic congestive heart failure. 4. Hypothyroidism. 5. Anemia secondary to chronic kidney disease. 6. Hyperlipidemia. 7. Obesity. PAST SURGICAL HISTORY: Is significant for: 1. A right arm AV fistula. 2. Several tunnel catheters in the past. 3. Appendectomy. 4. Cataract surgery. 5. Coronary artery bypass graft. ALLERGIES: She is allergic to AMLODIPINE, GLIPIZIDE, LABETALOL and PIROXICAM. SOCIAL HISTORY: There is no history of any tobacco use and she has not had any alcohol in 15 years. There is no history of any type of illicit drug use. FAMILY HISTORY IS: Unobtainable. REVIEW OF SYSTEMS: Is detailed above. Otherwise is unobtainable. MEDICATIONS: At time of admission include labetalol, carvedilol, ceftazidime, clonidine, hydralazine, insulin, levothyroxine, lisinopril, metronidazole, minoxidil and Protonix. PHYSICAL EXAMINATION: Revealed an obese 65-year-old female who was alert and oriented and able to answer simple questions. Her blood pressure was 186/100 with a pulse rate of 83. HEENT examination is remarkable for pale sclerae. Neck is supple without adenopathy, thyromegaly or jugular venous distention. Lungs are clear to auscultation. Heart was regular and rhythmical with a 3/6 systolic ejection murmur and was hyperdynamic with an impulse. There was also a soft S4 noted. Abdomen is soft without any tenderness, rebound, guarding, masses or hepatosplenomegaly. Extremities did not show any clubbing, cyanosis or edema. Skin turgor was good and there is no evidence of any rashes. LABORATORY EXAMINATION: This morning, her white count is 13.6, hemoglobin of 10.6, hematocrit 32.4. Red cell indices, platelet count and differential were normal. Urinalysis was remarkable for a specific gravity of 1.020, pH was 8. Tests for protein and glucose were positive. There was leukocyte esterase, and there were 3-10 RBCs per high-power field, 11-50 WBCs per high-power field. Few bacteria were noted. IMPRESSION: 1. End-stage renal disease-dialysis dependent. 2. Diabetic nephropathy. 3. Hypertension with hypertensive heart disease and hypertensive nephrosclerosis. 4. Cystitis. RECOMMENDATION: 1. I would like to restart her medications which she was on at the time of admission. I do feel there is probably a component of rebound hypertension and I feel we need to address this immediately. 2. I would like to continue her on ceftazidime and await the urine cultures. Once again, I would like to thank you for allowing me to participate in the care of this most pleasant and interesting patient. I will be following her closely with you.
--- NOTE | 2016-08-25 14:51 | PCM.PNMED ---
Subjective Date of Service Aug 25, 2016 Subjective Half-hour to plus conversation via biological chemist. Mostly with the as the patient continues to be confused and not really know where she is which is far below baseline. Patient does not have any chest pain, dyspnea, no nausea vomiting but then again she never does everything any pain when she presents her septic variety of different infections. Seems her presenting symptom is confusion Patient complains of sore throat Exam Vital Signs Vital Sign - Last Date Time Temp Pulse Resp B/P Pulse Ox O2 Delivery O2 Flow Rate FiO2 08/25/16 11:40 37.2 83 16 162/84 98 Room Air Intake and Output 08/24/16 08/24/16 08/25/16 Cumulative From/Thru 14:59 22:59 06:59 08/24/16 11:25 - 08/25/16 06:16 Intake Total 0 ml 0 ml 0 ml Balance 0 ml 0 ml 0 ml Intake Oral 0 ml 0 ml 0 ml # Voids 0 1 1 # Bowel Movements 0 0 Exam Gen.- A+ O 1-2 no apparent distress. woman lying in bed Eyes- open conjunctiva clear, pupils equal nonicteric Mouth- oral mucosa moist, no exudate ENT- ears normal, nose normal Neck- supple/trach midline CVS- RRR no murmur or gallop Lungs- CTA GI- NABS/NT soft Musc- moving 4 no obvious deformity Neuro- cranial nerves II through XII intact to gross examination, nonfocal Skin- warm and dry, no rashes/lesions/wounds noted Psych- pleasant and appropriate, Lab and Diagnostics Result Diagram: 08/25/1620908/25/16209 X-Rays, CTs and MRIs CT brain without contrast: IMPRESSION: 1. No acute intracranial findings. 2. Moderate findings likely associated with chronic microvascular ischemic changes. Assessment & Plan 65-year-old female admitted 08/24 altered level of consciousness left-sided facial droop. She remains confused she usually does this when she has sepsis of some pruritus without showing other signs. She has not however had a CVA workup in quite some time so I am going to institute that. She remains confused today but focal neurologic findings seem to have resolved. Left facial droop- resolved, doing TIA/CVA workup, blood pressure being allowed to run SBP around 160. Patient getting aspirin 324 mg daily Metabolic encephalopathy- this is patient's usual sepsis presentation Dr. Gutierrez consulted looking for source, she does not present with any significant clinical findings in the past other than confusion as far as I can tell. Hepatic abscess- drain came out and patient reportedly on ceftaroline with dialysis, this may need further follow-up and/or imaging not ordered 08/25 Sore throat-I saw no lesions I ordered Cepacol lozenges that is also no cervical lymphadenopathy HTN- on clonidine, hydralazine, lisinopril, spironolactone controlled as much as we wanted to be now 08/25 Diabetes- blood sugars 105-122 no changes to current regimen 08/25 ESRD- [facility] dialysis nephrology/Dr. Gresham consult Hypothyroid-checking TSH and free T4 08/25 in a.m. Hx pyelonephritis- urine is relatively benign and patient on Cefteroline with dialysis, asking for urinalysis and culture 08/25 Prophylaxis- DVT -heparin/SCDs, GI not indicated Disposition-she comes from a [facility] and is full code Medically complex patient at high risk for complications VTE Mechanical Devices: Intermittant Pneumatic Baljinder Hernandez MD Aug 25, 2016 14:51 - Pt was seen to have a bp of 211/110 at dialysis and was equally as high when in the ER - pt responded to hydralazine well, however will allow for permissive hypertension at the moment - have instructed the nurse to keep BP over 160 systolic - will resume home medication once patient is evaluated by speech and swallow Chronic and stable conditions: Chronic diastolic heart failure,presumed stable -ECHO done in 2014 -no evidence of acute decompensation Hypothyroidism, chronic, presumed stable -Continue home medications Hyperlipidemia,chronic, presumed stable -Continue home medications Code status: Full code VTE Mechanical Devices: Intermittant Pneumatic Baljinder Hernandez MD Aug 25, 2016 14:51
[2016-08-25 15:41] LABS: INR 1.07 ratio
[2016-08-25] MEDS: Benzocaine-Menthol Lozenge 2/Pkg PO SCH ×2 (16:30→21:30)
--- NOTE | 2016-08-25 16:40 | DRSVH ---
PROCEDURE: US BILATERAL DUPLEX DOPPLER IMAGING OF THE CAROTIDS ([id number]) INDICATIONS: Evaluate stroke follow up TECHNIQUE: Color and pulse Doppler interrogation was performed of both carotid systems, with image documentation and velocity measurements. COMPARISON: None. FINDINGS: All stenosis calculations are based on NASCET criteria. Right side: Brachial blood pressure: Not taken. Common Carotid Artery(Distal) PSV: 59.30 cm/s Internal Carotid Artery PSV- Proximal: 53.70 cm/s Mid-lon.10 cm/s Distal: 79.20 cm/s EDV - Proximal: 9.30 cm/s Mid-lon.30 cm/s Distal: 14.50 cm/s External Carotid Artery(Proximal) PSV: 77.30 cm/s ICA/CCA PSV ratio: 1.3 Blanc scale imaging description: Minimal plaque. Percent internal carotid artery stenosis: Less than 50% stenosis. Vertebral artery: Flow direction is antegrade. Left side: Brachial blood pressure: 190/98 mm Hg. Common Carotid Artery(Distal) PSV: 79.10 cm/s Internal Carotid Artery PSV - Proximal: 33.10 cm/s Mid-lon.60 cm/s Distal: 44.20 cm/s EDV - Proximal: 4.20 cm/s Mid-lon.70 cm/s Distal: 9.30 cm/s External Carotid Artery(Proximal) PSV: 56.20 cm/s ICA/CCA PSV ratio: 0.6 Blanc scale imaging description: Minimal plaque. Percent internal carotid artery stenosis: Less than 50% stenosis. Vertebral artery: Flow direction is antegrade. IMPRESSION: Less than 50% bilateral internal carotid artery stenosis. Hypertension at time of examination. Dictated by: Tariq ECRDA Interpreted: Petr Messina MD on 08/25/2016 at 16:38 Transcribed by: VONDA on 08/25/2016 at 16:39 Approved by: Valentín Messina M.D. on 08/25/2016 at 17:02
[2016-08-25] MEDS: Heparin 5,000 Unit/mL Inj SUBQ SCH (17:59)
--- NOTE | 2016-08-25 19:01 | CONS ---
[address] [address] CONSULTATION REPORT PATIENT: MARTÍNEZ BAUMANN : 1950 MR#: [id number] ADMIT: 08/24/2016 JOB ID: [id number] DATE OF SERVICE: 08/25/2016 INFECTIOUS DISEASE CONSULTATION: I thank Dr. Waddell for this timely consult. REASON FOR CONSULT: Altered mental status and hypertensive crisis in a dialysis patient with underlying liver abscess. HISTORY OF PRESENT ILLNESS: This is an extremely complex 65-year-old woman who is well known to me from a prolonged admission which started in late June and extended into early July. During the course of that admission we discovered that the patient had chronic cholecystitis with the formation of a hepatic abscess. General surgery and interventional radiology were involved in the case and the decision was made to place a drain into the hepatic abscess and continue prolonged antibiotics as the abscess had grown E. coli. Of note, the hepatic abscess was secondary to an E. coli which proved to be resistant to trimethoprim sulfamethoxazole but susceptible to most other gram-negative agents. At the time of her discharge back on August 03 our plan was to continue with the ceftazidime at the conclusion of each dialysis on Wednesday, Wednesday, and Fridays for an indefinite period of time and to continue to monitor the patient's abscess very closely. The patient was seen and the drain was pulled about one week ago and she seemed to be doing very well while continuing to receive the ceftazidime through the dialysis center at [facility] in [place]. I spoke to the dialysis personnel yesterday and they confirmed the basic history that we obtained from the patient's son, as well as from the chart, which is that she was well at the start of yesterday's dialysis in [place], but during a dialysis session became quite confused and eventually unresponsive. This led to her transport to the hospital here. It was also noted that she was having a hypertensive crisis with profoundly elevated blood pressures well above 200 during this time. Aggressive efforts were made to lower the blood pressure with hydralazine and other appropriate medications. Following improvement in the blood pressure, the patient was awake enough to answer some questions, but was still well below or normal mental status. While the nature of her decompensation yesterday during dialysis is unclear, Infectious Disease consultation is requested regarding whether or not she still has an underlying abscess or infection, and whether or not antibiotic treatment is still indicated. This afternoon we interviewed the patient with the help of a branch manager as well as the patient's son who is bilingual. The patient is awake this afternoon, which is better than yesterday, but not fully back towards baseline which I observed last month. The patient can follow commands and does nod yes and no to a few questions, but is almost nonverbal this afternoon. She does note that she has some degree of headache, sore throat, and nausea without vomiting. She denies change in her vision, cough, shortness of breath, chest pain, vomiting, or diarrhea. She makes very minimal urine even at baseline and that has not changed. Oddly, the patient follows even fairly complex commands during the physical exam, but is really unable to express herself clearly. PAST MEDICAL HISTORY: 1. End-stage renal disease. 2. Hypertension. 3. Diabetes. 4. Diastolic congestive heart failure. 5. Hyperlipidemia. 6. Hypothyroidism. 7. Obesity. 8. Chronic cholecystitis. 9. Liver abscess diagnosed June 2016, status post drainage, due to E. coli. 10. Coronary artery disease status post bypass grafting August 2014. SOCIAL HISTORY: The patient quit drinking 15 years ago and has never smoked. She has lately been living in [facility] in [place], getting stronger in preparation to go home. The son tells me that since her bypass two years ago she has never walked again, but has been able to live with her family up until her June admission, when the liver abscess was discovered. FAMILY HISTORY: Was inquired about on the last admission and the patient states within her extended family there is no known history of tuberculosis. There is a family history of diabetes. REVIEW OF SYSTEMS: Was done with great difficulty because the patient is basically communicating through shaking her head and occasional one-word answers. Today, she reports some headache but no visual change. She does note to me and to examiners earlier in the day that she has a sore throat. She has no cough. No shortness of breath or chest pain that she reports. She has nausea, but without vomiting and without diarrhea. She makes small amounts of urine and does not report any dysuria. Beyond that we really cannot get any more review of systems due to the patient's almost nonverbal status, but the remainder of what we could obtain was negative. PHYSICAL EXAMINATION: Reveals an afebrile woman who is awake but it is unclear whether she is alert, and in fact she appears a little bit dazed as compared to her normal mental status. She is able to follow some commands and also attempts to answer some questions, but usually only with one word or with shaking or nodding her head. It is unclear if she is oriented and apparently she told the branch manager this morning that she was in a clinic rather than in the hospital. Temperature right now 37.1. She has been afebrile since her readmission. Pulse 80s, respiratory rate 16, saturating very well on room air. Blood pressure has been very high since readmission, currently 191/98. The patient's mental status as noted is difficult to assess. She is certainly oriented x1 but she cannot speak her son's name, who is there with her during the interview, nor can she say for sure where she is or what day it is. Examination of the head reveals no trauma. Sinuses nontender. Eyes without conjunctivitis or scleral icterus. Oral cavity without thrush or pharyngitis. The neck is quite supple. There is minimal adenopathy in the neck. No nodes greater than 1 cm. The lungs are fairly clear posteriorly. The patient has some degree of kyphosis in the spine but it is nontender. Cardiac tones surprisingly regular rate and rhythm, without any appreciable murmur. The abdomen is soft and nontender. There is absolutely no tenderness in the right upper quadrant, when there was quite a bit of tenderness there during her last admission. She does not have a Cagle catheter. There is no suprapubic fullness. The extremities are somewhat wasted, especially the legs, as the patient is nonambulatory and has been nonambulatory for two years. She appears to have bilateral foot drop. It is reported she has neuropathy; but, due to her diminished state of consciousness, we cannot really do a formal neurologic examination. No notable skin rashes noted. The patient is diaphoretic. LABORATORIES: Include white count 13,600, with 80% segs. Creatinine is 3.73. LFTs normal. Procalcitonin has not been done during this admission. Urinalysis 11-50 white cells. QuantiFERON Gold done during the last admission was indeterminate. Urine culture from this admission is negative. There are no blood cultures available nor any other cultures from this admission. Her admission last month had a negative culture from the aspirate of the liver abscess, but that was done well into her hospital stay. Prior to that she had blood cultures which grew a Bactrim resistant E coli, which we have now treated for basically a little more than a month. IMAGING: During this admission has included a brain CT which showed no acute intracranial findings. A carotid Doppler study was also done which showed less than 50% bilateral internal carotid artery stenosis. IMPRESSION: This is a challenging case of a woman with multiple underlying medical problems and a poor functional status at baseline. She was admitted here during the last few days of June with a change in mental status and leukocytosis and proved to be bacteremic with E. coli which arose from a liver abscess caused by chronic cholecystitis. That liver abscess was drained appropriately and that drain was pulled about a week ago. She has been receiving antibiotics on a continuous basis at the end of dialysis for approximately a month now and her son reports that there has been steady improvement in her compensated health until yesterday, when she basically had diminished mental status and became unresponsive, with profound hypertension during a dialysis session. Today she is somewhat more awake but still well below her baseline. Infectious Disease service is asked today whether or not she may still have an infection, either in her liver/gallbladder, blood stream, or urinary tract. I doubt very much that the patient has a urinary tract infection and I am not certain what to make of the 11-50 white cells found on urinalysis in a patient who produces almost no urine on a multiyear basis. It would be shocking if she developed a urinary tract infection while on ceftazidime. The bigger question here, I think, is whether the liver abscess and chronic cholecystitis has been adequately managed. I think would be reasonable to reconsult General Surgery to reevaluate this patient and I believe Dr. Barry is familiar with her. In addition, will need some imaging. Blood cultures and procalcitonin will also be necessary. RECOMMENDATIONS: 1. Blood cultures x2. 2. Will check procalcitonin today. 3. Right upper quadrant ultrasound will be checked. 4. I would reconsult Dr. Barry of General Surgery to see what additional plans they may or may not have for this patient. 5. Will continue with the ceftazidime 1 g Wednesday, Wednesday, and Mayank at the conclusion of dialysis, at least until we are certain what is going on with respect to her liver abscess. Thank you very much for re-involving me in this case.
--- NOTE | 2016-08-25 19:27 | DRSVH ---
PROCEDURE: US ABDOMEN, LIMITED ([id number]) INDICATIONS: F/U liver abscess & chronic cholecystitis TECHNIQUE: Real-time focused scanning was performed of the abdomen, with image documentation. COMPARISON: [facility], CT, CT ABD W CON, 07/27/2016, 12:56. [facility], CT, CT ABD WO CON, 08/03/2016, 12:11. FINDINGS: There is a small residual intrahepatic hypoechoic collection anterolateral to the gallbladder measuri ng approximately 1.6 x 1.0 x 1.5 cm, decreased from 2.6 x 2.0 x 3.7 cm on the prior study. Multiple shadowing gallstones are demonstrated in the gallbladder including a large stone in the efrain on of the gallbladder neck. There is gallbladder wall thickening measuring up to 1.6 cm the findings are consistent patient's history of cholecystitis. No intrahepatic or extrahepatic biliary ductal dilatation. The common bile duct measures approximate ly 5-6 mm. IMPRESSION: 1. Decrease in size of intrahepatic abscess collection with a small residual collection as described . 2. Cholelithiasis and findings consistent with cholecystitis redemonstrated. Dictated by: Stanley Shelton M.D. on 08/25/2016 at 19:03 Approved by: Stanley Shelton M.D. on 08/25/2016 at 19:21
[2016-08-25] MEDS ORDERED: 0.9% Sodium Chloride 1,000 ML IV SCH (22:30)
[2016-08-25] MEDS: Insulin GLARgine 100 Unit/mL Syringe SUBQ SCH (23:21)
[2016-08-26] VITALS (7 sets, daily range): BP systolic 166–220; BP diastolic 52–107; PULSE 80–90; RESP 16–18; O2SAT 96–100
[2016-08-26] MEDS: Heparin 5,000 Unit/mL Inj SUBQ SCH ×4 (01:05→23:55)
[2016-08-26 02:41] LABS: BASOPHILS % (AUTO) 0.2 % (0-3); EOSINOPHILS % (AUTO) 0 % (0-5); MONOCYTES % (AUTO) 3.2 % (4-12); Mean Corpuscular Hemoglobin 33.1 pg (27.0-35.0); Mean Corpuscular Volume 96.8 fL (81-100); NEUTROPHILS % (AUTO) 92.2 % (40-74); Platelet Count 202 bil/L (150-400)
[2016-08-26 03:43] LABS: ERYTHROCYTE SEDIMENTATION RATE 18 mm/hr (0-40)
[2016-08-26] MEDS: Pantoprazole 40 mg ER24 Tablet PO SCH ×2 (04:38→19:32)
[2016-08-26] MEDS: Benzocaine-Menthol Lozenge 2/Pkg PO SCH ×4 (04:38→19:31)
[2016-08-26] MEDS: Insulin LISPRO 300 Unit/3 mL Inj SUBQ SCH ×4 (08:00→20:44)
[2016-08-26] MEDS: Lisinopril 40 Tablet PO SCH (08:30)
--- NOTE | 2016-08-26 10:08 | PCM.PNMED ---
Subjective Date of Service Aug 26, 2016 Subjective She has a mild headache, but she denies any other pain. No chest or abdominal pain. She was nauseated and threw up once this morning. No weakness of arms or legs. She did have some diarrhea overnight. Exam Vital Signs Vital Sign - Last Date Time Temp Pulse Resp B/P Pulse Ox O2 Delivery O2 Flow Rate FiO2 08/26/16 07:51 36.8 83 18 218/95 99 Room Air Intake and Output 08/25/16 08/25/16 08/26/16 Cumulative From/Thru 15:00 23:00 07:00 08/24/16 11:25 - 08/26/16 05:13 Intake Total 0 ml 589 ml 589 ml Output Total 0 ml 0 ml Balance 0 ml 589 ml 589 ml Intake Oral 0 ml 0 ml 0 ml IV Total 589 ml 589 ml Output Urine Total 0 ml 0 ml # Voids 1 2 # Bowel Movements 0 0 Exam She is somewhat lethargic but does answer questions. She follows commands. Anicteric sclera, symmetric pupils Neck supple with elevated JVP Lungs are clear with normal effort. Heart regular with a 6 systolic murmur Abdomen is soft and nontender. Extremities are free of edema pedal pulses. She is able to lift both arms spontaneously when asked to. IVs and Medications Medications Reviewed: Medications were reviewed in detail Lab and Diagnostics Result Diagram: 08/26/1620408/26/16204 X-Rays, CTs and MRIs CT brain without contrast: IMPRESSION: 1. No acute intracranial findings. 2. Moderate findings likely associated with chronic microvascular ischemic changes. Assessment & Plan 65-year-old female admitted 08/24 altered level of consciousness left-sided facial droop. She remains confused she usually does this when she has sepsis of some pruritus without showing other signs. She has not however had a CVA workup in quite some time so I am going to institute that. She remains confused today but focal neurologic findings seem to have resolved. 1. Left facial droop- resolved, doing TIA/CVA workup, blood pressure being allowed to run SBP around 160. Patient getting aspirin 324 mg daily. Carotid duplex ultrasounds are less than 50% stenosis. She still has a mild facial droop appears to have 5 out of 5 motor strength in arms and legs. A CT of the head from 2 days ago is unremarkable. 2. Metabolic encephalopathy- this may be secondary to her general illness related to liver abscess. We will continue to follow this carefully. She does have a history of confusion when having infections. 3. Hepatic abscess- we will discuss whether or not a transplant replace with surgery. The patient is on Ceptaz again at the current time per infectious disease. 4. HTN, with urgency this morning.- on clonidine, hydralazine, lisinopril, spironolactone. She is hypertensive this morning and does need dialysis today. She also appears to be fluid overloaded with elevated JVP. 5. Diabetes mellitus 2-we will add a low-dose of Lantus at 7 this morning for her mild hyperglycemia. ESRD- [facility] dialysis nephrology/Dr. Gresham consult. She is going to have dialysis today. 6. Hypothyroid-checking TSH and free T4 08/25 in a.m. 7. Hx pyelonephritis- urine is relatively benign and patient on Cefteroline with dialysis, asking for urinalysis and culture 08/25 Prophylaxis- DVT -heparin/SCDs, GI not indicated Disposition-she comes from a longterm and is full code Pain Evaluation: Adequate Pain Control VTE Mechanical Devices: Intermittant Pneumatic CD Resuscitation Status: CPR: Attempt Resuscitation Time spent 20 minutes Cj Lott MD Aug 26, 2016 10:08
[2016-08-26] MEDS: LABETALOL IV SCH ×18 (10:50→23:54)
[2016-08-26] MEDS: NS IV SCH ×18 (10:50→23:54)
--- NOTE | 2016-08-26 10:50 | PROG NOTE ---
[address] [address] PROGRESS NOTE PATIENT: MARTÍNEZ BAUMANN : 1950 MR#: [id number] ADMIT: 08/24/2016 JOB ID: [id number] DATE: 08/26/2016 INFECTIOUS DISEASE FOLLOWUP NOTE: REASON FOR FOLLOWUP: Hepatic abscess with chronic cholecystitis in a dialysis patient. INTERVAL HISTORY: Overnight, the patient's mental status has improved somewhat but she is still, by no means, conversant even with family members who are in the room. She will answer a few questions just by shaking her head but she does not speak and has a somewhat dazed look as was present yesterday. When asked directly about numerous symptoms, she nods her head yes for nausea and diarrhea and shakes her head for fever and chills. Otherwise, there is no additional history to be obtained from this encephalopathic patient. PHYSICAL EXAMINATION: Reveals a woman who appears confused. During the night she had high fevers to 39.3 at midnight. She is currently 36.8. Pulse is 83, respiratory rate 18, blood pressure 218/95, and she is saturating 99% on room air. The patient is encephalopathic and when asked questions about orientation, she does not answer. She does nod or shake her head to some of the questions we asked during the interview but most of the time just stares straight ahead. She does not follow any commands such as to open her mouth, breathe deeply, or lean forward. The eyes are without evidence of scleral icterus or conjunctivitis. We cannot examine the mouth, as she will not open it. Lungs are reasonably clear anteriorly. We cannot get her to lean forward or roll over to listen to her back. Cardiac tones without new murmur. The abdomen is tender in the epigastric region and perhaps a little bit in the right upper quadrant as well. The remainder of the abdomen is benign. There is no flank tenderness. The patient's right upper extremity fistula has a thrill and is nontender. Her extremities are without significant edema or cellulitis. LABORATORIES: Include a white count, which has jumped to 19,000 with continued left shift. Her creatinine is 5.04. Her LFT are normal. Procalcitonin 2.1. Recall that procalcitonin was elevated earlier in the month when she was here with hepatic abscess. Creatinine is currently 5.04. LFT completely normal. We do not have a lipase available. Urinalysis with 11-50 white cells. QuantiFERON Gold was indeterminate. Cultures from this admission include blood cultures, which are negative so far, and urine, which is also negative. IMAGING: Includes the ultrasound that we had ordered yesterday. It shows a decreased size in the liver abscess with small residual collection noted, as well as findings consistent with chronic cholecystitis. IMPRESSION: This is a difficult case of a woman with known chronic cholecystitis and liver abscess who was evaluated in late June and early July here at this facility. She eventually did well and was transferred to her dialysis center, where she has continued to receive ceftazidime at the end of each hemodialysis session for the Escherichia coli liver abscess. A drain had been present in this liver abscess but was pulled about a week ago. At this point, she is readmitted with acute encephalopathy and extraordinary blood pressures with systolic pressures routinely over 200. I think much of her encephalopathy is likely due to her hypertension but she does have high fevers and a rising white count which are unexplained, and I am certainly concerned that her chronic cholecystitis and/or liver abscess may be part of the picture here. The patient today has focal tenderness in the epigastrium and right upper quadrant, also raising concerns. RECOMMENDATIONS: 1. Will broaden the patient's antibiotics a bit from the ceftazidime she is currently receiving to ertapenem while we attempt to sort out what is going on. 2. We await the pending cultures. 3. We will add a serum lipase to her lab studies. 4. I would reconsult General Surgery to see whether they have additional thoughts about her chronic cholecystitis, which I suspect is the ongoing cause of this process. It may be necessary to intervene either surgically or with interventional radiology again to either more fully drain the hepatic abscess or perhaps resect the gallbladder or both. 5. The dose of ertapenem will be renally adjusted.
[2016-08-26] MEDS ORDERED: Labetalol 5 mg/mL 4 mL Inj IVPUSH ONE (10:55)
[2016-08-26] MEDS: NiCARdipine 25 mg/250 mL D5W IV SCH ×6 (11:58→18:56)
[2016-08-26] MEDS ORDERED: CEFTAZIDIME IV SCH (12:00)
--- NOTE | 2016-08-26 15:53 | PCM.PNMED ---
Subjective Date of Service Aug 26, 2016 Subjective The patient has had severe hypertension over the last 18 hours in part secondary to unable to take oral medications. She is more somnolent and is less interactive. Patient was given several IV doses of various antihypertensives over the night without improvement. She continues to have a clonidine patch applied her blood pressure remains markedly elevated. Her systolic blood pressures have been consistently over 200 and is refractory to conservative measures. We will transfer her to the intensive care unit and start her on a nicardipine drip and possibly a labetalol drip as needed. Exam Vital Signs Vital Sign - Last Date Time Temp Pulse Resp B/P Pulse Ox O2 Delivery O2 Flow Rate FiO2 08/26/16 07:51 36.8 83 18 218/95 99 Room Air Intake and Output 08/25/16 08/25/16 08/26/16 Cumulative From/Thru 15:00 23:00 07:00 08/24/16 11:25 - 08/26/16 05:13 Intake Total 0 ml 589 ml 589 ml Output Total 0 ml 0 ml Balance 0 ml 589 ml 589 ml Intake Oral 0 ml 0 ml 0 ml IV Total 589 ml 589 ml Output Urine Total 0 ml 0 ml # Voids 1 2 # Bowel Movements 0 0 Exam Unfortunately I cannot do with normal eye exam as the patient has been which cooperative. Neck is supple without adenopathy. Jugular venous distention is noted. Lungs showed some bibasal rales. Residual and S4. Palpation of left precordium does demonstrate a left ventricular heave. Abdomen is soft without any tenderness rebound guarding masses or hepatosplenomegaly. Extremities no transient clubbing cyanosis or edema. There are no focal neurological findings in the extremities. Lab and Diagnostics Result Diagram: 08/26/1620408/26/16 020 X-Rays, CTs and MRIs CT brain without contrast: IMPRESSION: 1. No acute intracranial findings. 2. Moderate findings likely associated with chronic microvascular ischemic changes. Assessment & Plan Impression 1 hypertensive encephalopathy with hypertensive emergency. 2 end- stage renal disease dialysis dependent #3 hypertension. Hypertensive heart disease and hypertensive nephrosclerosis Recommendation #1 we will started nicardipine drip at 5 mg an hour. Acid nurse to maintain her telemetry blood pressure between 60 and 180 for now. #2 I have started dialysis on her and she is being dialyzed for 3-1/2 hours on however clear dialyzer with a 3 potassium bath. We will hold any heparin and attempts to take one fluid off. VTE Mechanical Devices: Intermittant Pneumatic CD Resuscitation Status: CPR: Attempt Resuscitation Brian Gresham DO Aug 26, 2016 15:53
[2016-08-26] MEDS: Insulin GLARgine 100 Unit/mL Syringe SUBQ SCH (20:44)
[2016-08-27] VITALS (7 sets, daily range): BP systolic 152–185; BP diastolic 44–59; PULSE 82–90; RESP 13–20; O2SAT 96–98
[2016-08-27] MEDS: LABETALOL IV SCH ×26 (01:50→23:30)
[2016-08-27] MEDS: NiCARdipine 25 mg/250 mL D5W IV SCH ×10 (01:50→21:50)
[2016-08-27] MEDS: NS IV SCH ×26 (01:50→23:30)
[2016-08-27] MEDS: Benzocaine-Menthol Lozenge 2/Pkg PO SCH ×4 (02:25→21:30)
[2016-08-27] MEDS: Insulin LISPRO 300 Unit/3 mL Inj SUBQ SCH ×4 (07:22→22:00)
[2016-08-27] MEDS: Lisinopril 40 Tablet PO SCH (07:23)
[2016-08-27] MEDS ORDERED: Ertapenem Inj 500 MG in 0.9% Sodium Chloride 50 ML IV SCH (08:30)
[2016-08-27] MEDS: Heparin 5,000 Unit/mL Inj SUBQ SCH (09:39)
[2016-08-27 10:08] LABS: Mean Corpuscular Hemoglobin 32.4 pg (27.0-35.0); Mean Corpuscular Volume 97.6 fL (81-100)
--- NOTE | 2016-08-27 11:11 | PROG NOTE ---
[address] [address] PROGRESS NOTE PATIENT: MARTÍNEZ BAUMANN : 1950 MR#: [id number] ADMIT: 08/24/2016 JOB ID: [id number] DATE: 08/27/2016 INFECTIOUS DISEASE FOLLOW UP NOTE: REASON FOR FOLLOW UP: Encephalopathy with associated hepatic abscess, chronic cholecystitis and leukocytosis. INTERVAL HISTORY: The patient is slightly more awake this morning but not able to answer questions. When asked how she feels, she replies fine but then declines to answer any other questions. She also appears unaware of who her is when he enters the room. She does not follow commands or do anything very purposeful. This case was discussed with the hospitalist as well as the ICU team. PHYSICAL EXAMINATION: Reveals a consistently afebrile woman over the past 24 hours but recall she did have a temperature to 39.3 on August 26. Her pulse is 90, respiratory rate 18, blood pressure 170/54. She is saturating 96% on room air. She does not appear to be in any distress but does appear dazed. As noted she does not respond to any questions except how are you to which she says fine as a single one word answer. Her head is without trauma. Eyes without conjunctivitis. Oral cavity without change. Lungs relatively clear. Cardiac tones without new murmur. Abdomen soft and nontender including completely nontender in the epigastrium and right upper quadrant. No skin rashes noted. Her extremities are well perfused. LABORATORIES: Include a white count of 18,000 with left shift, 92% segs. Creatinine was 5 yesterday. Repeat is pending. Lipase was normal. Procalcitonin 2.1, though it is difficult to interpret in view of her renal dysfunction. Blood cultures are negative, urine culture negative and a MRSA screen is pending. The abdominal ultrasound was previously discussed but shows findings consistent with chronic cholecystitis. IMPRESSION: This is a disconcerting case of a woman who was being treated with ceftazidime for E. coli hepatic abscess on the basis of chronic cholecystitis. She was doing well on this treatment until the other day in dialysis when she developed an acute change in her mental status which was associated with extraordinary hypertension. She was readmitted and re-evaluated for this sequence of events. Her blood pressure has now been lowered with aggressive management including our IV nicardipine drip. Despite this lowering of her blood pressure, mental status is consistently very abnormal. Also worrisome during this admission has been a single high temperature to 39.3, as well as a persistent leukocytosis. A leading hypothesis here is that her elevated white count and intermittent fevers are due to inadequate drainage of her liver abscess and/or chronic cholecystitis. A completely different possibility would be that she actually has a viral encephalitis though this will be impossible to discern without a lumbar puncture. The brain CT done three days ago showed no acute findings and I think on that basis a lumbar puncture would be reasonably safe if the patient could consent and hold still. RECOMMENDATIONS: 1. Will continue with ertapenem as a sole agent for the hepatic abscess/chronic cholecystitis. 2. I agree with the plans to consult Pradeep Barry of General Surgery to re-evaluate her gallbladder and liver situation. 3. We await the cultures which are now pending. 4. To fully workup her fever with change in mental status, we would need a lumbar puncture and I think this would be a relatively reasonable thing to do. If done, we would certainly send it for the routine studies, glucose, cell count, protein but also importantly for the Bio Fire CSF profile. 5. This case discussed with the ICU team and Dr. Cj Lott.
--- NOTE | 2016-08-27 11:31 | DRSVH ---
[facility] [address] [place] [address] Echocardiogram Report Name: MARTÍNEZ CAMARENA Study Date: 08/27/2016 Height: 61 in Hospital Exam Location: [facility] Weight: 115 lb Gender: Female BSA: 1.5 m2 : 1950 Age: 65 yrs BP: 159/46 m mHg Reason For Study: Stroke History: CABG Ordering Physician: HOSPITALIST [facility] Performed By: Katey White Referring Physician: Mira Ovalle Interpretation Summary Left ventricular wall thickness is mildly increased. The ejection fraction is estimated to be 50-55%. There is mild aortic valve sclerosis. Right ventricular systolic pressure is estimated to be 34 mmHg plus the clinically estimated CVP which cannot be estimated on this exam. Mid to basal inferoseptal hypokinesis. New since 2014. Procedure: A two-dimensional transthoracic echocardiogram with color flow and Doppler was performed. The study quality was technically adequate. Comparison is made with the echocardiogram of 09/01/2014 and 08/20/2014. The patient was in normal sinus rhythm during the exam. Left Ventricle: The left ventricle is normal in size. Left ventricular wall thickness is mildly increased. The ejection fraction is estimated to be 50- 55%. Mid to basal inferoseptal hypokinesis. New since 2014. Assessment of diastolic parameters suggests a pseudonormalization pattern, consistent with elevated filling pressures. Right Ventricle: The right ventricle is normal in size and function. Atria: The left atrium is moderately dilated. Right atrial size is normal. There is no Doppler evidence for an interatrial shunt. Mitral Valve: There is mild mitral annular calcification. The mitral valve leaflets are mildly calcified. There is trace mitral regurgitation. Aortic Valve: The aortic valve is mildly calcified. There is mild aortic valve sclerosis. There is no hemodynamically significant valvular aortic stenosis. No aortic regurgitation is present. Tricuspid Valve: The tricuspid valve is normal in structure and function. There is trace tricuspid regurgitation. Right ventricular systolic pressure is estimated to be 34 mmHg plus the clinically estimated CVP which cannot be estimated on this exam. Compared to the prior echo exam, there has been an increase in the severity of pulmonary hypertension. Pulmonic Valve: The pulmonic valve leaflets are thin and pliable; valve motion is normal. There is mild pulmonic regurgitation. Great Vessels: The aortic root is normal size. The ascending aorta is normal in size. The aortic arch could not be visualized. Mild atherosclerotic plaque(s) in the aortic arch. The IVC has a measurement of 17 mm. Cannot assess inspiratory collapse of the IVC due to patient not being able to perform sniff test. Pericardium/ Pleura There is no pericardial effusion. MMode/2D Measurements & Calculations LVIDd: 4.3 cm LA dimension: 4.2 cm RA long axis LVOT diam LVIDs: 3.0 cm FS: 29.9 % LA A2 area: 18.5 cm RA area AoV Opening EPSS: 0.51 cm LA A4 area: 25.5 cm IVSd: 0.99 cm LA length (vol): 6.2 cm: 17.2 cm Ao root diam LVPWd: 1.1 cm LA vol: 64.6 ml RA vol LA vol index : 49.4 ml Aortic Jxn RA : 33.1 mm2 asc Aorta IVC diam: 1.7 cm Diam: 3.0 cm LV hatfield. diameter/BSA LV sys. diameter/BSA RVD1 (basal) (cm/m^2): 2.9 (cm/m^2): 2.0 Doppler Measurements & Calculations Ao V2 max MV E max endy MV E/A: 1.1 TR max endy : 208.9 cm/sec : 127.2 cm/sec Med Peak E' Endy : 295.5 cm/sec Ao max PG MV A max endy TR max PG : 17.5 mmHg : 111.5 cm/sec E/E' med: 31.4 : 34.9 mmHg Ao mean PG MV P1/2t: 51.7 msec Lat Peak E' Endy PA V2 max : 150.0 cm/sec LVOT Max Endy MVA(VTI): 1.9 cm2 E/E' lat: 18.0 PA mean PG : 121.0 cm/sec E/e' average: 24.7 Pulm A Revs Dur PA Accel Time CHRISTOPHER(I,D): 1.3 cm : 0.09 sec sev ratio MV A dur: 0.12 sec MV V2 mean MV P1/2t max endy Ao V2 mean LV V1 max PG : 83.2 cm/sec : 146.5 cm/sec MV mean PG MVA(P1/2t): 4.3 cm2 Ao V2 VTI: 43.9 cm LV V1 VTI CHRISTOPHER(V,D): 1.4 cm2 : 23.0 cm MV V2 VTI MV dec time : 0.18 sec PA V2 mean CHRISTOPHER indexed to BSA Pulm A Revs Dur - MV : 104.8 cm/sec (cm^2/m^2): 0.86 A Dur: -0.03 msec Electronically signed by: Tim Saenz on Reading Physician:08/27/2016 11:30 AM
--- NOTE | 2016-08-27 13:21 | CONS ---
[address] [address] CONSULTATION REPORT PATIENT: MARTÍNEZ BAUMANN : 1950 MR#: [id number] ADMIT: 08/24/2016 JOB ID: [id number] DATE OF SERVICE: 08/27/2016 NARRATIVE: I was asked to come see the patient because of a concern for cholecystitis. The patient is a 65-year-old woman who is very familiar to me. She has multiple medical comorbidities including end-stage renal disease, on hemodialysis. I recently consulted on her during a hospitalization at which time it was determined that she had cholecystitis with an associated liver abscess. The liver abscess was drained percutaneously and she did better and was eventually discharged home. The drain was then taken out in my clinic, as it was having no output. It turns out she has been in a assisted and then bounced back to the hospital on the with altered mental status. Of note, that has been a common theme in her prior admissions that were likely related to cholecystitis. She had a leukocytosis as high as 19 yesterday and 18.3 this morning. An ultrasound, which was obtained on the , showed decrease in size of the intrahepatic abscess but cholelithiasis and ongoing thickening of the gallbladder wall. She has been afebrile and hemodynamically normal. She is non-conversive. It is unclear whether or not she is having abdominal pain. She does wince when I pressed on her abdomen. I think it is absolutely imperative that we rule out cholecystitis as a contributing cause. I think it is likely the culprit in this situation. I have talked to Interventional Radiology, and they have agreed to place a drain into the gallbladder itself. This will be done, hopefully, this afternoon. I will continue to follow along.
--- NOTE | 2016-08-27 15:41 | PCM.PNMED ---
Subjective Date of Service Aug 27, 2016 Subjective The patient is not really speaking. She does look around. Exam Vital Signs Vital Sign - Last Date Time Temp Pulse Resp B/P Pulse Ox O2 Delivery O2 Flow Rate FiO2 08/27/16 07:25 90 08/27/16 07:25 37.0 18 170/54 96 Room Air Intake and Output 08/26/16 08/26/16 08/27/16 Cumulative From/Thru 15:00 23:00 07:00 08/24/16 11:25 - 08/27/16 06:46 Intake Total 346 ml 935 ml Output Total 1000 ml 0 ml 1000 ml Balance -1000 ml 346 ml -65 ml Intake Oral 0 ml IV Total 346 ml 935 ml Output Urine Total 0 ml 0 ml Ultrafiltrate 1000 ml 1000 ml # Voids 2 # Bowel Movements 0 Exam With this, no obvious distress Anicteric sclera Neck supple. Lungs are clear. Heart is regular without murmur Abdomen is soft there is no right upper quadrant tenderness. Extremities are free of edema. Good pedal pulses. She was arms and legs to stimulation. IVs and Medications Medications Reviewed: Medications were reviewed in detail Lab and Diagnostics Result Diagram: 08/27/1694408/27/16944 X-Rays, CTs and MRIs CT brain without contrast: IMPRESSION: 1. No acute intracranial findings. 2. Moderate findings likely associated with chronic microvascular ischemic changes. Assessment & Plan 65-year-old female admitted 08/24 altered level of consciousness left-sided facial droop. She remains confused she usually does this when she has sepsis of some pruritus without showing other signs. She has not however had a CVA workup in quite some time so I am going to institute that. She remains confused today but focal neurologic findings seem to have resolved. 1. Left facial droop- resolved, today was unremarkable. Carotid duplex ultrasounds normal. She appears to have a possible expressive aphasia today. We will follow-up with an MRI of the brain. 2. Metabolic encephalopathy- this may be secondary to her general illness related to liver abscess. We will continue to follow this carefully. She does have a history of confusion when having infections. 3, hypertensive urgency. She was placed on a nicardipine drip and this has been slowly weaned down and may be able to be discontinued today. We will then follow her pressures and use an IV when necessary such as hydralazine. 4. Hepatic abscess, chronic cholecystitis.- Reconsulted surgery today, Dr. Barry. His recommendations are for placement of a percutaneous drain for probable culprit chronic cholecystitis. 5. Diabetes mellitus 2-we will add a low-dose of Lantus at 7 this morning for her mild hyperglycemia. 6. ESRD- MWF dialysis nephrology/Dr. Gresham consult. 6. Hypothyroid-checking TSH and free T4 08/25 in a.m. 7. Hx pyelonephritis- urine is relatively benign and patient on Cefteroline with dialysis, asking for urinalysis and culture 08/25 Prophylaxis- DVT -heparin/SCDs, GI not indicated Disposition-she comes from a long-term and is full code Pain Evaluation: Adequate Pain Control VTE Mechanical Devices: Intermittant Pneumatic CD Resuscitation Status: CPR: Attempt Resuscitation Time spent 30 minute Cj Lott MD Aug 27, 2016 15:40
--- NOTE | 2016-08-27 15:54 | PCM.PNMED ---
Subjective Date of Service Aug 27, 2016 Subjective Patient's blood pressure is improving with nicardipine drip. Her neurological status continues to worsen. She now has a right facial droop and his not answering any questions even in [place]. She appears to be inattentive. I discussed the case with Dr. Virgen from the neurology Department and he will be seeing the patient later today. Exam Vital Signs Vital Sign - Last Date Time Temp Pulse Resp B/P Pulse Ox O2 Delivery O2 Flow Rate FiO2 08/27/16 07:25 90 08/27/16 07:25 37.0 18 170/54 96 Room Air Intake and Output 08/26/16 08/26/16 08/27/16 Cumulative From/Thru 15:00 23:00 07:00 08/24/16 11:25 - 08/27/16 06:46 Intake Total 346 ml 935 ml Output Total 1000 ml 0 ml 1000 ml Balance -1000 ml 346 ml -65 ml Intake Oral 0 ml IV Total 346 ml 935 ml Output Urine Total 0 ml 0 ml Ultrafiltrate 1000 ml 1000 ml # Voids 2 # Bowel Movements 0 Exam HEENT examination is remarkable for right facial droop and drooling. Pupils are equally reactive to light. The patient would not assist me during my evaluation. Neck is Supple without adenopathy, thyromegaly, or jugular venous distention. Lungs are clear to auscultation. Heart was regular with a soft systolic murmur. No S4 is absent however her impulse is hyperdynamic. Abdomen is soft without any tenderness, rebound, guarding, masses, or hepatosplenomegaly. Extremities shows any clubbing, cyanosis, or edema. Neurological examination is notable for right facial droop. I could not get the patient to assist me very much during my examination. Reflexes appeared to be diminished as her left toe was upgoing. Lab and Diagnostics Result Diagram: 08/27/16 0945 08/27/16 0945 X-Rays, CTs and MRIs CT brain without contrast: IMPRESSION: 1. No acute intracranial findings. 2. Moderate findings likely associated with chronic microvascular ischemic changes. Assessment & Plan Impression #1 end-stage renal disease dialysis dependent #2 hypertension with hypertensive heart disease hypertensive nephrosclerosis #3 stroke versus hypertensive encephalopathy recommendation #1 I await neurology input and we will schedule her for dialysis tomorrow. VTE Mechanical Devices: Intermittant Pneumatic CD Resuscitation Status: CPR: Attempt Resuscitation Brian Gresham DO Aug 27, 2016 15:54
[2016-08-27] MEDS ORDERED: Glucose 40% Oral Gel 15 Gm Tube PO PRN (16:40)
--- NOTE | 2016-08-27 19:36 | DRSVH ---
PROCEDURE: CT BRAIN WITHOUT CONTRAST ([id number]) INDICATIONS: new mental status change TECHNIQUE: Noncontrast 4.5 mm thick angled axial sections acquired from the foramen magnum to the vertex, with c oronal reformats. COMPARISON: [facility], CT, CT BRAIN WO CON, 08/24/2016, 13:39. FINDINGS: Image quality: Excellent. CSF spaces: Basal cisterns are patent. No extra-axial fluid collections. The ventricles are symmet nell in size and shape. Brain: No intracranial bleeds or masses. There is cerebral volume loss for age, with resultant vent ricular and sulcal prominence. There are periventricular and deep white matter chronic small vessel ischemic changes. There is intracranial internal carotid artery atherosclerosis. Skull and face: Calvarium and visualized facial bones appear intact, without suspicious lesions. Sinuses: Visualized sinuses and mastoids are clear. IMPRESSION: No acute intracranial process Dictated by: Oumar Whitfield M.D. on 08/27/2016 at 19:33 Approved by: Oumar Whitfield M.D. on 08/27/2016 at 19:36
--- NOTE | 2016-08-27 20:02 | DRSVH ---
PROCEDURE: MRI BRAIN WITHOUT CONTRAST ([id number]) INDICATIONS: confusion TECHNIQUE: Non-contrast axial T1 spin echo, axial T2 fast spin echo, sagittal and axial FLAIR, coronal T2 fast s pin echo, axial gradient echo, axial diffusion and ADC through the brain. COMPARISON: None. FINDINGS: Image quality: Degraded by motion artifact CSF spaces: Ventricles appear symmetric in size and shape. Basal cisterns are patent. No extra-axi al fluid collections. Brain: No intracranial bleeds or mass effects. There is cerebral volume loss for age. There are pe riventricular and deep white matter chronic small vessel ischemic changes. Brainstem appears normal. Diffusion-weighted images show no acute ischemic insults. No chronic ischemic insults. Normal int ravascular flow voids are present. Skull and face: Calvarial bone marrow is normal in signal. Orbits are normal. Sinuses: Sinuses and mastoids are clear. IMPRESSION: Severely motion degraded examination. No evidence of acute ischemia. Bilateral white matter signal changes presumably chronic age-related microvascular ischemic disease. Dictated by: Oumar Whitfield M.D. on 08/27/2016 at 19:58 Approved by: Oumar Whitfield M.D. on 08/27/2016 at 20:02
--- NOTE | 2016-08-27 21:40 | CONS ---
[address] [address] CONSULTATION REPORT PATIENT: MARTÍNEZ BAUMANN : 1950 MR#: [id number] ADMIT: 08/24/2016 JOB ID: [id number] DATE OF SERVICE: 08/27/2016 REQUESTING PROVIDER: Dr. Brian Gresham. CHIEF COMPLAINT: Change in mental status. Rule out stroke. HISTORY OF PRESENTING ILLNESS: The patient is a pleasant, 65-year-old, reportedly right-handed woman with multiple medical problems, who presented with a change in mental status and was noted to be more lethargic. History was obtained from the chart and from family members at the bedside. Reportedly, she was in her usual state of health and was communicating with her normally for the past few days when she developed a change in mental status and was admitted on August 24, 2016. She was at dialysis when she was noted to become unresponsive. She was breathing but not responsive to verbal and minimally responsive to tactile stimuli. Her blood pressures were noted to be over 200 systolic. She was on a blood pressure monitoring device and was noted to have a steady heart rate with no evidence of oxygen desaturation. Emergency Medical Services were notified and she was brought to the emergency department. While in the emergency department, she was again minimally responsive and did not recognize her . After IV hydralazine, there was a change in her mental status and she was able to awaken enough to recognize her and participate in the physical examination. Unfortunately, though at that time, she was unable to provide more information. The change in mental status was noted after dialysis and with associated hypertension. She was also noted to have a questionable right-sided facial droop. However, I checked with family members and they report that this is not a new finding and that she does have a slight flattening of her nasolabial fold with a slight tongue deviation. A CT of her head was performed at that time, which did not reveal any acute abnormalities. There was a concern for a possible stroke and permissive hypertension was started and evaluation for encephalopathy was also started with blood cultures to exclude an infectious etiology. She does have end-stage renal disease, stage 5, on hemodialysis. She also has type 2 diabetes, however, this appears to be well controlled with her hemoglobin A1c on July 30, 2016 being as low as 5.9. She does have a history of chronic hypertension and, reportedly, her blood pressures were 211/110 after this change in mental status and she initially did respond well to hydralazine. During the episode, she was noted to have normal oxygen saturation. She continued to have some degree of confusion. She does have a history of sepsis as well. Family members do report that during a prior admission, she exhibited similar changes in mental status. She does have a history of a hepatic abscess which has been drained. Family members do report that the altered mental status was attributed to the hepatic abscess during a prior hospitalization and improved ultimately resolving with treatment of the hepatic abscess associated with placement of a drain. She had chronic cholecystitis which resulted in the formation of a hepatic abscess. General Surgery and Interventional Radiology were involved in the case at that time, and a drain was placed into the hepatic abscess with continued prolonged antibiotics as the abscess had grown E. coli. Reportedly, the drain was pulled approximately one week prior to admission, as noted above. At the time of her admission, she had a hypertensive crisis. Her son is bilingual and did provide much of the history as well. Reportedly, her present status is not much changed from how she has been since admission, however, he does note that up until today she was agitated and unable to sleep and today she was able to sleep. She does have poor functional status at baseline, although family members do note that she is more awake, but she still appears to be definitely alter when compared to her baseline. Carotid duplex demonstrated less than 50% stenosis. As noted above, due to toxic metabolic encephalopathy in the past, it is certainly possible that the symptoms that she has this time are also secondary to toxic metabolic encephalopathy. Dr. Gutierrez of Infectious Diseases, also saw the patient. At the time of his physical examination, her blood pressure was 218/95 and decision was made to broaden antibiotics a bit from the ceftazidime to ertapenem with the suspicion that chronic cholecystitis may be the etiology of metabolic encephalopathy resulting in altered mental status. There was concern for the need for possible surgical or interventional radiology assistance to either more fully drain the hepatic abscess or perhaps resect the gallbladder or both. Ertapenem was also renally adjusted. She continued to have severe hypertension with marked somnolence. Clonidine patch was added. Decision was made to transfer her to intensive care unit and start on nicardipine drip. An echocardiogram was performed, demonstrating left ventricular wall thickness was noted to be mildly increased. Ejection fraction estimated to be 50% to 55%. There was mild aortic valve sclerosis. Right ventricular systolic pressures were estimated to be 34 mmHg plus a clinically estimated CVP which cannot be estimated on this exam. Mid to basal inferoseptal hypokinesis which is new since 2014. She was seen by Dr. Pradeep Barry who recommended placement of a drain into the gallbladder itself by Interventional Radiology. Due to the continued alteration of mental status, a consultation was placed to Neurology. I did review her imaging studies. Her initial CT of the head performed on August 24, 2016 demonstrated no acute intracranial findings. There were moderate findings likely associated with chronic microvascular ischemic changes and there as well appeared to be cerebral volume loss, however, no evidence based on this of hydrocephalus. As noted above, carotid duplex performed on August 25, 2016 demonstrate less than 50% bilateral internal carotid artery stenosis. A repeat CT of the head demonstrated no acute intracranial process, and a brain MRI that was reviewed by me was limited by motion artifact, however, there was no evidence of acute ischemia. There was evidence of bilateral white matter signal changes, likely age-related microvascular ischemic disease. She is on aspirin 325 mg daily. As there is a plan for further intervention by Interventional Radiology at this point, dual antiplatelet therapy would not be advised. LABORATORY STUDIES: Today, WBC of 18.3, hemoglobin of 12.2, hematocrit 36.7, platelets of 214. Chemistries: Sodium 137, potassium 3.4, chloride was 91, carbon dioxide 26, BUN was 31, creatinine 3.31, glucose 148. LFTs were within normal limits, however, ammonia does not appear to have been ordered. PT was 11.5, INR was 1.07. Urinalysis demonstrated straw and cloudy, moderate occult blood, moderate leukocyte esterase, occasional urine epithelial cells, amorphous phosphates, few bacteria. MRSA surveillance culture is pending. Blood cultures x2 no growth after 24 hours. Urine culture also no growth. REVIEW OF SYSTEMS: A review of systems could not be obtained due to change in mental status. PAST MEDICAL HISTORY: End-stage renal disease, dialysis-dependent, normally dialyzing on Wednesday, Wednesday, and Wednesday. Type 2 diabetes. Retinopathy. Diabetic nephropathy. Severe hypertension with diastolic congestive heart failure. Hypothyroidism. Anemia secondary to chronic kidney disease. Hyperlipidemia. Obesity. PAST SURGICAL HISTORY: As noted above, drain placement for hepatic abscess suspected to be secondary to chronic cholecystitis. A right arm arteriovenous fistula. Several tunnel catheters. Appendectomy. Cataract surgery. Coronary artery bypass graft. ALLERGIES: 1. AMLODIPINE. 2. GLIPIZIDE. 3. LABETALOL. 4. PIROXICAM. SOCIAL HISTORY: No tobacco, alcohol, or drugs. FAMILY HISTORY: No family history of any neurologic disorders, according to her family. Incidentally, her son does note that following her coronary artery bypass graft, he noted gradual onset of short-term memory impairment. There is a concern for the possible development of a mild degree of early dementia/cognitive impairment. There is no history of stroke. MEDICATIONS: At the time of admission were: 1. Labetalol. 2. Carvedilol. 3. Ceftazidime. 4. Clonidine. 5. Hydralazine. 6. Insulin. 7. Levothyroxine. 8. Lisinopril. 9. Metronidazole. 10. Minoxidil. 11. Protonix. Present medications include: 1. Ertapenem. 2. Maalox p.r.n. 3. Enteric-coated aspirin 325 mg daily. 4. Cepacol. 5. Calcium acetate. 6. Carvedilol. 7. Clonidine. 8. Heparin. 9. Hydralazine. 10. Glargine. 11. Lispro. 12. Levothyroxine. 13. Lisinopril. 14. Ondansetron p.r.n. 15. Protonix. 16. Polyethylene glycol p.r.n. 17. Senna p.r.n. 18. Spironolactone. Blood pressures have varied somewhat, however all blood pressures today appear to be under a systolic of 200. The range is 152-170 and 44-59 diastolic. PHYSICAL EXAMINATION: Temperature 37.4, pulse of 84, respiratory rate of 20, blood pressure 170/59, pulse oximetry 96% on room air. General: She appears lethargic, however, does open her eyes, however, is unable to follow any complex commands. Head is normocephalic, atraumatic. Neck is supple. Negative Kernig. Negative Brudzinski. Chest: Clear to auscultation. Heart: Regular rate and rhythm. There was a soft systolic ejection murmur. Abdomen: Soft, nondistended, nontender. Extremities: No cyanosis, clubbing, or edema. NEUROLOGIC EXAMINATION: Mental status: She does appear lethargic but with waxing and waning. She does open her eyes and does appear to track, however, does not follow any verbal commands. She is anarthric. Cranial nerves: Pupils equal, round, reactive to light. Extraocular movements appeared smooth and conjugate. She did blink to threat. She also appeared to have difficulty controlling her secretions and was undergoing suctioning at the bedside. There appeared to be a mild flattening of her right nasolabial fold. She is able to open her mouth. Tongue appeared to be midline. I was unable to assess auditory sensation, however, she did track to voice. Motor: She does move all four extremities spontaneously. Sensory: She does withdraw to noxious stimuli in all four extremities. Deep tendon reflexes were 1+ and symmetrical in the upper extremities and trace at the Achilles bilaterally. Plantars were equivocal bilaterally. Gait was deferred. IMPRESSION: Change in mental status. I have reviewed in detail the history and examined this patient. My suspicion is that her change in mental status is multifactorial, however, I suspect that it is secondary to toxic metabolic encephalopathy. In this case, my concern is that the chronic cholecystitis resulting in a hepatic abscess which was originally drained may contribute to her altered mental status. There are no focal findings on examination with the exception of the mild flattening of her right nasolabial fold which family members do report was present prior to this hospitalization to suggest any underlying focal cerebrovascular event. She is on aspirin 325 mg daily. RECOMMENDATIONS: I do recommend obtaining an ammonia level which I have ordered. I have also reviewed Dr. Gutierrez's note and his recommendation to obtain a lumbar puncture. I do recommend that this be performed by Interventional Radiology using fluoroscopic guidance. I do recommend obtaining a cell count as well as glucose and protein to exclude any underlying infectious etiology for her change in mental status. Although it is certainly theoretically possible that a small lacunar infarct in the brainstem could result in similar symptoms, I do not note any evidence supportive of this other than her change in mental status based on her neurologic examination or upon careful review of her magnetic resonance imaging study of the brain, although limited by movement. In light of this, I do recommend continued optimization of control of her stroke risk factors and continuing on aspirin 325 mg daily. In addition to this, I do recommend, if ammonia level is unrevealing and lumbar puncture is unrevealing, pursuing placement of a hepatic drain in assessing for improvement in her mental status. In summary, I do suspect that her mental status changes are secondary to toxic metabolic encephalopathy as opposed to an underlying acute cerebrovascular event based on her neurologic examination which has not demonstrate a clear acute focal neurologic deficit other than her lethargic state and the magnetic resonance imaging study of her brain which does not demonstrate any evidence of an acute cerebrovascular accident. It may be advisable to switch to Plavix, however, at this point, as there is a plan to pursue a hepatic drain, I would reconsider this question after placement of a hepatic drain by Interventional Radiology. We will continue to follow. Thank you, again, Dr. Gresham, for allowing me to participate in the care of your patient. Please feel free to contact me with any questions or concerns.
[2016-08-27] MEDS: Insulin GLARgine 100 Unit/mL Syringe SUBQ SCH (22:20)
[2016-08-28] VITALS (9 sets, daily range): BP systolic 135–216; BP diastolic 42–102; PULSE 68–85; RESP 14–20; O2SAT 95–97
[2016-08-28] MEDS ORDERED: 0.9% Sodium Chloride 500 ML ONE (00:56)
[2016-08-28] MEDS: LABETALOL IV SCH ×28 (01:10→22:50)
[2016-08-28] MEDS: NS IV SCH ×28 (01:10→22:50)
[2016-08-28] MEDS: NiCARdipine 25 mg/250 mL D5W IV SCH ×10 (02:50→22:59)
[2016-08-28] MEDS: Pantoprazole 40 mg ER24 Tablet PO SCH (06:11)
[2016-08-28] MEDS: Benzocaine-Menthol Lozenge 2/Pkg PO SCH ×4 (06:11→21:30)
[2016-08-28] MEDS: Insulin LISPRO 300 Unit/3 mL Inj SUBQ SCH ×4 (08:00→22:00)
[2016-08-28] MEDS: Lisinopril 40 Tablet PO SCH ×2 (08:30→11:59)
--- NOTE | 2016-08-28 09:53 | PROG NOTE ---
[address] [address] PROGRESS NOTE PATIENT: MARTÍNEZ BAUMANN : 1950 MR#: [id number] ADMIT: 08/24/2016 JOB ID: [id number] DATE: 08/28/2016 INFECTIOUS DISEASE FOLLOWUP NOTE: REASON FOR FOLLOWUP: Febrile encephalopathy in a patient with known end-stage renal disease, and chronic cholecystitis with liver abscess. INTERVAL HISTORY: Overnight, the patient has awakened perhaps slightly more but at this point, basically just opens her eyes, and occasionally gives a one-word answer to questions but she remains profoundly below her baseline. She does not follow commands and is not interacting with family members. She voices no specific complaints, but seems of thoroughly encephalopathic, as she has been all week. This case discussed in the past 12 hours with General Surgery, Interventional Radiology, the ICU team and the [facility] team. Over 30 minutes have been spent just discussing this case this morning with various practitioners. PHYSICAL EXAMINATION: Reveals a woman who is awake but not following commands. She occasionally gives a one-word answer to a question but does not interact at all with family members or healthcare providers in a meaningful way. She continues to be afebrile. Her temperature now is 37.2. Recall that two days ago she had her only fever spike of this four-day hospital stay when she went all the way to 39.3. Pulse 76, respiratory rate 18, blood pressure 147/57, saturating well on room air. Eyes without conjunctivitis. She does have normal extraocular movements. She does track normally at least. Oral cavity unremarkable. Lungs essentially clear. Cardiac tones: Soft systolic murmur heard best in the right upper chest area as before, no change. Abdomen is remarkably soft and nontender for someone with chronic cholecystitis. It is not tender at all, even in the right upper quadrant. She has no new skin rash. The fistula in the right upper extremity looks benign, and she is scheduled for dialysis today. LABORATORIES: Include a white count which is stable but elevated at 18,000. Yesterday's diff showed a significant left shift. Creatinine is 3.31. She is a dialysis patient, so it is hard to interpret. LFT are normal. An ammonia level ordered by the neurology fitness consultant was normal. Procalcitonin last done on the was 2.1, probably not of much value in a patient on dialysis. Micro studies include negative blood cultures and a negative MRSA screen. IMAGING: Our recent imaging is extensive and includes a brain MRI, which was done without contrast, of course, yesterday. It shows no evidence of new ischemia but there is evidence of microvascular ischemic disease as before. An abdominal ultrasound on the that we had requested shows decreased size of the intrahepatic abscess, as well as chronic cholecystitis. I discussed this ultrasound in great detail with Dr. Zepeda of interventional radiology this morning. She has been asked to place a new drain but she is concerned that there may not be enough residual abscess or enough area in the gallbladder to safely place a drain and has requested that I order a stat CT scan of the abdomen with contrast which I have done. RECOMMENDATIONS: 1. Will continue with ertapenem as her sole antibiotic for this liver abscess and chronic cholecystitis. 2. I agree wholeheartedly with the neurology fitness consultant that we need an LP. To the studies he has requested, I would order a CSF, PCR panel. 3. A CT scan with contrast of the abdomen was just ordered, and Dr. Zepeda will be reviewing this to see if she can safely stick a drain either in her residual hepatic abscess or her gallbladder. 4. This case presented and discussed on ICU rounds. ADDITIONAL INFORMATION: As previously discussed, we got a CT scan of the abdomen to better look at her gallbladder to see whether she needed interventional drainage surgery or neither. The CT interestingly shows what appears to be colitis, and I have discussed this with two surgeons. On that basis, we are going to defer from doing either surgery or IR drainage of the gallbladder and instead focus on treating what is most likely C. difficile colitis. The only problem I have with the diagnosis of C. diff in this situation is that her mental status changes and fever started four days ago but her diarrhea started only last night, raising the possibility that she actually has two diagnoses. RECOMMENDATIONS: 1. A stool for C. diff will be collected and run at the noon testing. 2. Will start oral vancomycin 500 q.6 h. down an NG tube to be placed in the next 1/2 hour or so. 3. IV Flagyl 500 q.8 h. will be started. 4. IV tigecycline will be started as a replacement for the continued coverage of the E. coli from the liver abscess. Tigecycline may be of benefit in C. diff, though that is unproven but at least it does not make C. diff worse and will still provide reasonable coverage for the isolated pathogens. Addenda added by LUCA 08/28/16 at 10:34am
[2016-08-28] MEDS: Vancomycin 100 mg/mL Oral Solution TUBE SCH ×3 (10:00→21:24)
[2016-08-28] MEDS ORDERED: Tigecycline Inj 100 MG in 0.9% Sodium Chloride 100 ML IV ONE (10:00)
[2016-08-28] MEDS: metroNIDAZOLE Inj 500 MG in IV Premix 1 EACH IV SCH ×5 (11:30→21:24)
--- NOTE | 2016-08-28 12:03 | PCM.PNMED ---
Subjective Date of Service Aug 28, 2016 Subjective Events of yesterday evening and last night have been reviewed. It appears that she has recently developed what appears to be C. difficile colitis. Because of her cystectomy has been put on hold. The NG tube has been placed on the week and give her antihypertensive medications by her NG tube. Dr. Virgen's consult and appreciate his input. Exam Vital Signs Vital Sign - Last Date Time Temp Pulse Resp B/P Pulse Ox O2 Delivery O2 Flow Rate FiO2 08/28/16 11:06 84 08/28/16 04:30 37.2 18 147/57 95 Room Air Intake and Output 08/27/16 08/27/16 08/28/16 Cumulative From/Thru 15:00 23:00 07:00 08/24/16 11:25 - 08/28/16 05:18 Intake Total 250 ml 236 ml 1421 ml Output Total 1000 ml Balance 250 ml 236 ml 421 ml Intake Oral 0 ml IV Total 250 ml 236 ml 1421 ml Output Urine Total 0 ml Ultrafiltrate 1000 ml # Voids 2 # Bowel Movements 1 4 5 Exam Lungs are clear to auscultation. Heart remains hyperdynamic with a grade 2/6 systolic ejection murmur and an S4. Abdomen is semi fir, to palpation, however she is minimally interactive. No PTE noted Lab and Diagnostics Result Diagram: 08/27/16 0945 08/27/16 0945 X-Rays, CTs and MRIs CT brain without contrast: IMPRESSION: 1. No acute intracranial findings. 2. Moderate findings likely associated with chronic microvascular ischemic changes. Assessment & Plan Impression #1 end-stage renal disease dialysis dependent #2 hypertension with hypertensive heart disease hypertensive nephrosclerosis #3 stroke versus hypertensive encephalopathy Recommendation #1 patient is to be dialyzed today for 3-1/2 hours on a revaclear dialyzer, In light of the patient's multiple comorbidities and poor prognosis I would strongly urge a palliative care consult. VTE Mechanical Devices: Intermittant Pneumatic CD Resuscitation Status: CPR: Attempt Resuscitation Brian Gresham DO Aug 28, 2016 12:03
--- NOTE | 2016-08-28 12:19 | PROG NOTE ---
[address] [address] PROGRESS NOTE PATIENT: MARTÍNEZ BAUMANN : 1950 MR#: [id number] ADMIT: 08/24/2016 JOB ID: [id number] DATE: 08/28/2016 NARRATIVE: The patient had a lot of loose bowel movements overnight. The plan for a cholecystostomy tube was temporarily put on hold to allow her to be on heparin for 12 hours. Plan was to do the procedure this morning. I spoke with Dr. Gina Zepeda in interventional radiology this morning. She was somewhat leery of doing the procedure and requested a CT scan to reassess. This was obtained which I have personally reviewed. The gallbladder itself does not look too bad compared to the CT a month earlier. The liver abscess has almost completely resolved. However, the CT does showed diffuse colitis. This, given the picture of loose bowel movements overnight, her skilled nursing stay and recent antibiotic use, all point to a likely case of C. diff. At this point, I have told Interventional Radiology to put the cholecystostomy tube on hold. I think it is reasonable to treat her empirically for C. diff and, if need be, further workup for her colitis. With respect to her gallbladder, I think the original plan of having her see me after she has convalesced for attempt at laparoscopic cholecystectomy remains reasonable. I will continue to keep an eye on her peripherally but please feel free to give me a call if there are any specific questions or issues that arise.
--- NOTE | 2016-08-28 13:28 | DRSVH ---
PROCEDURE: CT ABDOMEN AND PELVIS WITH CONTRAST ([id number]) INDICATIONS: cholecystitis TECHNIQUE: After the administration of intravenous contrast, 5 mm thick sections acquired from the diaphragm to the symphysis. 5 mm coronal and sagittal reformats were acquired. For radiation dose reduction, the following was used: automated exposure control, adjustment of mA and/or kV according to patient siz e. COMPARISON: [facility], CT, CT ABD PELVIS W CON, 03/28/2016, 6:25. FINDINGS: Image quality: Excellent. ABDOMEN: Lung bases: Lung bases are clear. Heart size is mildly enlarged. Solid organs: The liver demonstrates overall homogeneous enhancement. A wedge-shaped hypodensity is present in the previous location of the intrahepatic drain in hepatic segment V. No discrete fluid co llection persists. Focal fat is present in the falciform ligament. The spleen demonstrates normal siz e and enhancement. The adrenal glands are unremarkable. Bilateral kidneys are atrophic. The pancreas demonstrates homogeneous enhancement and normal size. There is mild gallbladder wall thickening and t race pericholecystic fluid. Gallstones are present in the fundus. Peritoneum and bowel: The stomach is decompressed. The small bowel demonstrates normal caliber and wa ll thickness. There is diffuse mucosal thickening throughout the entire colon and hyperemia of the mu cosa. The mucosa is markedly thickened in the rectosigmoid region. No free fluid or pneumoperitoneum. Nodes and vessels: No retroperitoneal or mesenteric adenopathy by size criteria. Aorta and inferior vena cava are normal in size. Miscellaneous: No ventral hernias. PELVIS: Genitourinary: Bladder is partially distended and the wall is thickened. The uterus and ovaries are grossly unremarkable. Miscellaneous: No inguinal hernias or adenopathy. Bones: No suspicious bony lesions. No vertebral body compression fractures. IMPRESSION: 1. Resolution of the previously visualized intrahepatic abscess. The drain has been removed. 2. Mild gallbladder wall thickening pericholecystic fluid. These findings are decreased in extent whe n compared with multiple prior studies suggesting at least partial resolution of the prior cholecysti tis. 3. Diffuse colonic mucosal thickening. Given the extent of colitis and a prolonged hospitalization, C . difficile colitis is suspected. 4. Bladder wall thickening which may be associated with cystitis or reactive changes secondary to the associated mucosal thickening of the bowel. These findings were discussed with Dr. Barry on 08/28/16. Dictated by: Gina Zepeda M.D. on 08/28/2016 at 13:03 Approved by: Gina Zepeda M.D. on 08/28/2016 at 13:26
[2016-08-28] MEDS ORDERED: Vancomycin 100 mg/mL Oral Solution PO SCH (14:30)
--- NOTE | 2016-08-28 16:23 | PCM.PNMED ---
Subjective Date of Service Aug 28, 2016 Subjective She is somnolent after dialysis. ROS and S not obtainable. Exam Vital Signs Vital Sign - Last Date Time Temp Pulse Resp B/P Pulse Ox O2 Delivery O2 Flow Rate FiO2 08/28/16 13:40 68 135/71 08/28/16 04:30 37.2 18 95 Room Air Intake and Output 08/27/16 08/27/16 08/28/16 Cumulative From/Thru 15:00 23:00 07:00 08/24/16 11:25 - 08/28/16 05:18 Intake Total 250 ml 236 ml 1421 ml Output Total 1000 ml Balance 250 ml 236 ml 421 ml Intake Oral 0 ml IV Total 250 ml 236 ml 1421 ml Output Urine Total 0 ml Ultrafiltrate 1000 ml # Voids 2 # Bowel Movements 1 4 5 Exam No distress Anicteric sclera Lungs clear CV regular without murmur Abdomen soft, NT No edema Leg excoriations IVs and Medications Medications Reviewed: Medications were reviewed in detail Lab and Diagnostics Result Diagram: 08/27/16 0945 08/27/16 0945 X-Rays, CTs and MRIs CT brain without contrast: IMPRESSION: 1. No acute intracranial findings. 2. Moderate findings likely associated with chronic microvascular ischemic changes. Assessment & Plan 1. C D toxin colitis. NGT and PO vanco as well as IV misonidazole. 2. Metabolic encephalopathy, follow with treatment of CDT. LP per IR 3. ESRD, had HD today 4. DM 2 , controlled. No changes to medications for now. 5. Recent cholecystitis and hepatic abscess. CT today reveals no hepatic abscess and a relatively normal gall bladder. Inpatient status. Pain Evaluation: Adequate Pain Control VTE Mechanical Devices: Intermittant Pneumatic CD Resuscitation Status: CPR: Attempt Resuscitation Time spent 30 minutes Cj Lott MD Aug 28, 2016 16:23
--- NOTE | 2016-08-28 16:26 | DRSVH ---
PROCEDURE: X-RAY LUMBAR PUNCTURE ([id number]) INDICATIONS: confusion TECHNIQUE: The indications, alternatives, benefits, risks, and complications were explained to the patient. Shruti love informed consent was obtained and placed in the chart. The patient was placed in a prone positi on on the fluoroscopy table, and a level was chosen for percutaneous access under fluoroscopic guidan ce. The site was prepped and draped in a sterile fashion. After local anaesthetic, a spinal needle was then used to enter the intrathecal space, with return of cerebrospinal fluid. After obtaining sufficient fluid, the needle was then withdrawn, and a bandage applied to the punctur e site. FINDINGS: Puncture level: L3-4 Needle: Blunt-tipped spinal needle. Opening pressure: 16 cm CSF volume and description: Approximately 12 cc of clear CSF Medications: 1% lidocaine for anaesthesia. Complications: None Laboratories: As ordered by referring clinician. IMPRESSION: Successful fluoroscopically guided lumbar puncture. Dictated by: Fadia Aguilar MD, PhD on 08/28/2016 at 16:24 Approved by: Fadia Aguilar MD, PhD on 08/28/2016 at 16:25
[2016-08-28] MEDS ORDERED: Ertapenem Inj 500 MG in 0.9% Sodium Chloride 50 ML IV SCH (16:30)
[2016-08-28 16:32] LABS: Mean Corpuscular Hemoglobin 32.8 pg (27.0-35.0); Mean Corpuscular Volume 96.1 fL (81-100)
[2016-08-28] MEDS ORDERED: Codeine-APAP 30-300 mg Tablet PO PRN (16:35)
[2016-08-28] MEDS ORDERED: LORazepam 0.5 mg Tablet PO PRN (16:35)
[2016-08-28 16:51] LABS: APPEARANCE,CSF CLEAR (CLEAR); COLOR,CSF COLORLESS (COLORLESS); WHITE BLOOD CELL,CSF 1 /mm3 (0-5)
[2016-08-28] MEDS: Tigecycline Inj 50 MG in 0.9% Sodium Chloride 100 ML IV SCH (20:30)
[2016-08-28] MEDS: Insulin GLARgine 100 Unit/mL Syringe SUBQ SCH (21:00)
[2016-08-29] VITALS (7 sets, daily range): BP systolic 129–171; BP diastolic 48–68; PULSE 74–87; RESP 16–22; O2SAT 95–97
[2016-08-29] MEDS: LABETALOL IV SCH ×10 (00:30→07:10)
[2016-08-29] MEDS: NS IV SCH ×10 (00:30→07:10)
--- NOTE | 2016-08-29 02:19 | CONS ---
[address] [address] CONSULTATION REPORT PATIENT: MARTÍNEZ BAUMANN : 1950 MR#: [id number] ADMIT: 08/24/2016 JOB ID: [id number] DATE OF SERVICE: 08/28/2016 SUBJECTIVE: The patient continues to be lethargic, however does open her eyes. She is anarthric and does not follow commands. Reviewed magnetic resonance imaging study of the brain in detail with Dr. Fadia Aguilar. Flow voids are present in both vertebral arteries, demonstrating an open basilar artery. No evidence to suggest basilar stenosis or brainstem cerebrovascular accident. LABORATORY STUDIES: Ammonia level of 41. A lumbar puncture revealed an opening pressure of 12 mm H2O, clear and colorless with 1 WBC, 0 ,RBCs glucose of 53 and protein of 26. The patient was incidentally found to have C. difficile colitis with diffuse colonic mucosal thickening appreciated on a CT of her abdomen. IMPRESSION: Suspect toxic metabolic encephalopathy likely secondary to multifactorial etiologies. I do believe that a cerebrovascular etiology is unlikely given the extensive evaluation that has been performed so far. Ideally, a computed tomography angiogram or a magnetic resonance angiogram would be beneficial; however, the patient has renal failure and cannot receive contrast. I recommend continued optimization of control of stroke/transient ischemic attack risk factors. I do suspect underlying encephalopathy may be secondary to C. difficile colitis. We will sign off. Please contact me if you would like me to return to see the patient. Please feel free to contact me with any questions or concerns. Thank you, again, Dr. Gresham and for allowing me to participate in the care of your patient. ALANNA
[2016-08-29] MEDS: Vancomycin 100 mg/mL Oral Solution TUBE SCH ×4 (03:26→20:33)
[2016-08-29] MEDS: NiCARdipine 25 mg/250 mL D5W IV SCH ×10 (03:50→23:50)
[2016-08-29] MEDS: Benzocaine-Menthol Lozenge 2/Pkg PO SCH ×4 (06:16→20:18)
[2016-08-29] MEDS: metroNIDAZOLE Inj 500 MG in IV Premix 1 EACH IV SCH ×2 (06:16→20:33)
[2016-08-29] MEDS: Pantoprazole 4 mg/mL 10 mL Inj IVPUSH SCH (07:30)
[2016-08-29] MEDS: Insulin LISPRO 300 Unit/3 mL Inj SUBQ SCH ×4 (08:00→20:36)
[2016-08-29] MEDS: Tigecycline Inj 50 MG in 0.9% Sodium Chloride 100 ML IV SCH ×2 (08:30→20:58)
[2016-08-29] MEDS: Lisinopril 40 Tablet PEG SCH (10:45)
--- NOTE | 2016-08-29 12:29 | PCM.PNMED ---
Subjective Date of Service Aug 29, 2016 Subjective She is talking today and more herself. She denies any pain. Her family feels she is less use. She has not had any problems with her breathing. Exam Vital Signs Vital Sign - Last Date Time Temp Pulse Resp B/P Pulse Ox O2 Delivery O2 Flow Rate FiO2 08/29/16 04:30 36.7 81 16 146/57 96 Room Air Intake and Output 08/28/16 08/28/16 08/29/16 Cumulative From/Thru 15:00 23:00 07:00 08/24/16 11:25 - 08/29/16 06:17 Intake Total 27 ml 565 ml 2013 ml Output Total 1000 ml 2 ml 0 ml 2002 ml Balance -1000 ml 25 ml 565 ml 11 ml Intake Oral 0 ml IV Total 27 ml 465 ml 1913 ml Tube Irrigant 100 ml 100 ml Output Urine Total 0 ml 0 ml 0 ml Stool Total 2 ml 2 ml Ultrafiltrate 1000 ml 2000 ml # Voids 2 # Bowel Movements 3 8 Exam Alert, no distress. Fluent speech. Interactive. Lungs are clear with normal effort and rate. Heart is regular without murmur Abdomen is soft nontender Extremities are free of edema. Pedal pulses No facial droop. IVs and Medications Medications Reviewed: Medications were reviewed in detail Lab and Diagnostics Result Diagram: 08/28/16 1618 08/28/16 1618 X-Rays, CTs and MRIs CT brain without contrast: IMPRESSION: 1. No acute intracranial findings. 2. Moderate findings likely associated with chronic microvascular ischemic changes. Assessment & Plan 1. C D toxin colitis. NGT and PO vanco as well as IV metronidazole. Infectious disease has been consulted. Stool PCR was positive. 2. Metabolic encephalopathy, this is improving with treatment of C. difficile toxin colitis. Initial studies on lumbar puncture are negative. There is no evidence of meningitis. 3. ESRD, hemodialysis per nephrology. 4. DM 2 , controlled. No changes to medications for now. 5. Recent cholecystitis and hepatic abscess. CT today reveals no hepatic abscess and a relatively normal gall bladder. Inpatient status. Pain Evaluation: Adequate Pain Control VTE Mechanical Devices: Intermittant Pneumatic CD Resuscitation Status: CPR: Attempt Resuscitation Time spent 25 minutes Cj Lott MD Aug 29, 2016 12:29
--- NOTE | 2016-08-29 17:31 | PROG NOTE ---
[address] [address] PROGRESS NOTE PATIENT: MARTÍNEZ BAUMANN : 1950 MR#: [id number] ADMIT: 08/24/2016 JOB ID: [id number] DATE: 08/29/2016 INFECTIOUS DISEASE FOLLOWUP NOTE: REASON FOR FOLLOWUP: E. coli liver abscess in the setting of chronic cholecystitis, now with C. difficile colitis. INTERVAL HISTORY: Recall this is a patient with a complex chronic cholecystitis and associated liver abscess which we knew was due to E. coli. She was doing reasonably well and receiving her usual dialysis outpatient treatments and receiving chronic cephalosporin therapy for the liver abscess when she abruptly developed a change in mental status and fevers five days ago. This led to her admission here and we have been pursuing a number of diagnostic leads. Yesterday we discovered that a stool for C. diff was positive. A lumbar puncture that was done to look for possible encephalitis has returned negative, at least so far. Yesterday we also started the patient on vigorous triple-drug therapy for C. diff while continuing her treatment for the liver abscess. The patient has brightened considerably and has returned almost to her mental status overnight. This afternoon the patient tells me that she is feeling fine. She denies fevers, chills, headaches nausea vomiting. She notes that her diarrhea does continue, however, which is not surprising. She denies any respiratory symptoms whatsoever. PHYSICAL EXAMINATION: Reveals a now comfortable woman. Temperature 36.7, pulse 81, respiratory rate 16, blood pressure 146/57. She is saturating well on room air. She has returned to her usual conversational style and appears almost back to baseline from a mental status perspective. Oral cavity negative. Lungs clear. Cardiac tones regular rate and rhythm, without murmur. Abdomen is soft and nontender. Extremities without change. LABORATORIES: Include white count which has increased to 24,000 as of yesterday. No CBC was done today. Her spinal fluid shows one white cell, glucose 53, protein 26. Herpes simplex PCR is pending on the spinal fluid but actually what was ordered was the [employer] multiplex PCR and I have called the lab to try and clarify this. A stool for C. diff was positive yesterday. The spinal fluid without white cells or organisms. MRSA screen negative. Blood cultures negative. Urine culture negative. CT scan done yesterday showed colitis. The liver abscess has basically resolved and the drain is gone, of course. There is still some pericholecystic fluid and gallbladder wall thickening, but it is better than it was previously. IMPRESSION: Based on our newest imaging, it looks like the hepatic abscess has largely gone. The patient continues to have some degree of cholecystitis, but that appears better, and the surgeons are of the opinion we can certainly wait on any sort of more aggressive management of that chronically diseased gallbladder. On the other hand, the patient has obvious colitis and yesterday it was confirmed that this is C. difficile colitis. I have placed the patient on tigecycline as dual coverage for any residual liver abscess, as well as cholecystitis, and more importantly as a possible adjuvant treatment for C. diff. She is also on Flagyl and vancomycin. RECOMMENDATIONS: 1. Will continue with this aggressive triple drug regimen over the weekend. 2. Will probably start to cut back on her antibiotics considerably come Wednesday. Thank you for allowing me to be involved in this most interesting case.
[2016-08-29] MEDS: Insulin GLARgine 100 Unit/mL Syringe SUBQ SCH (21:00)
[2016-08-30] VITALS (9 sets, daily range): BP systolic 113–161; BP diastolic 54–78; PULSE 58–75; RESP 16–21; O2SAT 96–98
[2016-08-30] MEDS: Vancomycin 100 mg/mL Oral Solution TUBE SCH ×4 (03:04→20:30)
[2016-08-30] MEDS: NiCARdipine 25 mg/250 mL D5W IV SCH ×4 (04:50→09:50)
[2016-08-30] MEDS: Benzocaine-Menthol Lozenge 2/Pkg PO SCH ×4 (05:10→21:30)
[2016-08-30] MEDS: Insulin LISPRO 300 Unit/3 mL Inj SUBQ SCH ×4 (08:00→20:55)
[2016-08-30] MEDS: Tigecycline Inj 50 MG in 0.9% Sodium Chloride 100 ML IV SCH ×3 (08:30→23:14)
[2016-08-30] MEDS: Lisinopril 40 Tablet PEG SCH (08:30)
[2016-08-30 08:44] LABS: Mean Corpuscular Hemoglobin 32.2 pg (27.0-35.0); Mean Corpuscular Volume 94.7 fL (81-100)
[2016-08-30 08:51] LABS: INR 1.27 ratio
[2016-08-30] MEDS: Pantoprazole 4 mg/mL 10 mL Inj IVPUSH SCH (09:27)
[2016-08-30] MEDS: metroNIDAZOLE Inj 500 MG in IV Premix 1 EACH IV SCH ×3 (09:29→20:29)
--- NOTE | 2016-08-30 12:43 | PCM.PNMED ---
Subjective Date of Service Aug 30, 2016 Subjective The patient is more interactive today and is actually responding to questions with probable comments. Her blood pressure continues to improve. Otherwise she offers no new complaints. White count is markedly elevated at 35,000 she is currently being treated for C. difficile colitis. Exam Vital Signs Vital Sign - Last Date Time Temp Pulse Resp B/P Pulse Ox O2 Delivery O2 Flow Rate FiO2 08/30/16 12:22 36.2 66 20 161/78 98 Room Air Intake and Output 08/29/16 08/29/16 08/30/16 Cumulative From/Thru 15:00 23:00 07:00 08/24/16 11:25 - 08/30/16 05:09 Intake Total 583 ml 357 ml 2953 ml Output Total 0 ml 2002 ml Balance 583 ml 357 ml 951 ml Intake Oral 30 ml 0 ml 30 ml IV Total 553 ml 357 ml 2823 ml Tube Irrigant 100 ml Output Urine Total 0 ml Stool Total 2 ml Gastric Drainage Total 0 ml 0 ml Ultrafiltrate 2000 ml # Voids 0 2 # Bowel Movements 6 3 17 Exam Neck is supple without adenopathy thyromegaly or jugular venous distention. Lungs are clear to auscultation. Heart is regular and rhythmical with a soft systolic murmur. Abdomen is soft without any tenderness rebound guarding masses or hepatosplenomegaly. She is not showing any evidence of any clubbing cyanosis or edema. Lab and Diagnostics Result Diagram: 08/30/16 0800 08/30/16 0800 X-Rays, CTs and MRIs CT brain without contrast: IMPRESSION: 1. No acute intracranial findings. 2. Moderate findings likely associated with chronic microvascular ischemic changes. Assessment & Plan Impression #1 end-stage renal disease dialysis dependent #2 C. difficile colitis with toxic encephalopathy which appears to be improving at this time. Recommendations #1 #2 inches from her dialysis on Wednesday. VTE Mechanical Devices: Intermittant Pneumatic CD Resuscitation Status: CPR: Attempt Resuscitation Brian Gresham DO Aug 30, 2016 12:43
--- NOTE | 2016-08-30 13:28 | PCM.PNMED ---
Subjective Date of Service Aug 30, 2016 Subjective She denies pain is more alert today. No confusion per her family's report. She is breathing without difficulty. Exam Vital Signs Vital Sign - Last Date Time Temp Pulse Resp B/P Pulse Ox O2 Delivery O2 Flow Rate FiO2 08/30/16 12:22 36.2 66 20 161/78 98 Room Air Intake and Output 08/29/16 08/29/16 08/30/16 Cumulative From/Thru 15:00 23:00 07:00 08/24/16 11:25 - 08/30/16 05:09 Intake Total 583 ml 357 ml 2953 ml Output Total 0 ml 2002 ml Balance 583 ml 357 ml 951 ml Intake Oral 30 ml 0 ml 30 ml IV Total 553 ml 357 ml 2823 ml Tube Irrigant 100 ml Output Urine Total 0 ml Stool Total 2 ml Gastric Drainage Total 0 ml 0 ml Ultrafiltrate 2000 ml # Voids 0 2 # Bowel Movements 6 17 Exam Alert oriented, fluent speech Anicteric sclera Lungs are clear normal effort. Heart is regular without murmur. Abdomen is soft nontender. Extremities are free of edema good pedal pulses. Right arm fistula . IVs and Medications Medications Reviewed: Medications were reviewed in detail Lab and Diagnostics Result Diagram: 08/30/16 0800 08/30/16 0800 X-Rays, CTs and MRIs CT brain without contrast: IMPRESSION: 1. No acute intracranial findings. 2. Moderate findings likely associated with chronic microvascular ischemic changes. Assessment & Plan 1. C. difficile toxin colitis. Likely POA. This is improving. Continue current measures of IV metronidazole, oral Vanco mycin and Tygacil 2. Metabolic encephalopathy, POA. This is improving rapidly is #1 is treated. 3. End-stage renal disease, POA. Dialysis on Wednesday 4. Hypertension, POA. Continue current measures and use when necessary hydralazine as needed. 5. Recent history of liver abscess and cholecystitis, not currently active. Follow clinically. 6. DVT prophylaxis, we will use subcutaneous heparin every 12 hours. 7. Pronounced leukocytosis today. She is currently having maximal efforts for her C. difficile toxin and clinically appears to be better. There is no evidence of perforation. She also had recent lumbar puncture negative for evidence of meningitis. We will continue to follow white count closely. VTE Mechanical Devices: Intermittant Pneumatic CD Resuscitation Status: CPR: Attempt Resuscitation Time spent 25 minutes Cj Lott MD Aug 30, 2016 13:28
[2016-08-30] MEDS: hydrALAZINE 20 mg/mL Inj IV PRN (13:45)
[2016-08-30] MEDS: cloNIDine 0.1 mg Tablet PO SCH ×2 (16:29→20:30)
--- NOTE | 2016-08-30 16:34 | PCM.PHAPRO ---
Progress Requesting Provider: Fadi Brooks altered mental status INR today is 1.27 The patient has been on warfarin since 07/29/16. [facility] "[facility] to [facility]farin" auto stops after 30 days. The last dose of warfarin received by the patient was 4mg on 08/27/16. I will give a 6mg dose today and reorder INRs for 7 days. In the meantime, Dr Brooks has restarted sub-cutaneous heparin 5000 units q 8 hours until the INR is back in the therapeutic range. Sue Mello [facility] Aug 30, 2016 16:34
[2016-08-30] MEDS: Heparin 5,000 Unit/mL Inj SUBQ SCH (20:30)
[2016-08-30] MEDS: Insulin GLARgine 100 Unit/mL Syringe SUBQ SCH (20:38)
[2016-08-30] MEDS ORDERED: 0.9% Sodium Chloride 250 ML ONE (23:12)
[2016-08-31] VITALS (11 sets, daily range): BP systolic 115–190; BP diastolic 59–78; PULSE 60–76; RESP 16; O2SAT 96–99
[2016-08-31] MEDS: Vancomycin 100 mg/mL Oral Solution TUBE SCH ×4 (03:40→22:00)
[2016-08-31] MEDS: Benzocaine-Menthol Lozenge 2/Pkg PO SCH ×4 (06:30→21:30)
[2016-08-31 06:40] LABS: Mean Corpuscular Hemoglobin 32.6 pg (27.0-35.0); Mean Corpuscular Volume 94.9 fL (81-100)
[2016-08-31] MEDS: Insulin LISPRO 300 Unit/3 mL Inj SUBQ SCH ×4 (08:00→22:00)
[2016-08-31] MEDS: metroNIDAZOLE Inj 500 MG in IV Premix 1 EACH IV SCH ×2 (08:30→15:25)
[2016-08-31] MEDS: cloNIDine 0.1 mg Tablet PO SCH ×3 (08:30→21:59)
[2016-08-31] MEDS: Pantoprazole 4 mg/mL 10 mL Inj IVPUSH SCH (08:41)
[2016-08-31] MEDS: Heparin 5,000 Unit/mL Inj SUBQ SCH ×2 (08:42→21:59)
--- NOTE | 2016-08-31 11:34 | PCM.PNMED ---
Subjective Date of Service Aug 31, 2016 Subjective Pt is seen while on dialysis. Stable BP. She has no complaints. She is awake and alert today. She has no CP/SOB/abd pain. Exam Vital Signs Vital Sign - Last Date Time Temp Pulse Resp B/P Pulse Ox O2 Delivery O2 Flow Rate FiO2 08/31/16 09:10 36.6 71 16 171/67 97 Room Air Intake and Output 08/30/16 08/30/16 08/31/16 Cumulative From/Thru 15:00 23:00 07:00 08/24/16 11:25 - 08/30/16 20:58 Intake Total 2953 ml Output Total 0 ml 2002 ml Balance 0 ml 951 ml Intake Oral 30 ml IV Total 2823 ml Tube Irrigant 100 ml Output Urine Total 0 ml Stool Total 2 ml Gastric Drainage Total 0 ml 0 ml Ultrafiltrate 2000 ml # Voids 2 # Bowel Movements 2 19 Exam GA: AAOx3, kosovan speaking HEENT: mildly pale sclerae, atraumatic, moist mucous membrane. neck supple without adenopathy, thyromegaly or jugular venous distention. Lungs: CTA B/L, no wheezing, no rhonchi. Heart: RRR, systolic murmur noted. Abdomen: soft, NT, ND, no HSM, active BS. Extremities: no edema, cyanosis, clubbing of fingers, (+) right AVF with good thrill and bruit. Lab and Diagnostics Result Diagram: 08/31/16 0515 08/31/16 0500 X-Rays, CTs and MRIs CT brain without contrast: IMPRESSION: 1. No acute intracranial findings. 2. Moderate findings likely associated with chronic microvascular ischemic changes. Assessment & Plan 1. ESRD on HD seen during HD. Revaclear, 3.5 hr, UF 2L, DFR 600, BFR 450, 2K, 35HCO3, right AVF. 2. C. difficile colitis. 3. Metabolic encephalopathy, resolved. 4. Hypertension with hypertensive nephrosclerosis. 5. Recent history of liver abscess status post drainage, and chrionic cholecystitis. Plan: HD 3.5 hr, Q MWF. Continue current BP meds: coreg, hydralazine, clonidine, aldactone and lisinopril. Will follow along with primary team. VTE Mechanical Devices: Intermittant Pneumatic CD Resuscitation Status: CPR: Attempt Resuscitation AnaAristides brown MD Aug 31, 2016 11:34
[2016-08-31] MEDS: Tigecycline Inj 50 MG in 0.9% Sodium Chloride 100 ML IV SCH ×2 (12:37→23:02)
[2016-08-31] MEDS: Lisinopril 40 Tablet PEG SCH (15:26)
--- NOTE | 2016-08-31 18:04 | PROG NOTE ---
[address] [address] PROGRESS NOTE PATIENT: MARTÍNEZ BAUMANN : 1950 MR#: [id number] ADMIT: 08/24/2016 JOB ID: [id number] DATE: 08/31/2016 REASON FOR FOLLOWUP: C. Difficile colitis. INTERVAL HISTORY: Recall that this is a patient who was admitted with infection and encephalopathy one week ago. Initially, we felt that most likely her issues were related to her hepatic abscess and chronic cholecystitis, but imaging suggested that was not the case and we subsequently discovered the patient had C. difficile colitis. She has been placed on C. diff therapy and has dramatically improved. There were also concerns about possible encephalitis and a lumbar puncture was done but it was basically negative. This afternoon, I saw the patient on the torres just after she returned from dialysis. She tells me she is feeling completely back to normal. She denies headache, fever, chills, cough, nausea, vomiting or diarrhea. She states her dialysis went great, and she feels as if she is ready to be discharged. PHYSICAL EXAMINATION: Reveals an afebrile woman in no acute distress. She is smiling and interacting normally. Current temperature 36.6, pulse 67, respiratory rate 16, blood pressure 171/67. As noted, she is in no acute distress. She is awake, oriented x3 and lucid. Oral cavity negative. Lungs relatively clear anteriorly. Cardiac tones without new murmur. Abdomen benign. She has had no suprapubic fullness. Extremities without evidence of cellulitis or edema. LABORATORIES: Include a white count which has dropped to 20,000 from 30,000 yesterday, platelets 190, creatinine 5.68. She is on dialysis. LFTs are normal. Procalcitonin 1.29 which is probably not especially abnormal in view of her renal failure. Her spinal fluid had 1 white cell, normal glucose, normal protein. Herpes PCR was done on the spinal fluid and that is pending, but I am certain that will be negative. Stool was positive for C diff. CSF culture negative. MRSA screen negative. Blood cultures negative. Urine culture negative. CT scan of the abdomen showed colitis and apparent resolution of the hepatic abscess. IMPRESSION: This extremely complex woman who has been treated recently for hepatic abscess secondary to chronic cholecystitis was admitted with fever and encephalopathy. This turned out not to be due to the hepatic abscess but seems much improved by CT scan, but rather due to Clostridium difficile colitis caused by the antibiotics we were giving for the hepatic abscess. At this point, she has rapidly improved and we have no evidence for encephalitis as per our lumbar puncture and studies. RECOMMENDATIONS: 1. The patient's metronidazole could be switched to oral at any time. The dose would be the same 500 mg p.o. t.i.d. 2. I would continue with the Tygacil as long as she is here in the hospital but when she leaves, of course, this could be stopped as I think we were using it primarily as the 2nd or 3rd C. diff drug and also for treatment of the hepatic abscess which seems basically resolved. 3. I would continue with oral vancomycin for a total of a two week course. Because her C. diff was quite severe and was life-threatening, I would use 500 mg p.o. q.6 and continue that as mentioned through mid August. 4. We will check a random vancomycin level in the morning. Occasionally, people with end-stage renal disease absorb Vanco and we would not want that to occur without being aware of it so he could modify levels as needed.
--- NOTE | 2016-08-31 19:01 | PCM.PNMED ---
Subjective Date of Service Aug 31, 2016 Subjective Patient's family reports that she is doing better, and state she is at her baseline mentation. Patient reports that she is having some chills and is hungry, but has no other complaints. Pt denies any headache, nausea, vomiting. Exam Vital Signs Vital Sign - Last Date Time Temp Pulse Resp B/P Pulse Ox O2 Delivery O2 Flow Rate FiO2 08/31/16 17:24 36.8 66 16 166/70 97 Room Air Intake and Output 08/30/16 08/30/16 08/31/16 Cumulative From/Thru 15:00 23:00 07:00 08/24/16 11:25 - 08/30/16 20:58 Intake Total 2953 ml Output Total 0 ml 2002 ml Balance 0 ml 951 ml Intake Oral 30 ml IV Total 2823 ml Tube Irrigant 100 ml Output Urine Total 0 ml Stool Total 2 ml Gastric Drainage Total 0 ml 0 ml Ultrafiltrate 2000 ml # Voids 2 # Bowel Movements 2 19 Exam General: No acute distress, well-developed, well-nourished, appropriately interactive HEENT: Normocephalic, atraumatic. External ears without defect. Pupils equal, round, and reactive to light and accommodation. Anicteric sclerae, moist conjunctivae. Neck: Supple with full range of motion. Cardiovascular: Regular rate and rhythm with no murmurs, rubs, or gallops appreciated Pulmonary: Clear to auscultation bilaterally with no crackles, wheezes, or rhonchi. Normal respiratory effort with no use of accessory muscles. Abdomen: Bowel tones present. Soft, nontender, nondistended. Extremities: No clubbing, cyanosis, edema, or lymphadenopathy appreciated. Skin: Normal temperature, turgor, and texture; no rash, ulcers, or subcutaneous nodules appreciated. Psychiatric: Normal mood and affect. IVs and Medications Medications Reviewed: Medications were reviewed in detail Lab and Diagnostics Result Diagram: 08/31/16 0515 08/31/16 0500 Microbiology Microbiology DONNELL C DIF PCR STOOL Final 08/28/16-1236 CDIF DNA BY PCR POSITIVE TIME CALLED: 1235 DATE CALLED: 08/28/16 FLOOR/DOCTOR: CCU/DECEMBER A CALLED BY: VF REFERENCE INTERVAL NEGATIVE Organism 1 POS FOR CDIF TOXIN X-Rays, CTs and MRIs CT brain without contrast: IMPRESSION: 1. No acute intracranial findings. 2. Moderate findings likely associated with chronic microvascular ischemic changes. Assessment & Plan 1. Acute C. difficile toxin colitis, present on admission, improving -Currently on IV metronidazole, oral Vancomycin and Tygacil -ID has been consulted, and recommend metronidazole 500mg TID, Tygacil until discharged home, PO Vancomycin 500mg q 6 for 2 wk course. -Leukocytosis improving, trending downward. 2. Metabolic encephalopathy, present on admission, resolved -Per family, pt is at baseline -I have cared for this pt in the past, and she is at her baseline per my experience with her 3. End-stage renal disease, present on admission -Dialysis today -Nephrology involved in care, HD 3.5 hr, Q MWF. 4. Hypertension, POA. -Continue current BP meds: coreg, hydralazine, clonidine, aldactone and lisinopril per Nephrology 5. Recent history of liver abscess and cholecystitis -Continue to monitor 6. DVT prophylaxis -Subcutaneous heparin every 12 hours. VTE Mechanical Devices: Intermittant Pneumatic CD Resuscitation Status: CPR: Attempt Resuscitation Time spent 25 minutes Attending Statement I have seen and evaluated patient at bedside in addition to directly supervising care provided by resident physician. I agree with above documentation. Pt demonstrating significant clinical improvement with treatment of C. Diff. Anticipate discharge shortly with continued antibiotic therapy as per ID recommendations. Lisa Angel DO Aug 31, 2016 18:31 Kunal Story DO Aug 31, 2016 22:15
[2016-08-31] MEDS: Insulin GLARgine 100 Unit/mL Syringe SUBQ SCH (21:00)
[2016-09-01] VITALS (10 sets, daily range): BP systolic 117–190; BP diastolic 57–78; PULSE 54–70; RESP 16; O2SAT 96–99
[2016-09-01] MEDS: metroNIDAZOLE Inj 500 MG in IV Premix 1 EACH IV SCH (00:04)
[2016-09-01] MEDS: Vancomycin 100 mg/mL Oral Solution TUBE SCH ×4 (03:42→20:15)
[2016-09-01] MEDS: Benzocaine-Menthol Lozenge 2/Pkg PO SCH ×4 (06:30→20:16)
[2016-09-01] MEDS: Insulin LISPRO 300 Unit/3 mL Inj SUBQ SCH ×4 (08:00→20:16)
[2016-09-01 08:14] LABS: BASOPHILS % (AUTO) 0.5 % (0-3); EOSINOPHILS % (AUTO) 5.5 % (0-5); MONOCYTES % (AUTO) 10.6 % (4-12); Mean Corpuscular Hemoglobin 32.8 pg (27.0-35.0); Mean Corpuscular Volume 95.4 fL (81-100); NEUTROPHILS % (AUTO) 68.1 % (40-74); Platelet Count 195 bil/L (150-400)
[2016-09-01] MEDS: Pantoprazole 4 mg/mL 10 mL Inj IVPUSH SCH (08:36)
[2016-09-01] MEDS: Lisinopril 40 Tablet PEG SCH (08:36)
[2016-09-01] MEDS: Heparin 5,000 Unit/mL Inj SUBQ SCH ×2 (08:36→20:14)
[2016-09-01] MEDS: cloNIDine 0.1 mg Tablet PO SCH ×3 (08:36→20:14)
[2016-09-01] MEDS: Tigecycline Inj 50 MG in 0.9% Sodium Chloride 100 ML IV SCH ×2 (08:37→20:14)
--- NOTE | 2016-09-01 11:05 | PCM.PNMED ---
Subjective Date of Service Sep 01, 2016 Subjective Stable overnight. BP on the high side but improved. She has no new complaint today. She has not had watery diarrhea today. Exam Vital Signs Vital Sign - Last Date Time Temp Pulse Resp B/P Pulse Ox O2 Delivery O2 Flow Rate FiO2 09/01/16 10:52 59 09/01/16 10:21 36.7 16 163/74 97 Room Air Intake and Output 08/31/16 08/31/16 09/01/16 Cumulative From/Thru 15:00 23:00 07:00 08/24/16 11:25 - 09/01/16 06:33 Intake Total 0 ml 375 ml 356 ml 3684 ml Output Total 2000 ml 0 ml 0 ml 4002 ml Balance -2000 ml 375 ml 356 ml -318 ml Intake Oral 0 ml 250 ml 100 ml 380 ml IV Total 125 ml 256 ml 3204 ml Tube Irrigant 100 ml Output Urine Total 0 ml 0 ml 0 ml 0 ml Stool Total 2 ml Gastric Drainage Total 0 ml Ultrafiltrate 2000 ml 4000 ml # Voids 2 # Bowel Movements 2 0 1 22 Exam GA: AAOx3, belarusian speaking HEENT: mildly pale sclerae, atraumatic, moist mucous membrane. neck supple without adenopathy, thyromegaly or jugular venous distention. Lungs: CTA B/L, no wheezing, no rhonchi. Heart: RRR, systolic murmur noted. Abdomen: soft, NT, ND, no HSM, active BS. Extremities: no edema, cyanosis, clubbing of fingers, (+) right AVF with good thrill and bruit. Lab and Diagnostics Result Diagram: 09/01/1671909/01/16719 Microbiology Microbiology DONNELL C DIF PCR STOOL Final 08/28/16-1236 CDIF DNA BY PCR POSITIVE TIME CALLED: 1235 DATE CALLED: 08/28/16 FLOOR/DOCTOR: CCU/KEIKO A CALLED BY: VF REFERENCE INTERVAL NEGATIVE Organism 1 POS FOR CDIF TOXIN X-Rays, CTs and MRIs CT brain without contrast: IMPRESSION: 1. No acute intracranial findings. 2. Moderate findings likely associated with chronic microvascular ischemic changes. Assessment & Plan 1. ESRD on HD Q MWF. 2. C. difficile colitis. 3. Metabolic encephalopathy, resolved. 4. Hypertension with hypertensive nephrosclerosis. 5. Recent history of liver abscess status post drainage, and chronic cholecystitis. Plan: HD 3.5 hr, Q MWF. Continue current BP meds: coreg, hydralazine, clonidine, aldactone and lisinopril. check orthostatic BP. Will follow along with primary team. VTE Mechanical Devices: Intermittant Pneumatic CD Resuscitation Status: CPR: Attempt Resuscitation Aristides Stephens MD Sep 01, 2016 11:05
--- NOTE | 2016-09-01 12:15 | PROG NOTE ---
[address] [address] PROGRESS NOTE PATIENT: MARTÍNEZ BAUMANN : 1950 MR#: [id number] ADMIT: 08/24/2016 JOB ID: [id number] DATE: 09/01/2016 INFECTIOUS DISEASE FOLLOWUP NOTE: REASON FOR FOLLOWUP: C. difficile colitis. INTERVAL HISTORY: Overnight the patient reports no fevers, chills, or sweats. She has no cough or shortness of breath. She denies abdominal pain and additionally denies diarrhea. PHYSICAL EXAMINATION: Reveals an afebrile woman temp 36.7, pulse 59, respiratory rate 16, blood pressure 163/74. She is saturating well on room air. The patient's mental status is clear. Her lungs are quite clear bilaterally. Cardiac tones without new murmur. Abdomen soft and nontender. No skin rash noted. LABORATORIES: Include a white count of 11,000, down from 35,000 a couple of days ago. Her left shift is likewise gone. Creatinine 3.6. LFTs normal. Procalcitonin down to 1.09. A random vanc level was less than two, which is basically undetectable. Herpes PCR done on the spinal fluid was negative, and recall that we did a lumbar puncture last week that was unimpressive. Stool was positive for C. diff, as was previously noted. Cerebral spinal fluid cultures are negative. IMPRESSION: Recall that this is the complex woman we have been treating for hepatic abscess secondary to chronic cholecystitis who was readmitted last week with fever and encephalopathy. It was unclear initially whether this was due to herpetic abscess or gallbladder disease, a central nervous system infection, or some unrelated infectious process. It has now become clear that it was actually due to C. difficile colitis and she has improved dramatically on therapy. Given that the hepatic abscess basically seems to have resolved on CT scan, and the fact that the antibiotic she was getting for the hepatic abscess caused C. diff, it is probably time to be done with broad-spectrum antibiotics aimed at the liver abscess which had originally grown E. coli. She will need two weeks or slightly more of C. diff therapy. RECOMMENDATIONS: 1. The patient can receive Flagyl 500 p.o. t.i.d. as long as she is here in the hospital. 2. I would continue with Tygacil as long as she is here in the hospital as it probably serves to treat both the C. diff and the hepatic abscess, if any is remaining, but I would DC it obviously when she is ready to leave. 3. Oral Vancomycin should be continued for a total of about two weeks total course. The dose could probably be 250 q.i.d. In yesterday's note I recommended 500 q.i.d., but I think in view of her dramatic progress 250 q.i.d. would be adequate and that should finish a two-week course. 4. When she is ready to leave, I think both the metronidazole and the tigecycline can be stopped. 5. ID will go ahead and sign off as there are really no more active issues in this patient. Thank you very much for consulting me.
[2016-09-01] MEDS: hydrALAZINE 20 mg/mL Inj IV PRN (14:36)
--- NOTE | 2016-09-01 15:05 | PCM.PNMED ---
Subjective Date of Service Sep 01, 2016 Subjective Family reports that the patient is back to her baseline behavior. Patient denies any fevers, chills, nausea, vomiting, diarrhea or abdominal pain. She states that she is doing well. She denies any complaints. Exam Vital Signs Vital Sign - Last Date Time Temp Pulse Resp B/P Pulse Ox O2 Delivery O2 Flow Rate FiO2 09/01/16 05:05 36.6 70 16 154/72 96 Room Air Intake and Output 08/31/16 08/31/16 09/01/16 Cumulative From/Thru 15:00 23:00 07:00 08/24/16 11:25 - 09/01/16 06:33 Intake Total 0 ml 375 ml 356 ml 3684 ml Output Total 2000 ml 0 ml 0 ml 4002 ml Balance -2000 ml 375 ml 356 ml -318 ml Intake Oral 0 ml 250 ml 100 ml 380 ml IV Total 125 ml 256 ml 3204 ml Tube Irrigant 100 ml Output Urine Total 0 ml 0 ml 0 ml 0 ml Stool Total 2 ml Gastric Drainage Total 0 ml Ultrafiltrate 2000 ml 4000 ml # Voids 2 # Bowel Movements 2 0 1 22 Exam General: No acute distress, patient is resting in bed with blankets covering most of her body HEENT: Normocephalic, atraumatic. Anicteric sclerae, moist conjunctivae. Oropharynx with moist mucosa. Edentulous. Neck: Supple with full range of motion. Cardiovascular: Regular rate and rhythm. Systolic murmur auscultated. Pulmonary: Clear to auscultation bilaterally with no crackles, wheezes, or rhonchi. Normal respiratory effort with no use of accessory muscles. Abdomen: Nontender, nondistended, soft, normoactive bowel tones. Extremities: No clubbing, cyanosis, edema appreciated. Skin: Normal temperature, turgor, and texture Psychiatric: Alert and oriented to person. Answers questions recalls myself and medical team IVs and Medications Medications Reviewed: Medications were reviewed in detail Lab and Diagnostics Result Diagram: 08/31/16 0515 08/31/16 0500 Microbiology Microbiology DONNELL C DIF PCR STOOL Final 08/28/16-1236 CDIF DNA BY PCR POSITIVE TIME CALLED: 1235 DATE CALLED: 08/28/16 FLOOR/DOCTOR: CCU/December CALLED BY: VF REFERENCE INTERVAL NEGATIVE Organism 1 POS FOR CDIF TOXIN X-Rays, CTs and MRIs CT brain without contrast: IMPRESSION: 1. No acute intracranial findings. 2. Moderate findings likely associated with chronic microvascular ischemic changes. Assessment & Plan 1. Acute C. difficile toxin colitis, present on admission, improving -Currently on IV metronidazole, oral Vancomycin and Tygacil -ID has been consulted, and recommend metronidazole 500mg TID and Tygacil and Vanco 500mg q 6 until discharged home.Upon dc, will continue PO Vancomycin 250mg QID, to end 09/11/16. -WBC trending down appropriately -Bowel movements have been decreasing appropriately, and pt denies any abdominal pain. -Daily AM labs 2. Metabolic encephalopathy, present on admission, resolved -Per family, pt is at baseline -I have cared for this pt in the past, and she is at her baseline per my experience with her -Speech evaluation to be performed, to assess if pt is able to eat. Once we have recommendations, will alter diet. 3. End-stage renal disease, present on admission -Nephrology involved in care, HD 3.5 hr, Q MWF. 4. Hypertension, POA. -Continue current BP -Current meds: coreg, hydralazine, clonidine, aldactone and lisinopril per Nephrology -Will check orthostatic blood pressures in the AM 5. Recent history of liver abscess and cholecystitis -Continue to monitor for signs of worsening, or flare 6. DVT prophylaxis -Subcutaneous heparin every 12 hours. Disposition: To [facility]. VTE Mechanical Devices: Intermittant Pneumatic CD Resuscitation Status: CPR: Attempt Resuscitation Attending Statement The patient was seen and examined together with Dr. Angel on 09/01/2016 and I agree with the history, exam and plan as outlined in the note above. Lisa Angel DO Sep 01, 2016 06:46 Weston Montes MD Sep 02, 2016 10:22
[2016-09-01] MEDS ORDERED: 0.9% Sodium Chloride 250 ML ONE (20:12)
[2016-09-01] MEDS: Insulin GLARgine 100 Unit/mL Syringe SUBQ SCH (20:15)
[2016-09-02] VITALS (8 sets, daily range): BP systolic 147–184; BP diastolic 65–74; PULSE 53–67; RESP 16–18; O2SAT 97–100
[2016-09-02] MEDS: Vancomycin 100 mg/mL Oral Solution TUBE SCH ×4 (03:43→21:27)
[2016-09-02 06:32] LABS: BASOPHILS % (AUTO) 0.4 % (0-3); EOSINOPHILS % (AUTO) 3.3 % (0-5); MONOCYTES % (AUTO) 14.3 % (4-12); Mean Corpuscular Hemoglobin 32.5 pg (27.0-35.0); NEUTROPHILS % (AUTO) 66.3 % (40-74); Platelet Count 208 bil/L (150-400)
[2016-09-02] MEDS: Insulin LISPRO 300 Unit/3 mL Inj SUBQ SCH ×4 (09:46→21:24)
[2016-09-02] MEDS: Tigecycline Inj 50 MG in 0.9% Sodium Chloride 100 ML IV SCH ×2 (09:46→21:27)
[2016-09-02] MEDS: Benzocaine-Menthol Lozenge 2/Pkg PO SCH ×4 (09:49→21:28)
[2016-09-02] MEDS: Heparin 5,000 Unit/mL Inj SUBQ SCH ×2 (09:50→21:22)
[2016-09-02] MEDS: cloNIDine 0.1 mg Tablet PO SCH ×3 (09:51→21:28)
[2016-09-02] MEDS: Lisinopril 40 Tablet PO SCH (09:51)
[2016-09-02] MEDS: Pantoprazole 4 mg/mL 10 mL Inj IVPUSH SCH (09:52)
--- NOTE | 2016-09-02 14:11 | PCM.PNMED ---
Subjective Date of Service Sep 02, 2016 Subjective Patient reports that she is doing well. Patient's only complaint this morning, is that she is feeling very cold. Patient's reports that he feels she is doing much better. He states that she has been eating well and resting at night. Per nursing noted no concerns overnight. Exam Vital Signs Vital Sign - Last Date Time Temp Pulse Resp B/P Pulse Ox O2 Delivery O2 Flow Rate FiO2 09/02/16 05:12 36.8 56 16 172/74 100 Room Air Intake and Output 09/01/16 09/01/16 09/02/16 Cumulative From/Thru 15:00 23:00 07:00 08/24/16 11:25 - 09/02/16 06:45 Intake Total 118 ml 153 ml 3955 ml Output Total 0 ml 0 ml 4002 ml Balance 118 ml 153 ml -47 ml Intake Oral 118 ml 0 ml 498 ml IV Total 153 ml 3357 ml Tube Irrigant 100 ml Output Urine Total 0 ml 0 ml 0 ml Stool Total 2 ml Gastric Drainage Total 0 ml Ultrafiltrate 4000 ml # Voids 2 # Bowel Movements 0 0 22 Exam General: No acute distress, patient is smiling and interactive, resting in bed covered in blankets. HEENT: Normocephalic, atraumatic. Anicteric sclerae, moist conjunctivae. Oropharynx with moist mucosa. Edentulous. Neck: Supple with full range of motion. Cardiovascular: Regular rate and rhythm. Systolic murmur auscultated. Pulmonary: Clear to auscultation bilaterally with no crackles, wheezes, or rhonchi. Normal respiratory effort with no use of accessory muscles. Abdomen: Nontender, nondistended, soft, normoactive bowel tones. Extremities: No clubbing, cyanosis, edema appreciated. Skin: Normal temperature, turgor, and texture Psychiatric: Alert and oriented to person. Patient recognizes me as I entered the room, and is appropriately interactive. IVs and Medications Medications Reviewed: Medications were reviewed in detail Lab and Diagnostics Result Diagram: 09/02/1651409/02/16514 Microbiology Microbiology DONNELL C DIF PCR STOOL Final 08/28/16-1236 CDIF DNA BY PCR POSITIVE TIME CALLED: 1235 DATE CALLED: 08/28/16 FLOOR/DOCTOR: CCU/December CALLED BY: VF REFERENCE INTERVAL NEGATIVE Organism 1 POS FOR CDIF TOXIN X-Rays, CTs and MRIs PROCEDURE: CT BRAIN WITHOUT CONTRAST ([id number]) INDICATIONS: new mental status change TECHNIQUE: Noncontrast 4.5 mm thick angled axial sections acquired from the foramen magnum to the vertex, with coronal reformats. COMPARISON: [facility], CT, CT BRAIN WO CON, 08/24/2016, 13:39. FINDINGS: Image quality: Excellent. CSF spaces: Basal cisterns are patent. No extra-axial fluid collections. The ventricles are symmetric in size and shape. Brain: No intracranial bleeds or masses. There is cerebral volume loss for age , with resultant ventricular and sulcal prominence. There are periventricular and deep white matter chronic small vessel ischemic changes. There is intracranial internal carotid artery atherosclerosis. Skull and face: Calvarium and visualized facial bones appear intact, without suspicious lesions. Sinuses: Visualized sinuses and mastoids are clear. IMPRESSION: No acute intracranial process Dictated by: Oumar Whitfield M.D. on 08/27/2016 at 19:33 Approved by: Oumar Whitfield M.D. on 08/27/2016 at 19:36 PROCEDURE: MRI BRAIN WITHOUT CONTRAST ([id number]) INDICATIONS: confusion TECHNIQUE: Non-contrast axial T1 spin echo, axial T2 fast spin echo, sagittal and axial FLAIR, coronal T2 fast spin echo, axial gradient echo, axial diffusion and ADC through the brain. COMPARISON: None. FINDINGS: Image quality: Degraded by motion artifact CSF spaces: Ventricles appear symmetric in size and shape. Basal cisterns are patent. No extra-axial fluid collections. Brain: No intracranial bleeds or mass effects. There is cerebral volume loss for age. There are periventricular and deep white matter chronic small vessel ischemic changes. Brainstem appears normal. Diffusion-weighted images show no acute ischemic insults. No chronic ischemic insults. Normal intravascular flow voids are present. Skull and face: Calvarial bone marrow is normal in signal. Orbits are normal. Sinuses: Sinuses and mastoids are clear. IMPRESSION: Severely motion degraded examination. No evidence of acute ischemia. Bilateral white matter signal changes presumably chronic age-related microvascular ischemic disease. Dictated by: Oumar Whitfield M.D. on 08/27/2016 at 19:58 Approved by: Oumar Whitfield M.D. on 08/27/2016 at 20:02 PROCEDURE: CT ABDOMEN AND PELVIS WITH CONTRAST ([id number]) INDICATIONS: cholecystitis TECHNIQUE: After the administration of intravenous contrast, 5 mm thick sections acquired from the diaphragm to the symphysis. 5 mm coronal and sagittal reformats were acquired. For radiation dose reduction, the following was used: automated exposure control, adjustment of mA and/or kV according to patient size. COMPARISON: [facility], CT, CT ABD PELVIS W CON, 03/28/2016, 6:25. FINDINGS: Image quality: Excellent. ABDOMEN: Lung bases: Lung bases are clear. Heart size is mildly enlarged. Solid organs: The liver demonstrates overall homogeneous enhancement. A wedge- shaped hypodensity is present in the previous location of the intrahepatic drain in hepatic segment V. No discrete fluid collection persists. Focal fat is present in the falciform ligament. The spleen demonstrates normal size and enhancement. The adrenal glands are unremarkable. Bilateral kidneys are atrophic. The pancreas demonstrates homogeneous enhancement and normal size. There is mild gallbladder wall thickening and trace pericholecystic fluid. Gallstones are present in the fundus. Peritoneum and bowel: The stomach is decompressed. The small bowel demonstrates normal caliber and wall thickness. There is diffuse mucosal thickening throughout the entire colon and hyperemia of the mucosa. The mucosa is markedly thickened in the rectosigmoid region. No free fluid or pneumoperitoneum. Nodes and vessels: No retroperitoneal or mesenteric adenopathy by size criteria. Aorta and inferior vena cava are normal in size. Miscellaneous: No ventral hernias. PELVIS: Genitourinary: Bladder is partially distended and the wall is thickened. The uterus and ovaries are grossly unremarkable. Miscellaneous: No inguinal hernias or adenopathy. Bones: No suspicious bony lesions. No vertebral body compression fractures. IMPRESSION: 1. Resolution of the previously visualized intrahepatic abscess. The drain has been removed. 2. Mild gallbladder wall thickening pericholecystic fluid. These findings are decreased in extent when compared with multiple prior studies suggesting at least partial resolution of the prior cholecystitis. 3. Diffuse colonic mucosal thickening. Given the extent of colitis and a prolonged hospitalization, C. difficile colitis is suspected. 4. Bladder wall thickening which may be associated with cystitis or reactive changes secondary to the associated mucosal thickening of the bowel. These findings were discussed with Dr. Barry on 08/28/16. Dictated by: Gina Zepeda M.D. on 08/28/2016 at 13:03 Approved by: Gina Zepeda M.D. on 08/28/2016 at 13:26 Additional Diagnostics PROCEDURE: US BILATERAL DUPLEX DOPPLER IMAGING OF THE CAROTIDS ([id number]) INDICATIONS: Evaluate stroke follow up TECHNIQUE: Color and pulse Doppler interrogation was performed of both carotid systems, with image documentation and velocity measurements. COMPARISON: None. FINDINGS: All stenosis calculations are based on NASCET criteria. IMPRESSION: Less than 50% bilateral internal carotid artery stenosis. Hypertension at time of examination. Dictated by: Tariq CERDA Interpreted: Petr Messina MD on 08/25/2016 at 16: 38 Transcribed by: VONDA on 08/25/2016 at 16:39 Approved by: Valentín Messina M.D. on 08/25/2016 at 17:02 PROCEDURE: US ABDOMEN, LIMITED ([id number]) INDICATIONS: F/U liver abscess & chronic cholecystitis TECHNIQUE: Real-time focused scanning was performed of the abdomen, with image documentation. COMPARISON: [facility], CT, CT ABD W CON, 07/27/2016, 12:56. [facility], CT, CT ABD WO CON, 08/03/2016, 12:11. FINDINGS: There is a small residual intrahepatic hypoechoic collection anterolateral to the gallbladder measuring approximately 1.6 x 1.0 x 1.5 cm, decreased from 2.6 x 2.0 x 3.7 cm on the prior study. Multiple shadowing gallstones are demonstrated in the gallbladder including a large stone in the region of the gallbladder neck. There is gallbladder wall thickening measuring up to 1.6 cm the findings are consistent patient's history of cholecystitis. No intrahepatic or extrahepatic biliary ductal dilatation. The common bile duct measures approximately 5-6 mm. IMPRESSION: 1. Decrease in size of intrahepatic abscess collection with a small residual collection as described. 2. Cholelithiasis and findings consistent with cholecystitis redemonstrated. Dictated by: Stanley Shelton M.D. on 08/25/2016 at 19:03 Approved by: Stanley Shelton M.D. on 08/25/2016 at 19:21 Assessment & Plan Acute C. difficile toxin colitis, present on admission, improving -Currently on IV metronidazole, oral Vancomycin and Tygacil -ID has been consulted, and recommend metronidazole 500mg TID and Tygacil and Vanco 500mg q 6 until discharged home.Upon dc, will continue PO Vancomycin 250mg QID, to end 09/11/16. -WBC trending down appropriately -Bowel movements have been decreasing appropriately(only 1 bowel movement yesterday), and pt denies any abdominal pain. -Daily AM labs End-stage renal disease, present on admission -Nephrology involved in care, HD 3.5 hr, Q MWF. Hypertension, POA. -Blood pressure continues to be elevated. -Discussed case with Nephrology, who recommend starting patient on 5mg of Minoxidil, and if needed we will consider increasing this to BID tomorrow. -Current meds: coreg, hydralazine, clonidine, Aldactone and lisinopril per Nephrology Metabolic encephalopathy, present on admission, resolved -Per family, pt is at baseline -I have cared for this pt in the past, and she is at her baseline per my experience with her -Speech evaluation performed patient able to eat pured thin Recent history of liver abscess and cholecystitis -Continue to monitor for signs of worsening, or flare DVT prophylaxis -Subcutaneous heparin every 12 hours. Disposition: To [facility], likely tomorrow VTE Mechanical Devices: Intermittant Pneumatic CD Resuscitation Status: CPR: Attempt Resuscitation Attending Statement The patient was seen and examined together with Dr. Angel on 09/02/2016 and I agree with the history, exam and plan as outlined in the note above. Lisa Angel DO Sep 02, 2016 06:51 Weston Montes MD Sep 03, 2016 10:11
[2016-09-02] MEDS: Insulin GLARgine 100 Unit/mL Syringe SUBQ SCH (21:26)
[2016-09-03] VITALS (10 sets, daily range): BP systolic 85–105; BP diastolic 44–55; PULSE 52–70; RESP 16–18; O2SAT 98–99
[2016-09-03] MEDS: Vancomycin 100 mg/mL Oral Solution TUBE SCH ×4 (02:38→20:08)
[2016-09-03 06:35] LABS: BASOPHILS % (AUTO) 0.7 % (0-3); EOSINOPHILS % (AUTO) 2.6 % (0-5); MONOCYTES % (AUTO) 14.5 % (4-12); Mean Corpuscular Hemoglobin 32.3 pg (27.0-35.0); Mean Corpuscular Volume 95.4 fL (81-100); NEUTROPHILS % (AUTO) 61.4 % (40-74); Platelet Count 210 bil/L (150-400)
[2016-09-03] MEDS: Benzocaine-Menthol Lozenge 2/Pkg PO SCH ×4 (06:40→23:58)
[2016-09-03] MEDS: Pantoprazole 4 mg/mL 10 mL Inj IVPUSH SCH (06:40)
[2016-09-03] MEDS: Insulin LISPRO 300 Unit/3 mL Inj SUBQ SCH ×4 (08:00→22:00)
[2016-09-03] MEDS: Lisinopril 40 Tablet PO SCH (08:30)
[2016-09-03] MEDS: cloNIDine 0.1 mg Tablet PO SCH (08:30)
[2016-09-03] MEDS: Tigecycline Inj 50 MG in 0.9% Sodium Chloride 100 ML IV SCH ×2 (08:31→20:08)
[2016-09-03] MEDS: Heparin 5,000 Unit/mL Inj SUBQ SCH ×2 (08:55→20:08)
[2016-09-03] MEDS ORDERED: 0.9% Sodium Chloride 250 ML IV ONE (10:00)
--- NOTE | 2016-09-03 12:30 | PCM.PNMED ---
Subjective Date of Service Sep 03, 2016 Subjective Hypertensive while on HD yesterday. This morning BP dropped to 85 sBP, asymptomatic. Exam Vital Signs Vital Sign - Last Date Time Temp Pulse Resp B/P Pulse Ox O2 Delivery O2 Flow Rate FiO2 09/03/16 08:22 85/46 09/03/16 08:00 52 09/03/16 00:59 36.4 16 99 Room Air Intake and Output 09/02/16 09/02/16 09/03/16 Cumulative From/Thru 14:59 22:59 06:59 08/24/16 11:25 - 09/03/16 06:26 Intake Total 450 ml 0 ml 4405 ml Output Total 2000 ml 0 ml 0 ml 6002 ml Balance -2000 ml 450 ml 0 ml -1597 ml Intake Oral 450 ml 0 ml 948 ml IV Total 3357 ml Tube Irrigant 100 ml Output Urine Total 0 ml 0 ml 0 ml Stool Total 2 ml Gastric Drainage Total 0 ml Ultrafiltrate 2000 ml 6000 ml # Voids 2 # Bowel Movements 22 Exam GA: AAOx3, yi speaking HEENT: mildly pale sclerae, atraumatic, moist mucous membrane. neck supple without adenopathy, thyromegaly or jugular venous distention. Lungs: CTA B/L, no wheezing, no rhonchi. Heart: RRR, systolic murmur noted. Abdomen: soft, NT, ND, no HSM, active BS. Extremities: no edema, cyanosis, clubbing of fingers, (+) right AVF with good thrill and bruit. Lab and Diagnostics Result Diagram: 09/03/16 0540 09/03/16 0540 Microbiology Microbiology DONNELL C DIF PCR STOOL Final 08/28/16-1236 CDIF DNA BY PCR POSITIVE TIME CALLED: 1235 DATE CALLED: 08/28/16 FLOOR/DOCTOR: CCU/December CALLED BY: VF REFERENCE INTERVAL NEGATIVE Organism 1 POS FOR CDIF TOXIN X-Rays, CTs and MRIs PROCEDURE: CT BRAIN WITHOUT CONTRAST ([id number]) INDICATIONS: new mental status change TECHNIQUE: Noncontrast 4.5 mm thick angled axial sections acquired from the foramen magnum to the vertex, with coronal reformats. COMPARISON: [facility], CT, CT BRAIN WO CON, 08/24/2016, 13:39. FINDINGS: Image quality: Excellent. CSF spaces: Basal cisterns are patent. No extra-axial fluid collections. The ventricles are symmetric in size and shape. Brain: No intracranial bleeds or masses. There is cerebral volume loss for age , with resultant ventricular and sulcal prominence. There are periventricular and deep white matter chronic small vessel ischemic changes. There is intracranial internal carotid artery atherosclerosis. Skull and face: Calvarium and visualized facial bones appear intact, without suspicious lesions. Sinuses: Visualized sinuses and mastoids are clear. IMPRESSION: No acute intracranial process Dictated by: Oumar Whitfield M.D. on 08/27/2016 at 19:33 Approved by: Oumar Whitfield M.D. on 08/27/2016 at 19:36 PROCEDURE: MRI BRAIN WITHOUT CONTRAST ([id number]) INDICATIONS: confusion TECHNIQUE: Non-contrast axial T1 spin echo, axial T2 fast spin echo, sagittal and axial FLAIR, coronal T2 fast spin echo, axial gradient echo, axial diffusion and ADC through the brain. COMPARISON: None. FINDINGS: Image quality: Degraded by motion artifact CSF spaces: Ventricles appear symmetric in size and shape. Basal cisterns are patent. No extra-axial fluid collections. Brain: No intracranial bleeds or mass effects. There is cerebral volume loss for age. There are periventricular and deep white matter chronic small vessel ischemic changes. Brainstem appears normal. Diffusion-weighted images show no acute ischemic insults. No chronic ischemic insults. Normal intravascular flow voids are present. Skull and face: Calvarial bone marrow is normal in signal. Orbits are normal. Sinuses: Sinuses and mastoids are clear. IMPRESSION: Severely motion degraded examination. No evidence of acute ischemia. Bilateral white matter signal changes presumably chronic age-related microvascular ischemic disease. Dictated by: Oumar Whitfield M.D. on 08/27/2016 at 19:58 Approved by: Oumar Whitfield M.D. on 08/27/2016 at 20:02 PROCEDURE: CT ABDOMEN AND PELVIS WITH CONTRAST ([id number]) INDICATIONS: cholecystitis TECHNIQUE: After the administration of intravenous contrast, 5 mm thick sections acquired from the diaphragm to the symphysis. 5 mm coronal and sagittal reformats were acquired. For radiation dose reduction, the following was used: automated exposure control, adjustment of mA and/or kV according to patient size. COMPARISON: [facility], CT, CT ABD PELVIS W CON, 03/28/2016, 6:25. FINDINGS: Image quality: Excellent. ABDOMEN: Lung bases: Lung bases are clear. Heart size is mildly enlarged. Solid organs: The liver demonstrates overall homogeneous enhancement. A wedge- shaped hypodensity is present in the previous location of the intrahepatic drain in hepatic segment V. No discrete fluid collection persists. Focal fat is present in the falciform ligament. The spleen demonstrates normal size and enhancement. The adrenal glands are unremarkable. Bilateral kidneys are atrophic. The pancreas demonstrates homogeneous enhancement and normal size. There is mild gallbladder wall thickening and trace pericholecystic fluid. Gallstones are present in the fundus. Peritoneum and bowel: The stomach is decompressed. The small bowel demonstrates normal caliber and wall thickness. There is diffuse mucosal thickening throughout the entire colon and hyperemia of the mucosa. The mucosa is markedly thickened in the rectosigmoid region. No free fluid or pneumoperitoneum. Nodes and vessels: No retroperitoneal or mesenteric adenopathy by size criteria. Aorta and inferior vena cava are normal in size. Miscellaneous: No ventral hernias. PELVIS: Genitourinary: Bladder is partially distended and the wall is thickened. The uterus and ovaries are grossly unremarkable. Miscellaneous: No inguinal hernias or adenopathy. Bones: No suspicious bony lesions. No vertebral body compression fractures. IMPRESSION: 1. Resolution of the previously visualized intrahepatic abscess. The drain has been removed. 2. Mild gallbladder wall thickening pericholecystic fluid. These findings are decreased in extent when compared with multiple prior studies suggesting at least partial resolution of the prior cholecystitis. 3. Diffuse colonic mucosal thickening. Given the extent of colitis and a prolonged hospitalization, C. difficile colitis is suspected. 4. Bladder wall thickening which may be associated with cystitis or reactive changes secondary to the associated mucosal thickening of the bowel. These findings were discussed with Dr. Barry on 08/28/16. Dictated by: Gina Zepeda M.D. on 08/28/2016 at 13:03 Approved by: Gina Zepeda M.D. on 08/28/2016 at 13:26 Additional Diagnostics PROCEDURE: US BILATERAL DUPLEX DOPPLER IMAGING OF THE CAROTIDS ([id number]) INDICATIONS: Evaluate stroke follow up TECHNIQUE: Color and pulse Doppler interrogation was performed of both carotid systems, with image documentation and velocity measurements. COMPARISON: None. FINDINGS: All stenosis calculations are based on NASCET criteria. IMPRESSION: Less than 50% bilateral internal carotid artery stenosis. Hypertension at time of examination. Dictated by: Tariq Mendoza RRA Interpreted: Petr Messina MD on 08/25/2016 at 16: 38 Transcribed by: VONDA on 08/25/2016 at 16:39 Approved by: Valentín Messina M.D. on 08/25/2016 at 17:02 PROCEDURE: US ABDOMEN, LIMITED ([id number]) INDICATIONS: F/U liver abscess & chronic cholecystitis TECHNIQUE: Real-time focused scanning was performed of the abdomen, with image documentation. COMPARISON: [facility], CT, CT ABD W CON, 07/27/2016, 12:56. [facility], CT, CT ABD WO CON, 08/03/2016, 12:11. FINDINGS: There is a small residual intrahepatic hypoechoic collection anterolateral to the gallbladder measuring approximately 1.6 x 1.0 x 1.5 cm, decreased from 2.6 x 2.0 x 3.7 cm on the prior study. Multiple shadowing gallstones are demonstrated in the gallbladder including a large stone in the region of the gallbladder neck. There is gallbladder wall thickening measuring up to 1.6 cm the findings are consistent patient's history of cholecystitis. No intrahepatic or extrahepatic biliary ductal dilatation. The common bile duct measures approximately 5-6 mm. IMPRESSION: 1. Decrease in size of intrahepatic abscess collection with a small residual collection as described. 2. Cholelithiasis and findings consistent with cholecystitis redemonstrated. Dictated by: Stanley Shelton M.D. on 08/25/2016 at 19:03 Approved by: Stanley Shelton M.D. on 08/25/2016 at 19:21 Assessment & Plan 1. ESRD on HD Q MWF. 2. C. difficile colitis. 3. Metabolic encephalopathy, resolved. 4. Hypertension with hypertensive nephrosclerosis. - uncontrolled. 5. Recent history of liver abscess status post drainage, and chronic cholecystitis. Plan: HD 3.5 hr, Q MWF. BP meds adjusted, hilaria Angel. monitor her BP for another 12-24 hr. likely d/c home in am. VTE Mechanical Devices: Intermittant Pneumatic CD Resuscitation Status: CPR: Attempt Resuscitation Aristides Stephens MD Sep 03, 2016 12:29
--- NOTE | 2016-09-03 15:38 | PCM.PNMED ---
Subjective Date of Service Sep 03, 2016 Subjective This morning patient reports that she is very fatigued and weak. Patient denies any nausea vomiting diarrhea or abdominal pain. Patient denies any headache change in vision. Upon rechecking the patient in the afternoon she was much more alert and responsive. Per patient's family, she is acting at her baseline, and they have no concerns at this time. Exam Vital Signs Vital Sign - Last Date Time Temp Pulse Resp B/P Pulse Ox O2 Delivery O2 Flow Rate FiO2 09/03/16 14:09 90/48 09/03/16 08:00 52 09/03/16 07:30 Supplement Oxygen 09/03/16 00:59 36.4 16 99 Intake and Output 09/02/16 09/02/16 09/03/16 Cumulative From/Thru 15:00 23:00 07:00 08/24/16 11:25 - 09/03/16 06:26 Intake Total 450 ml 0 ml 4405 ml Output Total 2000 ml 0 ml 0 ml 6002 ml Balance -2000 ml 450 ml 0 ml -1597 ml Intake Oral 450 ml 0 ml 948 ml IV Total 3357 ml Tube Irrigant 100 ml Output Urine Total 0 ml 0 ml 0 ml Stool Total 2 ml Gastric Drainage Total 0 ml Ultrafiltrate 2000 ml 6000 ml # Voids 2 # Bowel Movements 22 Exam General: No acute distress, patient is somewhat somnolent lying in bed in the morning, in the afternoon she is sitting up talking with her family. HEENT: Normocephalic, atraumatic. Anicteric sclerae, moist conjunctivae. Oropharynx with moist mucosa. Edentulous. Neck: Supple with full range of motion. Cardiovascular: Regular rate and rhythm. Systolic murmur auscultated. Pulmonary: Clear to auscultation bilaterally with no crackles, wheezes, or rhonchi. Normal respiratory effort with no use of accessory muscles. Abdomen: Nontender, nondistended, soft, normoactive bowel tones. Extremities: No clubbing, cyanosis, edema appreciated. Skin: Normal temperature, turgor, and texture Psychiatric: Alert and oriented to person. Patient recognizes me as I entered the room, and is appropriately interactive. IVs and Medications IV Fluids 250 mL bolus given this a.m. Medications Reviewed: Medications were reviewed in detail Lab and Diagnostics Result Diagram: 09/03/1640 09/03/16 0540 Microbiology Microbiology DONNELL C DIF PCR STOOL Final 08/28/16-1236 CDIF DNA BY PCR POSITIVE TIME CALLED: 123 DATE CALLED: 08/28/16 FLOOR/DOCTOR: CCU/December CALLED BY: VF REFERENCE INTERVAL NEGATIVE Organism 1 POS FOR CDIF TOXIN X-Rays, CTs and MRIs PROCEDURE: CT BRAIN WITHOUT CONTRAST ([id number]) INDICATIONS: new mental status change TECHNIQUE: Noncontrast 4.5 mm thick angled axial sections acquired from the foramen magnum to the vertex, with coronal reformats. COMPARISON: [facility], CT, CT BRAIN WO CON, 08/24/2016, 13:39. FINDINGS: Image quality: Excellent. CSF spaces: Basal cisterns are patent. No extra-axial fluid collections. The ventricles are symmetric in size and shape. Brain: No intracranial bleeds or masses. There is cerebral volume loss for age , with resultant ventricular and sulcal prominence. There are periventricular and deep white matter chronic small vessel ischemic changes. There is intracranial internal carotid artery atherosclerosis. Skull and face: Calvarium and visualized facial bones appear intact, without suspicious lesions. Sinuses: Visualized sinuses and mastoids are clear. IMPRESSION: No acute intracranial process Dictated by: Oumar Whitfield M.D. on 08/27/2016 at 19:33 Approved by: Oumar Whitfield M.D. on 08/27/2016 at 19:36 PROCEDURE: MRI BRAIN WITHOUT CONTRAST ([id number]) INDICATIONS: confusion TECHNIQUE: Non-contrast axial T1 spin echo, axial T2 fast spin echo, sagittal and axial FLAIR, coronal T2 fast spin echo, axial gradient echo, axial diffusion and ADC through the brain. COMPARISON: None. FINDINGS: Image quality: Degraded by motion artifact CSF spaces: Ventricles appear symmetric in size and shape. Basal cisterns are patent. No extra-axial fluid collections. Brain: No intracranial bleeds or mass effects. There is cerebral volume loss for age. There are periventricular and deep white matter chronic small vessel ischemic changes. Brainstem appears normal. Diffusion-weighted images show no acute ischemic insults. No chronic ischemic insults. Normal intravascular flow voids are present. Skull and face: Calvarial bone marrow is normal in signal. Orbits are normal. Sinuses: Sinuses and mastoids are clear. IMPRESSION: Severely motion degraded examination. No evidence of acute ischemia. Bilateral white matter signal changes presumably chronic age-related microvascular ischemic disease. Dictated by: Oumar Whitfield M.D. on 08/27/2016 at 19:58 Approved by: Oumar Whitfield M.D. on 08/27/2016 at 20:02 PROCEDURE: CT ABDOMEN AND PELVIS WITH CONTRAST ([id number]) INDICATIONS: cholecystitis TECHNIQUE: After the administration of intravenous contrast, 5 mm thick sections acquired from the diaphragm to the symphysis. 5 mm coronal and sagittal reformats were acquired. For radiation dose reduction, the following was used: automated exposure control, adjustment of mA and/or kV according to patient size. COMPARISON: [facility], CT, CT ABD PELVIS W CON, 03/28/2016, 6:25. FINDINGS: Image quality: Excellent. ABDOMEN: Lung bases: Lung bases are clear. Heart size is mildly enlarged. Solid organs: The liver demonstrates overall homogeneous enhancement. A wedge- shaped hypodensity is present in the previous location of the intrahepatic drain in hepatic segment V. No discrete fluid collection persists. Focal fat is present in the falciform ligament. The spleen demonstrates normal size and enhancement. The adrenal glands are unremarkable. Bilateral kidneys are atrophic. The pancreas demonstrates homogeneous enhancement and normal size. There is mild gallbladder wall thickening and trace pericholecystic fluid. Gallstones are present in the fundus. Peritoneum and bowel: The stomach is decompressed. The small bowel demonstrates normal caliber and wall thickness. There is diffuse mucosal thickening throughout the entire colon and hyperemia of the mucosa. The mucosa is markedly thickened in the rectosigmoid region. No free fluid or pneumoperitoneum. Nodes and vessels: No retroperitoneal or mesenteric adenopathy by size criteria. Aorta and inferior vena cava are normal in size. Miscellaneous: No ventral hernias. PELVIS: Genitourinary: Bladder is partially distended and the wall is thickened. The uterus and ovaries are grossly unremarkable. Miscellaneous: No inguinal hernias or adenopathy. Bones: No suspicious bony lesions. No vertebral body compression fractures. IMPRESSION: 1. Resolution of the previously visualized intrahepatic abscess. The drain has been removed. 2. Mild gallbladder wall thickening pericholecystic fluid. These findings are decreased in extent when compared with multiple prior studies suggesting at least partial resolution of the prior cholecystitis. 3. Diffuse colonic mucosal thickening. Given the extent of colitis and a prolonged hospitalization, C. difficile colitis is suspected. 4. Bladder wall thickening which may be associated with cystitis or reactive changes secondary to the associated mucosal thickening of the bowel. These findings were discussed with Dr. Barry on 08/28/16. Dictated by: Gina Zepeda M.D. on 08/28/2016 at 13:03 Approved by: Gina Zepeda M.D. on 08/28/2016 at 13:26 Additional Diagnostics PROCEDURE: US BILATERAL DUPLEX DOPPLER IMAGING OF THE CAROTIDS ([id number]) INDICATIONS: Evaluate stroke follow up TECHNIQUE: Color and pulse Doppler interrogation was performed of both carotid systems, with image documentation and velocity measurements. COMPARISON: None. FINDINGS: All stenosis calculations are based on NASCET criteria. IMPRESSION: Less than 50% bilateral internal carotid artery stenosis. Hypertension at time of examination. Dictated by: Tariq CERDA Interpreted: Petr Messina MD on 08/25/2016 at 16: 38 Transcribed by: VONDA on 08/25/2016 at 16:39 Approved by: Valentín Messina M.D. on 08/25/2016 at 17:02 PROCEDURE: US ABDOMEN, LIMITED ([id number]) INDICATIONS: F/U liver abscess & chronic cholecystitis TECHNIQUE: Real-time focused scanning was performed of the abdomen, with image documentation. COMPARISON: [facility], CT, CT ABD W CON, 07/27/2016, 12:56. [facility], CT, CT ABD WO CON, 08/03/2016, 12:11. FINDINGS: There is a small residual intrahepatic hypoechoic collection anterolateral to the gallbladder measuring approximately 1.6 x 1.0 x 1.5 cm, decreased from 2.6 x 2.0 x 3.7 cm on the prior study. Multiple shadowing gallstones are demonstrated in the gallbladder including a large stone in the region of the gallbladder neck. There is gallbladder wall thickening measuring up to 1.6 cm the findings are consistent patient's history of cholecystitis. No intrahepatic or extrahepatic biliary ductal dilatation. The common bile duct measures approximately 5-6 mm. IMPRESSION: 1. Decrease in size of intrahepatic abscess collection with a small residual collection as described. 2. Cholelithiasis and findings consistent with cholecystitis redemonstrated. Dictated by: Stanley Shelton M.D. on 08/25/2016 at 19:03 Approved by: Stanley Shelton M.D. on 08/25/2016 at 19:21 Assessment & Plan Acute hypotension, not present on admission, ongoing -During dialysis yesterday patient became hypotensive, but blood pressure became elevated when she returned to her room. -Patient given 250 bolus NS this morning with no change to her blood pressure -Discussed case with Dr. Anderson of nephrology who recommended we discontinue the hydralazine, decrease minoxidil to 2.5 mg BID, decrease clonidine to 0.2 TID, decrease lisinopril to 20 mg daily. These changes have been made -We will continue to monitor the patient's blood pressure until it is more appropriate Hypertension, POA. -Blood pressure currently low -Previous day patient had elevated blood pressures up to systolic of 184, at that time case was discussed with nephrology who recommended starting patient on 5 mg of minoxidil daily -Today patient is experiencing hypotension. Please see above for treatment plan Acute C. difficile toxin colitis, present on admission, improving -Currently on IV metronidazole, oral Vancomycin and Tygacil -ID has been consulted, and recommend metronidazole 500mg TID and Tygacil and Vanco 500mg q 6 until discharged home.Upon dc, will continue PO Vancomycin 250mg QID, to end 09/11/16. -WBC has normalized -Bowel movements have been decreasing appropriately(only 1 bowel movement yesterday), and pt denies any abdominal pain. -Daily AM labs End-stage renal disease, present on admission -Nephrology involved in care, HD 3.5 hr, Q MWF. Metabolic encephalopathy, present on admission, resolved -Per family, pt is at baseline -I have cared for this pt in the past, and she is at her baseline per my experience with her -Speech evaluation performed patient able to eat pured thin. She is currently tolerating this diet well Recent history of liver abscess and cholecystitis -Continue to monitor for signs of worsening, or flare DVT prophylaxis -Subcutaneous heparin every 12 hours. Disposition: To [facility], likely tomorrow VTE Mechanical Devices: Intermittant Pneumatic CD Resuscitation Status: CPR: Attempt Resuscitation Attending Statement The patient was seen and examined together with Dr. Angel on 09/03/2016 and I agree with the history, exam and plan as outlined in the note above. Lisa Angel DO Sep 03, 2016 15:10 Weston Montes MD Sep 04, 2016 11:47
[2016-09-03] MEDS ORDERED: 0.9% Sodium Chloride 500 ML IV ONE (18:25)
[2016-09-03] MEDS: Insulin GLARgine 100 Unit/mL Syringe SUBQ SCH (20:27)
[2016-09-04] VITALS (9 sets, daily range): BP systolic 101–135; BP diastolic 51–66; PULSE 56–67; RESP 16–19; O2SAT 97–100
[2016-09-04] MEDS: Vancomycin 100 mg/mL Oral Solution TUBE SCH ×4 (02:51→19:59)
[2016-09-04 06:23] LABS: BASOPHILS % (AUTO) 0.3 % (0-3); EOSINOPHILS % (AUTO) 3.3 % (0-5); MONOCYTES % (AUTO) 15.7 % (4-12); Mean Corpuscular Volume 96.4 fL (81-100); NEUTROPHILS % (AUTO) 56.7 % (40-74); Platelet Count 224 bil/L (150-400)
[2016-09-04] MEDS: Benzocaine-Menthol Lozenge 2/Pkg PO SCH ×4 (06:39→21:30)
[2016-09-04] MEDS: Pantoprazole 40 mg ER24 Tablet PO SCH (06:39)
[2016-09-04] MEDS: Insulin LISPRO 300 Unit/3 mL Inj SUBQ SCH ×4 (08:00→21:08)
--- NOTE | 2016-09-04 09:23 | PCM.PNMED ---
Subjective Date of Service Sep 04, 2016 Subjective Pt is seen during HD session. BP is on the low side. BP meds have been withheld. She has no complaints at this moment. Exam Vital Signs Vital Sign - Last Date Time Temp Pulse Resp B/P Pulse Ox O2 Delivery O2 Flow Rate FiO2 09/04/16 08:02 59 09/04/16 06:40 36.7 16 132/63 97 Room Air Intake and Output 09/03/16 09/03/16 09/04/16 Cumulative From/Thru 15:00 23:00 07:00 08/24/16 11:25 - 09/04/16 02:55 Intake Total 675 ml 5080 ml Output Total 0 ml 6002 ml Balance 675 ml -922 ml Intake Oral 300 ml 1248 ml IV Total 375 ml 3732 ml Tube Irrigant 100 ml Output Urine Total 0 ml 0 ml Stool Total 2 ml Gastric Drainage Total 0 ml Ultrafiltrate 6000 ml # Voids 2 # Bowel Movements 22 Exam GA: AAOx3, NAD. HEENT: mildly pale sclerae, atraumatic, moist mucous membrane. Lungs: CTA B/L, no wheezing, no rhonchi. Heart: RRR, systolic murmur noted. Abdomen: soft, NT, ND, no HSM, active BS. Extremities: no edema, cyanosis, clubbing of fingers, (+) right AVF with good thrill and bruit. Lab and Diagnostics Result Diagram: 09/04/16 0602 09/04/16 0602 Microbiology Microbiology DONNELL C DIF PCR STOOL Final 08/28/16-1236 CDIF DNA BY PCR POSITIVE TIME CALLED: 1234 DATE CALLED: 08/28/16 FLOOR/DOCTOR: CCU/December CALLED BY: VF REFERENCE INTERVAL NEGATIVE Organism 1 POS FOR CDIF TOXIN X-Rays, CTs and MRIs PROCEDURE: CT BRAIN WITHOUT CONTRAST ([id number]) INDICATIONS: new mental status change TECHNIQUE: Noncontrast 4.5 mm thick angled axial sections acquired from the foramen magnum to the vertex, with coronal reformats. COMPARISON: [facility], CT, CT BRAIN WO CON, 08/24/2016, 13:39. FINDINGS: Image quality: Excellent. CSF spaces: Basal cisterns are patent. No extra-axial fluid collections. The ventricles are symmetric in size and shape. Brain: No intracranial bleeds or masses. There is cerebral volume loss for age , with resultant ventricular and sulcal prominence. There are periventricular and deep white matter chronic small vessel ischemic changes. There is intracranial internal carotid artery atherosclerosis. Skull and face: Calvarium and visualized facial bones appear intact, without suspicious lesions. Sinuses: Visualized sinuses and mastoids are clear. IMPRESSION: No acute intracranial process Dictated by: Oumar Whitfield M.D. on 08/27/2016 at 19:33 Approved by: Oumar Whitfield M.D. on 08/27/2016 at 19:36 PROCEDURE: MRI BRAIN WITHOUT CONTRAST ([id number]) INDICATIONS: confusion TECHNIQUE: Non-contrast axial T1 spin echo, axial T2 fast spin echo, sagittal and axial FLAIR, coronal T2 fast spin echo, axial gradient echo, axial diffusion and ADC through the brain. COMPARISON: None. FINDINGS: Image quality: Degraded by motion artifact CSF spaces: Ventricles appear symmetric in size and shape. Basal cisterns are patent. No extra-axial fluid collections. Brain: No intracranial bleeds or mass effects. There is cerebral volume loss for age. There are periventricular and deep white matter chronic small vessel ischemic changes. Brainstem appears normal. Diffusion-weighted images show no acute ischemic insults. No chronic ischemic insults. Normal intravascular flow voids are present. Skull and face: Calvarial bone marrow is normal in signal. Orbits are normal. Sinuses: Sinuses and mastoids are clear. IMPRESSION: Severely motion degraded examination. No evidence of acute ischemia. Bilateral white matter signal changes presumably chronic age-related microvascular ischemic disease. Dictated by: Oumar Whitfield M.D. on 08/27/2016 at 19:58 Approved by: Oumar Whitfield M.D. on 08/27/2016 at 20:02 PROCEDURE: CT ABDOMEN AND PELVIS WITH CONTRAST ([id number]) INDICATIONS: cholecystitis TECHNIQUE: After the administration of intravenous contrast, 5 mm thick sections acquired from the diaphragm to the symphysis. 5 mm coronal and sagittal reformats were acquired. For radiation dose reduction, the following was used: automated exposure control, adjustment of mA and/or kV according to patient size. COMPARISON: [facility], CT, CT ABD PELVIS W CON, 03/28/2016, 6:25. FINDINGS: Image quality: Excellent. ABDOMEN: Lung bases: Lung bases are clear. Heart size is mildly enlarged. Solid organs: The liver demonstrates overall homogeneous enhancement. A wedge- shaped hypodensity is present in the previous location of the intrahepatic drain in hepatic segment V. No discrete fluid collection persists. Focal fat is present in the falciform ligament. The spleen demonstrates normal size and enhancement. The adrenal glands are unremarkable. Bilateral kidneys are atrophic. The pancreas demonstrates homogeneous enhancement and normal size. There is mild gallbladder wall thickening and trace pericholecystic fluid. Gallstones are present in the fundus. Peritoneum and bowel: The stomach is decompressed. The small bowel demonstrates normal caliber and wall thickness. There is diffuse mucosal thickening throughout the entire colon and hyperemia of the mucosa. The mucosa is markedly thickened in the rectosigmoid region. No free fluid or pneumoperitoneum. Nodes and vessels: No retroperitoneal or mesenteric adenopathy by size criteria. Aorta and inferior vena cava are normal in size. Miscellaneous: No ventral hernias. PELVIS: Genitourinary: Bladder is partially distended and the wall is thickened. The uterus and ovaries are grossly unremarkable. Miscellaneous: No inguinal hernias or adenopathy. Bones: No suspicious bony lesions. No vertebral body compression fractures. IMPRESSION: 1. Resolution of the previously visualized intrahepatic abscess. The drain has been removed. 2. Mild gallbladder wall thickening pericholecystic fluid. These findings are decreased in extent when compared with multiple prior studies suggesting at least partial resolution of the prior cholecystitis. 3. Diffuse colonic mucosal thickening. Given the extent of colitis and a prolonged hospitalization, C. difficile colitis is suspected. 4. Bladder wall thickening which may be associated with cystitis or reactive changes secondary to the associated mucosal thickening of the bowel. These findings were discussed with Dr. Barry on 08/28/16. Dictated by: Gina Zepeda M.D. on 08/28/2016 at 13:03 Approved by: Gina Zepeda M.D. on 08/28/2016 at 13:26 Additional Diagnostics PROCEDURE: US BILATERAL DUPLEX DOPPLER IMAGING OF THE CAROTIDS ([id number]) INDICATIONS: Evaluate stroke follow up TECHNIQUE: Color and pulse Doppler interrogation was performed of both carotid systems, with image documentation and velocity measurements. COMPARISON: None. FINDINGS: All stenosis calculations are based on NASCET criteria. IMPRESSION: Less than 50% bilateral internal carotid artery stenosis. Hypertension at time of examination. Dictated by: Tariq CERDA Interpreted: Petr Messina MD on 08/25/2016 at 16: 38 Transcribed by: VONDA on 08/25/2016 at 16:39 Approved by: Valentín Messina M.D. on 08/25/2016 at 17:02 PROCEDURE: US ABDOMEN, LIMITED ([id number]) INDICATIONS: F/U liver abscess & chronic cholecystitis TECHNIQUE: Real-time focused scanning was performed of the abdomen, with image documentation. COMPARISON: [facility], CT, CT ABD W CON, 07/27/2016, 12:56. [facility], CT, CT ABD WO CON, 08/03/2016, 12:11. FINDINGS: There is a small residual intrahepatic hypoechoic collection anterolateral to the gallbladder measuring approximately 1.6 x 1.0 x 1.5 cm, decreased from 2.6 x 2.0 x 3.7 cm on the prior study. Multiple shadowing gallstones are demonstrated in the gallbladder including a large stone in the region of the gallbladder neck. There is gallbladder wall thickening measuring up to 1.6 cm the findings are consistent patient's history of cholecystitis. No intrahepatic or extrahepatic biliary ductal dilatation. The common bile duct measures approximately 5-6 mm. IMPRESSION: 1. Decrease in size of intrahepatic abscess collection with a small residual collection as described. 2. Cholelithiasis and findings consistent with cholecystitis redemonstrated. Dictated by: Stanley Shelton M.D. on 08/25/2016 at 19:03 Approved by: Stanley Shelton M.D. on 08/25/2016 at 19:21 Assessment & Plan 1. ESRD on HD Q MWF. 3.5 hr , UF 2L, DFR 600, BFR 400 Revaclear, 2K, 35HCO3. Right AVF. 2. C. difficile colitis. 3. Metabolic encephalopathy, resolved. 4. Hypertension with hypertensive nephrosclerosis. - uncontrolled. 5. Recent history of liver abscess status post drainage, and chronic cholecystitis. Plan: HD 3.5 hr, Q MWF. d/c clonidine, hydralazine, aldactone. continue minoxidil 2.5 mg BID. decrease lisinopril to 10 mg daily, and decrease coreg 3.125 mg BID. VTE Mechanical Devices: Intermittant Pneumatic CD Resuscitation Status: CPR: Attempt Resuscitation Ananthapanyasut,Wanwarat MD Sep 04, 2016 09:23
[2016-09-04] MEDS: Heparin 5,000 Unit/mL Inj SUBQ SCH ×2 (12:01→20:05)
[2016-09-04] MEDS: Tigecycline Inj 50 MG in 0.9% Sodium Chloride 100 ML IV SCH (12:30)
[2016-09-04] MEDS: Insulin GLARgine 100 Unit/mL Syringe SUBQ SCH (21:08)
--- NOTE | 2016-09-04 21:21 | PCM.PNMED ---
Subjective Date of Service Sep 04, 2016 Subjective Patient reports that she is doing well today. She denies any fatigue. She reports that she is feeling cold this morning, but has no other complaints. Exam Vital Signs Vital Sign - Last Date Time Temp Pulse Resp B/P Pulse Ox O2 Delivery O2 Flow Rate FiO2 09/04/16 20:28 36.8 62 18 101/54 98 Room Air Intake and Output 09/03/16 09/03/16 09/04/16 Cumulative From/Thru 14:59 22:59 06:59 08/24/16 11:25 - 09/04/16 02:55 Intake Total 675 ml 5080 ml Output Total 0 ml 6002 ml Balance 675 ml -922 ml Intake Oral 300 ml 1248 ml IV Total 375 ml 3732 ml Tube Irrigant 100 ml Output Urine Total 0 ml 0 ml Stool Total 2 ml Gastric Drainage Total 0 ml Ultrafiltrate 6000 ml # Voids 2 # Bowel Movements 22 Exam General: No acute distress, patient is talkative and interactive this morning HEENT: Normocephalic, atraumatic. Anicteric sclerae, moist conjunctivae. Oropharynx with moist mucosa. Edentulous. Neck: Supple with full range of motion. Cardiovascular: Regular rate and rhythm. Systolic murmur auscultated. Pulmonary: Clear to auscultation bilaterally with no crackles, wheezes, or rhonchi. Normal respiratory effort with no use of accessory muscles. Abdomen: Nontender, nondistended, soft, normoactive bowel tones. Extremities: No clubbing, cyanosis, edema appreciated. Skin: Normal temperature, turgor, and texture Psychiatric: Alert and oriented to person. Patient recognizes me as I entered the room, and is appropriately interactive. IVs and Medications Medications Reviewed: Medications were reviewed in detail Lab and Diagnostics Result Diagram: 09/04/1660109/04/16601 Microbiology Microbiology DONNELL C DIF PCR STOOL Final 08/28/16-6 CDIF DNA BY PCR POSITIVE TIME CALLED: 1234 DATE CALLED: 08/28/16 FLOOR/DOCTOR: CCU/DECEMBER A CALLED BY: VF REFERENCE INTERVAL NEGATIVE Organism 1 POS FOR CDIF TOXIN X-Rays, CTs and MRIs PROCEDURE: CT BRAIN WITHOUT CONTRAST ([id number]) INDICATIONS: new mental status change TECHNIQUE: Noncontrast 4.5 mm thick angled axial sections acquired from the foramen magnum to the vertex, with coronal reformats. COMPARISON: [facility], CT, CT BRAIN WO CON, 08/24/2016, 13:39. FINDINGS: Image quality: Excellent. CSF spaces: Basal cisterns are patent. No extra-axial fluid collections. The ventricles are symmetric in size and shape. Brain: No intracranial bleeds or masses. There is cerebral volume loss for age , with resultant ventricular and sulcal prominence. There are periventricular and deep white matter chronic small vessel ischemic changes. There is intracranial internal carotid artery atherosclerosis. Skull and face: Calvarium and visualized facial bones appear intact, without suspicious lesions. Sinuses: Visualized sinuses and mastoids are clear. IMPRESSION: No acute intracranial process Dictated by: Oumar Whitfield M.D. on 08/27/2016 at 19:33 Approved by: Oumar Whitfield M.D. on 08/27/2016 at 19:36 PROCEDURE: MRI BRAIN WITHOUT CONTRAST ([id number]) INDICATIONS: confusion TECHNIQUE: Non-contrast axial T1 spin echo, axial T2 fast spin echo, sagittal and axial FLAIR, coronal T2 fast spin echo, axial gradient echo, axial diffusion and ADC through the brain. COMPARISON: None. FINDINGS: Image quality: Degraded by motion artifact CSF spaces: Ventricles appear symmetric in size and shape. Basal cisterns are patent. No extra-axial fluid collections. Brain: No intracranial bleeds or mass effects. There is cerebral volume loss for age. There are periventricular and deep white matter chronic small vessel ischemic changes. Brainstem appears normal. Diffusion-weighted images show no acute ischemic insults. No chronic ischemic insults. Normal intravascular flow voids are present. Skull and face: Calvarial bone marrow is normal in signal. Orbits are normal. Sinuses: Sinuses and mastoids are clear. IMPRESSION: Severely motion degraded examination. No evidence of acute ischemia. Bilateral white matter signal changes presumably chronic age-related microvascular ischemic disease. Dictated by: Oumar Whitfield M.D. on 08/27/2016 at 19:58 Approved by: Oumar Whitfield M.D. on 08/27/2016 at 20:02 PROCEDURE: CT ABDOMEN AND PELVIS WITH CONTRAST ([id number]) INDICATIONS: cholecystitis TECHNIQUE: After the administration of intravenous contrast, 5 mm thick sections acquired from the diaphragm to the symphysis. 5 mm coronal and sagittal reformats were acquired. For radiation dose reduction, the following was used: automated exposure control, adjustment of mA and/or kV according to patient size. COMPARISON: [facility], CT, CT ABD PELVIS W CON, 03/28/2016, 6:25. FINDINGS: Image quality: Excellent. ABDOMEN: Lung bases: Lung bases are clear. Heart size is mildly enlarged. Solid organs: The liver demonstrates overall homogeneous enhancement. A wedge- shaped hypodensity is present in the previous location of the intrahepatic drain in hepatic segment V. No discrete fluid collection persists. Focal fat is present in the falciform ligament. The spleen demonstrates normal size and enhancement. The adrenal glands are unremarkable. Bilateral kidneys are atrophic. The pancreas demonstrates homogeneous enhancement and normal size. There is mild gallbladder wall thickening and trace pericholecystic fluid. Gallstones are present in the fundus. Peritoneum and bowel: The stomach is decompressed. The small bowel demonstrates normal caliber and wall thickness. There is diffuse mucosal thickening throughout the entire colon and hyperemia of the mucosa. The mucosa is markedly thickened in the rectosigmoid region. No free fluid or pneumoperitoneum. Nodes and vessels: No retroperitoneal or mesenteric adenopathy by size criteria. Aorta and inferior vena cava are normal in size. Miscellaneous: No ventral hernias. PELVIS: Genitourinary: Bladder is partially distended and the wall is thickened. The uterus and ovaries are grossly unremarkable. Miscellaneous: No inguinal hernias or adenopathy. Bones: No suspicious bony lesions. No vertebral body compression fractures. IMPRESSION: 1. Resolution of the previously visualized intrahepatic abscess. The drain has been removed. 2. Mild gallbladder wall thickening pericholecystic fluid. These findings are decreased in extent when compared with multiple prior studies suggesting at least partial resolution of the prior cholecystitis. 3. Diffuse colonic mucosal thickening. Given the extent of colitis and a prolonged hospitalization, C. difficile colitis is suspected. 4. Bladder wall thickening which may be associated with cystitis or reactive changes secondary to the associated mucosal thickening of the bowel. These findings were discussed with Dr. Barry on 08/28/16. Dictated by: Gina Zepeda M.D. on 08/28/2016 at 13:03 Approved by: Gina Zepeda M.D. on 08/28/2016 at 13:26 Additional Diagnostics PROCEDURE: US BILATERAL DUPLEX DOPPLER IMAGING OF THE CAROTIDS ([id number]) INDICATIONS: Evaluate stroke follow up TECHNIQUE: Color and pulse Doppler interrogation was performed of both carotid systems, with image documentation and velocity measurements. COMPARISON: None. FINDINGS: All stenosis calculations are based on NASCET criteria. IMPRESSION: Less than 50% bilateral internal carotid artery stenosis. Hypertension at time of examination. Dictated by: Tariq Mendoza RRA Interpreted: Petr Messina MD on 08/25/2016 at 16: 38 Transcribed by: VONDA on 08/25/2016 at 16:39 Approved by: Valentín Messina M.D. on 08/25/2016 at 17:02 PROCEDURE: US ABDOMEN, LIMITED ([id number]) INDICATIONS: F/U liver abscess & chronic cholecystitis TECHNIQUE: Real-time focused scanning was performed of the abdomen, with image documentation. COMPARISON: [facility], CT, CT ABD W CON, 07/27/2016, 12:56. [facility], CT, CT ABD WO CON, 08/03/2016, 12:11. FINDINGS: There is a small residual intrahepatic hypoechoic collection anterolateral to the gallbladder measuring approximately 1.6 x 1.0 x 1.5 cm, decreased from 2.6 x 2.0 x 3.7 cm on the prior study. Multiple shadowing gallstones are demonstrated in the gallbladder including a large stone in the region of the gallbladder neck. There is gallbladder wall thickening measuring up to 1.6 cm the findings are consistent patient's history of cholecystitis. No intrahepatic or extrahepatic biliary ductal dilatation. The common bile duct measures approximately 5-6 mm. IMPRESSION: 1. Decrease in size of intrahepatic abscess collection with a small residual collection as described. 2. Cholelithiasis and findings consistent with cholecystitis redemonstrated. Dictated by: Stanley Shelton M.D. on 08/25/2016 at 19:03 Approved by: Stanley Shelton M.D. on 08/25/2016 at 19:21 Assessment & Plan Acute hypotension, not present on admission, ongoing -Pt had experienced hypotensive episode 09/03, but blood pressure became elevated when she returned to her room. -Patient given NS bolus twice, with no change to her blood pressure -Dr. Anderson of nephrology recommended we discontinue the hydralazine, clonidine and aldactone. She recommended we continue Minoxidil 2.5 mg BID, and decrease lisinopril to 10 mg daily, and decrease coreg to 3.125mg BID -We will continue to monitor the patient's blood pressure until it is more appropriate Hypertension, POA. -Blood pressure currently stable -Previous;y patient had elevated blood pressures up to systolic of 184, at that time case was discussed with nephrology who recommended starting patient on 5 mg of minoxidil daily -Pt has been having labile blood pressures -Please see above for treatment plan Acute C. difficile toxin colitis, present on admission, improving -Currently on IV metronidazole, oral Vancomycin and Tygacil -ID has been consulted, and recommend metronidazole 500mg TID and Tygacil and Vanco 500mg q 6 until discharged home.Upon dc, will continue PO Vancomycin 250mg QID, to end 09/11/16. -WBC has normalized -Bowel movements have been decreasing appropriately, and pt denies any abdominal pain. -Daily AM labs End-stage renal disease, present on admission -Nephrology involved in care, HD 3.5 hr, Q MWF. Metabolic encephalopathy, present on admission, resolved -Per family, pt is at baseline -I have cared for this pt in the past, and she is at her baseline per my experience with her -Speech evaluation performed patient able to eat pured thin. She is currently tolerating this diet well Recent history of liver abscess and cholecystitis -Continue to monitor for signs of worsening, or flare DVT prophylaxis -Subcutaneous heparin every 12 hours. Disposition: To [facility], likely tomorrow VTE Mechanical Devices: Venous Foot Pump Resuscitation Status: CPR: Attempt Resuscitation Attending Statement The patient was seen and examined together with Dr. Angel on 09/04/2016 and I agree with the history, exam and plan as outlined in the note above. Lisa Angel DO Sep 04, 2016 21:21 Weston Montes MD Sep 05, 2016 14:05
[2016-09-05 00:39] VITALS: BP 119/56; PULSE 59; RESP 18; O2SAT 98
[2016-09-05] MEDS ORDERED: 0.9% Sodium Chloride 250 ML ONE (00:39)
[2016-09-05] MEDS: Tigecycline Inj 50 MG in 0.9% Sodium Chloride 100 ML IV SCH ×2 (00:50→12:30)
[2016-09-05] MEDS: Vancomycin 100 mg/mL Oral Solution TUBE SCH ×2 (02:15→09:14)
[2016-09-05 05:04] VITALS: BP 124/58; PULSE 60; RESP 19; O2SAT 100
[2016-09-05 05:22] VITALS: PULSE 63
[2016-09-05 06:08] LABS: BASOPHILS % (AUTO) 0.7 % (0-3); EOSINOPHILS % (AUTO) 3.7 % (0-5); MONOCYTES % (AUTO) 16.6 % (4-12); Mean Corpuscular Hemoglobin 31.8 pg (27.0-35.0); Mean Corpuscular Volume 95.9 fL (81-100); NEUTROPHILS % (AUTO) 55.9 % (40-74); Platelet Count 225 bil/L (150-400)
[2016-09-05] MEDS: Benzocaine-Menthol Lozenge 2/Pkg PO SCH ×2 (06:30→11:30)
[2016-09-05] MEDS: Pantoprazole 40 mg ER24 Tablet PO SCH (07:36)
[2016-09-05] MEDS: Insulin LISPRO 300 Unit/3 mL Inj SUBQ SCH ×2 (07:44→11:45)
[2016-09-05 08:27] VITALS: BP 142/61; PULSE 63; RESP 20; O2SAT 98
[2016-09-05 08:46] VITALS: PULSE 62
[2016-09-05] MEDS ORDERED: LON25 PO (09:05)
[2016-09-05] MEDS ORDERED: LISI-567 PO (09:05)
[2016-09-05] MEDS ORDERED: VANC250C3 PO (09:05)
[2016-09-05] MEDS ORDERED: CARV3.122 PO (09:05)
[2016-09-05] MEDS: Heparin 5,000 Unit/mL Inj SUBQ SCH (09:14)
--- NOTE | 2016-09-05 11:56 | PCM.DIMED ---
Lisa Angel DO 09/04/16 1018: Discharge Instructions Date of Service Sep 04, 2016 Dates of Hospitalization Aug 24, 2016 at 15:51 Discharge Diagnosis Discharge Diagnosis Acute hypotension Hypertension Acute C. difficile toxin colitis End-stage renal disease Metabolic encephalopathy Recent history of liver abscess and cholecystitis Medication Instructions Your current blood pressure medications: Minoxidil 2.5mg, twice a day Lisinopril 10mg daily Coreg 3.125mg, twice a day You will need to take Vancomycin for the next 6 days, to be completed on 09/11/16 Diet Renal Diet Activity No restrictions Call your provider Fever or Chills, Shortness of breath, Bleeding, Chest pain, Vomitting, Excessive diarrhea, Weakness (unilateral) Patient Instructions You are being discharged back to [facility]. We will continue to have dialysis on Wednesday and Wednesday We have made some changes to your blood pressure medications, he will need to follow-up with Dr. Ovalle regarding these. You will need to take antibiotics until 09/11/2016 Follow-up Provider: Mira Ovalle MD Follow-up with PCP in: 1 week Weston Montes MD 09/06/16 1235: Lisa Angel DO Sep 04, 2016 10:18 Weston Montes MD Sep 06, 2016 12:35
--- NOTE | 2016-09-05 12:20 | PCM.PNMED ---
Subjective Date of Service Sep 05, 2016 Subjective stable BP. no acute issue overnight. HD yesterday without complications. Exam Vital Signs Vital Sign - Last Date Time Temp Pulse Resp B/P Pulse Ox O2 Delivery O2 Flow Rate FiO2 09/05/16 10:08 Supplement Oxygen 09/05/16 08:46 62 09/05/16 08:27 36.3 20 142/61 98 Intake and Output 09/04/16 09/04/16 09/05/16 Cumulative From/Thru 15:00 23:00 07:00 08/24/16 11:25 - 09/05/16 06:39 Intake Total 1220 ml 586 ml 325 ml 7211 ml Output Total 2000 ml 0 ml 0 ml 8002 ml Balance -780 ml 586 ml 325 ml -791 ml Intake Oral 800 ml 586 ml 200 ml 2834 ml IV Total 420 ml 125 ml 4277 ml Tube Irrigant 100 ml Output Urine Total 0 ml 0 ml 0 ml 0 ml Stool Total 2 ml Gastric Drainage Total 0 ml Ultrafiltrate 2000 ml 8000 ml # Voids 2 # Bowel Movements 3 25 Exam GA: AAOx3, NAD. HEENT: mildly pale sclerae, atraumatic, moist mucous membrane. Lungs: CTA B/L, no wheezing, no rhonchi. Heart: RRR, systolic murmur noted. Abdomen: soft, NT, ND, no HSM, active BS. Extremities: no edema, cyanosis, clubbing of fingers, (+) right AVF with good thrill and bruit. Lab and Diagnostics Result Diagram: 09/05/16 0510 09/05/16 0510 Microbiology Microbiology DONNELL C DIF PCR STOOL Final 08/28/16-1236 CDIF DNA BY PCR POSITIVE TIME CALLED: 1235 DATE CALLED: 08/28/16 FLOOR/DOCTOR: CCU/KEIKO A CALLED BY: VF REFERENCE INTERVAL NEGATIVE Organism 1 POS FOR CDIF TOXIN X-Rays, CTs and MRIs PROCEDURE: CT BRAIN WITHOUT CONTRAST ([id number]) INDICATIONS: new mental status change TECHNIQUE: Noncontrast 4.5 mm thick angled axial sections acquired from the foramen magnum to the vertex, with coronal reformats. COMPARISON: [facility], CT, CT BRAIN WO CON, 08/24/2016, 13:39. FINDINGS: Image quality: Excellent. CSF spaces: Basal cisterns are patent. No extra-axial fluid collections. The ventricles are symmetric in size and shape. Brain: No intracranial bleeds or masses. There is cerebral volume loss for age , with resultant ventricular and sulcal prominence. There are periventricular and deep white matter chronic small vessel ischemic changes. There is intracranial internal carotid artery atherosclerosis. Skull and face: Calvarium and visualized facial bones appear intact, without suspicious lesions. Sinuses: Visualized sinuses and mastoids are clear. IMPRESSION: No acute intracranial process Dictated by: Oumar Whitfield M.D. on 08/27/2016 at 19:33 Approved by: Oumar Whitfield M.D. on 08/27/2016 at 19:36 PROCEDURE: MRI BRAIN WITHOUT CONTRAST ([id number]) INDICATIONS: confusion TECHNIQUE: Non-contrast axial T1 spin echo, axial T2 fast spin echo, sagittal and axial FLAIR, coronal T2 fast spin echo, axial gradient echo, axial diffusion and ADC through the brain. COMPARISON: None. FINDINGS: Image quality: Degraded by motion artifact CSF spaces: Ventricles appear symmetric in size and shape. Basal cisterns are patent. No extra-axial fluid collections. Brain: No intracranial bleeds or mass effects. There is cerebral volume loss for age. There are periventricular and deep white matter chronic small vessel ischemic changes. Brainstem appears normal. Diffusion-weighted images show no acute ischemic insults. No chronic ischemic insults. Normal intravascular flow voids are present. Skull and face: Calvarial bone marrow is normal in signal. Orbits are normal. Sinuses: Sinuses and mastoids are clear. IMPRESSION: Severely motion degraded examination. No evidence of acute ischemia. Bilateral white matter signal changes presumably chronic age-related microvascular ischemic disease. Dictated by: Oumar Whitfield M.D. on 08/27/2016 at 19:58 Approved by: Oumar Whitfield M.D. on 08/27/2016 at 20:02 PROCEDURE: CT ABDOMEN AND PELVIS WITH CONTRAST ([id number]) INDICATIONS: cholecystitis TECHNIQUE: After the administration of intravenous contrast, 5 mm thick sections acquired from the diaphragm to the symphysis. 5 mm coronal and sagittal reformats were acquired. For radiation dose reduction, the following was used: automated exposure control, adjustment of mA and/or kV according to patient size. COMPARISON: [facility], CT, CT ABD PELVIS W CON, 03/28/2016, 6:25. FINDINGS: Image quality: Excellent. ABDOMEN: Lung bases: Lung bases are clear. Heart size is mildly enlarged. Solid organs: The liver demonstrates overall homogeneous enhancement. A wedge- shaped hypodensity is present in the previous location of the intrahepatic drain in hepatic segment V. No discrete fluid collection persists. Focal fat is present in the falciform ligament. The spleen demonstrates normal size and enhancement. The adrenal glands are unremarkable. Bilateral kidneys are atrophic. The pancreas demonstrates homogeneous enhancement and normal size. There is mild gallbladder wall thickening and trace pericholecystic fluid. Gallstones are present in the fundus. Peritoneum and bowel: The stomach is decompressed. The small bowel demonstrates normal caliber and wall thickness. There is diffuse mucosal thickening throughout the entire colon and hyperemia of the mucosa. The mucosa is markedly thickened in the rectosigmoid region. No free fluid or pneumoperitoneum. Nodes and vessels: No retroperitoneal or mesenteric adenopathy by size criteria. Aorta and inferior vena cava are normal in size. Miscellaneous: No ventral hernias. PELVIS: Genitourinary: Bladder is partially distended and the wall is thickened. The uterus and ovaries are grossly unremarkable. Miscellaneous: No inguinal hernias or adenopathy. Bones: No suspicious bony lesions. No vertebral body compression fractures. IMPRESSION: 1. Resolution of the previously visualized intrahepatic abscess. The drain has been removed. 2. Mild gallbladder wall thickening pericholecystic fluid. These findings are decreased in extent when compared with multiple prior studies suggesting at least partial resolution of the prior cholecystitis. 3. Diffuse colonic mucosal thickening. Given the extent of colitis and a prolonged hospitalization, C. difficile colitis is suspected. 4. Bladder wall thickening which may be associated with cystitis or reactive changes secondary to the associated mucosal thickening of the bowel. These findings were discussed with Dr. Barry on 08/28/16. Dictated by: Gina Zepeda M.D. on 08/28/2016 at 13:03 Approved by: Gina Zepeda M.D. on 08/28/2016 at 13:26 Additional Diagnostics PROCEDURE: US BILATERAL DUPLEX DOPPLER IMAGING OF THE CAROTIDS ([id number]) INDICATIONS: Evaluate stroke follow up TECHNIQUE: Color and pulse Doppler interrogation was performed of both carotid systems, with image documentation and velocity measurements. COMPARISON: None. FINDINGS: All stenosis calculations are based on NASCET criteria. IMPRESSION: Less than 50% bilateral internal carotid artery stenosis. Hypertension at time of examination. Dictated by: Tariq Mendoza [facility] Interpreted: Petr Messina MD on 08/25/2016 at 16: 38 Transcribed by: VONDA on 08/25/2016 at 16:39 Approved by: Valentín Messina M.D. on 08/25/2016 at 17:02 PROCEDURE: US ABDOMEN, LIMITED ([id number]) INDICATIONS: F/U liver abscess & chronic cholecystitis TECHNIQUE: Real-time focused scanning was performed of the abdomen, with image documentation. COMPARISON: [facility], CT, CT ABD W CON, 07/27/2016, 12:56. [facility], CT, CT ABD WO CON, 08/03/2016, 12:11. FINDINGS: There is a small residual intrahepatic hypoechoic collection anterolateral to the gallbladder measuring approximately 1.6 x 1.0 x 1.5 cm, decreased from 2.6 x 2.0 x 3.7 cm on the prior study. Multiple shadowing gallstones are demonstrated in the gallbladder including a large stone in the region of the gallbladder neck. There is gallbladder wall thickening measuring up to 1.6 cm the findings are consistent patient's history of cholecystitis. No intrahepatic or extrahepatic biliary ductal dilatation. The common bile duct measures approximately 5-6 mm. IMPRESSION: 1. Decrease in size of intrahepatic abscess collection with a small residual collection as described. 2. Cholelithiasis and findings consistent with cholecystitis redemonstrated. Dictated by: Stanley Shelton M.D. on 08/25/2016 at 19:03 Approved by: Stanley Shelton M.D. on 08/25/2016 at 19:21 Assessment & Plan 1. ESRD on HD Q MWF. 2. C. difficile colitis. 3. Metabolic encephalopathy, resolved. 4. Hypertension with hypertensive nephrosclerosis. - controlled. 5. Recent history of liver abscess status post drainage, and chronic cholecystitis. Plan: HD 3.5 hr, Q MWF. Continue minoxidil 2.5 mg BID, lisinopril to 10 mg daily, and coreg 3.125 mg BID. Pt can be d/c'd home per renal. 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 VTE Mechanical Devices: Intermittant Pneumatic CD Resuscitation Status: CPR: Attempt Resuscitation Ananthapanyasut,Wanwarat MD Sep 05, 2016 12:20
--- NOTE | 2016-09-05 20:30 | PCM.DC.MED ---
Discharge Summary Date of Service Sep 05, 2016 Dates of Hospitalization Date of Hospital Admission Aug 24, 2016 at 15:51 Date of Discharge: Sep 05, 2016 Providers: Admitting Physician: Byron Alvarez MD Primary Care Physician: Mira Ovalle MD Attending Physician: Byron Alvarez MD Diagnosis at Time of Discharge Diagnosis at Time of Discharge Acute hypotension Hypertension Acute C. difficile toxin colitis End-stage renal disease Metabolic encephalopathy Recent history of liver abscess and cholecystitis Consultations Nephrology Infectious Disease Surgery Procedures XRay, CTs & MRIs PROCEDURE: CT BRAIN WITHOUT CONTRAST ([id number]) INDICATIONS: new mental status change TECHNIQUE: Noncontrast 4.5 mm thick angled axial sections acquired from the foramen magnum to the vertex, with coronal reformats. COMPARISON: [facility], CT, CT BRAIN WO CON, 08/24/2016, 13:39. FINDINGS: Image quality: Excellent. CSF spaces: Basal cisterns are patent. No extra-axial fluid collections. The ventricles are symmetric in size and shape. Brain: No intracranial bleeds or masses. There is cerebral volume loss for age , with resultant ventricular and sulcal prominence. There are periventricular and deep white matter chronic small vessel ischemic changes. There is intracranial internal carotid artery atherosclerosis. Skull and face: Calvarium and visualized facial bones appear intact, without suspicious lesions. Sinuses: Visualized sinuses and mastoids are clear. IMPRESSION: No acute intracranial process Dictated by: Oumar Whitfield M.D. on 08/27/2016 at 19:33 Approved by: Oumar Whitfield M.D. on 08/27/2016 at 19:36 PROCEDURE: MRI BRAIN WITHOUT CONTRAST ([id number]) INDICATIONS: confusion TECHNIQUE: Non-contrast axial T1 spin echo, axial T2 fast spin echo, sagittal and axial FLAIR, coronal T2 fast spin echo, axial gradient echo, axial diffusion and ADC through the brain. COMPARISON: None. FINDINGS: Image quality: Degraded by motion artifact CSF spaces: Ventricles appear symmetric in size and shape. Basal cisterns are patent. No extra-axial fluid collections. Brain: No intracranial bleeds or mass effects. There is cerebral volume loss for age. There are periventricular and deep white matter chronic small vessel ischemic changes. Brainstem appears normal. Diffusion-weighted images show no acute ischemic insults. No chronic ischemic insults. Normal intravascular flow voids are present. Skull and face: Calvarial bone marrow is normal in signal. Orbits are normal. Sinuses: Sinuses and mastoids are clear. IMPRESSION: Severely motion degraded examination. No evidence of acute ischemia. Bilateral white matter signal changes presumably chronic age-related microvascular ischemic disease. Dictated by: Oumar Whitfield M.D. on 08/27/2016 at 19:58 Approved by: Oumar Whitfield M.D. on 08/27/2016 at 20:02 PROCEDURE: CT ABDOMEN AND PELVIS WITH CONTRAST ([id number]) INDICATIONS: cholecystitis TECHNIQUE: After the administration of intravenous contrast, 5 mm thick sections acquired from the diaphragm to the symphysis. 5 mm coronal and sagittal reformats were acquired. For radiation dose reduction, the following was used: automated exposure control, adjustment of mA and/or kV according to patient size. COMPARISON: [facility], CT, CT ABD PELVIS W CON, 03/28/2016, 6:25. FINDINGS: Image quality: Excellent. ABDOMEN: Lung bases: Lung bases are clear. Heart size is mildly enlarged. Solid organs: The liver demonstrates overall homogeneous enhancement. A wedge- shaped hypodensity is present in the previous location of the intrahepatic drain in hepatic segment V. No discrete fluid collection persists. Focal fat is present in the falciform ligament. The spleen demonstrates normal size and enhancement. The adrenal glands are unremarkable. Bilateral kidneys are atrophic. The pancreas demonstrates homogeneous enhancement and normal size. There is mild gallbladder wall thickening and trace pericholecystic fluid. Gallstones are present in the fundus. Peritoneum and bowel: The stomach is decompressed. The small bowel demonstrates normal caliber and wall thickness. There is diffuse mucosal thickening throughout the entire colon and hyperemia of the mucosa. The mucosa is markedly thickened in the rectosigmoid region. No free fluid or pneumoperitoneum. Nodes and vessels: No retroperitoneal or mesenteric adenopathy by size criteria. Aorta and inferior vena cava are normal in size. Miscellaneous: No ventral hernias. PELVIS: Genitourinary: Bladder is partially distended and the wall is thickened. The uterus and ovaries are grossly unremarkable. Miscellaneous: No inguinal hernias or adenopathy. Bones: No suspicious bony lesions. No vertebral body compression fractures. IMPRESSION: 1. Resolution of the previously visualized intrahepatic abscess. The drain has been removed. 2. Mild gallbladder wall thickening pericholecystic fluid. These findings are decreased in extent when compared with multiple prior studies suggesting at least partial resolution of the prior cholecystitis. 3. Diffuse colonic mucosal thickening. Given the extent of colitis and a prolonged hospitalization, C. difficile colitis is suspected. 4. Bladder wall thickening which may be associated with cystitis or reactive changes secondary to the associated mucosal thickening of the bowel. These findings were discussed with Dr. Barry on 08/28/16. Dictated by: Gina Zepeda M.D. on 08/28/2016 at 13:03 Approved by: Gina Zepeda M.D. on 08/28/2016 at 13:26 Other Diagnostics PROCEDURE: US BILATERAL DUPLEX DOPPLER IMAGING OF THE CAROTIDS ([id number]) INDICATIONS: Evaluate stroke follow up TECHNIQUE: Color and pulse Doppler interrogation was performed of both carotid systems, with image documentation and velocity measurements. COMPARISON: None. FINDINGS: All stenosis calculations are based on NASCET criteria. IMPRESSION: Less than 50% bilateral internal carotid artery stenosis. Hypertension at time of examination. Dictated by: Tariq Mendoza [facility] Interpreted: Petr Messina MD on 08/25/2016 at 16: 38 Transcribed by: VONDA on 08/25/2016 at 16:39 Approved by: Valentín Messina M.D. on 08/25/2016 at 17:02 PROCEDURE: US ABDOMEN, LIMITED ([id number]) INDICATIONS: F/U liver abscess & chronic cholecystitis TECHNIQUE: Real-time focused scanning was performed of the abdomen, with image documentation. COMPARISON: [facility], CT, CT ABD W CON, 07/27/2016, 12:56. [facility], CT, CT ABD WO CON, 08/03/2016, 12:11. FINDINGS: There is a small residual intrahepatic hypoechoic collection anterolateral to the gallbladder measuring approximately 1.6 x 1.0 x 1.5 cm, decreased from 2.6 x 2.0 x 3.7 cm on the prior study. Multiple shadowing gallstones are demonstrated in the gallbladder including a large stone in the region of the gallbladder neck. There is gallbladder wall thickening measuring up to 1.6 cm the findings are consistent patient's history of cholecystitis. No intrahepatic or extrahepatic biliary ductal dilatation. The common bile duct measures approximately 5-6 mm. IMPRESSION: 1. Decrease in size of intrahepatic abscess collection with a small residual collection as described. 2. Cholelithiasis and findings consistent with cholecystitis redemonstrated. Dictated by: Stalney Shelton M.D. on 08/25/2016 at 19:03 Approved by: Stanley Shelton M.D. on 08/25/2016 at 19:[address] Alvarez's H & P "Patient is a 65 year old female with a pmh as stated below that is presenting with altered mental status and generalized unresponsiveness. Patient had been in her usual state of health and was communicating with her normally for the past few days/. This morning the patient was in dialysis when the patient was noticed to be unresponsive. Patient was breathing but was not responsive to verbal and minimally responsive to tactile stimuli. Patient had her bp drawn which showed the pts bp was well above 200 systolic. Patient while on the bp monitoring device was seen to have a steady heart rate and no evidence of oxygen desaturation. EMS was called and patient was brought into the ER. While in the ED the patient was again minimally responsive and did not recognize her . Patient had IV hydralazine given and patient had an appropriate response in the reduction of her bp. Patient was persistently altered and was unable to provide much history. Patient when examined was able to awaken enough to recognize her and participate in the physical exam. Patient is unable to provide much information, and believes she is in the hospital due to elevated blood sugar. Patient is otherwise hemodynamically stable and will be admitted. " Hospital Course Acute hypotension, not present on admission, ongoing -Pt had experienced hypotensive episode 09/03, but blood pressure became elevated when she returned to her room. -Patient given NS bolus twice, with no change to her blood pressure -Dr. Anderson of nephrology recommended we discontinue the hydralazine, clonidine and aldactone. She recommended we continue Minoxidil 2.5 mg BID, and decrease lisinopril to 10 mg daily, and decrease coreg to 3.125mg BID -BP stable at discharge Hypertension, POA. -Blood pressure currently stable -Previously patient had elevated blood pressures up to systolic of 184, at that time case was discussed with nephrology who recommended starting patient on 5 mg of minoxidil daily -Pt has been having labile blood pressures -BP stable at discharge Acute C. difficile toxin colitis, present on admission, improving -Currently on IV metronidazole, oral Vancomycin and Tygacil -ID has been consulted, and recommend metronidazole 500mg TID and Tygacil and Vanco 500mg q 6. -WBC has normalized -Bowel movements have been decreasing appropriately, and pt denies any abdominal pain. -PO Vancomycin 250mg QID, to end 09/11/16. End-stage renal disease, present on admission -Nephrology involved in care, HD 3.5 hr, Q MWF. Metabolic encephalopathy, present on admission, resolved -Per family, pt is at baseline -I have cared for this pt in the past, and she is at her baseline per my experience with her -Speech evaluation performed patient able to eat pured thin. She is currently tolerating this diet well Recent history of liver abscess and cholecystitis Exam Vital Signs (Last) Date Time Temp Pulse Resp B/P Pulse Ox O2 Delivery O2 Flow Rate FiO2 09/05/16 10:08 Supplement Oxygen 09/05/16 08:46 62 09/05/16 08:27 36.3 20 142/61 98 Exam General: No acute distress, patient is talkative and interactive this morning HEENT: Normocephalic, atraumatic. Anicteric sclerae, moist conjunctivae. Oropharynx with moist mucosa. Edentulous. Neck: Supple with full range of motion. Cardiovascular: Regular rate and rhythm. Systolic murmur auscultated. Pulmonary: Clear to auscultation bilaterally with no crackles, wheezes, or rhonchi. Normal respiratory effort with no use of accessory muscles. Abdomen: Nontender, nondistended, soft, normoactive bowel tones. Extremities: No clubbing, cyanosis, edema appreciated. Skin: Normal temperature, turgor, and texture Psychiatric: Alert and oriented to person. Patient recognizes me as I entered the room, and is appropriately interactive. Test 08/24/16 12:37 08/24/16 14:27 08/25/16 02:10 08/26/16 02:05 Hold [place] Top Tube Received (Received) Urine Color Straw (YELLOW) Urine Appearance Cloudy (CLEAR,HAZY) Urine pH 8.0 (5.0-8.0) Urine Specific [place]oker 1.020 (1.003-1.035) Urine Protein 100mg/dL (NEG,TRACE) Urine Glucose (UA) 100mg/dL (NEGATIVE) Urine Ketones Negativemg/dL (NEGATIVE) Urine Occult Blood Moderate (NEGATIVE) Urine Nitrite Negative (NEGATIVE) Urine Bilirubin Negative (NEGATIVE) Urine Urobilinogen Normalmg/dL (NORMAL) Urine Leukocyte Esterase Moderate (NEGATIVE) Urine RBC 3-10/hpf (0-2) Urine WBC 11-50/hpf (0-5) Urine Epithelial Cells Occasional/hpf (NONE-MOD) Urine Crystals Amorphous phosphates Urine Bacteria Few/hpf (NONE-FEW) Urine Hyaline Casts None/lpf (NONE) Urine Granular Casts None seen (NONE SEEN) Urine Waxy Casts None seen (NONE SEEN) Urine Red Blood Cell Casts None seen (NONE SEEN) Urine White Blood Cell Casts None seen (NONE SEEN) Urine Mucus None seen (None Seen) Urine Trichomonas None seen (NONE SEEN) Urine Yeast None (NONE SEEN) Urinalysis Comment Transitional epi Urine Culture Reflexed Indicated Hemoglobin A1c 5.8% (4.8-5.6) Erythrocyte Sedimentation Rate 18mm/hr (0-40) Thyroid Stimulating Hormone (TSH) 6.610uIU/mL (0.450-4.500) Free Thyroxine 1.35ng/dL (0.82-1.77) Test 08/26/16 03:05 08/27/16 20:30 08/28/16 16:27 08/30/16 08:30 Lipase 18U/L (13-60) Ammonia 41ug/dL (18-53) CSF Appearance Clear (CLEAR) CSF Color Colorless (COLORLESS) CSF WBC 1/mm3 (0-5) CSF RBC 0/mm3 CSF Mononuclear WBCs % CSF Polynuclear WBCs % CSF Other Cells CSF Glucose 53mg/dL (45-90) CSF Total Protein 26mg/dL (15-45) Herpes Simplex Virus (PCR) See comment Prothrombin Time 13.7sec (8.1-12.5) Prothromb Time International Ratio 1.27ratio Magnesium Level 2.0mg/dL (1.6-2.6) Prealbumin 12mg/dL (20-40) Test 08/31/16 14:46 09/01/16 07:20 09/05/16 05:10 Random Vancomycin Level < 2.3ug/mL Rx Procalcitonin 1.09ng/mL (0.00-0.08) White Blood Count 6.7th/mm3 (3.8-10.1) Red Blood Count 3.43mil/mm3 (3.90-5.20) Hemoglobin 10.9g/dL (12.0-15.6) Hematocrit 32.9% (35.0-46.0) Mean Corpuscular Volume 95.9fL (81-100) Mean Corpuscular Hemoglobin 31.8pg (27.0-35.0) Mean Corpuscular Hemoglobin Concent 33.1% (32.0-37.0) Red Cell Distribution Width 14.0% (12.3-15.4) Platelet Count 225bil/L (150-400) Neutrophils (%) (Auto) 55.9% (40-74) Lymphocytes (%) (Auto) 21.2% (14-46) Monocytes (%) (Auto) 16.6% (4-12) Eosinophils (%) (Auto) 3.7% (0-5) Basophils (%) (Auto) 0.7% (0-3) Sodium Level 135mEq/L (134-144) Potassium Level 4.2mEq/L (3.5-5.2) Chloride Level 98mEq/L (97-108) Carbon Dioxide Level 24mmol/L (18-29) Blood Urea Nitrogen 37mg/dL (8-27) Creatinine 2.64mg/dL (0.57-1.00) Estimat Glomerular Filtration Rate 26mL/min (>59) Glucose Level 103mg/dL (60-99) Calcium Level 7.9mg/dL (8.5-10.1) Total Bilirubin 0.5mg/dL (0.0-1.2) Aspartate Amino Transf (AST/SGOT) 16U/L (0-50) Alanine Aminotransferase (ALT/SGPT) 6U/L (0-32) Alkaline Phosphatase 81U/L (25-165) Total Protein 5.6g/dL (6.4-8.4) Albumin 2.6g/dL (3.4-5.0) Microbiology Results Microbiology DONNELL C DIF PCR STOOL Final 08/28/16-1235 CDIF DNA BY PCR POSITIVE TIME CALLED: 1234 DATE CALLED: 08/28/16 FLOOR/DOCTOR: CCU/DECEMBER A CALLED BY: VF REFERENCE INTERVAL NEGATIVE Organism 1 POS FOR CDIF TOXIN Discharge Medications Discharge Medications Aspirin (Aspirin) 325 Mg Tablet 325 MG PO DAILY (Reported) Calcium Acetate (Calcium Acetate) 667 Mg Tablet 667 MG PO TIDWM (Reported) Carvedilol (Carvedilol) 3.125 Mg Tablet 3.125 MG PO BID Prescribed by: OVIDIO CASTRO DO Ceftazidime Pentahydrate (Ceftazidime) 1 Gm Vial 1 GM IJ three times weekly Prescribed by: KENIA DOSS DO Insulin Glargine (Lantus U100 Insulin Vial) 100 Unit/Ml Vial 5 UNIT SUBQ HS Prescribed by: NICOLAS FERNANDEZ MD Insulin Human Lispro (HumaLOG U100 Insulin Vial) 100 Unit/Ml Unit 0 UNIT SUBQ WMHS Check blood sugars before meals and at bedtime. Use correction factor only before meals. Blood Sugar Lispro Correction: <151, 0 units; 151-175, 1 unit; 176-200, 2 units; 201-225, 3 units; 226-250, 4 units; 251-275, 5 units; 276-300 , 6 units; 301-325, 7 units; 326-350, 8 units; 351-375, 9 units; 376-400, 10 units; >400, 12 units. Prescribed by: NICOLAS FERNANDEZ MD Levothyroxine (Synthroid) 75 Mcg Tablet 75 MCG PO DAILY (Reported) Lisinopril (Lisinopril) 20 Mg Tablet 10 MG PO DAILY Prescribed by: OVIDIO CASTRO DO Minoxidil (Minoxidil) 2.5 Mg Tablet 2.5 MG PO BID Prescribed by: OVIDIO CASTRO DO Pantoprazole DR (Protonix) 40 Mg Tablet.dr 40 MG PO QAM (Reported) Vancomycin (Vancomycin) 250 Mg Capsule 250 MG PO QID Prescribed by: OVIDIO CASTRO DO As needed Acetaminophen (Acetaminophen) 500 Mg Tablet 500 MG PO Q6H PRN PRN For Pain ( Reported) Additional med instructions Your current blood pressure medications: Minoxidil 2.5mg, twice a day Lisinopril 10mg daily Coreg 3.125mg, twice a day You will need to take Vancomycin for the next 6 days, to be completed on 09/11/16 Followup Plan Disposition: [facility] Discharge Diet: Renal Diet Discharge Activity: No restrictions Patient Instructions You are being discharged [email or web address] We will continue to have dialysis on Wednesday and Wednesday We have made some changes to your blood pressure medications, he will need to follow-up with Dr. Ovalle regarding these. You will need to take antibiotics until 09/11/2016 Follow-up Provider: Mira Ovalle MD Follow-up with PCP in: 1 week Time spent 45 minutes Attending Statement The patient was seen and examined together with Dr. Castro on 09/05/2016 and I agree with the history, exam and plan as outlined in the note above. copies to: Mira Ovalle MD, Tara L DO Sep 05, 2016 20:30 Weston Montes MD Sep 06, 2016 12:35
== END 2016-09-05 14:40 | DRG 70 ==
LOC: EDBD 11:06 → SED 11:06 → PCC 15:51 → OBSVTOIN 15:51 → CCU 08-26 10:11 → PCC 08-30 07:46 → MPC 08-30 12:09
PROVIDERS: ADMIT Internal Medicine; ATTEND Internal Medicine
PROC: 5A1D00Z (ICD-10-PCS; 2016-08-26)
PROC: 009U3ZX Drainage of Spinal Canal, Percutaneous Approach, Diagnostic (ICD-10-PCS; principal; 2016-08-28)
PROC: 5A1D00Z (ICD-10-PCS; 2016-08-28)
PROC: 5A1D00Z (ICD-10-PCS; 2016-08-31)
PROC: 5A1D00Z (ICD-10-PCS; 2016-09-02)
PROC: 5A1D00Z (ICD-10-PCS; 2016-09-04)
DX: G93.41 Metabolic encephalopathy (principal); N18.6 End stage renal disease; K75.0 Abscess of liver; I13.2 Hypertensive heart and chronic kidney disease with heart failure and with stage 5 chronic kidney disease, or end stage renal disease; I50.32 Chronic diastolic (congestive) heart failure; A04.7 Enterocolitis due to Clostridium difficile; I16.1 Hypertensive emergency; Z99.2 Dependence on renal dialysis; Z79.4 Long term (current) use of insulin; Z79.82 Long term (current) use of aspirin; E11.21 Type 2 diabetes mellitus with diabetic nephropathy; E11.319 Type 2 diabetes mellitus with unspecified diabetic retinopathy without macular edema; E78.5 Hyperlipidemia, unspecified; E03.9 Hypothyroidism, unspecified; D63.1 Anemia in chronic kidney disease; R29.810 Facial weakness; J02.9 Acute pharyngitis, unspecified; Z95.1 Presence of aortocoronary bypass graft; K81.1 Chronic cholecystitis

== ENCOUNTER 2016-09-17 00:22 | Day surgery (SDC) | payer MEDICARE, MEDICAID ==
[~2016-09-17] VITALS: Ht 142.2 cm; Wt 54.0 kg
[2016-09-17] VITALS (9 sets, daily range): BP systolic 159–213; BP diastolic 52–84; PULSE 79–87; RESP 10–18; O2SAT 100
[~2016-09-17 00:22] MED LIST changes: +CARV3.122 PO; -CARV6.252 PO; -CLON1PAT2 TOPICAL; -HYDR-3940 PO; +LISI-567 PO; -LISI40TA PO; -METR500T19 PO; +VANC250C3 PO
[2016-09-17] MEDS ORDERED: CeFAZolin 1 Gm/50 mL D5W IV Premix IV ONE (06:00)
--- NOTE | 2016-09-17 07:20 | NUR ---
ADMISSION NOTE FEMALE PT ADMITTED FOR FISTULOGRAM. DISCUSSED PLAN WITH PT AND FAMILY. SEE ADMIT AND FLOW SHEET
[2016-09-17] MEDS ORDERED: Heparin 10,000 Unit/1,000 mL NS Premix IV ONE (08:02)
[2016-09-17] MEDS ORDERED: Heparin 1,000 Unit/mL 10 mL Inj ONE (08:18)
[2016-09-17] MEDS ORDERED: 0.9% Sodium Chloride 1,000 ML ONE (09:00)
[2016-09-17] MEDS ORDERED: CeFAZolin 1 Gm/50 mL D5W Duplex Bag IV ONE (09:00)
[2016-09-17 09:05] LABS: BASOPHILS % (AUTO) 0.8 % (0-3); EOSINOPHILS % (AUTO) 4.2 % (0-5); Mean Corpuscular Hemoglobin 32.8 pg (27.0-35.0); NEUTROPHILS % (AUTO) 60.6 % (40-74); Platelet Count 204 bil/L (150-400)
[2016-09-17] MEDS ORDERED: fentaNYL-PF 50 mCg/mL 2 mL Inj ONE (09:42)
--- NOTE | 2016-09-17 11:05 | NUR ---
POST PROCEDURE NOTE RETURNED FROM WIND SITE MANAGER. SEE FLOW SHEET
--- NOTE | 2016-09-17 13:40 | NUR ---
DISCHARGE NOTE UP IN W/C. NO COMPLAINTS. IV REMOVED, SITE STABLE. REPORT CALLED. HOME VIA VAN TO FACILITY
--- NOTE | 2016-09-17 15:10 | DRSVH ---
PROCEDURE: ARTERIO VENOUS FISTULOGRAM (PNL) INDICATIONS: ESRD TECHNIQUE: FLUOROSCOPY TIME: 15.6 minutes. COMPARISON: [facility], XA, ARTERIO VENOUS FISTULOGRAM (PNL), 02/18/2016, 10:10. Technique: 1. Conscious sedation for 60 minutes. 2. Angioplasty of a high-grade SVC stenosis. 3. Angioplasty of a focal high-grade stenosis in the central axillary vein. 4. Completion fistulogram. The indications, alternatives, benefits, risks, and complications of the procedure were explained to the patient.. Informed written consent was obtained and placed in the chart. The patient was benita t to the angiography suite, and conscious sedation was administered intravenously by care home staff, while continuous cardiorespiratory monitoring was performed. Maximum sterile barrier technique was employed per standard protocol, including hand hygiene, cap, ma sk, sterile gown and gloves, and 2% chlorhexidine. Using a micropuncture kit, the venous outflow of the right upper extremity fistula was accessed in an antegrade fashion. Fistulogram was performed in stations the level of the SVC through the micropuncture sheath. The micropuncture sheath was exchange d for a short 6 [place] sheath. The wire was advanced with the tip in the IVC. Balloon angioplasty was performed for a focal high-grade stenosis within the SVC first with a 4 mm x 40 mm high-pressure bal loon and next with a 5 mm x 40 mm high-pressure balloon. Completion fistulogram was performed. Balloo n angioplasty was then performed for a focal high-grade stenosis within the central portion of the ri t axillary vein with a 5 mm x 40 mm high-pressure balloon. Completion fistulogram was performed. Re flux fistulogram of the arteriovenous anastomosis was performed. The sheath was removed, and hemostas is was achieved. FINDINGS: Initial fistulogram demonstrates a focal high-grade stenosis in the superior vena cava. Co mpletion fistulogram demonstrates resolution of the stenotic lesion. Additional fistulogram demonstra elizabeth a focal high-grade stenosis within the central portion of the axillary vein. There is resolution of this lesion after angioplasty of this region. The arteriovenous anastomosis is patent. IMPRESSION: 1. Status post angioplasty of a focal high-grade stenosis at the superior vena cava. 2. Status post angioplasty of a focal high-grade stenosis within the central portion of the axillary vein. Dictated by: Gina Zepeda M.D. on 09/17/2016 at 14:32 Approved by: Gina Zepeda M.D. on 09/17/2016 at 15:09
== END 2016-09-17 23:59 | disposition home or self-care (01) ==
LOC: SOUO 00:22
PROVIDERS: ATTEND Radiology Vascular & Interventional Radiology
DX: I87.1 Compression of vein (principal); I12.0 Hypertensive chronic kidney disease with stage 5 chronic kidney disease or end stage renal disease; E11.22 Type 2 diabetes mellitus with diabetic chronic kidney disease; N18.6 End stage renal disease; I25.10 Atherosclerotic heart disease of native coronary artery without angina pectoris; I50.32 Chronic diastolic (congestive) heart failure; Z79.82 Long term (current) use of aspirin; Z99.2 Dependence on renal dialysis; Z95.1 Presence of aortocoronary bypass graft; Z79.4 Long term (current) use of insulin
CPT/HCPCS: 36415; 36902; 80048; 85025; 99152; 99153; C1725; C1769; C1894; J1644; J2250; J3010; Q9967

== ENCOUNTER 2016-09-18 12:43 | Emergency (ER) | payer MEDICARE, MEDICAID ==
[~2016-09-18] VITALS: Ht 147.3 cm; Wt 55.0 kg
[2016-09-18 12:49] VITALS: BP 155/72; PULSE 84; RESP 16; O2SAT 97
[2016-09-18 13:49] LABS: BASOPHILS % (AUTO) 0.1 % (0-3); EOSINOPHILS % (AUTO) 0.7 % (0-5); MONOCYTES % (AUTO) 12.4 % (4-12); Mean Corpuscular Hemoglobin 32.2 pg (27.0-35.0); NEUTROPHILS % (AUTO) 76.6 % (40-74); Platelet Count 216 bil/L (150-400)
--- NOTE | 2016-09-18 13:58 | DRSVH ---
PROCEDURE: CT BRAIN WITHOUT CONTRAST ([id number]) INDICATIONS: altered mental status TECHNIQUE: Noncontrast 4.5 mm thick angled axial sections acquired from the foramen magnum to the vertex, with c oronal reformats. COMPARISON: [facility], CT, CT BRAIN WO CON, 08/27/2016, 19:12. FINDINGS: Image quality: Excellent. CSF spaces: Basal cisterns are patent. No extra-axial fluid collections. Ventricles are normal in size and shape. Brain: No midline shift. No intracranial masses or hemorrhage. Blanc-white matter interface is norm al. Skull and face: Calvarium and visualized facial bones are intact, without suspicious lesions. Sinuses: Visualized sinuses and mastoids are clear. IMPRESSION: Source of altered mental status not found. Mild microvascular atherosclerotic change is seen within the deep white matter of each hemisphere. Depending on the clinical status followup by C T scanning may be warranted. Dictated by: Rustam Frank M.D. on 09/18/2016 at 13:55 Approved by: Rustam Frank M.D. on 09/18/2016 at 13:56
--- NOTE | 2016-09-18 13:59 | DRSVH ---
PROCEDURE: X-RAY CHEST ONE VIEW, PORTABLE ([id number]) INDICATIONS: altered mental status TECHNIQUE: One view of the chest was acquired. COMPARISON: [facility], CR, XR CHEST 1VW (PORTABLE), 08/02/2016, 15:02. [facility], CR, XR CHEST 1VW (PORTABLE), 07/21/2016, 4:50. FINDINGS: Surgical changes and devices: Sternotomy wires, presumed prior CABG. Lungs and pleura: No pleural effusions or pneumothorax. Lungs are abnormal with reduced inspiration and patient tilt and rotation rightward with mild atelectasis. Mediastinum: Mediastinal contours appear normal. Heart size is normal. Bones and chest wall: No suspicious bony lesions. Overlying soft tissues appear unremarkable. IMPRESSION: Presumed prior CABG, study is limited by patient rotation and tilt rightward and reduced inspiration. No definite acute disease is found when these factors are taken into account. Dictated by: Rustam Frank M.D. on 09/18/2016 at 13:56 Approved by: Rustam Frank M.D. on 09/18/2016 at 13:57
--- NOTE | 2016-09-18 15:15 | DRSVH ---
PROCEDURE: CT ABDOMEN AND PELVIS WITH CONTRAST ([id number]) INDICATIONS: abd pain fever h/o liver abscess TECHNIQUE: After the administration of intravenous contrast, 5 mm thick sections acquired from the diaphragm to the symphysis. 5 mm coronal and sagittal reformats were acquired. For radiation dose reduction, the following was used: automated exposure control, adjustment of mA and/or kV according to patient siz e. Improved in extent when compared with multiple prior studies. 2. COMPARISON: [facility], CT, CT ABD W CON, 07/27/2016, 12:56. [facility], CT, CT ABD WO CON, 08/03/2016, 12:11. [facility], CT, CT ABD PELVIS W CON, 08/28/2016, 9:1 3. FINDINGS: Image quality: Excellent. ABDOMEN: Lung bases: There is mild atelectasis at the bilateral lung bases. Solid organs: The liver demonstrates overall normal enhancement. The transient hepatic attenuation di fference within the hepatic segment V is decreased in conspicuity when compared with the study dated 08/28/16. A focal 8mm diameter hypodensity is present in this region which may represent the residual cavity from the previously drained hepatic abscess. The spleen demonstrates normal size. Gallbladder wall is mildly thickened and there is a small amount of pericholecystic fluid. Overall, the gallbladd er appears less inflamed than on multiple prior studies. Biliary system is non dilated. Pancreas enh ances normally. No adrenal nodules. Kidneys are atrophic. Peritoneum and bowel: The stomach is decompressed. The small bowel demonstrates normal caliber and wa ll thickness. There is severe mucosal thickening throughout the sigmoid colon, the rectum, and the tr ansverse colon. There is diffuse pericolonic fat stranding in these regions. No pneumatosis or pneumo peritoneum. The remainder of the colon demonstrates normal caliber and wall thickness. Nodes and vessels: No retroperitoneal or mesenteric adenopathy by size criteria. Aorta and inferior vena cava are normal in size. There are scattered atheromatous calcifications throughout the aorta and iliac arteries bilaterally. Miscellaneous: No ventral hernias. PELVIS: Genitourinary: Bladder wall thickness is normal. There are extensive vascular calcifications within the vagina. Miscellaneous: No inguinal hernias or adenopathy. Bones: No suspicious bony lesions. No new vertebral body compression fractures. Severe superior en dplate depression at L1 is unchanged when compared with prior studies. IMPRESSION: 1. Mild gallbladder wall thickening and trace pericholecystic fluid. Overall, these findings are litzy edly decreased in extent when compared with prior studies. 2. Decreased hepatic attenuation difference within hepatic segment V and decreased size of the hepati c abscess when compared with prior studies. There is no hepatic abscess amenable to percutaneous drai nage. 3. Marked colonic thickening of the rectosigmoid, sigmoid, and transverse colon. The severity of thes e findings are increased when compared with the prior CT dated 08/28/16. Given the patient's history o f C. difficile, toxic megacolon should be considered in the differential diagnosis. These findings were discussed with Dr. Prem Painter at 3:10 PM on 09/18/16. Dictated by: Gina Zepeda M.D. on 09/18/2016 at 15:02 Approved by: Gina Zepeda M.D. on 09/18/2016 at 15:13
[2016-09-18] MEDS ORDERED: metroNIDAZOLE Inj 1,000 MG in IV Premix 1 EACH IV ONE (15:30)
[2016-09-18 15:39] LABS: APPEARANCE,URINE SLIGHTLY CLOUDY (CLEAR,HAZY); COLOR,URINE DARK YELLOW (YELLOW); OCCULT BLOOD,URINE MODERATE (NEGATIVE); PH,URINE 8.5 (5.0-8.0); UROBILINOGEN,URINE NORMAL (NORMAL)
[2016-09-18] MEDS ORDERED: Tigecycline Inj 100 MG in 0.9% Sodium Chloride 100 ML IV ONE (16:20)
[2016-09-18] MEDS ORDERED: Vancomycin Inj 500 MG in 0.9% Sodium Chloride 100 ML IRRIGATION SCH (16:20)
--- NOTE | 2016-09-18 17:02 | CONS ---
[address] [address] CONSULTATION REPORT PATIENT: MARTÍNEZ BAUMANN : 1950 MR#: [id number] ADMIT: 09/18/2016 JOB ID: [id number] DATE OF SERVICE: REQUESTING PHYSICIAN: Dr. Lagos. REASON FOR CONSULTATION: Management of end-stage renal disease. CHIEF COMPLAINT: Altered mental status. PRESENT ILLNESS: This is a 66-year-old, lady with significant past medical history of end-stage renal disease, on hemodialysis every Wednesday, Wednesday and Wednesday, recent history of C. difficile colitis, recent history of liver abscess, status post drainage, acute on chronic cholecystitis, hypertension with hypertensive nephrosclerosis, recurrent metabolic encephalopathy, who presented to the emergency room due to altered mental status. According to the , he reported that she became confused after hemodialysis. The patient then was brought to the emergency department for further investigation. During my visit, the patient is awake. However, she is not able to follow commands or answer questions. She does not have any significant fever or chills. He endorsed of her having watery diarrhea. The patient was recently admitted at the hospital between August 24 and September 05 due to acute C. difficile colitis. Of note, she had history of multiple episodes of confusion. She was evaluated by neurologist and the etiology was thought to be due to metabolic encephalopathy due to acute infection. Her initial vitals showed temperature of 36.7. Later on, she had a temperature of 38.4. Her initial blood pressure was 211/72, and the current one is 155/72. The patient had CT abdomen with contrast. It showed marked colonic thickening of the rectosigmoid, sigmoid and transverse colon. The severity of these findings are increased when compared with the prior CT dated August 28, 2016. Decreased hepatic attenuation difference with hepatic segment 5 and decreased size of the hepatic abscess when compared with the prior studies. CT brain showed no acute abnormality is identified. Her WBC showed leukocytosis, 13.8. UA showed WBC over 50, 0-2 RBCs, moderate bacteria. PAST MEDICAL HISTORY: 1. End-stage renal disease, on hemodialysis every Wednesday, Wednesday, and Wednesday. 2. Recurrent hepatic encephalopathy. 3. UTI. 4. Hypertension. 5. Dyslipidemia. 6. Diastolic heart failure. 7. Recent history of C. difficile colitis. 8. Recent history of liver abscess, status post drainage. 9. Chronic cholecystitis. 10. Coronary artery disease, status post CABG. SOCIAL HISTORY: The patient lives at the care home, [facility] in [place]. She denies current use of alcohol, tobacco, illicit drugs. FAMILY HISTORY: No kidney disease in th family. REVIEW OF SYSTEMS: Unable to obtain. MEDICATIONS: Reviewed. ALLERGIES: 1. AMLODIPINE. 2. CLONIDINE. 3. GLIPIZIDE. 4. LABETALOL. 5. TRAMADOL. 6. PIROXICAM. PHYSICAL EXAMINATION: Vitals: Temperature 38.4, pulse 84, respiratory rate 16, blood pressure 155/72, O2 sat 97% on room air. General appearance: Awake, but not aware. Unable to follow commands or answer any questions. HEENT: Mild pallor. No jaundice. No JVD. No lymphadenopathy. No thyroid enlargement. Heart: Regular rhythm. Normal S1, S2. Systolic murmur noted. Lungs: Clear to auscultation bilaterally. No wheezing. No rhonchi. Abdomen: Soft. Mild tenderness on the left lower quadrant and suprapubic area. No guarding, no rigidities. Extremity: No edema, cyanosis or clubbing of fingers. LABORATORY: Sodium 135, potassium 4.0, chloride 92, bicarb 28, BUN 11, creatinine 1.76. WBC 13.8, hemoglobin 11.2, platelets 216. Chest x-ray showed reduced inspiration. No significant infiltrates, prior CABG. ASSESSMENT: 1. Altered mental status secondary to metabolic encephalopathy. 2. Sepsis with significant past medical history of recent Clostridium difficile colitis. The repeat abdominal computed tomography showed worsening colonic thickening of the rectosigmoid and transverse colon. Urinalysis shows pyuria. Suspected toxic megacolon. 3. End-stage renal disease, on hemodialysis, Wednesday, Wednesday, Wednesday. 4. Uncontrolled hypertension. 5. Type 2 diabetes. 6. Coronary artery disease, status post coronary artery bypass grafting. PLAN: Per renal standpoint, emergent dialysis is not indicated at this moment. Recommend septic workup, stool PCR. Broad-spectrum IV antibiotics including Flagyl to cover C. difficile colitis. Resume her blood pressure medications, including Coreg, lisinopril, and minoxidil. Thank you for allowing me to participate in the care of your patient. ALANNA
--- NOTE | 2016-09-18 17:15 | ED.REPORT ---
HPI-General Illness Date of Service Sep 18, 2016 ED Provider: Fuad Porter MD 66yoF tunisian only speaking with history of recent C. Diff colitis as well as hepatic abscess requiring surgical drainage and recurrent UTI with ESRD on dialysis presents with altered mental status. The states that he sees he regularly twice a day in [facility] rehabilitation facility and she was normal until today after dialysis. After dialysis the patient became obtunded not responding to questions and not following commands. The has stated that the patient was having bouts of diarrhea still until yesterday and is unsure if her diarrhea ever resolved since being diagnosed with C. diff last month. The denies the patient had any complaints yesterday of pain in her chest or abdomen, or fever and chills. Nursing Notes Chief Complaint: General Complaint Nursing Notes Reviewed: Yes Allergies: Coded Allergies: piroxicam (Verified Allergy, Severe, swelling, 09/18/16) glipizide (Verified Allergy, Intermediate, 09/18/16) clonidine (Verified Allergy, Mild, 09/18/16) tramadol (Verified Allergy, Mild, 09/18/16) amlodipine (Verified Allergy, Unknown, 09/18/16) labetalol (Verified Allergy, Unknown, 09/18/16) Scheduled Aspirin (Aspirin) 325 Mg Tablet 325 MG PO DAILY Calcium Acetate (Calcium Acetate) 667 Mg Tablet 667 MG PO TIDWM Carvedilol (Carvedilol) 3.125 Mg Tablet 3.125 MG PO BID Ceftazidime Pentahydrate (Ceftazidime) 1 Gm Vial 1 GM IJ three times weekly Insulin Glargine (Lantus U100 Insulin Vial) 100 Unit/Ml Vial 5 UNIT SUBQ HS Insulin Human Lispro (HumaLOG U100 Insulin Vial) 100 Unit/Ml Unit 0 UNIT SUBQ WMHS Check blood sugars before meals and at bedtime. Use correction factor only before meals. Blood Sugar Lispro Correction: <151, 0 units; 151-175, 1 unit; 176-200, 2 units; 201-225, 3 units; 226-250, 4 units; 251-275, 5 units; 276-300 , 6 units; 301-325, 7 units; 326-350, 8 units; 351-375, 9 units; 376-400, 10 units; >400, 12 units. Levothyroxine (Synthroid) 75 Mcg Tablet 75 MCG PO DAILY Lisinopril (Lisinopril) 20 Mg Tablet 10 MG PO DAILY Minoxidil (Minoxidil) 2.5 Mg Tablet 2.5 MG PO BID Pantoprazole DR (Protonix) 40 Mg Tablet.dr 40 MG PO QAM Vancomycin (Vancomycin) 250 Mg Capsule 250 MG PO QID Scheduled PRN Acetaminophen (Acetaminophen) 500 Mg Tablet 500 MG PO Q6H PRN PRN For Pain General Time Seen by MD: 14:20 Chief Complaint Altered mental status Hx Obtained From: Spouse Unable to Obtain Hx: Patient condition, Mental status Arrived By: Ambulance Sudden in Onset?: Yes Onset Occurred: 1 - 4 hours ago Symptom Duration: Since onset Recent Healthcare: Recent doctor visit, Recent hospitalization, Recent testing , Previous diagnosis, Previous surgery, Prior workup Similar Sx Previous: Yes Past Medical History Past Medical History 1. Stage 5 chronic kidney disease, hemodialysis dependent (M,W,F) 2. 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 3. Severe hypertension. 4. History of diastolic congestive heart failure. 5. Dyslipidemia. 6. Hypothyroidism. 7. Obesity. 8. Renal dialysis with right arm shunt. 9. Intrahepatic abscess 10. Cholecystitis 11. Anemia 12. recurrent UTI Past Surgical History 1. Tunnel catheter placed on AV fistula right upper extremity. 2. Appendectomy. 3. Cataract surgery. 4. coronary artery bypass surgery 08/27/14 in [facility] Smoking History Never Smoker Social History Alcohol Use: Denies alcohol use Drug Use: Denies drug use Other Social History: Good social support Review of Systems Unable to Obtain ROS Patient condition, Mental status Physical Exam Vital Signs Vital Signs Date Time Temp Pulse Resp B/P Pulse Ox O2 Delivery O2 Flow Rate FiO2 09/18/16 18:40 39.1 111 20 184/54 96 Room Air 09/18/16 12:49 38.4 84 16 155/72 97 Room Air Initial VS: Reviewed Alertness: Positive: Obtunded (non verbal), Responds to verb stimuli, Sleeping but arousable Appearance / Presentation: Positive: Appears older than age, Debilitated, Frail will turn head and open eyes to voice Head / Eyes: Atraumatic, Normocephalic, No periorbital swelling, No scleral icterus, Conjunctiva NL Pupils: Positive: Anisocoria (R>L), Sluggish L, Sluggish R ENT: Atraumatic, Airway patent, Mucous membranes moist, Pharynx NL, No peritonsillar abscess, No facial swelling Dental / Gums: Positive: Decay extensive, Dentition poor Neck: Supple, No adenopathy, No swelling, Non-tender, No masses, No crepitus, No JVD, No carotid bruit, Thyroid NL, No tracheal deviation Respiratory / Chest: Breath sounds NL, Breath sounds = bilat, No respiratory distress, No rales, No rhonchi, No wheezing Cardiovascular: Heart rate NL, Regular rhythm, Heart sounds NL, Cap refill not delayed, Peripheral circulation NL Abdomen: Atraumatic, Soft, No guarding, BS normoactive, No distention, No palpable mass, No pulsatile mass patient grimances when palpating abdomen and pelvis, remains nonverbal Upper Extremities Upper Extremity / MS: Inspection NL, No swelling, Non-tender, No erythema, No deformity, Neurologic intact, Vascular intact, No clubbing/cyanosis Lower Extremity / Pelvis / MS: Inspection NL, No swelling, Non-tender, No erythema, No deformity, Neurologic intact, Vascular intact, No edema Skin: Color NL, Warm, Dry, Turgor NL Mental Status: Positive: Lethargic, Responds to verbal stim, Somnolent, Unresponsive unable to obtain Unable to Evaluate: Positive: Unresponsive Interpretation & Diagnostics Lab Results Interpretation Result Diagram: 09/18/16 1315 09/18/16 1315 Test 09/18/16 13:15 09/18/16 15:25 White Blood Count 13.8th/mm3 (3.8-10.1) Red Blood Count 3.48mil/mm3 (3.90-5.20) Hemoglobin 11.2g/dL (12.0-15.6) Hematocrit 34.1% (35.0-46.0) Mean Corpuscular Volume 98.0fL (81-100) Mean Corpuscular Hemoglobin 32.2pg (27.0-35.0) Mean Corpuscular Hemoglobin Concent 32.8% (32.0-37.0) Red Cell Distribution Width 14.5% (12.3-15.4) Platelet Count 216bil/L (150-400) Neutrophils (%) (Auto) 76.6% (40-74) Lymphocytes (%) (Auto) 9.7% (14-46) Monocytes (%) (Auto) 12.4% (4-12) Eosinophils (%) (Auto) 0.7% (0-5) Basophils (%) (Auto) 0.1% (0-3) Sodium Level 135mEq/L (134-144) Potassium Level 4.0mEq/L (3.5-5.2) Chloride Level 92mEq/L (97-108) Carbon Dioxide Level 28mmol/L (18-29) Blood Urea Nitrogen 11mg/dL (8-27) Creatinine 1.76mg/dL (0.57-1.00) Estimat Glomerular Filtration Rate 41mL/min (>59) Glucose Level 120mg/dL (60-99) Lactic Acid Level 1.8mmol/L (0.4-2.0) Calcium Level 9.0mg/dL (8.5-10.1) Total Bilirubin 0.6mg/dL (0.0-1.2) Aspartate Amino Transf (AST/SGOT) 16U/L (0-50) Alanine Aminotransferase (ALT/SGPT) 6U/L (0-32) Alkaline Phosphatase 128U/L (25-165) Total Protein 6.9g/dL (6.4-8.4) Albumin 3.7g/dL (3.4-5.0) Procalcitonin 2.01ng/mL (0.00-0.08) Urine Color Dark yellow (YELLOW) Urine Appearance Slightly cloudy Urine pH 8.5 (5.0-8.0) Urine Specific [place] 1.015 (1.003-1.035) Urine Protein 100mg/dL (NEG,TRACE) Urine Glucose (UA) 100mg/dL (NEGATIVE) Urine Ketones Negativemg/dL (NEGATIVE) Urine Occult Blood Moderate (NEGATIVE) Urine Nitrite Negative (NEGATIVE) Urine Bilirubin Negative (NEGATIVE) Urine Urobilinogen Normalmg/dL (NORMAL) Urine Leukocyte Esterase Moderate (NEGATIVE) Urine RBC 0-2/hpf (0-2) Urine WBC >50/hpf (0-5) Urine Epithelial Cells Occasional/hpf (NONE-MOD) Urine Crystals None seen (NONE SEEN) Urine Bacteria Moderate/hpf (NONE-FEW) Urine Hyaline Casts None/lpf (NONE) Urine Granular Casts None seen (NONE SEEN) Urine Waxy Casts None seen (NONE SEEN) Urine Red Blood Cell Casts None seen (NONE SEEN) Urine White Blood Cell Casts None seen (NONE SEEN) Urine Mucus Present (None Seen) Urine Trichomonas None seen (NONE SEEN) Urine Yeast None (NONE SEEN) Urinalysis Comment None Urine Culture Reflexed Indicated X-Ray Chest Interpretation Chest Xray Interpretation: IMPRESSION: Source of altered mental status not found. Mild microvascular atherosclerotic change is seen within the deep white matter of each hemisphere. Depending on the clinical status followup by CT scanning may be warranted. Dictated by: Rustam Frank M.D. on 09/18/2016 at 13:55 Approved by: Rustam Frakn M.D. on 09/18/2016 at 13:56 View: Portable Interpretation / Wet Read by: Interpret - Radiologist CT Head Interpretation IMPRESSION: Source of altered mental status not found. Mild microvascular atherosclerotic change is seen within the deep white matter of each hemisphere. Depending on the clinical status followup by CT scanning may be warranted. Dictated by: Rustam Frank M.D. on 09/18/2016 at 13:55 Approved by: Rustam Frank M.D. on 09/18/2016 at 13:56 Study: Head CT no contrast Interpretation / Wet Read by: Interpret - Radiologist CT Abd / Pelvis Interpretation IMPRESSION: 1. Mild gallbladder wall thickening and trace pericholecystic fluid. Overall, these findings are markedly decreased in extent when compared with prior studies. 2. Decreased hepatic attenuation difference within hepatic segment V and decreased size of the hepatic abscess when compared with prior studies. There is no hepatic abscess amenable to percutaneous drainage. 3. Marked colonic thickening of the rectosigmoid, sigmoid, and transverse colon. The severity of these findings are increased when compared with the prior CT dated 08/28/16. Given the patient's history of C. difficile, toxic megacolon should be considered in the differential diagnosis. These findings were discussed with Dr. Prem Painter at 3:10 PM on 09/18/16. Dictated by: Gina Zepeda M.D. on 09/18/2016 at 15:02 Approved by: Gina Zepeda M.D. on 09/18/2016 at 15:13 Interpretation / Wet Read by: Wet read Resident, Interpret - Radiologist, Interp - Surgeon Re-Eval/Medical Decision Med Decision/Clinical Course 66yoF tunisian only speaking with history of recent C. Diff colitis as well as hepatic abscess requiring surgical drainage and recurrent UTI with ESRD on dialysis presents with altered mental status. Physical exam patient grimaces with palpation of her abdomen but patient only opens eyes to voice and is unresponsive to commands. Labs show elevated WBC, elevated lactate, elevated procalcitonin consistent with bacterial infection. UA shows elevated LE, WBC, and bacteria consistent with UTI. CT abdomen and pelvis with contrast appears to represent c diff associated toxic megacolon. Surgery consulted from ED. Patient started on IV metronidazole, IV Tigacycline, and rectal [id number] dissolved in 100mL NS discussed with Pharmacy ordered through paper. She was receiving Metronidazole IV, vancomycin PO, and tigacycline IV at discharge of her last admission on 09/05. [facility] indicate the patient last received Ceftazidime 1000mg IV post dialysis for the hepatic abscess on 09/09, and last received her oral vancomycin for c diff 250mg QID on 09/11 to complete her course of antibiotic treatments. Patient will likely require transfer to outside facility for surgical intervention given there will be no process checker available at [facility] for the next three days. Source of Hx: Old records, [employer], Family Counseled Regarding: Need for admission, Need for transfer Discharge & Departure Shift Change Sign-Out Patient Care Transferred: Yes Discussed Complaint(s): Yes Laboratory Evaluation: Lab evaluation discussed Imaging Studies: Imaging discussed Input from Consult: Transfer of care to Dr. Delfin Sahu- Awaiting transfer to [facility]. 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 Harjit De La Cruz Transfer Accepted: Yes Transfer Accepted at: 19:16 Transfer Reason: Higher level of care Spoke with: Hospitalist Patient Status: Stable for transfer Patient Informed: Yes Discharge Condition All VS Reviewed: Yes Condition: Critical Referrals: Mira Ovalle MD (PCP) EDSupervising Provider for APC: Fuad Porter MD Attending Statement I discussed patient with resident. I saw and evaluated patient independently. I agree with plan as above. In brief, 66-year-old female history of end-stage renal disease on dialysis, C. difficile, CAD, DM, HTN, dCHF, chronic cholecystitis and liver abscesses presenting with altered mental status that occurred during dialysis today. Patient is mildly somnolent. She is febrile on arrival. Blood pressure stable. CT brain no acute pathology. Lactate is within normal limits. White blood cell count is 13,000. CT with colitis possible toxic megacolon. Our anesthesia team refused to take to the operating room as we do not have any beds for ventilated patients and they are concerned she may be called to extubate should she go to the OR. Spoke with surgeon Dr. Dominguez at [place] who thought patient CT consistent with C. difficile colitis but does not need surgical intervention immediately. She agreed to have patient transferred to our hospitalist service and she will evaluate the patient on arrival. I was asked to follow through with the transfer. The hospitalist at [facility] has graciously accepted this lady for transfer. They understood that we do not have capacity to take care for hands are going to the operating room. copies to: Mira Ovalle MD, Nicholas K DO Sep 18, 2016 15:26 Fuad Porter MD Sep 18, 2016 18:09 Rowena Agarwal Sep 18, 2016 19:23 Delfin Sahu DO Sep 18, 2016 19:49
[2016-09-18] MEDS ORDERED: 0.9% Sodium Chloride 1,000 ML IV SCH (17:21)
[2016-09-18] MEDS ORDERED: Ondansetron 2 mg/mL 2 mL Inj IVPUSH PRN (17:25)
[2016-09-18] MEDS ORDERED: Alum-Mag Hydrox-Simeth 30 mL Suspension PO PRN (17:25)
[2016-09-18] MEDS ORDERED: Polyethylene Glycol (PEG) 17 Gm Powder PO PRN (17:25)
[2016-09-18] MEDS ORDERED: 0.9% Sodium Chloride 500 ML IV ONE (18:15)
[2016-09-18 18:40] VITALS: BP 184/54; PULSE 111; RESP 20; O2SAT 96
--- NOTE | 2016-09-18 19:15 | PROG NOTE ---
[address] [address] PROGRESS NOTE PATIENT: MARTÍNEZ BAUMANN : 1950 MR#: [id number] ADMIT: 09/18/2016 JOB ID: [id number] DATE: 09/18/2016 I was asked by the emergency department to consult on the patient regarding concern for severe C. difficile associated colitis. The patient is a 66-year-old female with multiple medical comorbidities, who is very familiar to me. I have taken care of her on numerous occasions in the past, both inpatient as well as an outpatient. She was recently admitted to the hospital with sepsis, which was determined to be from C. difficile colitis. She was treated for this and then discharged to a skilled nurse facility. Per the family today, she was looking her usual self and doing fine, but then during dialysis, had an acute decline in her mental status. This is a common presentation for her when she has developed septic complications. She was brought to the emergency department and found to be febrile with a temperature 38.4. She had a mild leukocytosis of 13.8, procalcitonin of 2.01. CT scan of the abdomen and pelvis was obtained, which I have personally reviewed. This shows marked thickening of the transverse colon down into the rectosigmoid. I examined the patient. She does not respond to verbal stimuli but does grimace and groan when I palpate her abdomen. She is obviously having profuse diarrhea. I am concerned about progression of her C. difficile colitis. Based on her presentation and the images, I think a diagnostic laparoscopy with a possible colectomy or loop ileostomy with colonic lavage is warranted. I discussed this with the family with a plan to come back and further evaluate her after an urgent case that I had to perform. However, during that procedure, I was made aware that the ICU is closed and therefore this patient cannot, given her condition, go to the operating room here at [facility]. Discussed this at length with the emergency department physician and apparently arrangements have been made to transfer her down to [place].
[2016-09-18] MEDS ORDERED: Vancomycin 125 mg Oral Capsule PO SCH (20:30)
[2016-09-18] MEDS ORDERED: Piperacillin-Tazo 3.375 Gm Inj 3.375 GM in Dextrose 5% Minibag Plus 50 ML IV SCH (20:30)
[2016-09-18] MEDS ORDERED: Heparin 5,000 Unit/mL Inj SUBQ SCH (20:30)
[2016-09-18 20:32] VITALS: BP 138/43; PULSE 99; RESP 20; O2SAT 99
[2016-09-18 20:52] VITALS: BP 138/43; PULSE 99; RESP 20; O2SAT 99
== END 2016-09-18 20:55 | disposition short-term general hospital (02) ==
LOC: SED 12:43
DX: A04.7 Enterocolitis due to Clostridium difficile (principal); N30.00 Acute cystitis without hematuria; I13.2 Hypertensive heart and chronic kidney disease with heart failure and with stage 5 chronic kidney disease, or end stage renal disease; I50.30 Unspecified diastolic (congestive) heart failure; N18.6 End stage renal disease; E11.319 Type 2 diabetes mellitus with unspecified diabetic retinopathy without macular edema; E11.21 Type 2 diabetes mellitus with diabetic nephropathy; E11.59 Type 2 diabetes mellitus with other circulatory complications; R41.0 Disorientation, unspecified; Z87.440 Personal history of urinary (tract) infections; Z95.1 Presence of aortocoronary bypass graft; Z79.4 Long term (current) use of insulin; Z79.82 Long term (current) use of aspirin; Z99.2 Dependence on renal dialysis; Z88.5 Allergy status to narcotic agent; Z88.8 Allergy status to other drugs, medicaments and biological substances
CPT/HCPCS: 36415; 70450; 71010; 74177; 80053; 81000; 82308; 83605; 85025; 87040; 87077; 87086; 87088; 87186; 87804; 93005; 96361; 96365; 96375; 99285; J3370; J3490; J7040; Q9967

== ENCOUNTER 2016-09-28 22:39 | Emergency (ER) | payer MEDICARE, MEDICAID ==
[~2016-09-28] VITALS: Ht 157.5 cm; Wt 95.0 kg
[2016-09-28 22:46] VITALS: BP 174/41; PULSE 76
[2016-09-28 23:30] VITALS: BP 178/43; PULSE 68; RESP 18; O2SAT 99
[2016-09-29] VITALS (7 sets, daily range): BP systolic 171–185; BP diastolic 36–46; PULSE 62–75; RESP 18; O2SAT 100
--- NOTE | 2016-09-29 01:53 | ED.REPORT ---
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 Patient lives at [facility], [place], where staff noticed that there was blood in her stool this evening. Patient was discharged from [facility] today, instructions to present to the ED if she experienced any rectal bleeding. Patient was admitted to [facility] on 09/18 for recurrent C diff. colitis, but was ultimately transferred to [facility]. Patient was admitted to their facility from 09/18 - 09/28, with colonoscopy prior to discharge showing severe segmental inflammation from 0-40cm consistent with ischemic colitis. Of note, the patient was also found to be passing blood clots during the digital rectal exam prior to colonoscopy. Patient is a poor historian and is able to provide minimal history. Nursing Notes Stated Complaint: RECTAL BLEED Chief Complaint: Female Abdominal Pain Nursing Notes Reviewed: Yes Allergies: Coded Allergies: piroxicam (Verified Allergy, Severe, swelling, 09/18/16) glipizide (Verified Allergy, Intermediate, 09/18/16) clonidine (Verified Allergy, Mild, 09/18/16) tramadol (Verified Allergy, Mild, 09/18/16) amlodipine (Verified Allergy, Unknown, 09/18/16) labetalol (Verified Allergy, Unknown, 09/18/16) Scheduled Aspirin (Aspirin) 325 Mg Tablet 325 MG PO DAILY Calcium Acetate (Calcium Acetate) 667 Mg Tablet 667 MG PO TIDWM Carvedilol (Carvedilol) 3.125 Mg Tablet 3.125 MG PO BID Ceftazidime Pentahydrate (Ceftazidime) 1 Gm Vial 1 GM IJ three times weekly Insulin Glargine (Lantus U100 Insulin Vial) 100 Unit/Ml Vial 5 UNIT SUBQ HS Insulin Human Lispro (HumaLOG U100 Insulin Vial) 100 Unit/Ml Unit 0 UNIT SUBQ WMHS Check blood sugars before meals and at bedtime. Use correction factor only before meals. Blood Sugar Lispro Correction: <151, 0 units; 151-175, 1 unit; 176-200, 2 units; 201-225, 3 units; 226-250, 4 units; 251-275, 5 units; 276-300 , 6 units; 301-325, 7 units; 326-350, 8 units; 351-375, 9 units; 376-400, 10 units; >400, 12 units. Levothyroxine (Synthroid) 75 Mcg Tablet 75 MCG PO DAILY Lisinopril (Lisinopril) 20 Mg Tablet 10 MG PO DAILY Minoxidil (Minoxidil) 2.5 Mg Tablet 2.5 MG PO BID Pantoprazole DR (Protonix) 40 Mg Tablet.dr 40 MG PO QAM Vancomycin (Vancomycin) 250 Mg Capsule 250 MG PO QID Scheduled PRN Acetaminophen (Acetaminophen) 500 Mg Tablet 500 MG PO Q6H PRN PRN For Pain General Time Seen by Provider: 02:00 Chief Complaint Chief Complaint: Stool blood streaked Hx Obtained From: Spouse Unable to Obtain Hx: Patient condition Arrived By: Ambulance Onset Occurred: 1 - 4 hours ago Symptom Duration: Since onset Recent Healthcare: Recent hospitalization, Previous surgery Similar Sx Previous: No Past Medical History Past Medical History 1. ESRD, hemodialysis dependent (M,W,F) 2. 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 3. Severe hypertension. 4. History of diastolic congestive heart failure. 5. Dyslipidemia. 6. Hypothyroidism. 7. Obesity. 8. Renal dialysis with right arm shunt. 9. Intrahepatic abscess s/p drainage 10. chronic Cholecystitis 11. Anemia 12. recurrent UTI 13. C diff. colitis with toxic megacolon, changes on colonoscopy concerning for ischemic colitis Past Surgical History 1. Tunnel catheter placed on AV fistula right upper extremity. 2. Appendectomy. 3. Cataract surgery. 4. coronary artery bypass surgery 08/27/[address] [facility] 5. colonscopy 6. drainage of liver abscess Smoking History Never Smoker Social History Lives [facility], [place] Alcohol Use: Denies alcohol use Drug Use: Denies drug use Other Social History: Good social support, Local resident Review of Systems Unable to Obtain ROS Patient condition GI: Reports: Rectal pain (bleeding) Physical Exam Initial Vital Signs Vital Signs (First) Date Time Temp Pulse Resp B/P Pulse Ox O2 Delivery O2 Flow Rate FiO2 09/28/16 22:46 37.1 76 174/41 Room Air 09/28/16 23:30 18 99 Initial VS: Reviewed, Vital signs normal Head / Eyes: Atraumatic, Normocephalic, PERRL ENT: Conjunctiva normal, No scleral icterus Neck: Supple, Non-tender Skin: Warm, Dry, No cyanosis Neurologic: Alert, Oriented, Nonfocal Psychiatric: Mood/affect normal, Behavior normal, Normal thought content General/Constitutional: Awake, Alert Respiratory / Chest: Breath sounds NL, Breath sounds = bilat, No respiratory distress, No rales, No rhonchi, No wheezing Cardiovascular: Heart rate NL, Regular rhythm, Heart sounds NL, No murmurs Abdomen: Soft, Non-tender Rectal for Blood: Positive: Blood - occult heme +, Currant jelly stool Upper Extremity / MS: No swelling, No edema right dialysis shunt Lower Extremity / Pelvis / MS: No swelling, No edema Interpretation & Diagnostics Lab Results Interpretation Result Diagram: 09/29/16 0550 Test 09/29/16 02:05 09/29/16 05:50 White Blood Count 8.3th/mm3 (3.8-10.1) Red Blood Count 2.58mil/mm3 (3.90-5.20) Mean Corpuscular Volume 96.1fL (81-100) Mean Corpuscular Hemoglobin 31.4pg (27.0-35.0) Mean Corpuscular Hemoglobin Concent 32.7% (32.0-37.0) Red Cell Distribution Width 15.6% (12.3-15.4) Platelet Count 188bil/L (150-400) Neutrophils (%) (Auto) 70.7% (40-74) Lymphocytes (%) (Auto) 15.6% (14-46) Monocytes (%) (Auto) 11.6% (4-12) Eosinophils (%) (Auto) 0.8% (0-5) Basophils (%) (Auto) 0.2% (0-3) Hold M[place]uley Top Tube Received (Received) Hemoglobin 8.1g/dL (12.0-15.6) Hematocrit 24.8% (35.0-46.0) Lab Results Interpretation: Chronic anemia, minimal change Re-Eval/Medical Decision Med Decision/Clinical Course Ongoing bloody diarrhea but no evidence of vascular instability or dropping hematocrit. Return to [facility] and resume her previous orders. Source of Hx: Old records Summary of Info: H&H from [facility] on 17: 8.6 & 25.3 Re-Evaluation/Progress #1: Time of Eval: 02:00 Re-Evaluation/Progress Note: Rechecked the patient. Informed the patient and her of plan of care. Her kyle will return home. Re-Evaluation/Progress #2: Time of Eval: 06:34 Re-Evaluation/Progress Note: Informed the patien that she will be discharged back to [facility], [place]. Patient understands and agrees with the plan to be discharged home. Discharge instructions and follow-up discussed. All questions were addressed. Return to the ED warnings given. Counseled Regarding: Diagnosis, Lab results, Need for follow-up, When/why to return to ED Discharge & Departure Impression: Primary Impression: C. difficile colitis Disposition: Home Discharge Condition All VS Reviewed: Yes Condition: Stable Patient Instructions: Clostridium Difficile Infection (ED) Additional Instructions: Torri had some bloody stool. This is likely caused by her C. difficile infection. Her abdominal exam is unremarkable. Her H&H is very slightly lower than it was when she was discharged from [place]. Repeat H&H was almost the same. No evidence of serious ongoing blood loss. Contact her primary doctor for further evaluation and treatment recommendations. Resume her present orders. Referrals: Mira Ovalle MD (PCP) Kimberlyibmarline Attestation Portions of this note were transcribed by Natty Buck. I, Dr. Puckett personally performed the history, physical exam and medical decision-making; I reviewed and confirmed the accuracy of the information in the transcribed note. Signed by: Rafael Contreras, 09/29/2016 0634 copies to: Mira Ovalle MD, Howard L MD Sep 29, 2016 01:53 Natty Buck Sep 29, 2016 02:02
[2016-09-29 02:19] LABS: BASOPHILS % (AUTO) 0.2 % (0-3); EOSINOPHILS % (AUTO) 0.8 % (0-5); MONOCYTES % (AUTO) 11.6 % (4-12); Mean Corpuscular Hemoglobin 31.4 pg (27.0-35.0); Mean Corpuscular Volume 96.1 fL (81-100); NEUTROPHILS % (AUTO) 70.7 % (40-74); Platelet Count 188 bil/L (150-400)
== END 2016-09-29 07:06 | disposition home or self-care (01) ==
LOC: SED 22:39
DX: A04.7 Enterocolitis due to Clostridium difficile (principal); E11.22 Type 2 diabetes mellitus with diabetic chronic kidney disease; E11.319 Type 2 diabetes mellitus with unspecified diabetic retinopathy without macular edema; I13.2 Hypertensive heart and chronic kidney disease with heart failure and with stage 5 chronic kidney disease, or end stage renal disease; I50.9 Heart failure, unspecified; N18.6 End stage renal disease; D64.9 Anemia, unspecified; E03.9 Hypothyroidism, unspecified; I25.10 Atherosclerotic heart disease of native coronary artery without angina pectoris; Z99.2 Dependence on renal dialysis; Z95.1 Presence of aortocoronary bypass graft; Z87.440 Personal history of urinary (tract) infections; Z79.82 Long term (current) use of aspirin; Z79.890 Hormone replacement therapy; Z79.4 Long term (current) use of insulin; Z88.8 Allergy status to other drugs, medicaments and biological substances; Z98.890 Other specified postprocedural states

== ENCOUNTER 2016-10-08 21:53 | Emergency (ER) | payer MEDICARE, MEDICAID ==
[2016-10-08 22:01] VITALS: BP 201/62; PULSE 71; RESP 16; O2SAT 99
[2016-10-08] MEDS ORDERED: 0.9% Sodium Chloride 1,000 ML IV ONE (23:22)
[2016-10-08] MEDS ORDERED: Pantoprazole 4 mg/mL 10 mL Inj IVPUSH ONE (23:25)
--- NOTE | 2016-10-09 00:05 | ED.REPORT ---
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 There results were sent to Dr. Landeros, the patient's wire threader, who [facility] She received M,W ,F dialysis, last dialyzed yesterday. History is provided by the patient's , as the patient is nonverbal. Her was called by staff today to inform him that she had rectal bleeding and that . He is a poor historian and is able to provide minimal history. Patient was admitted to [facility] on 09/18 for recurrent C diff. colitis, but was ultimately transferred to [facility]. Patient was admitted to their facility from 09/18 - 09/28, with colonoscopy prior to discharge showing severe segmental inflammation from 0- 40cm consistent with ischemic colitis. She was discharged after stable hemiglobin, with care goals set as DNR, with comfort measures only. Nursing Notes Stated Complaint: POSS GI BLEED Chief Complaint: General Complaint Nursing Notes Reviewed: Yes Allergies: Coded Allergies: piroxicam (Verified Allergy, Severe, swelling, 09/18/16) glipizide (Verified Allergy, Intermediate, 09/18/16) clonidine (Verified Allergy, Mild, 09/18/16) tramadol (Verified Allergy, Mild, 09/18/16) amlodipine (Verified Allergy, Unknown, 09/18/16) labetalol (Verified Allergy, Unknown, 09/18/16) Scheduled Aspirin (Aspirin) 325 Mg Tablet 325 MG PO DAILY Calcium Acetate (Calcium Acetate) 667 Mg Tablet 667 MG PO TIDWM Carvedilol (Carvedilol) 3.125 Mg Tablet 3.125 MG PO BID Ceftazidime Pentahydrate (Ceftazidime) 1 Gm Vial 1 GM IJ three times weekly Insulin Glargine (Lantus U100 Insulin Vial) 100 Unit/Ml Vial 5 UNIT SUBQ HS Insulin Human Lispro (HumaLOG U100 Insulin Vial) 100 Unit/Ml Unit 0 UNIT SUBQ WMHS Check blood sugars before meals and at bedtime. Use correction factor only before meals. Blood Sugar Lispro Correction: <151, 0 units; 151-175, 1 unit; 176-200, 2 units; 201-225, 3 units; 226-250, 4 units; 251-275, 5 units; 276-300 , 6 units; 301-325, 7 units; 326-350, 8 units; 351-375, 9 units; 376-400, 10 units; >400, 12 units. Levothyroxine (Synthroid) 75 Mcg Tablet 75 MCG PO DAILY Lisinopril (Lisinopril) 20 Mg Tablet 10 MG PO DAILY Metronidazole (Flagyl) 500 Mg Tablet 500 MG PO Q8H Minoxidil (Minoxidil) 2.5 Mg Tablet 2.5 MG PO BID Pantoprazole DR (Protonix) 40 Mg Tablet.dr 40 MG PO QAM Vancomycin (Vancomycin) 250 Mg Capsule 250 MG PO QID Scheduled PRN Acetaminophen (Acetaminophen) 500 Mg Tablet 500 MG PO Q6H PRN PRN For Pain General Time Seen by MD: 00:04 Chief Complaint Other (rectal bleeding) Hx Obtained From: Spouse, Hydrogen Treater Unable to Obtain Hx: Patient condition Sudden in Onset?: No Onset Occurred: Yesterday Symptom Duration: Since onset Recent Healthcare: Recent doctor visit, Recent hospitalization Similar Sx Previous: Yes Past Medical History Past Medical History Notes: Patient was admitted to [facility] from 09/18 - 09/28, with colonoscopy prior to discharge showing severe segmental inflammation from 0-40cm consistent with ischemic colitis. She was discharged after stable hemiglobin, with care goals set as DNR, with comfort measures only. Past Medical History 1. ESRD, hemodialysis dependent (M,W,F) 2. 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 3. Severe hypertension. 4. History of diastolic congestive heart failure. 5. Dyslipidemia. 6. Hypothyroidism. 7. Obesity. 8. Renal dialysis with right arm shunt. 9. Intrahepatic abscess s/p drainage 10. chronic Cholecystitis 11. Anemia 12. recurrent UTI 13. C diff. colitis with toxic megacolon, changes on colonoscopy concerning for ischemic colitis Past Surgical History 1. Tunnel catheter placed on AV fistula right upper extremity. 2. Appendectomy. 3. Cataract surgery. 4. coronary artery bypass surgery 08/27/[address] [facility] 5. colonscopy 6. drainage of liver abscess Smoking History Never Smoker Social History Lives [facility] Alcohol Use: Denies alcohol use Drug Use: Denies drug use Other Social History: Good social support, Local resident Review of Systems Unable to Obtain ROS Patient condition, Mental status Physical Exam Vital Signs Vital Signs Date Time Temp Pulse Resp B/P Pulse Ox O2 Delivery O2 Flow Rate FiO2 10/09/16 00:41 68 17 200/64 100 Room Air 10/08/16 22:01 36.6 71 16 201/62 99 Room Air Initial VS: Reviewed Extremities: Vascular intact, Neuro intact, No swelling Skin: Warm, Dry, No cyanosis Alertness: Positive: Responds to pain stimuli, Sleeping but arousable (to noxious stimuli) exam and history limited by the patient's condition Head / Eyes: Atraumatic, Normocephalic ENT: Airway patent Neck: Supple Respiratory / Chest: Breath sounds NL, Breath sounds = bilat, No respiratory distress, No rales, No rhonchi, No wheezing Cardiovascular: Heart rate NL, Regular rhythm, Heart sounds NL, No murmurs Abdomen: Soft, Non-tender, No distention Upper Extremities Upper Extremity / MS: No swelling, No deformity dialysis port right upper extrmeity with good thrill Lower Extremity / Pelvis / MS: Non-tender, No deformity Rectum / Perineum: No hemorrhoids Rectal for Blood: Positive: Blood - occult heme +, Blood, grossly present ( mixed with stool) Mental Status: Positive: Responds to painful stim Interpretation & Diagnostics Lab Results Interpretation Result Diagram: 10/09/168 10/09/168 Test 10/09/16 00:58 White Blood Count 5.7th/mm3 (3.8-10.1) Red Blood Count 2.54mil/mm3 (3.90-5.20) Hemoglobin 7.9g/dL (12.0-15.6) Hematocrit 24.9% (35.0-46.0) Mean Corpuscular Volume 98.0fL (81-100) Mean Corpuscular Hemoglobin 31.1pg (27.0-35.0) Mean Corpuscular Hemoglobin Concent 31.7% (32.0-37.0) Red Cell Distribution Width 15.1% (12.3-15.4) Platelet Count 197bil/L (150-400) Neutrophils (%) (Auto) 54.9% (40-74) Lymphocytes (%) (Auto) 25.4% (14-46) Monocytes (%) (Auto) 14.6% (4-12) Eosinophils (%) (Auto) 4.4% (0-5) Basophils (%) (Auto) 0.5% (0-3) Prothrombin Time 10.8sec (8.1-12.5) Prothromb Time International Ratio 1.01ratio Sodium Level 140mEq/L (134-144) Potassium Level 3.8mEq/L (3.5-5.2) Chloride Level 99mEq/L (97-108) Carbon Dioxide Level 26mmol/L (18-29) Blood Urea Nitrogen 24mg/dL (8-27) Creatinine 3.20mg/dL (0.57-1.00) Estimat Glomerular Filtration Rate 21mL/min (>59) Glucose Level 144mg/dL (60-99) Calcium Level 8.3mg/dL (8.5-10.1) Magnesium Level 2.1mg/dL (1.6-2.6) Total Bilirubin 0.3mg/dL (0.0-1.2) Aspartate Amino Transf (AST/SGOT) 19U/L (0-50) Alanine Aminotransferase (ALT/SGPT) 11U/L (0-32) Alkaline Phosphatase 109U/L (25-165) Total Protein 5.8g/dL (6.4-8.4) Albumin 2.8g/dL (3.4-5.0) Hold M[place]y Top Tube Received (Received) ECG Interpretation ECG Interpretation: Normal Sinus, Rate [address] elevations no T wave inverions previous EKG had T wave inversions in V4, V5, V6, lead 1 which have resolved. Time: 00:11 Interpreted by: ED physician X-Ray Chest Interpretation Chest Xray Interpretation: Impression: cardiomegaly. Diffuse cephalization. Unchanged from prior. Poor inspiratory effort. View: Portable Interpretation / Wet Read by: Wet read ED physician Re-Eval/Medical Decision Med Decision/Clinical Course 66-year-old female with extensive past medical history including hypertension, diabetes, end-stage renal disease, with recent admission to outside facility with diagnosis of C. difficile with ischemic colitis sent here by wire threader for precipitous drop in H&H. By the nephrologists notes, patient's hemoglobin dropped from 10 to7 since August. However, our most recent labs showed the patient had a hemoglobin of 8.1 on September 29. It is 7.9 today. She does have bloody diarrhea. The remainder of her labs are at her baseline. I had a long conversation using the director medicare sales phone with the patient's family at bedside about the fact that she is likely in the process of dying at this time, with her ischemic colitis and C. difficile. I have given her a prescription for Flagyl to go home with, but I encouraged him to contact hospice as I do not feel she is going to recover rapidly from this. I do not feel she requires admission, given her labs are all at baseline. Her family members seemed to understand but are in denial of the current situation. She does not appear to be in any pain. They are amenable to discharge back to her long-term facility. Source of Hx: Old records Time of Eval: 02:52 Re-Evaluation/Progress Note: Rechecked the patient and her family. Discussed the results of the labs with her . She will be discharged on Flagyl. Discussed end of life goals with the patient's . It was suggested that she be seen by a hospice physician. It was stressed that the patient is very sick and plans should be made for her end of life. Patient's understands and agrees with the plan to be discharged back to [facility]. Discharge instructions and follow-up discussed. All questions were addressed. Return to the ED warnings given. Counseled Regarding: Diagnosis, Lab results, Need for follow-up, When/why to return to ED Discharge & Departure Primary Impression: Bloody diarrhea Disposition: Home Discharge Condition All VS Reviewed: Yes Condition: Stable Patient Instructions: Acute Diarrhea (ED) Additional Instructions: Torri's H&H was a Hgb of 7.9 and Hct of 24.9 in the emergency department. This is not significantly different compared her H&H in the emergency department on , which was an Hgb of 8.1 and a Hct of 24.8. She is likely having ongoing symptoms related to her C. difficile colitis/ischemic colitis. Patient was prescribed Flagyl for her bloody diarrhea. It is suggested that the patient have a consult with a hospice physician. Follow-up with her doctor in the next 1-2 days. The patient's blood pressure was elevated in the emergency department today. She should follow-up with her primary care physician regarding the high blood pressure, as her medications may need to be adjusted. Return to the Emergency Department if she develops increased rectal bleeding, fever, shortness of breath, or any other concerning symptoms. Referrals: Mira Ovalle MD (PCP) Scribe Attestation Portions of this note were transcribed by Natty Buck. I, Dr. Ramires personally performed the history, physical exam and medical decision-making; I reviewed and confirmed the accuracy of the information in the transcribed note. Signed by: Rafael Contreras, 10/09/2016 0258 copies to: Mira Ovalle MD, Rebecca A MD Oct 09, 2016 00:05 Natty Buck Oct 09, 2016 00:11
[2016-10-09 00:41] VITALS: BP 200/64; PULSE 68; RESP 17; O2SAT 100
[2016-10-09 01:26] LABS: BASOPHILS % (AUTO) 0.5 % (0-3); EOSINOPHILS % (AUTO) 4.4 % (0-5); MONOCYTES % (AUTO) 14.6 % (4-12); Mean Corpuscular Hemoglobin 31.1 pg (27.0-35.0); NEUTROPHILS % (AUTO) 54.9 % (40-74); Platelet Count 197 bil/L (150-400)
[2016-10-09 01:43] LABS: INR 1.01 ratio
[2016-10-09 01:56] LABS: Magnesium 2.1 mg/dL (1.6-2.6)
[2016-10-09] MEDS ORDERED: METR500T PO (02:58)
[2016-10-09 04:06] VITALS: BP 199/60; PULSE 86; RESP 24; O2SAT 98
--- NOTE | 2016-10-09 10:05 | DRSVH ---
PROCEDURE: X-RAY CHEST ONE VIEW, PORTABLE ([id number]) INDICATIONS: gi bleed TECHNIQUE: One view of the chest was acquired. COMPARISON: [facility], CR, XR CHEST 1VW (PORTABLE), 09/18/2016, 13:27. FINDINGS: Surgical changes and devices: Post median sternotomy. Lungs and pleura: Diffuse, widespread bilateral interstitial and mid right and medial basilar airspac e opacities present. Mediastinum: Mediastinal contours appear normal. Heart size is normal. Bones and chest wall: No suspicious bony lesions. Overlying soft tissues appear unremarkable. IMPRESSION: Pulmonary edema and/or bilateral pneumonia. Continued radiographic surveillance to resolu tion is recommended. Dictated by: Tariq Mendoza RRA Interpreted: Fadia Aguilar MD on 10/09/2016 at 10:04 Transcribed by: TYRONE on 10/09/2016 at 10:04 Approved by: Fadia Aguilar MD, PhD on 10/09/2016 at 16:56
== END 2016-10-09 04:07 | disposition home or self-care (01) ==
LOC: SED 21:53
DX: R19.5 Other fecal abnormalities (principal); G31.84 Mild cognitive impairment of uncertain or unknown etiology; I12.0 Hypertensive chronic kidney disease with stage 5 chronic kidney disease or end stage renal disease; N18.6 End stage renal disease; E11.22 Type 2 diabetes mellitus with diabetic chronic kidney disease; I25.10 Atherosclerotic heart disease of native coronary artery without angina pectoris; E11.319 Type 2 diabetes mellitus with unspecified diabetic retinopathy without macular edema; I50.30 Unspecified diastolic (congestive) heart failure; E78.5 Hyperlipidemia, unspecified; Z99.2 Dependence on renal dialysis; Z66 Do not resuscitate; Z95.1 Presence of aortocoronary bypass graft; Z87.19 Personal history of other diseases of the digestive system; Z86.19 Personal history of other infectious and parasitic diseases; Z98.890 Other specified postprocedural states; Z79.82 Long term (current) use of aspirin; Z79.4 Long term (current) use of insulin; Z88.6 Allergy status to analgesic agent; Z88.8 Allergy status to other drugs, medicaments and biological substances; Z88.5 Allergy status to narcotic agent

== ENCOUNTER 2017-02-11 00:12 | Day surgery (SDC) | payer MEDICARE, MEDICAID ==
[2017-02-11] VITALS (17 sets, daily range): BP systolic 168–200; BP diastolic 61–86; PULSE 53–67; RESP 12–16; O2SAT 97–100
[~2017-02-11 00:12] MED LIST changes: +BISA-67 PO; +BISA10SU61 RC; +CALC500T9 PO; -CARV3.122 PO; +CARV6.252 PO; -CEFT1VIA IJ; +CLON1PAT16 TD; +LEVO75TA4 PO; -LISI-567 PO; +LISI40TA PO; -LON25 PO; +LORA2ORA4 PO; +MORP20SO PO; +NITR0.4T SL; +ONDA-53 PO; -SYN75 PO; -VANC250C3 PO
[2017-02-11 10:56] LABS: BASOPHILS % (AUTO) 0.6 % (0-3); EOSINOPHILS % (AUTO) 2.5 % (0-5); MONOCYTES % (AUTO) 8.7 % (4-12); Mean Corpuscular Hemoglobin 31.7 pg (27.0-35.0); Mean Corpuscular Volume 96.3 fL (81-100); Platelet Count 79 bil/L (150-400)
[2017-02-11 11:01] LABS: INR 1.05 ratio
--- NOTE | 2017-02-11 11:14 | NUR ---
0900 ADMIT: Patient wheelchaired into department with and glass cutting machine operator. Questions directed to as patient does not know about her health hx. IV started and labs are drawn.
[2017-02-11] MEDS ORDERED: Heparin 1,000 Unit/mL 10 mL Inj ONE (13:21)
[2017-02-11] MEDS ORDERED: Heparin 10,000 Unit/1,000 mL NS Premix IV ONE (13:21)
[2017-02-11] MEDS ORDERED: fentaNYL-PF 50 mCg/mL 2 mL Inj ONE (13:26)
[2017-02-11] MEDS ORDERED: Nitroglycerin 2% 1 Gm Ointment TOPICAL ONE ×2 (15:20→15:21)
--- NOTE | 2017-02-11 15:29 | DRSVH ---
PROCEDURE: 1. Right upper extremity arteriovenous fistulogram. 2. Selective right brachiocephalic venography. 3. Angioplasty of central cephalic vein. 4. Conscious sedation x8 minutes. INDICATIONS: Malfunctioning arteriovenous fistula. COMPARISON: None. TECHNIQUE: Informed, written consent from the patient was obtained prior to the procedure. Patient wa s brought to the angiography suite, and conscious sedation was administered intravenously by halfway staff, while continuous cardiorespiratory monitoring was performed. Maximal sterile barrier t echnique, hand hygiene, skin preparation, and sterile ultrasound technique (if ultrasound was utilize d) was followed. A mask, sterile gown, sterile gloves, a large sterile sheet, hand hygiene, and 2% ch lorhexidine or iodine was utilized for skin antisepsis. The right upper extremity was prepped and nany ped sterilely, and the skin and subcutaneous tissues overlying the peripheral aspect of the venous li mb were infused with lidocaine. The peripheral aspect of the venous limb was accessed antegrade with a micropuncture set. Contrast was injected for arteriovenous fistulogram. Selective right brachioceph alic venography was performed. Multiple attempts using a 4 [place]ander nontapered angled catheter, a 4 Reji nch Sos Omni catheter, a glide wire, and exchange length stiff shaft glide wire, and an exchange margie th advantage Glidewire were made to recanalize the right brachiocephalic vein, which were unsuccessfu l. Intravenous heparin was administered. A 6 mm diameter balloon was used to angioplasty the central cephalic vein. Repeat arteriovenous fistulogram was performed. Sheath was removed and the venotomy wa s closed with pursestring closure. FLUOROSCOPY TIME: 31.7 minutes FINDINGS: There is moderate diffuse stenosis of the peripheral aspect of the venous limb. 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 High-grad e stenosis within the central cephalic vein, resolved following 6 mm angioplasty. Chronic, well colla teralized occlusion of the brachiocephalic vein. IMPRESSION: 1. 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 2. High-grade stenosis within the central cephalic vein, resolved following 6 mm angioplasty. Dictated by: Dyan Gonzales M.D. on 02/11/2017 at 15:23 Approved by: Dyan Gonzales M.D. on 02/11/2017 at 15:27
[2017-02-11] MEDS ORDERED: Diltiazem 5 mg/mL 5 mL Inj IV ONE (16:35)
--- NOTE | 2017-02-11 17:30 | NUR ---
CHRISTINE Purse String removed without bleeding or hematoma.
--- NOTE | 2017-02-11 19:36 | NUR ---
CHRISTINE Care of patient assumed on her return from lab director at 1450. Family at bedside. Patient sleeping but wakes to voice. Denies pain. Unable to to palp doppler or radial pulse right arm. MD aware. Cap refill < 3 sec. Right fistula with thrill and brachial pulse present. On admit concerned about bruising on right arm. MD came to bedside to explain to patient's bruising was a result of the procedure. Bruised area marked. Discharge home with and transport from care facility. Instructions reviewed with patient and family with an rad tech. Written information given in Armenian for and Turkmen for care facility. Questions answered.
== END 2017-02-11 23:59 | disposition home or self-care (01) ==
LOC: SOUO 00:12
PROVIDERS: ATTEND Radiology Diagnostic Radiology
DX: T82.858A Stenosis of other vascular prosthetic devices, implants and grafts, initial encounter (principal); I87.1 Compression of vein; I82.291 Chronic embolism and thrombosis of other thoracic veins; Z53.9 Procedure and treatment not carried out, unspecified reason; I86.8 Varicose veins of other specified sites; Y83.2 Surgical operation with anastomosis, bypass or graft as the cause of abnormal reaction of the patient, or of later complication, without mention of misadventure at the time of the procedure; T82.898A Other specified complication of vascular prosthetic devices, implants and grafts, initial encounter; N18.6 End stage renal disease; I12.0 Hypertensive chronic kidney disease with stage 5 chronic kidney disease or end stage renal disease; E03.9 Hypothyroidism, unspecified; Z99.2 Dependence on renal dialysis
CPT/HCPCS: 36415; 36902; 36907; 80048; 85025; 85610; 85730; 99152; 99153; C1725; C1769; J1644; J2250; J3010; Q9967

== ENCOUNTER 2017-02-17 07:32 | Inpatient (IN) | payer MEDICARE, MEDICAID ==
[~2017-02-17] VITALS: Ht 147.3 cm; Wt 52.0 kg
[2017-02-17] VITALS (8 sets, daily range): BP systolic 174–202; BP diastolic 55–90; PULSE 51–72; RESP 16–20; O2SAT 93–99
[~2017-02-17 07:32] MED LIST changes: -INSLIS SUBQ; -INSU100V7 SUBQ
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
[2017-02-17 08:28] LABS: Mean Corpuscular Hemoglobin 31.9 pg (27.0-35.0); Mean Corpuscular Volume 98.3 fL (81-100)
[2017-02-17 08:29] LABS: BASOPHILS % (AUTO) 0.5 % (0-3); EOSINOPHILS % (AUTO) 1.7 % (0-5); MONOCYTES % (AUTO) 8.7 % (4-12); NEUTROPHILS % (AUTO) 72.5 % (40-74); Platelet Count 70 bil/L (150-400)
--- NOTE | 2017-02-17 09:22 | DRSVH ---
PROCEDURE: CT BRAIN WITHOUT CONTRAST ([id number]) INDICATIONS: ALOC TECHNIQUE: Noncontrast 4.5 mm thick angled axial sections acquired from the foramen magnum to the vertex, with c oronal reformats. COMPARISON: None. FINDINGS: Image quality: Excellent. CSF spaces: Basal cisterns are patent. No extra-axial fluid collections. There is moderate cerebra l volume loss, with resultant ventricular and sulcal prominence. Brain: No intracranial hemorrhage, mass, or mass effect. There are subcortical, periventricular and deep white matter hypodensities consistent with moderate to severe chronic small vessel ischemic roger nges. There is intracranial internal carotid artery atherosclerosis. Skull and face: Calvarium and visualized facial bones are intact, without suspicious lesions. Sinuses: Visualized sinuses and mastoids are clear. IMPRESSION: 1. No definite acute intracranial abnormality. 2. Moderate to severe chronic white matter small vessel ischemic changes limiting evaluation for sup erimposed acute processes. If there is persistent clinical suspicion, consider further evaluation [facility] MRI. Dictated by: Stanley Shelton M.D. on 02/17/2017 at 9:18 Approved by: Stanley Shelton M.D. on 02/17/2017 at 9:21
--- NOTE | 2017-02-17 09:26 | DRSVH ---
PROCEDURE: X-RAY PELVIS W/LAT HIP (LT) ([id number]) INDICATIONS: weakness, cough TECHNIQUE: AP pelvis with lateral view of the left hip. COMPARISON: None. FINDINGS: Bones: Evaluation is limited due to patient position and osteopenia. Specifically, the femoral neck s are not well evaluated technically on the right. There is suggestion of sclerosis along the femora l neck on the lateral projection off the left hip. Pelvic ring appears grossly intact, with the sacr um not well evaluated. Soft tissues: The visualized bowel gas pattern demonstrates mild gaseous distention in the rectosigm oid colon with stool which may reflect constipation or mild impaction. There are scattered vascular calcifications. IMPRESSION: 1. Limited study as described with femoral neck fractures not excluded. If there is clinical suspic ion for acute fracture, further evaluation may be obtained with CT. 2. Mild stool and gaseous distention of the rectosigmoid colon which may reflect constipation or pos sible mild impaction. Dictated by: Stanley Shelton M.D. on 02/17/2017 at 9:21 Approved by: Stanley Shelton M.D. on 02/17/2017 at 9:25
--- NOTE | 2017-02-17 09:30 | DRSVH ---
PROCEDURE: X-RAY CHEST ONE VIEW, PORTABLE ([id number]) INDICATIONS: weakness, cough TECHNIQUE: One view of the chest was acquired. COMPARISON: [facility], CR, XR CHEST 1VW (PORTABLE), 10/08/2016, 23:19. FINDINGS: Surgical changes and devices: Postsurgical changes are redemonstrated in the mediastinum. Lungs and pleura: There is increased pulmonary edema. There are also increased right perihilar confl uent opacities including suprahilar opacities in the upper lobe. A small right pleural effusion is d emonstrated. Mediastinum: Mediastinal contours appear increased in prominence. Heart size is enlarged, increased from the prior study. Bones and chest wall: No suspicious bony lesions. Overlying soft tissues appear unremarkable. IMPRESSION: 1. Cardiomegaly with small right pleural effusion and pulmonary edema compatible with congestive hea rt failure. 2. Confluent right perihilar opacities suggestive of consolidation and possible pneumonia particular ly in the right upper lobe. 3. Increased prominence of the mediastinum and increased cardiac size compared to the prior study. Findings may be due to technique and low lung volumes but may reflect a possible pericardial effusion . Consider a repeat PA and lateral study when clinically feasible. Dictated by: Stanley Shelton M.D. on 02/17/2017 at 9:25 Approved by: Stanley Shelton M.D. on 02/17/2017 at 9:29
[2017-02-17 10:15] LABS: APPEARANCE,URINE CLOUDY (CLEAR,HAZY); COLOR,URINE DARK YELLOW (YELLOW)
[2017-02-17 10:19] LABS: OCCULT BLOOD,URINE LARGE (NEGATIVE)
[2017-02-17 10:21] LABS: UROBILINOGEN,URINE NORMAL (NORMAL)
[2017-02-17] MEDS ORDERED: cefTRIAXone Inj 2,000 MG in Dextrose 5% Minibag Plus 50 ML IV ONE (10:25)
--- NOTE | 2017-02-17 10:43 | DRSVH ---
PROCEDURE: CT HIP LEFT W/O CONTRAST ([id number]) INDICATIONS: pain TECHNIQUE: Noncontrast 3 mm axial sections acquired through the bony pelvis. Additional 3 mm axial sections acq uired through the symptomatic hip joint, with coronal and sagittal reformats. COMPARISON: [facility]erged With [facility], CR, XR CHEST 1VW (PORTABLE), 10/08/2016, 23:19. [facility], CR, XR PELVIS W LATERAL HIP LT, 02/17/2017, 8:27. FINDINGS: Image quality: Excellent. Bones: No trauma Soft tissues: Relatively prominent vascular calcification involving the arterial structures, consiste nt with perhaps long-standing diabetes or some form of calcium deposition disorder. IMPRESSION: No fracture found. Please note that MR scanning provides the "gold standard" for detecti on of nondisplaced undetected fractures. Dictated by: Rustam Frank M.D. on 02/17/2017 at 10:38 Approved by: Rustam Frank M.D. on 02/17/2017 at 10:40
[2017-02-17] MEDS ORDERED: Linezolid Inj 600 MG in IV Premix 1 EACH IV ONE (11:40)
[2017-02-17] MEDS ORDERED: Ondansetron 2 mg/mL 2 mL Inj ONE (13:17)
[2017-02-17] MEDS ORDERED: Alum-Mag Hydrox-Simeth 30 mL Suspension PO PRN (14:05)
[2017-02-17] MEDS ORDERED: Labetalol 5 mg/mL 4 mL Inj IVPUSH ONE (14:05)
[2017-02-17] MEDS ORDERED: Polyethylene Glycol (PEG) 17 Gm Powder PO PRN (14:05)
[2017-02-17] MEDS ORDERED: Ondansetron 2 mg/mL 2 mL Inj IVPUSH PRN (14:05)
--- NOTE | 2017-02-17 14:20 | DRSVH ---
[facility] [address] [place] [address] Echocardiogram Report Name: MARTÍNEZ CAMARENA Study Date: 02/17/2017 Height: 58 in Hospital Exam Location: [facility] Weight: 150 lb Gender: Female BSA: 1.6 m2 : 1950 Age: 66 yrs BP: 178/56 m mHg Reason For Study: Concern for pericardial effusion Performed By: Shalonda Canas Referring Physician: LEA MCNAMARA Interpretation Summary The left ventricle is borderline dilated. Left ventricular systolic function is severely reduced. The ejection fraction is estimated to be 20-25%. Compared to the prior exam, left ventricular function is markedly decreased. There is severe global hypokinesis with akinesis along the basal to mid inferior wall. Borderline right ventricular enlargement. Right ventricular systolic function is severely reduced. Right ventricular systolic function has decreased since previous exam. The right ventricular systolic pressure is estimated at 51 mmHg assuming a right atrial pressure of 3 mm Hg. Compared to the prior echo exam, there has been an increase in the severity of pulmonary hypertension. The left atrium is severely dilated. The right atrium is mildly dilated. There is mild mitral regurgitation. There is mild aortic regurgitation. There is mild to moderate TR. There is no other significant valvular heart disease. The aortic root is normal size. There is no pericardial effusion. Procedure: A two-dimensional transthoracic echocardiogram with color flow and Doppler was performed. The study quality was technically adequate. Comparison is made with the echocardiogram of 08/27/2016. The patient was in normal sinus rhythm during the exam. Left Ventricle: The left ventricle is borderline dilated. Left ventricular wall thickness is borderline increased. Left ventricular systolic function is severely reduced. The ejection fraction is estimated to be 20-25%. Compared to the prior exam, left ventricular function is markedly decreased. There is severe global hypokinesis with akinesis along the basal to mid inferior wall. Right Ventricle: Borderline right ventricular enlargement. Right ventricular systolic function is severely reduced. Right ventricular systolic function has decreased since previous exam. Atria: The left atrium is severely dilated. The right atrium is mildly dilated. The interatrial septum is intact with no evidence for an atrial septal defect. Mitral Valve: The mitral valve leaflets appear mildly thickened, but open well. There is mild to moderate mitral annular calcification. There is mild mitral regurgitation. Aortic Valve: The aortic valve opens well. The aortic valve is mildly calcified. There is mild aortic regurgitation. Tricuspid Valve: The tricuspid valve leaflets are thin and pliable. There is mild to moderate tricuspid regurgitation. The right ventricular systolic pressure is estimated at 51 mmHg assuming a right atrial pressure of 3 mm Hg. Compared to the prior echo exam, there has been an increase in the severity of pulmonary hypertension. Pulmonic Valve: The pulmonic valve is normal in structure and function. There is mild pulmonic regurgitation. There is no other significant valvular heart disease. Great Vessels: The aortic root is normal size. The ascending aorta could not be visualized. The IVC is of normal diameter and collapses greater than 50% with a sniff. This suggests a low right atrial pressure of 3 mm Hg. Pericardium/ Pleura There is no pericardial effusion. There is no pleural effusion. MMode/2D Measurements & Calculations LVIDd: 5.2 cm RA long axis LVOT diam LVIDs: 4.6 cm LA A2 area: 24.4 cm FS: 11.6 % LA A4 area: 26.5 cm RA area asc Aorta IVSd: 0.95 cm LA length (vol): 5.6 cm Diam: 2.6 cm LVPWd: 1.0 cm LA vol: 98.0 ml : 18.2 cm LA vol index RA vol: 62.6 ml RA : 60.8 ml/m2 : 38.9 mm2 LV hatfield. diameter/BSA LV sys. diameter/BSA (cm/m^2): 3.2 (cm/m^2): 2.8 Doppler Measurements & Calculations Ao V2 max: 127.3 cm/sec TR max endy Ao V2 mean LV V1 max PG Ao max P.5 mmHg : 346.1 cm/sec : 96.1 cm/sec Ao mean P.9 mmHg TR max PG Ao V2 VTI LV V1 VTI LVOT Max Endy : 48.2 mmHg : 22.3 cm : 102.5 cm/sec CHRISTOPHER(V,D): 2.1 cm2 CHRISTOPHER(I,D): 2.1 cm sev ratio: 0.80 CHRISTOPHER indexed to BSA (cm^2/m^2): 1.3 Reading Physician:KEITH
[2017-02-17] MEDS ORDERED: MORP20SY PO (14:23)
[2017-02-17] MEDS ORDERED: ISOS30TA4 PO (14:23)
[2017-02-17] MEDS ORDERED: CLON0.2T PO (14:23)
--- NOTE | 2017-02-17 14:24 | NUR ---
Admit/Dialysis/BP Patient admitted to room at 1334 and transferred to bed from [facility]. Reports pain and nausea. Admit RN in room with patient when admitted. Alan Bianchi came in to assess patient within a few minutes. Family at bedside. Patient on room air, antibiotic infusing from ED. rn rehabilitation called to get patient up to dialysis [facility]. Patient taken up to dialysis at 1350 in bed with two CNAs. Family aware and states they want to be there until they access and they will get lunch and come back to patient's room on the floor. Family also stated they want to be there anytime a doctor comes to speak with the patient as she is unable to understand what is happening. This was passed on to the care team. The family also stated that this change in communication has been a slow progression since her last admission and is not a new finding. Upon admit, patient was hypertensive and talked with DO Tash, about this and he reports that if BP is unable to be controlled with dialysis, patient may need to be transferred to CCU.
--- NOTE | 2017-02-17 17:18 | NUR ---
pt arrived to [facility] for DIALYSIS at ~1400 via bed report received from MARICHUY RN (OCS) financial services rep at bedside pt SBP remains elevated between 180-200 transfer of care at 1715 to LEONCIO RN (inpt SD[facility] charge) update provided back to primary MARICHUY RN
--- NOTE | 2017-02-17 18:14 | CONS ---
[address] [address] CONSULTATION REPORT PATIENT: MARTÍNEZ BAUMANN : 1950 MR#: [id number] ADMIT: 02/17/2017 JOB ID: [id number] DATE OF SERVICE: 02/17/2017 NEPHROLOGY CONSULTATION: REQUESTING PHYSICIAN: Serjio Menendez DO REASON FOR CONSULTATION: Management of end-stage renal disease. CHIEF COMPLAINT: Altered mental status. HISTORY OF PRESENT ILLNESS: This is a 66-year-old lady with significant past medical history of end-stage renal disease on hemodialysis every Wednesday, Wednesday, and Wednesday, history of C. diff colitis, history of liver abscess status post drainage, uncontrolled hypertension, recurrent metabolic encephalopathy, dyslipidemia, and diastolic heart failure, who presented to the hospital due to altered mental status. The patient is very drowsy and she is only German speaking. I am not able to obtain medical history from her. Family at the bedside. Her reported that she became quite confused earlier this morning. She has had some nausea and vomiting, but no diarrhea. He does not know whether she had a fever at home. According to the ER note, apparently the patient had left-sided abdominal pain. The initial vitals showed a temperature of 36.6, blood pressure 178/56, with O2 sat 98% on room air. Her initial WBC was 6.3, hemoglobin of 11.3. Her UA showed packed WBC. She had history of E.coi and VRE UTI. Renal was consulted to resume dialysis while she is being hospitalized. PAST MEDICAL HISTORY: 1. End-stage renal disease, on hemodialysis every Wednesday, Wednesday, and Wednesday. 2. Recurrent UTI. 3. Recurrent C. diff colitis. 4. Hypertension with hypertensive nephrosclerosis. 5. Dyslipidemia. 6. Diastolic heart failure. 7. History of liver abscess, status post drainage. 8. History of acute on chronic cholecystitis. 9. Coronary artery disease, status post CABG. 10. Status post right AV fistula creation. SOCIAL HISTORY: Denies current use of alcohol, tobacco, or illicit drugs. FAMILY HISTORY: No kidney disease in the family. REVIEW OF SYSTEMS: Unable to obtain. ALLERGIES: AMLODIPINE, GLIPIZIDE, LABETALOL, TRAMADOL, MELOXICAM. HOME MEDICATIONS: Calcium carbonate, carvedilol, clonidine, isosorbide mononitrate, levothyroxine, lisinopril, Xanax, Protonix. PHYSICAL EXAMINATION: Temperature 36.7, pulse 60, respiratory rate 16, blood pressure 197/80, O2 sat 99% on room air. General appearance: Drowsy but responsive to painful stimuli. Eyes open spontaneously. HEENT: Mild pallor. No jaundice. No JVD. No lymphadenopathy. No thyroid enlargement. Heart: Regular rhythm. Normal S1, S2. Positive for soft systolic murmur. No rubs, no gallops. Lungs: Decreased breath sound at bases. No wheezing. No rhonchi. Abdomen: Soft, active bowel sounds. Nontender. Nondistended. No hepatosplenomegaly. Extremities: No edema, cyanosis, or clubbing of fingers. Right arm AV fistula with good thrill. LABORATORY: Sodium 133, potassium 4.3, chloride 93, bicarb 25, BUN 41, creatinine 2.81, calcium 9.5, magnesium 2.0. Hemoglobin 11.3, WBC 6.3, INR 1.05. ASSESSMENT: 1. Altered mental status, likely due to metabolic encephalopathy, sepsis. 2. Pyuria with underlying disease of recurrent urinary tract infection (UTI) in the past. She had h/o positive E. coli and VRE. 3. End-stage renal disease, on hemodialysis every Wednesday, Wednesday, and Wednesday. 4. Uncontrolled hypertension. 5. Renal osteodystrophy. 6. Anemia of chronic kidney disease. 7. Recent history of liver abscess, status post drainage. 8. Recurrent of C. diff colitis. PLAN: Per renal standpoint, we will arrange for hemodialysis today for 4 hr with UF 3L as tolerated. Resume her antihypertensive medications. IV antibiotics to be managed by primary team. Thank you for allowing me to participate in the care of your patient. ALANNA
--- NOTE | 2017-02-17 18:55 | NUR ---
Dialysis note: 4 hrs tx 3000 ml net UF FRANKLIN fistula, accessed w/ no problems Pls see DTR for VS details Qb 350-400 Heparin given O2 @ 2L via NC on during tx Pt hypertensive, Dr Anderson notified, Clonidine 0.2 mg po given Tolerated tx, slept at intervals Fistula needle sites clotted w/in 10 min Stable condition at end of treatment Report given to Natalia LENZ
--- NOTE | 2017-02-17 18:56 | NUR ---
Report to [facility] nurse Report given to [facility] nurse Faith Weldon r/t dilalized volume pulled out by Dialysis nurse 3 liters. Clonidine given as ordered for BP 198/80. Called [facility] ESPERANZA Quintero to tack picker patient and states," be there as soon as." blood sugar 125.
--- NOTE | 2017-02-17 19:00 | NUR ---
BP/Report from dialysis Received report from Christian Milner. Patient's BP continues to be high. Clonadine given per report in dialysis and referral coordinator stated she would wait for us to give Coreg and Lisinapril on the floor. Paged Tash, DO, about BP and he requested we repeat a BP and heart rate at 1900 and 1915. Awaiting patient arrival to floor from dialysis. Family in room.
[2017-02-17] MEDS: Lisinopril 40 Tablet PO SCH (19:44)
--- NOTE | 2017-02-17 19:59 | PCM.HPMED ---
Subjective Date of Service Feb 17, 2017 Primary Provider: Admitting Physician: Fadi Brooks Primary Care Physician: Mira Ovalle MD Attending Physician: Fadi Brooks Chief Complaint: AMS and left abdominal pain History of Present Illness: Patient unable to give history; history obtained from family and from prior records 66-year-old , Ukrainian-speaking female with a past medical history of ESRD on dialysis Fridays, recurrent UTIs, liver abscesses S/P drainage, history of C. difficile, recurrent hypertensive urgency, metabolic encephalopathy, diastolic heart failure is into the hospital with her family due to reported acute mental status changes. The patient unable to give a history but will turn her eyes and head during the interview. Her family states that she became quite confused earlier this morning with some nausea and vomiting with left-sided abdominal and hip pain. He denies ongoing diarrhea, fever, or chills. The patient was scheduled for dialysis today. EMS arrived before she could have dialysis. Family also states that the patient was more interactive and talkative prior to this morning. Patient was admitted in August with hypertensive urgency, metabolic encephalopathy, and C. difficile. She was evaluated by Dr. xavier of neurology and diagnosed with toxic metabolic encephalopathy with multiple etiologies including sepsis but no imaging evidence for stroke or other cerebral etiologies. In the ED the patient had evidence of pyuria on UA, but lacked a leukocytosis or other signs of sepsis. Patient's blood pressure was severely elevated up to 197/80. Patient regularly takes clonidine miss was given to her without much effect in lowering blood pressure during dialysis. Patient was taken for dialysis and 3 L were taken off this afternoon. Echo was also performed showing an EF of 20-25% with severe global hypokinesis and akinesis of the inferior wall. Review of Systems: Complete review of systems performed; pertinent positives and negatives per history of present illness, all other systems reviewed and are negative Allergies Coded Allergies: piroxicam (Verified Allergy, Severe, swelling, 02/11/17) glipizide (Verified Allergy, Intermediate, 02/11/17) amlodipine (Verified Allergy, Unknown, 02/11/17) labetalol (Verified Allergy, Unknown, 02/11/17) Home Medications Bisacodyl (Dulcolax Rectal) 10 Mg Supp.rect 10 MG RC DAILY Calcium Carbonate (Tums) 500 Mg Tab.chew 500 MG PO BID Carvedilol (Carvedilol) 6.25 Mg Tablet 6.25 MG PO BID Clonidine (Clonidine) 0.2 Mg Tablet 0.2 MG PO BID Isosorbide MN ER (Isosorbide MN ER) 30 Mg Tab.er.24h 30 MG PO DAILY Levothyroxine (Levothyroxine) 75 Mcg Tablet 75 MCG PO DAILY Lisinopril (Lisinopril) 40 Mg Tablet 40 MG PO DAILY Pantoprazole DR (Protonix) 40 Mg Tablet.dr 40 MG PO QAM Acetaminophen (Acetaminophen) 500 Mg Tablet 500 MG PO q4hr PRN PRN For Pain Bisacodyl (Dulcolax) 5 Mg Tablet.dr 10 MG PO DAILY PRN PRN For Constipation Lorazepam (Lorazepam Oral Concentrate) 2 Mg/1 Ml Oral.conc 2 MG PO q1hr PRN PRN For Anxiety Morphine Sulfate (Morphine Sulfate) 20 Mg/1 Ml Syringe 20 MG PO q1hr PRN PRN For Pain Ondansetron (Ondansetron) 4 Mg Tablet 4 MG PO TID PRN PRN For Nausea Nitroglycerin SL (Nitrostat) 0.4 Mg Tab.subl 0.4 MG SL Exam Vital Signs & I/O Vital Sign- Last 8 Hours Date Time Temp Pulse Resp B/P Pulse Ox O2 Delivery O2 Flow Rate FiO2 02/18/17 03:30 54 14 166/64 100 Nasal Cannula 2.00 02/18/17 01:00 36.0 55 12 194/65 94 Room Air Intake and Output- Last 8 Hour 02/18/17 Cumulative From/Thru 07:00 02/17/17 07:42 - 02/18/17 06:24 Intake Total 546 ml 546 ml Output Total 0 ml 3000 ml Balance 546 ml -2454 ml Intake Oral 350 ml 350 ml IV Total 196 ml 196 ml Output Urine Total 0 ml 0 ml Ultrafiltrate 3000 ml # Voids 0 0 # Bowel Movements 0 0 Lab & Micro Results Laboratory Tests Test 02/17/17 08:03 02/17/17 09:39 02/17/17 22:21 02/18/17 03:00 White Blood Count 6.3th/mm3 (3.8-10.1) Red Blood Count 3.54mil/mm3 (3.90-5.20) Hemoglobin 11.3g/dL (12.0-15.6) Hematocrit 34.8% (35.0-46.0) Mean Corpuscular Volume 98.3fL (81-100) Mean Corpuscular Hemoglobin 31.9pg (27.0-35.0) Mean Corpuscular Hemoglobin Concent 32.5% (32.0-37.0) Red Cell Distribution Width 14.9% (12.3-15.4) Platelet Count 70bil/L (150-400) Neutrophils (%) (Auto) 72.5% (40-74) Lymphocytes (%) (Auto) 16.3% (14-46) Monocytes (%) (Auto) 8.7% (4-12) Eosinophils (%) (Auto) 1.7% (0-5) Basophils (%) (Auto) 0.5% (0-3) Sodium Level 133mEq/L (134-144) Potassium Level 4.3mEq/L (3.5-5.2) Chloride Level 93mEq/L (97-108) Carbon Dioxide Level 25mmol/L (18-29) Blood Urea Nitrogen 41mg/dL (8-27) Creatinine 2.81mg/dL (0.57-1.00) Estimat Glomerular Filtration Rate 24mL/min (>59) Glucose Level 224mg/dL (60-99) Calcium Level 9.5mg/dL (8.5-10.1) Magnesium Level 2.0mg/dL (1.6-2.6) Total Bilirubin 0.6mg/dL (0.0-1.2) Aspartate Amino Transf (AST/SGOT) 19U/L (0-50) Alanine Aminotransferase (ALT/SGPT) 15U/L (0-32) Alkaline Phosphatase 159U/L (25-165) Total Protein 6.9g/dL (6.4-8.4) Albumin 3.5g/dL (3.4-5.0) Hold [place] Top Tube Received (Received) Urine Color Dark yellow (YELLOW) Urine Appearance Cloudy (CLEAR,HAZY) Urine pH 7.0 (5.0-8.0) Urine Specific [place] 1.015 (1.003-1.035) Urine Protein 300mg/dL (NEG,TRACE) Urine Glucose (UA) Negativemg/dL (NEGATIVE) Urine Ketones Negativemg/dL (NEGATIVE) Urine Occult Blood Large (NEGATIVE) Urine Nitrite Positive (NEGATIVE) Urine Bilirubin Negative (NEGATIVE) Urine Urobilinogen Normalmg/dL (NORMAL) Urine Leukocyte Esterase Large (NEGATIVE) Urine RBC 0-2/hpf (0-2) Urine WBC Packed/hpf (0-5) Urine Epithelial Cells Occasional/hpf (NONE-MOD) Urine Crystals None seen (NONE SEEN) Urine Bacteria Many/hpf (NONE-FEW) Urine Hyaline Casts None/lpf (NONE) Urine Granular Casts None seen (NONE SEEN) Urine Waxy Casts None seen (NONE SEEN) Urine Red Blood Cell Casts None seen (NONE SEEN) Urine White Blood Cell Casts None seen (NONE SEEN) Urine Mucus None seen (None Seen) Urine Trichomonas None seen (NONE SEEN) Urine Yeast None (NONE SEEN) Urinalysis Comment Renal epi seen Urine Culture Reflexed Indicated Procalcitonin 0.15ng/mL (0.00-0.08) Troponin T 0.086ug/L (0.0-0.011) Microbiology 02/17/17 Blood Culture, Received Pending 02/18/17 MRSA (PCR), Received Pending 02/17/17 Urine Culture - Preliminary, Resulted Result Diagram: 02/17/1780202/17/17802 Review of Systems: Constitutional: Negative, except as otherwise mentioned in the history above. Ophthalmologic: Negative, except as otherwise mentioned in the history above. Cardiovascular: Negative, except as otherwise mentioned in the history above. Respiratory: Negative, except as otherwise mentioned in the history above. Gastrointestinal: Negative, except as otherwise mentioned in the history above. Genitourinary: Negative, except as otherwise mentioned in the history above. Musculoskeletal: Negative, except as otherwise mentioned in the history above. Neurological: Negative, except as otherwise mentioned in the history above. Psychiatric: Negative, except as otherwise mentioned in the history above. Hematologic/Lymphatic: Negative, except as otherwise mentioned in the history above. Allergic/Immunologic: Negative, except as otherwise mentioned in the history above. PMH 1. End-stage renal disease, on hemodialysis every Wednesday, Wednesday, and Wednesday. 2. Recurrent UTI. 3. C. diff colitis with history of toxic megacolon and ischemic colitis. 4. Hypertension with hypertensive nephrosclerosis. 5. Dyslipidemia. 6. Diastolic heart failure. 7. History of liver abscess, status post drainage. 8. History of acute on chronic cholecystitis. 9. Coronary artery disease, status post CABG. 10. Status post right AV fistula creation. Surgical History 1. Tunnel catheter placed on AV fistula right upper extremity. 2. Appendectomy. 3. Cataract surgery. 4. coronary artery bypass surgery 08/27/14 in [facility] 5. colonscopy 6. drainage of liver abscess Family History Unable to give a family history Social History Hx Alcohol Use: No Hx Substance Use: No Hx Tobacco Use: No Smoking Status: Never Smoker Exam Vital Signs Vital Sign - Last Date Time Temp Pulse Resp B/P Pulse Ox O2 Delivery O2 Flow Rate FiO2 02/17/17 13:42 72 20 197/80 99 Room Air 02/17/17 12:55 36.7 Exam Gen: non-responsive to verbal stimuli HEENT: PERRL, mild jvd; membranes moist Cardio: RRR no m/r/g Resp: CTA bilaterally but poor inspiratory effort Abd: tender in lower left abdomen as demonstrated by grimace Ext: No edema noted; pulses intact Neuro: not following commands; pain intact; PERRL; unable to perform additional exam psych: awake but not following commands skin: no rashes noted Lab and Diagnostics Result Diagram: 02/17/1780202/17/17 08 X-Rays, CTs and MRIs Hips/pelvis x-ray 1. Limited study as described with femoral neck fractures not excluded. If there is clinical suspicion for acute fracture, further evaluation may be obtained with CT. 2. Mild stool and gaseous distention of the rectosigmoid colon which may reflect constipation or possible mild impaction. Dictated by: Stanley Shelton M.D. on 02/17/2017 at 9:21 Her 1. Cardiomegaly with small right pleural effusion and pulmonary edema compatible with congestive heart failure. 2. Confluent right perihilar opacities suggestive of consolidation and possible pneumonia particularly in the right upper lobe. 3. Increased prominence of the mediastinum and increased cardiac size compared to the prior study. Findings may be due to technique and low lung volumes but may reflect a possible pericardial effusion. Consider a repeat PA and lateral study when clinically feasible. Dictated by: Stanley Shelton M.D. on 02/17/2017 at 9:[address] 1. No definite acute intracranial abnormality. 2. Moderate to severe chronic white matter small vessel ischemic changes limiting evaluation for superimposed acute processes. If there is persistent clinical suspicion, consider further evaluation with MRI. Dictated by: Stanley Shelton M.D. on 02/17/2017 at 9:[address] IMPRESSION: No fracture found. Please note that MR scanning provides the "gold standard" for detection of nondisplaced undetected fractures. Dictated by: Rustam Frank M.D. 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 Acute encephalopathy, multifactorial, present on admission; ongoing -Likely due to ongoing UTI and questionable sepsis, as well as severe hypertension; patient had very similar episode 6 months ago was evaluated by neurology at that time -Pt turns her head to voice but does not respond -CT of the brain was negative for bleeding -Patient was taken to dialysis today with 3 L removed ESRD; present on admission; stable -Cre of 2.81, K 4.3 -Dialysis as above -Nephrology consulted UTI with recent hx of VRE -Urine cultures pending; previous culture demonstrated VRE in August (ED visit without admission) with nearly gallardo-resistance, and high DONNELL for linezolid (2) and nitrofurantoin (32) -Started on ceftriaxone in ED; Gave Fosfomycin after discussing with pharmacy; will change to Linezolid if pt decompensates -Recommend infectious disease consult in AM -Procalcitonin and Strep urine ag ordered -Bcx pending Possible CAP vs aspiration; present on admission; ongoing -No reported cough although patient has wet cough during interview -CXR demonstrated right upper lobe pneumonia; noted that this could be due to CHF but unsure at this point -Speech eval -Zosyn started -Sputum cx ordered Hypertensive urgency vs emergency; present on admission; ongoing -Presents with encephalopathy and SBP >190; on clonidine at home and questionable if dose given today -Dialysis with 3L removed -Restarted Lisinopril, clonidine and carvedilol -Vasotec ordered PRN if SBP >180 after medications restarted Systolic CHF; present on admission; ongoing -ECHO today reveals EF 20-25% with global hypoknesis -Continue Carvedilol and lisinopril -Dialysis today Anemia second to ESRD -Improved from last admission -Hgb 11.3 Disposition: Patient is being admitted to inpatient status with expected length of stay greater than two midnights due to to severity of presentation, duration of treatment, and risks of adverse events disposition DO NOT RESUSCITATE DO NOT INTUBATE Pain Evaluation: Adequate Pain Control VTE Prophylaxis: Sub-Q Heparin (Unfractionated) VTE Mechanical Devices: Intermittant Pneumatic CD Resuscitation Status: DNR/DNI:Do Not Resuscitate/Intubate Attending Statement The patient was seen and examined together with Dr. Bianchi on 02/17/17 and I agree with the history, exam and plan as outlined in the note above. Alna Bianchi DO Feb 17, 2017 16:45 Fadi Brooks Feb 18, 2017 07:35
[2017-02-17] MEDS ORDERED: Piperacillin-Tazo 3.375 Gm Inj 3.375 GM in Dextrose 5% Minibag Plus 50 ML IV ONE (20:50)
[2017-02-17] MEDS ORDERED: 0.9% Sodium Chloride 250 ML ONE (21:27)
[2017-02-17] MEDS ORDERED: LORazepam Oral Conc 2 mg/mL 30 mL Solution PO PRN (21:35)
[2017-02-17] MEDS ORDERED: Isosorbide Mononitrate 30 mg ER24 Tablet PO SCH (21:45)
--- NOTE | 2017-02-17 22:42 | NUR ---
POST DIALYSIS: Pt. returned from Dialysis at 19:15 awake but not talking. Pt's son at her side, he was able to feed pt. some soup from home. VS taking immediately upon return to [facility], BP elevated. Dr. Bianchi aware, gave orders for BP meds and report back to him. Medications given but no results, BP still elevated. See VS records. IV antibiotics given. Current BP 202/[address] Bianchi transfer pt. to CCU for Cardizem gtt.
[2017-02-18] VITALS (9 sets, daily range): BP systolic 146–194; BP diastolic 52–65; PULSE 50–55; RESP 11–16; O2SAT 93–100
--- NOTE | 2017-02-18 01:14 | NUR ---
TRANSFER TO CCU: Pt. was transferred to CCU Rm 2020 at 0050 as per MD orders, Pt. to be placed on IV gtt to control her BP. Gave report to Ovidio Vasquez RN. Pt's family at her side.
[2017-02-18] MEDS: NiCARdipine Inj 25 MG in Dextrose 5% 240 ML IV SCH ×6 (01:30→23:20)
[2017-02-18] MEDS: Piperacillin-Tazo 3.375 Gm Inj 3.375 GM in Dextrose 5% Minibag Plus 50 ML IV SCH ×3 (02:37→20:55)
[2017-02-18] MEDS: Linezolid Inj 600 MG in IV Premix 1 EACH IV SCH ×2 (03:03→15:11)
--- NOTE | 2017-02-18 06:25 | NUR ---
BP Pt BP remains elevated when off nicardipine gtt. orders are to not allow BP to drop too quickly (systolic to stay above 160). Titrating nicardipine gtt per protocol. Monitoring closely. Care ongoing
[2017-02-18] MEDS ORDERED: Lisinopril 40 Tablet PO SCH (08:30)
[2017-02-18] MEDS: Isosorbide Mononitrate 30 mg ER24 Tablet PO SCH (09:02)
[2017-02-18] MEDS: Lisinopril 40 Tablet PO SCH (09:02)
--- NOTE | 2017-02-18 10:07 | NUR ---
Inpatient Wound Nurse Patient seen by CWON RN for Pressure Ulcer Prevention Protocol. Resolving (probable) Stage 2 PU found on coccyx, 1 cm L x 1 cm W x 0.1 cm D, no drainage, dry pink wound bed, epibole edges without undermining or tunneling. Periwound warm and pink, normal body tissue temp and color. Evidence of numerous healed pressure ulcers noted in surrounding area. Wound was covered with bordered sacral Mepilex. Patient HOB should be kept less than 30* most of the time to prevent shearing. Deep tissue injury 4 cm L x 4 cm W fading bruise of purple and yellow noted to L cheek, which patient stated, via body liner, occurred during fall about a week ago. She denied any other injuries related to fall. Heels without bogginess or erythema. No other skin issues identified.
--- NOTE | 2017-02-18 11:26 | NUR ---
NUTRITION ASSESSMENT: ASSESS: Pt is a 66yo F admitted to CCU for AMS, UTI and ESRD. She is currently on a pureed diet with NT liquids. Nephrology is following for Dialysis. Per wound care, pt has a healing stg 2 PU on coccyx. PMHX: ESRD, UTI, liver abscess, C.Diff, HTN, CHF, CAD LABS: Reviewed. Na 133, Cl 93, Bun 41, Swatch Folder 2.81, Glu 224, Alb 3.5 MEDS: Reviewed. GI: 0 BM SKIN: healing stg 2 PU on coccyx per WC CURRENT WTS: 52kg, BMI 24kg/m2 DIET: Pureed, NT, PO Bites EST. NEEDS: Dialysis, wound healing Kcals: 1560-1820kcal/day (30-35kcal/kg) Pro: 65-105g/day (1.2-2.0g/kg) NUTRITION DIAGNOSIS: 1.) Increased kcal/pro needs related to increased demand for healing as evidence by stg 2 PU and pt is on dialysis NUTRITION INTERVENTION: 1.) Will send Nepro on L trays. 2.) Will monitor for PO intake MONITOR / EVAL: PO, wounds, GI, labs, POC, nutrition status. Will continue to monitor per moderate nutrition risk guidelines.
[2017-02-18] MEDS ORDERED: Glucose 40% Oral Gel 15 Gm Tube PO PRN (14:20)
--- NOTE | 2017-02-18 14:31 | NUR ---
Mentation/Hemodynamics/Tele/Activity/PO Patient confused, pulling off all monitoring leads and pulling out IV first thing this morning. family states that she does this and has required a sitter and or restraints in the past. MD ordered restraints. Soft wrist restraints applied and patient has tolerated this well. BP stable on PO meds and off of Nicardapine. Current bp, 159/57. MD is aware and will continue with current regimen. No UOP so far, but this is not new for the dialysis patient. Tele has been mostly SB. After morning coreg, HR started dipping down to 48-49. MD aware. Not symptomatic. Current HR is 53. Patient is weak, unable to feed herself. Turning in bed q 2 hours. Encouraging increase in activity. Assessment done with regional psychiatric director present. Appetite is poor, but patient is eating a little. She ate a pudding for breakfast and then pureed carrots for lunch. Continue with POC.
[2017-02-18 15:53] LABS: TROPONIN T 0.092 ug/L (0.0-0.011)
--- NOTE | 2017-02-18 17:07 | PCM.PNMED ---
Subjective Date of Service Feb 18, 2017 Subjective 66-year-old woman with end-stage renal disease, labile hypertension and history of encephalopathy presents with right hip pain, encephalopathy and hypertensive urgency. Today she seems more alert. states she has had mental status baseline. He states that the current confusion episode seems to be similar to prior episodes. Her presenting complaint of right hip pain seems improved with bedrest. She denies fever or sweats, costovertebral pain or suprapubic pain. She endorses some discomfort with voiding, but unclear whether this is acute and new. She has no respiratory complaints is well oxygenated with normal respiratory rate. She knows she is in a hospital in [place] and seems generally oriented. Exam Vital Signs Vital Sign - Last Date Time Temp Pulse Resp B/P Pulse Ox O2 Delivery O2 Flow Rate FiO2 02/18/17 12:00 Supplement Oxygen 02/18/17 12:00 36.4 50 13 146/56 97 02/18/17 08:00 2.00 Intake and Output 02/17/17 02/17/17 02/18/17 Cumulative From/Thru 15:00 23:00 07:00 02/17/17 07:42 - 02/18/17 06:24 Intake Total 546 ml 546 ml Output Total 3000 ml 0 ml 3000 ml Balance -3000 ml 546 ml -2454 ml Intake Oral 350 ml 350 ml IV Total 196 ml 196 ml Output Urine Total 0 ml 0 ml Ultrafiltrate 3000 ml 3000 ml # Voids 0 0 # Bowel Movements 0 0 Exam General: Chronically ill-appearing woman in no acute distress HEENT: sclerae anicteric, oral mucosa dry Neck: no apparent JVD Chest: clear to auscultation but reduced breath sounds at bases Cardiac: S1S2, regular Abdomen: BS normal, non-tender Extremities: No pitting edema Neuro: Alert response to questions but limited thought content, cranial nerves appear to be symmetric, motor strength and coordination normal IVs and Medications Medications Reviewed: Medications were reviewed in detail Lab and Diagnostics Result Diagram: 02/17/1780202/17/17802 X-Rays, CTs and MRIs Hips/pelvis x-ray 1. Limited study as described with femoral neck fractures not excluded. If there is clinical suspicion for acute fracture, further evaluation may be obtained with CT. 2. Mild stool and gaseous distention of the rectosigmoid colon which may reflect constipation or possible mild impaction. Dictated by: Stanley Shelton M.D. on 02/17/2017 at 9:21 Her 1. Cardiomegaly with small right pleural effusion and pulmonary edema compatible with congestive heart failure. 2. Confluent right perihilar opacities suggestive of consolidation and possible pneumonia particularly in the right upper lobe. 3. Increased prominence of the mediastinum and increased cardiac size compared to the prior study. Findings may be due to technique and low lung volumes but may reflect a possible pericardial effusion. Consider a repeat PA and lateral study when clinically feasible. Dictated by: Stanley Shelton M.D. on 02/17/2017 at 9:[address] 1. No definite acute intracranial abnormality. 2. Moderate to severe chronic white matter small vessel ischemic changes limiting evaluation for superimposed acute processes. If there is persistent clinical suspicion, consider further evaluation with MRI. Dictated by: Stanley Shelton M.D. on 02/17/2017 at 9:[address] IMPRESSION: No fracture found. Please note that MR scanning provides the "gold standard" for detection of nondisplaced undetected fractures. Dictated by: Rustam Frank M.D. 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 Acute encephalopathy, multifactorial, present on admission; ongoing. Possibly due to cystitis versus hypertensive encephalopathy. CT of the brain was negative for bleeding. History chest x-ray is abnormal but no clinical symptoms of respiratory infection. Review of chart reveals recent episodes of truly febrile illness with elevated leukocytes. Currently she is afebrile without leukocyte elevation. She does not seem to have sepsis clinically. Mental status has normalized with improvement in blood pressure. Her mental status is marginally compensated at baseline. - Continue to manage blood pressure - Ambulate patient with supportive psychological interventions. Hypertensive urgency with encephalopathy; present on admission; ongoing - Presents with encephalopathy and SBP >190; on clonidine at home and questionable if dose given today. Initially managed with nicardipine. - Dialysis with 3L removed - Restarted Lisinopril, and carvedilol - Increased clonidine from twice a day to 3 times a day - Increase isosorbide from 30-60 daily ESRD; present on admission; stable -Cre of 2.81, K 4.3 -Nephrology consulted, will continue dialysis UTI with recent hx of VRE. Minimally clinically symptomatic. Urine cultures pending; currently showing greater than 100,000 colony counts of gram-negative jordan. Previous culture demonstrated VRE in August (ED visit without admission ) with nearly gallardo-resistance, and high DONNELL for linezolid (2) and nitrofurantoin (32). Initially started on ceftriaxone in ED. Clinical diagnosis is either cystitis or more likely chronic pyuria and colonization. High risk for further gallardo-resistant organisms with excessive use antibiotic - Gave Fosfomycin - Discontinue antibiotics after fosfomycin Possible CAP vs aspiration; present on admission; ongoing. Ruled out. 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 She needs to be mobilized to the extent possible. If mental status remains improved and blood pressure is under control on oral meds then plan discharge to her previous SNF on 02/19-02/20 DO NOT RESUSCITATE DO NOT INTUBATE Pain Evaluation: Adequate Pain Control VTE Prophylaxis: Sub-Q Heparin (Unfractionated) VTE Mechanical Devices: Intermittant Pneumatic CD Resuscitation Status: DNR/DNI:Do Not Resuscitate/Intubate Time spent 45 minutes Kentrell Uribe MD Feb 18, 2017 17:07
[2017-02-18] MEDS: Insulin LISPRO 300 Unit/3 mL Inj SUBQ SCH ×2 (17:11→22:00)
--- NOTE | 2017-02-18 17:12 | PCM.PNNEPH ---
Subjective Date of Service Feb 18, 2017 Subjective confused at times more awake today. on soft restraints. Echo showed EF 20-25%. Nicardipine gtt was d/c'd. BP better controlled but remains elevated. Last HD was yesterday. Exam Vital Signs Vital Sign - Last Date Time Temp Pulse Resp B/P Pulse Ox O2 Delivery O2 Flow Rate FiO2 02/18/17 12:00 Supplement Oxygen 02/18/17 12:00 36.4 50 13 146/56 97 02/18/17 08:00 2.00 Intake and Output 02/17/17 02/17/17 02/18/17 Cumulative From/Thru 15:00 23:00 07:00 02/17/17 07:42 - 02/18/17 06:24 Intake Total 546 ml 546 ml Output Total 3000 ml 0 ml 3000 ml Balance -3000 ml 546 ml -2454 ml Intake Oral 350 ml 350 ml IV Total 196 ml 196 ml Output Urine Total 0 ml 0 ml Ultrafiltrate 3000 ml 3000 ml # Voids 0 0 # Bowel Movements 0 0 Exam General appearance: awake, follow commands, lying in bed comfortably. HEENT: Mild pallor. No jaundice. No JVD. No lymphadenopathy. No thyroid enlargement. Heart: Regular rhythm. Normal S1, S2. Positive for soft systolic murmur. No rubs, no gallops. Lungs: Decreased breath sound at bases. No wheezing. No rhonchi. Abdomen: Soft, active bowel sounds. Nontender. Nondistended. No hepatosplenomegaly. Extremities: No edema, cyanosis, or clubbing of fingers. Right arm AV fistula with good thrill. Lab and Diagnostics Result Diagram: 02/17/1780202/17/17 08 X-Rays, CTs and MRIs Hips/pelvis x-ray 1. Limited study as described with femoral neck fractures not excluded. If there is clinical suspicion for acute fracture, further evaluation may be obtained with CT. 2. Mild stool and gaseous distention of the rectosigmoid colon which may reflect constipation or possible mild impaction. Dictated by: Stanley Shelton M.D. on 02/17/2017 at 9:21 Her 1. Cardiomegaly with small right pleural effusion and pulmonary edema compatible with congestive heart failure. 2. Confluent right perihilar opacities suggestive of consolidation and possible pneumonia particularly in the right upper lobe. 3. Increased prominence of the mediastinum and increased cardiac size compared to the prior study. Findings may be due to technique and low lung volumes but may reflect a possible pericardial effusion. Consider a repeat PA and lateral study when clinically feasible. Dictated by: Stanley Shelton M.D. on 02/17/2017 at 9:[address] 1. No definite acute intracranial abnormality. 2. Moderate to severe chronic white matter small vessel ischemic changes limiting evaluation for superimposed acute processes. If there is persistent clinical suspicion, consider further evaluation with MRI. Dictated by: Stanley Shelton M.D. on 02/17/2017 at 9:[address] IMPRESSION: No fracture found. Please note that MR scanning provides the "gold standard" for detection of nondisplaced undetected fractures. Dictated by: Rustam Frank M.D. on 02/17/2017 at 10:38 Plan Impression 1. Altered mental status, likely due to metabolic encephalopathy. 2. E.coli UTI. underlying disease of recurrent urinary tract infection (UTI) in the past. She had h/o positive E. coli and VRE. 3. End-stage renal disease, on hemodialysis every Wednesday, Wednesday, and Wednesday. 4. Uncontrolled hypertension, r/o rebound hypertension. possible chronic hypervolemia. Allergy: amlodipine, labetalol. 5. Renal osteodystrophy. 6. Anemia of chronic kidney disease. 7. Recent history of liver abscess, status post drainage. 8. Recurrent of C. diff colitis. 9. Cardiomyopathy. EF 20-25% PLAN: Next HD in am. UF 3-4L as tolerated. Continue her current BP meds (lisinopril, coreg and clonidine). Add aldactone 50 mg daily. Aristides Stephens MD Feb 18, 2017 17:12
[2017-02-18] MEDS: Insulin GLARgine 100 Unit/mL Syringe SUBQ SCH (22:31)
[2017-02-19 03:15] VITALS: BP 176/59; PULSE 50; RESP 16; O2SAT 99
[2017-02-19] MEDS: Linezolid Inj 600 MG in IV Premix 1 EACH IV SCH (03:47)
[2017-02-19] MEDS: NiCARdipine Inj 25 MG in Dextrose 5% 240 ML IV SCH (04:20)
--- NOTE | 2017-02-19 05:39 | NUR ---
Mentation/Tele Patient somnolent at beginning of shift with minimal responses to questions, even with the assistance of family to interpret. Patient entered period of wakefulness overnight; alert, interactive with nursing staff. Answers questions with slight delay to speech; identifies location as a hospital but unable to give specifics. Pleasant and cooperative with care. Tele: sinus reginald with rates in the 40s-50s.
[2017-02-19 08:00] VITALS: PULSE 57
[2017-02-19] MEDS: Insulin LISPRO 300 Unit/3 mL Inj SUBQ SCH ×4 (08:00→20:10)
[2017-02-19 09:03] VITALS: BP 174/82; PULSE 55
--- NOTE | 2017-02-19 10:44 | NUR ---
Pt arrived to [facility]: Pt arrived to [facility] at 0900 for dialysis treatment. Pt appears stable at time of arrival. Report given by Jodi Wilkes RN. Tele monitor aware of transfer. Addendum: 02/19/17 at 1331 by ALLISON RAWLS RN Pt completed treatment and returned back to [facility]. Pt stable at time of transfer. Report given to Jodi Wilkes RN. Tele monitor aware of transfer.
--- NOTE | 2017-02-19 12:08 | PCM.PNNEPH ---
Subjective Date of Service Feb 19, 2017 Subjective Patient is much more alert and oriented today and interactive. She is scheduled to be discharged to extended care facility. She offers no new complaints and is tolerating her diet. Exam Vital Signs Vital Sign - Last Date Time Temp Pulse Resp B/P Pulse Ox O2 Delivery O2 Flow Rate FiO2 02/19/17 09:03 55 02/19/17 03:15 16 176/59 99 Room Air 02/18/17 23:01 36.4 02/18/17 08:00 2.00 Intake and Output 02/18/17 02/18/17 02/19/17 Cumulative From/Thru 15:00 23:00 07:00 02/17/17 07:42 - 02/19/17 06:35 Intake Total 392 ml 396 ml 1334 ml Output Total 3000 ml Balance 392 ml 396 ml -1666 ml Intake Oral 0 ml 350 ml IV Total 392 ml 396 ml 984 ml Output Urine Total 0 ml Ultrafiltrate 3000 ml # Voids 0 0 # Bowel Movements 0 Exam Neck is supple without adenopathy, thyromegaly, or jugular venous distention. Lungs are clear to auscultation. Heart was regular and rhythmical with a soft systolic murmur. Abdomen is soft without any tenderness rebound guarding masses or hepatosplenomegaly. Extremities did not show any evidence of any clubbing cyanosis or edema. Skin turgor is good. Lab and Diagnostics Result Diagram: 02/17/17 0803 02/17/17 0803 X-Rays, CTs and MRIs Hips/pelvis x-ray 1. Limited study as described with femoral neck fractures not excluded. If there is clinical suspicion for acute fracture, further evaluation may be obtained with CT. 2. Mild stool and gaseous distention of the rectosigmoid colon which may reflect constipation or possible mild impaction. Dictated by: Stanley Shelton M.D. on 02/17/2017 at 9:21 Her 1. Cardiomegaly with small right pleural effusion and pulmonary edema compatible with congestive heart failure. 2. Confluent right perihilar opacities suggestive of consolidation and possible pneumonia particularly in the right upper lobe. 3. Increased prominence of the mediastinum and increased cardiac size compared to the prior study. Findings may be due to technique and low lung volumes but may reflect a possible pericardial effusion. Consider a repeat PA and lateral study when clinically feasible. Dictated by: Stanley Shelton M.D. on 02/17/2017 at 9:[address] 1. No definite acute intracranial abnormality. 2. Moderate to severe chronic white matter small vessel ischemic changes limiting evaluation for superimposed acute processes. If there is persistent clinical suspicion, consider further evaluation with MRI. Dictated by: Stanley Shelton M.D. on 02/17/2017 at 9:[address] IMPRESSION: No fracture found. Please note that MR scanning provides the "gold standard" for detection of nondisplaced undetected fractures. Dictated by: Rustam Frank M.D. on 02/17/2017 at 10:38 Plan Impression Impression #1 end-stage renal disease dialysis dependent Recommendation #1 patient to dialyze today for 4 hours on a standard dialyzer, 2 potassium bath, 400 blood flow was 600 dialysate flow, thousand units of heparin and 200 Arnold will try to take 2 kg off. Her treatment she can be discharged. Brian Gresham DO Feb 19, 2017 12:08
--- NOTE | 2017-02-19 13:25 | NUR ---
Dialysis note: 4 hrs tx 4000 ml net UF [place] fistula, accessed w/ no problems Pls see DTR for VS details Qb 400 Heparin given O2 @ 2L via NC on during tx Tolerated tx, slept at intervals Fistula needle sites clotted w/in 10 min Stable condition at end of treatment Report given to Dorota LENZ
[2017-02-19] MEDS: Lisinopril 40 Tablet PO SCH (13:30)
[2017-02-19] MEDS: Isosorbide Mononitrate 30 mg ER24 Tablet PO SCH (13:30)
[2017-02-19] MEDS ORDERED: SPIR25TA PO (14:18)
[2017-02-19] MEDS ORDERED: ISOS60TA2 PO (14:18)
[2017-02-19] MEDS ORDERED: CARV12.52 PO (14:18)
--- NOTE | 2017-02-19 14:31 | PCM.PNMED ---
Subjective Date of Service Feb 19, 2017 Subjective 66-year-old woman with end-stage renal disease, labile hypertension and history of encephalopathy presents with right hip pain, encephalopathy and hypertensive urgency. Today she seems more alert in the morning prior to dialysis, but confused and lethargic afterwards. She has no respiratory complaints is well oxygenated with normal respiratory rate. Exam Vital Signs Vital Sign - Last Date Time Temp Pulse Resp B/P Pulse Ox O2 Delivery O2 Flow Rate FiO2 02/19/17 09:03 55 02/19/17 03:15 16 176/59 99 Room Air 02/18/17 23:01 36.4 02/18/17 08:00 2.00 Intake and Output 02/18/17 02/18/17 02/19/17 Cumulative From/Thru 14:59 22:59 06:59 02/17/17 07:42 - 02/19/17 06:35 Intake Total 392 ml 396 ml 1334 ml Output Total 3000 ml Balance 392 ml 396 ml -1666 ml Intake Oral 0 ml 350 ml IV Total 392 ml 396 ml 984 ml Output Urine Total 0 ml Ultrafiltrate 3000 ml # Voids 0 0 # Bowel Movements 0 Exam General: Chronically ill-appearing woman calm but absent HEENT: sclerae anicteric, oral mucosa dry Neck: no apparent JVD Chest: clear to auscultation but reduced breath sounds at bases Cardiac: S1S2, regular Abdomen: BS normal, non-tender Extremities: No pitting edema Neuro: Alert but limited thought content, cranial nerves appear to be symmetric , motor strength and coordination symmetric IVs and Medications Medications Reviewed: Medications were reviewed in detail Lab and Diagnostics Result Diagram: 02/17/17 0802/17/17 0803 X-Rays, CTs and MRIs Hips/pelvis x-ray 1. Limited study as described with femoral neck fractures not excluded. If there is clinical suspicion for acute fracture, further evaluation may be obtained with CT. 2. Mild stool and gaseous distention of the rectosigmoid colon which may reflect constipation or possible mild impaction. Dictated by: Stanley Shelton M.D. on 02/17/2017 at 9:21 Her 1. Cardiomegaly with small right pleural effusion and pulmonary edema compatible with congestive heart failure. 2. Confluent right perihilar opacities suggestive of consolidation and possible pneumonia particularly in the right upper lobe. 3. Increased prominence of the mediastinum and increased cardiac size compared to the prior study. Findings may be due to technique and low lung volumes but may reflect a possible pericardial effusion. Consider a repeat PA and lateral study when clinically feasible. Dictated by: Stanley Shelton M.D. on 02/17/2017 at 9:[address] 1. No definite acute intracranial abnormality. 2. Moderate to severe chronic white matter small vessel ischemic changes limiting evaluation for superimposed acute processes. If there is persistent clinical suspicion, consider further evaluation with MRI. Dictated by: Stanley Shelton M.D. on 02/17/2017 at 9:[address] IMPRESSION: No fracture found. Please note that MR scanning provides the "gold standard" for detection of nondisplaced undetected fractures. Dictated by: Rustam Frank M.D. on 02/17/2017 at 10:38 Assessment & Plan 66-year-old female with ESRD, recurrent UTIs with VRE that doesn't appear to be treated, and systolic CHF with EF 20-25%, among other comorbidities, presenting to the emergency department due to acute mental status changes and severe hypertension. Acute encephalopathy, multifactorial, present on admission; ongoing. Time course of improvement suggests this was hypertensive encephalopathy, possibly due to cystitis versus. CT of the brain was negative for bleeding. History chest x-ray is abnormal but no clinical symptoms of respiratory infection, most likely fluid overload. She has been afebrile without leukocyte elevation. She does not seem to have sepsis clinically. Mental status has normalized with improvement in blood pressure. Her mental status seems to wax and wane. - Observe until a.m. on 02/20 due to mild encephalopathy recurrence after dialysis on 02/19 - Continue to manage blood pressure - Ambulate patient with supportive psychological interventions. Hypertensive urgency with encephalopathy; present on admission; ongoing - Presents with encephalopathy and SBP >190; on clonidine at home and questionable if dose given today. Initially managed with nicardipine. - Restarted Lisinopril, and increased carvedilol - Increase isosorbide from 30 to 60 daily - Added spironolactone 50 mg daily ESRD; present on admission; stable -Cre of 2.81, K 4.3 -Nephrology consulted, will continue dialysis Dialysis with 3L removed. UTI with recent hx of VRE. Minimally clinically symptomatic. Urine cultures pending; currently showing greater than 100,000 colony counts of gallardo-sensitive gram-negative jordan. Previous culture demonstrated VRE in August (ED visit without admission) with nearly gallardo-resistance, and high DONNELL for linezolid (2) and nitrofurantoin (32). Initially started on ceftriaxone in ED. Clinical diagnosis is either cystitis or more likely chronic pyuria and colonization. High risk for further gallardo-resistant organisms with excessive use antibiotic - Gave Fosfomycin - Discontinue antibiotics after fosfomycin Possible CAP vs aspiration; present on admission; ongoing. Ruled out. 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 on 02/20 DO NOT RESUSCITATE DO NOT INTUBATE Pain Evaluation: Adequate Pain Control VTE Prophylaxis: Sub-Q Heparin (Unfractionated) VTE Mechanical Devices: Intermittant Pneumatic CD Resuscitation Status: DNR/DNI:Do Not Resuscitate/Intubate Time spent 35 minutes Kentrell Uribe MD Feb 19, 2017 14:31
--- NOTE | 2017-02-19 14:34 | NUR ---
Social Work: Initial Assessment/Multidisciplinary Rounds D: Per EMR review, pt is a 66 year old female admitted for ALOC, UTI, ESRD. Pt is Medicare with [facility] supplement; pt has no LTC or VA benefits. PCP is Mira Ovalle MD. NOK is Milad Magallon, spouse, . Advanced directives on file at [facility] [place] copy. Readmit score is high, 4/8. Pt discussed with . Pt has received dialysis but is not ready for discharge today as pt is complaining of nausea and having some additional confusion. Pt will likely discharge back to [facility] tomorrow. DENTAL HYGIENE INSTRUCTOR spoke with the patient's spouse via the language line warp knitter and with the on-hydro plant site manager. Pt's spouse is agreeable to the patient discharging back to [facility] when she is medically stable. Pt uses a w/c at baseline and has assistance with transfers in and out from facility staff. DENTAL HYGIENE INSTRUCTOR spoke with Sarah at [facility] in [place], he states that they can accept the patient back whenever she is medically stable; pt typically transports via cabulance. A: Pt who is a LTC resident at [facility]. P: Anticipate pt to return to [facility] once medically stable; DENTAL HYGIENE INSTRUCTOR to continue to follow to assess for unmet needs. MICKEY Love Addendum: 02/19/17 at 1443 by SYLVESTER PINEDA SS Amended: Links added.
[2017-02-19 16:28] VITALS: BP 179/83; PULSE 58; RESP 15; O2SAT 100
--- NOTE | 2017-02-19 16:47 | NUR ---
Dialysis Pt left [facility] room # 2020 for dialysis in [facility] room #243 at 0830 and returned at 1300. Came back hypertensive, gave am meds crushed in pudding. Per social science analyst, pt will return to SNF possibly tomorrow. at bedside and gin inspector translated.
[2017-02-19] MEDS ORDERED: NIFEdipine 30 mg ER24 Tablet PO ONE (18:15)
[2017-02-19 19:19] VITALS: BP 130/49; PULSE 60; RESP 16; O2SAT 100
[2017-02-19] MEDS: Insulin GLARgine 100 Unit/mL Syringe SUBQ SCH (20:08)
--- NOTE | 2017-02-19 23:27 | NUR ---
MENTATION Pt has had an uneventful night. VSS, no pain, no N/V. Pt has been alert with mild confusion, able to answer questions appropriately. Pt should be stable enough to discharge in the AM. No other issues noted @ this time.
[2017-02-20 00:27] VITALS: BP 179/73; PULSE 65; RESP 16; O2SAT 99
--- NOTE | 2017-02-20 01:40 | NUR ---
BP Pt was Hypertensive 179/73 at midnight vital check. PRN Hydralizine 25mg given with good results. Addendum: 02/20/17 at 0612 by LOVE MORRIS RN 3am vital check pt hypertensive, systolic >170, PRN Hydralizine 25 mg given.
[2017-02-20 04:36] VITALS: BP 202/81; PULSE 63; RESP 16; O2SAT 100
[2017-02-20 05:41] VITALS: PULSE 58
[2017-02-20] MEDS: Lisinopril 40 Tablet PO SCH (08:30)
[2017-02-20] MEDS ORDERED: NIFEdipine 30 mg ER24 Tablet PO SCH (08:30)
[2017-02-20 08:44] VITALS: PULSE 68
[2017-02-20] MEDS: Isosorbide Mononitrate 30 mg ER24 Tablet PO SCH (09:22)
[2017-02-20] MEDS ORDERED: NIFE30TA92 PO (09:28)
[2017-02-20] MEDS ORDERED: CARV12.52 PO (09:28)
--- NOTE | 2017-02-20 09:29 | PCM.DIMED ---
Discharge Instructions Date of Service Feb 19, 2017 Dates of Hospitalization Feb 17, 2017 at 11:43 Discharge Diagnosis Discharge Diagnosis Uncontrolled hypertension Encephalopathy Cystitis Acute systolic congestive heart failure End-stage renal disease on hemodialysis Medication Instructions Additional med instructions There are new medications on the list below to control high blood pressure. Diet Discharge Diet: Renal Diet Activity Discharge Activity: Other (as per the physical therapy staff at [facility]) Patient Instructions Patient Instructions Your blood pressure was very elevated, which may have contributed to your confusion (encephalopathy). We have increased to have your blood pressure medicines and added 1 new one. Follow-up Provider: Mira Ovalle MD Follow-up with PCP in: 1 week (for blood pressure check, call for a post hospitalization primary care appointment) Provider: Jareth Bynum MD Follow-up in: Other (at the [facility]) Kentrell Uribe MD Feb 19, 2017 14:22
[2017-02-20] MEDS ORDERED: HYDR-3939 PO (12:35)
--- NOTE | 2017-02-20 12:40 | NUR ---
BP 193/60; additional Hydralazine administered p.o., per MD shields
--- NOTE | 2017-02-20 12:44 | NUR ---
Activity Level Pt bedrest per documentation since 02/17; pt at present not able assist with turning, ROM. Currently requires total assist with ADLs including eating.
--- NOTE | 2017-02-20 13:29 | NUR ---
Social Work-discharge: Data:EMR Reviewed. Pt is on day 3 of hospitalization for ALOC and UTI per H&P. Pt is medically stable for discharge. [place] confirmed with Sarah at [facility] that they are able to accept today. [place] confirmed with RN, who has placed note that pt is unable to support trunk, SW arranged BLS for 1330. SW updated Sarah at [facility] and faxed orders and created packet. SW updated pt and family at bedside, all agreeable. SW explained that cannot guarantee that insurance will cover the cost of transport, family agreeable to proceed. RN,UC,pt/family, and [facility] all updated and agreeable to plan. 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 Plan:Pt to discharge to [facility] today via BLS at 1330. JERSEY created packet and faxed orders. RN,UC,pt/family, and [facility] all updated and agreeable to plan. MICKEY Lazar
--- NOTE | 2017-02-20 18:16 | PCM.DC.MED ---
Discharge Summary Date of Service Feb 20, 2017 Dates of Hospitalization Date of Hospital Admission Feb 17, 2017 at 11:43 Date of Discharge: Feb 20, 2017 Providers: Admitting Physician: Fadi Brooks Primary Care Physician: Mira Ovalle MD Attending Physician: Michael Uribe MD Diagnosis at Time of Discharge Diagnosis at Time of Discharge Uncontrolled hypertension Encephalopathy Cystitis Acute systolic congestive heart failure End-stage renal disease on hemodialysis Consultations Nephrology, Dr. Ortega, Dr. Gresham Procedures XRay, CTs & MRIs Hips/pelvis x-ray 1. Limited study as described with femoral neck fractures not excluded. If there is clinical suspicion for acute fracture, further evaluation may be obtained with CT. 2. Mild stool and gaseous distention of the rectosigmoid colon which may reflect constipation or possible mild impaction. Dictated by: Stanley Shelton M.D. on 02/17/2017 at 9:21 Her 1. Cardiomegaly with small right pleural effusion and pulmonary edema compatible with congestive heart failure. 2. Confluent right perihilar opacities suggestive of consolidation and possible pneumonia particularly in the right upper lobe. 3. Increased prominence of the mediastinum and increased cardiac size compared to the prior study. Findings may be due to technique and low lung volumes but may reflect a possible pericardial effusion. Consider a repeat PA and lateral study when clinically feasible. Dictated by: Stanley Shelton M.D. on 02/17/2017 at 9:[address] 1. No definite acute intracranial abnormality. 2. Moderate to severe chronic white matter small vessel ischemic changes limiting evaluation for superimposed acute processes. If there is persistent clinical suspicion, consider further evaluation with MRI. Dictated by: Stanley Shelton M.D. on 02/17/2017 at 9:[address] IMPRESSION: No fracture found. Please note that MR scanning provides the "gold standard" for detection of nondisplaced undetected fractures. Dictated by: Rustam Frank M.D. on 02/17/2017 at 10:38 Brief History History of Present Illness (per admission note): 66-year-old , Iranian-speaking female with a past medical history of ESRD on dialysis Fridays, recurrent UTIs, liver abscesses S/P drainage, history of C. difficile, recurrent hypertensive urgency, metabolic encephalopathy, diastolic heart failure is into the hospital with her family due to reported acute mental status changes. The patient unable to give a history but will turn her eyes and head during the interview. Her family states that she became quite confused earlier this morning with some nausea and vomiting with left-sided abdominal and hip pain. He denies ongoing diarrhea, fever, or chills. The patient was scheduled for dialysis today. EMS arrived before she could have dialysis. Family also states that the patient was more interactive and talkative prior to this morning. Patient was admitted in August with hypertensive urgency, metabolic encephalopathy, and C. difficile. She was evaluated by Dr. xavier of neurology and diagnosed with toxic metabolic encephalopathy with multiple etiologies including sepsis but no imaging evidence for stroke or other cerebral etiologies. In the ED the patient had evidence of pyuria on UA, but lacked a leukocytosis or other signs of sepsis. Patient's blood pressure was severely elevated up to 197/80. Patient regularly takes clonidine miss was given to her without much effect in lowering blood pressure during dialysis. Patient was taken for dialysis and 3 L were taken off this afternoon. Echo was also performed showing an EF of 20-25% with severe global hypokinesis and akinesis of the inferior wall. Hospital Course Acute encephalopathy, multifactorial, present on admission; ongoing. Time course of improvement suggests this was hypertensive encephalopathy, possibly due to cystitis versus. CT of the brain was negative for bleeding. History chest x-ray is abnormal but no clinical symptoms of respiratory infection, most likely fluid overload. She has been afebrile without leukocyte elevation. She does not seem to have sepsis clinically. Mental status has normalized with improvement in blood pressure. Her mental status seems to wax and wane. - Continue to manage blood pressure - Ambulate patient with supportive psychological interventions. Hypertensive urgency with encephalopathy; present on admission; ongoing - Presents with encephalopathy and SBP >190; on clonidine at home and questionable if dose given today. Initially managed with nicardipine. 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 Minimally clinically symptomatic. Urine cultures pending; currently showing greater than 100,000 colony counts of gallardo-sensitive gram-negative jordan. Previous culture demonstrated VRE in August (ED visit without admission) with nearly gallardo-resistance, and high DONNELL for linezolid (2) and nitrofurantoin (32). Initially started on ceftriaxone in ED. Clinical diagnosis is either cystitis or more likely chronic pyuria and colonization. High risk for further gallardo-resistant organisms with excessive use antibiotic - Gave Fosfomycin - Discontinued antibiotics after fosfomycin Possible CAP vs aspiration; present on admission; ongoing. Ruled out. 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 -Improved from last admission -Hgb 11.3 DO NOT RESUSCITATE DO NOT INTUBATE Exam Vital Signs (Last) Date Time Temp Pulse Resp B/P Pulse Ox O2 Delivery O2 Flow Rate FiO2 02/20/17 08:44 68 02/20/17 04:36 16 202/81 100 Room Air 02/20/17 00:27 36.6 02/19/17 19:19 2.00 Exam General: Chronically ill-appearing woman alert and comfortable appearing HEENT: sclerae anicteric, oral mucosa dry Neck: no apparent JVD Chest: clear to auscultation but reduced breath sounds at bases Cardiac: S1S2, regular Abdomen: BS normal, non-tender Extremities: No pitting edema Neuro: Alert but limited thought content, cranial nerves appear to be symmetric , motor strength and coordination symmetric Test 02/17/17 08:03 02/17/17 09:39 02/18/17 03:00 02/18/17 15:05 White Blood Count 6.3th/mm3 (3.8-10.1) Red Blood Count 3.54mil/mm3 (3.90-5.20) Hemoglobin 11.3g/dL (12.0-15.6) Hematocrit 34.8% (35.0-46.0) Mean Corpuscular Volume 98.3fL (81-100) Mean Corpuscular Hemoglobin 31.9pg (27.0-35.0) Mean Corpuscular Hemoglobin Concent 32.5% (32.0-37.0) Red Cell Distribution Width 14.9% (12.3-15.4) Platelet Count 70bil/L (150-400) Neutrophils (%) (Auto) 72.5% (40-74) Lymphocytes (%) (Auto) 16.3% (14-46) Monocytes (%) (Auto) 8.7% (4-12) Eosinophils (%) (Auto) 1.7% (0-5) Basophils (%) (Auto) 0.5% (0-3) Sodium Level 133mEq/L (134-144) Potassium Level 4.3mEq/L (3.5-5.2) Chloride Level 93mEq/L (97-108) Carbon Dioxide Level 25mmol/L (18-29) Blood Urea Nitrogen 41mg/dL (8-27) Creatinine 2.81mg/dL (0.57-1.00) Estimat Glomerular Filtration Rate 24mL/min (>59) Glucose Level 224mg/dL (60-99) Calcium Level 9.5mg/dL (8.5-10.1) Magnesium Level 2.0mg/dL (1.6-2.6) Total Bilirubin 0.6mg/dL (0.0-1.2) Aspartate Amino Transf (AST/SGOT) 19U/L (0-50) Alanine Aminotransferase (ALT/SGPT) 15U/L (0-32) Alkaline Phosphatase 159U/L (25-165) Total Protein 6.9g/dL (6.4-8.4) Albumin 3.5g/dL (3.4-5.0) Hold [place] Top Tube Received (Received) Urine Color Dark yellow (YELLOW) Urine Appearance Cloudy (CLEAR,HAZY) Urine pH 7.0 (5.0-8.0) Urine Specific Dania 1.015 (1.003-1.035) Urine Protein 300mg/dL (NEG,TRACE) Urine Glucose (UA) Negativemg/dL (NEGATIVE) Urine Ketones Negativemg/dL (NEGATIVE) Urine Occult Blood Large (NEGATIVE) Urine Nitrite Positive (NEGATIVE) Urine Bilirubin Negative (NEGATIVE) Urine Urobilinogen Normalmg/dL (NORMAL) Urine Leukocyte Esterase Large (NEGATIVE) Urine RBC 0-2/hpf (0-2) Urine WBC Packed/hpf (0-5) Urine Epithelial Cells Occasional/hpf (NONE-MOD) Urine Crystals None seen (NONE SEEN) Urine Bacteria Many/hpf (NONE-FEW) Urine Hyaline Casts None/lpf (NONE) Urine Granular Casts None seen (NONE SEEN) Urine Waxy Casts None seen (NONE SEEN) Urine Red Blood Cell Casts None seen (NONE SEEN) Urine White Blood Cell Casts None seen (NONE SEEN) Urine Mucus None seen (None Seen) Urine Trichomonas None seen (NONE SEEN) Urine Yeast None (NONE SEEN) Urinalysis Comment Renal epi seen Urine Culture Reflexed Indicated Prealbumin 16mg/dL (20-40) Troponin T 0.092ug/L (0.0-0.011) Procalcitonin 0.16ng/mL (0.00-0.08) Discharge Medications Discharge Medications Bisacodyl (Dulcolax Rectal) 10 Mg Supp.rect 10 MG RC DAILY (Reported) Calcium Carbonate (Tums) 500 Mg Tab.chew 500 MG PO BID (Reported) Carvedilol (Carvedilol) 12.5 Mg Tablet 25 MG PO BIDWM Prescribed by: MICHAEL URIBE MD Clonidine (Clonidine) 0.2 Mg Tablet 0.2 MG PO BID (Reported) Isosorbide MN ER (Isosorbide MN ER) 60 Mg Tab.er.24h 60 MG PO DAILY Prescribed by: MICHAEL URIBE MD Levothyroxine (Levothyroxine) 75 Mcg Tablet 75 MCG PO DAILY (Reported) Lisinopril (Lisinopril) 40 Mg Tablet 40 MG PO DAILY (Reported) Nifedipine ER (Adalat CC) 30 Mg Tablet 30 MG PO DAILY Prescribed by: MICHAEL URIBE MD Pantoprazole DR (Protonix) 40 Mg Tablet.dr 40 MG PO QAM (Reported) Spironolactone (Aldactone) 25 Mg Tablet 50 MG PO DAILY Prescribed by: MICHAEL UIRBE MD As needed Acetaminophen (Acetaminophen) 500 Mg Tablet 500 MG PO q4hr PRN PRN For Pain ( Reported) Bisacodyl (Dulcolax) 5 Mg Tablet.dr 10 MG PO DAILY PRN PRN For Constipation ( Reported) Hydralazine (Hydralazine) 25 Mg Tablet 25 MG PO QID PRN PRN For HYPERtension For systolic blood pressure greater than 190 mmHg Prescribed by: MICHAEL URIBE MD Lorazepam (Lorazepam Oral Concentrate) 2 Mg/1 Ml Oral.conc 2 MG PO q1hr PRN PRN For Anxiety (Reported) Morphine Sulfate (Morphine Sulfate) 20 Mg/1 Ml Syringe 20 MG PO q1hr PRN PRN For Pain (Reported) Ondansetron (Ondansetron) 4 Mg Tablet 4 MG PO TID PRN PRN For Nausea (Reported) Miscellaneous Medications Nitroglycerin SL (Nitrostat) 0.4 Mg Tab.subl 0.4 MG SL (Reported) Additional med instructions There are new medications on the list below to control high blood pressure. Followup Plan Discharge Diet: Renal Diet Discharge Activity: Other (as per the physical therapy staff at [facility]) Patient Instructions Your blood pressure was very elevated, which may have contributed to your confusion (encephalopathy). We have increased to have your blood pressure medicines and added 1 new one. Follow-up Provider: Mira Ovalle MD Follow-up with PCP in: 1 week (for blood pressure check, call for a post hospitalization primary care appointment) Provider: Jareth Bynum MD Follow-up in: Other (at the [facility]) Time spent 35 minutes copies to: Jareth Bynum MD; Mira Ovalle MD, Jeffrey W MD Feb 20, 2017 18:16
== END 2017-02-20 13:45 | DRG 77 ==
LOC: SED 07:32 → OSC 11:43 → CCU 02-18 00:48 → PCC 02-18 16:45
PROVIDERS: ADMIT Internal Medicine; ATTEND Internal Medicine
PROC: 5A1D60Z (ICD-10-PCS; principal; 2017-02-17)
DX: I67.4 Hypertensive encephalopathy (principal); N18.6 End stage renal disease; I13.2 Hypertensive heart and chronic kidney disease with heart failure and with stage 5 chronic kidney disease, or end stage renal disease; I50.22 Chronic systolic (congestive) heart failure; N39.0 Urinary tract infection, site not specified; I42.9 Cardiomyopathy, unspecified; E03.9 Hypothyroidism, unspecified; E11.319 Type 2 diabetes mellitus with unspecified diabetic retinopathy without macular edema; E11.21 Type 2 diabetes mellitus with diabetic nephropathy; E78.5 Hyperlipidemia, unspecified; I25.10 Atherosclerotic heart disease of native coronary artery without angina pectoris; D63.1 Anemia in chronic kidney disease; Z66 Do not resuscitate; M25.552 Pain in left hip; Z99.2 Dependence on renal dialysis; Z95.1 Presence of aortocoronary bypass graft